=== PATIENT | male | born 1945 | race Caucasian/White ===

== ENCOUNTER 2018-08-16 18:48 | Inpatient (IN) | payer OTHER ==
--- OUTSIDE RECORDS SUMMARY | 2018-08-16 18:53 | XMS REPORT ---
:1945 [facility] Address [address] [place] [address] Dr. Forrester [address] [place] [id number] Care Team Providers Name Role Phone Unavailable Unavailable Unavailable Problems This patient has no known problems. Allergies, Adverse Reactions, Alerts This patient has no known allergies or adverse reactions. Medications This patient has no known medications.
--- NOTE | 2018-08-16 20:17 | RAD REPORT ---
EXAM DESCRIPTION: RAD - Chest Single View - 08/16/2018 8:09 pm CLINICAL HISTORY: RUQ pain, chills Chest pain. COMPARISON: No comparisons FINDINGS: Portable technique limits examination quality. Mild emphysematous changes are present throughout the lungs. The heart is mildly prominent size with multilead pacer/defibrillator device present. No displaced fractures.Sternotomy wires present. IMPRESSION: Mild COPD.
--- NOTE | 2018-08-16 21:00 | RAD REPORT ---
EXAM DESCRIPTION: US - Abdomen Exam Limited - 08/16/2018 8:53 pm CLINICAL HISTORY: ABD PAIN COMPARISON: No comparisons FINDINGS: The gallbladder demonstrates several shadowing gallstones. Gallbladder wall is thickened a nd edematous measuring up to 9 mm. The common bile duct is mildly prominent measuring 7 mm. The liver demonstrates no findings of intrahepatic biliary dilatation. IMPRESSION: Cholelithiasis with sonographic findings of early acute cholecystitis seen.
[2018-08-16] MEDS ORDERED: ONDANSETRON 4 MG/2 ML VIAL ONE (21:13)
[2018-08-16 21:14] LABS: Absolute Lymphocytes (CBC) 1.3 K/uL (0.7-4.9); Absolute Monocytes 0.6 K/uL (0.1-1.3); Absolute Neutrophil 8.6 K/uL (1.8-8.0); Basophils % 0.4 % (0-1.3); Eosinophils % 0.3 % (0-4.4); Hematocrit 39.4 % (39.6-49.0); Lymphocytes % 12.6 % (15.3-44.8); MPV 8.9 fL (7.6-11.3); Monocytes % 5.9 % (3.3-12.3); RBC Red Blood Cell Count 4.36 M/uL (4.33-5.43)
[2018-08-16 21:33] LABS: Albumin 2.8 g/dL (3.4-5.0); Bilirubin Direct 1.3 mg/dL (0-0.2); Bilirubin Total 1.8 mg/dL (0.2-1.0); Potassium 4.3 mmol/L (3.5-5.1); Protein, Total 8.2 g/dL (6.4-8.2)
--- NOTE | 2018-08-16 21:55 | RAD REPORT ---
EXAM DESCRIPTION: CTAbdomen Pelvis W Contrast - 08/16/2018 9:45 pm CLINICAL HISTORY: Abdominal pain. ABD PAIN COMPARISON: Abdomen Exam Limited dated 08/16/2018; Chest Single View dated 08/16/2018 TECHNIQUE: Biphasic CT imaging of the abdomen and pelvis was performed with 100 ml non-ionic IV cont rast. All CT scans are performed using dose optimization technique as appropriate and may include automated exposure control or mA/KV adjustment according to patient size. FINDINGS: The lung bases are clear. The liver, spleen, pancreas, adrenal glands and kidneys are within normal limits. Small cysts are pre sent in both kidneys, benign. Mildly complex lesion is seen projecting off the inferolateral pole the right kidney measuring 22 x 18 mm. The gallbladder wall is thickened and mild inflammatory changes are seen in the right upper quadrant. No bowel obstruction, free air, free fluid or abscess. The appendix is normal. No evidence of signi ficant lymphadenopathy. The bones are demineralized. An mild degenerative changes of the lumbar spine. IMPRESSION: Acute cholecystitis is suspected. Mildly complex lesion is seen projecting from the inferior pole of the right kidney (22 x 18 mm). Fol lowup nonemergent MR imaging of the kidneys with contrast would be recommended.
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
[2018-08-17] MEDS ORDERED: CEFTRIAXONE/SWI 1gm 1 GM/10 ML SYR ONE (00:12)
[2018-08-17] MEDS ORDERED: METRONIDAZOLE 500mg IVPB 500 MG/100 ML BAG IV ONE (00:12)
[2018-08-17] MEDS ORDERED: ACETAMINOPHEN 500 MG TAB PO PRN (02:17)
[2018-08-17] MEDS ORDERED: ALBUTEROL 2.5 MG/3 ML NEB SOL NEB PRN (02:17)
[2018-08-17] MEDS ORDERED: IPRATROPIUM BROM 0.5MG/2.5ML NEB PRN (02:17)
[2018-08-17] MEDS ORDERED: ONDANSETRON 4 MG/2 ML VIAL IV PRN (02:17)
[2018-08-17] MEDS: NA CHLORIDE 0.9% 1,000 ML IV SCH ×4 (03:43→22:17)
[2018-08-17] MEDS: CIPROFLOXACIN 400mg IV 400 MG/200 ML BAG IV SCH ×2 (04:00→16:33)
[2018-08-17] MEDS ORDERED: NA CHLORIDE 0.9% 1,000 ML IV ONE (04:14)
[2018-08-17 04:50] LABS: Urine Appearance CLEAR; Urine Bilirubin NEGATIVE (NEG); Urine Blood NEGATIVE (NEG); Urine Color YELLOW; Urine Glucose NEGATIVE (NEG); Urine Protein NEGATIVE (NEG); Urine Specific Gravity >=1.030 (1.005-1.030)
[2018-08-17 05:15] LABS: Urine Microscopic Reflex ORDER UMIC
[2018-08-17 05:26] LABS: Urine Bacteria 20-50 /HPF (NONE SEEN); Urine Culture Reflex Order REFLEXED; Urine RBC NONE SEEN /HPF (NONE SEEN)
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
[2018-08-17] MEDS: METRONIDAZOLE 500mg IVPB 500 MG/100 ML BAG IV SCH ×3 (08:20→23:12)
[2018-08-17] MEDS: KETOROLAC 30 MG/ML INJ IV PRN (10:38)
--- NOTE | 2018-08-17 15:06 | EKG ---
Test Date: 2018-08-17 Test Time: 12:49:10 Velocity Shooter: RUDY MEASUREMENT RESULTS: Intervals: Rate: 60 OR: 256 QRSD: 170 QT: 462 QTc: 462 Vincent: P: OR: 256 QRS: -60 T: 80 INTERPRETIVE STATEMENTS: Electronic atrial pacemaker Left axis deviation Right bundle branch block Abnormal ECG No previous ECG available for comparison Electronically Signed On 08-17-18 15:05:59 RN REHAB by Juventino Headley
--- NOTE | 2018-08-17 15:28 | ECHO ---
HEIGHT: 6 ft 1 in WEIGHT: 206 lb 0 oz DATE OF STUDY: 08/17/[address]: Juventino Headley MD 2-DIMENSIONAL: YES M.MODE: YES DOPPLER: YES COLOR FLOW: YES TDS: NO PORTABLE: NO DEFINITY: NO BUBBLE STUDY: NO DIAGNOSIS: CORONARY ARTERY DISEASE CARDIAC HISTORY: CATHERIZATION: YES SURGERY: YES PROSTHETIC VALVE: NO PACEMAKER: YES MEASUREMENTS (cm) DIASTOLIC (NORMALS) SYSTOLIC (NORMALS) IVSd 1.3 (0.6-1.2) LA Diam 4.7 (1.9-4.0) LVEF 55-59% LVIDd 5.8 (3.5-5.7) LVIDs 4.3 (2.0-3.5) %FS 27% LVPWd 1.3 (0.6-1.2) Ao Diam 3.2 (2.0-3.7) 2 DIMENSIONAL ASSESSMENT: RIGHT ATRIUM: DILATED LEFT ATRIUM: DILATED RIGHT VENTRICLE: PACEMAKER CATHETER LEFT VENTRICLE: LEFT VENTRICULAR HYPERTROPHY TRICUSPID VALVE: NORMAL MITRAL VALVE: NORMAL PULMONIC VALVE: NORMAL AORTIC VALVE: NORMAL PERICARDIAL EFFUSION: NONE AORTIC ROOT: NORMAL LEFT VENTRICULAR WALL MOTION: NORMAL. DOPPLER/COLOR FLOW: MILD MITRAL AND TRICUSPID REGURGITATION. COMMENTS: NORMAL LEFT VENTRICULAR EJECTION FRACTION. LEFT VENTRICULAR HYPERTROPHY. DILATED LEFT ATRIUM. MILD MITRAL AND TRICUSPID REGURGITATION. ESTIMATED RIGHT VENTRICULAR SYSTOLIC PRESSURE 40mmHg (MILD PULMONARY HYPERTENSION). PACEMAKER IN RIGHT VENTRICLE. TECHNOLOGIST: GUNNAR WARREN
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
[2018-08-17] MEDS: HYDRALAZINE HCL 25 MG TABLET PO SCH (20:52)
[2018-08-17] MEDS: TERAZOSIN HCL 5 MG CAP PO SCH (20:52)
[2018-08-17] MEDS: CARVEDILOL 25 MG TAB PO SCH (20:52)
[2018-08-17] MEDS: BUSPIRONE HCL 15 MG TABLET PO SCH (20:52)
[2018-08-18] MEDS: KETOROLAC 30 MG/ML INJ IV PRN ×2 (01:20→09:14)
[2018-08-18] MEDS: CIPROFLOXACIN 400mg IV 400 MG/200 ML BAG IV SCH ×2 (04:03→15:00)
[2018-08-18] MEDS: NA CHLORIDE 0.9% 1,000 ML IV SCH ×4 (04:03→23:27)
[2018-08-18 06:11] LABS: Absolute Lymphocytes (CBC) 1.6 K/uL (0.7-4.9); Absolute Monocytes 0.6 K/uL (0.1-1.3); Absolute Neutrophil 4.1 K/uL (1.8-8.0); Basophils % 0.5 % (0-1.3); Eosinophils % 0.6 % (0-4.4); Hematocrit 32.8 % (39.6-49.0); MPV 9.5 fL (7.6-11.3); Monocytes % 9.8 % (3.3-12.3); RBC Red Blood Cell Count 3.57 M/uL (4.33-5.43)
[2018-08-18 06:17] LABS: BUN Blood Urea Nitrogen 8 mg/dL (7-18); Bicarbonate 25 mmol/L (21-32); Glucose Level 146 mg/dL (74-106); Magnesium 2.2 mg/dL (1.8-2.4); Potassium 4.2 mmol/L (3.5-5.1); Sodium Level 140 mmol/L (136-145)
[2018-08-18 06:55] LABS: Protime INR 1.18
[2018-08-18] MEDS: ATORVASTATIN 10 MG TAB PO SCH (09:00)
[2018-08-18] MEDS: VITAMIN D 400 UNIT TAB PO SCH (09:00)
[2018-08-18] MEDS: BUSPIRONE HCL 15 MG TABLET PO SCH ×2 (09:00→21:01)
[2018-08-18] MEDS: HYDRALAZINE HCL 25 MG TABLET PO SCH ×2 (09:00→21:02)
[2018-08-18] MEDS: CARVEDILOL 25 MG TAB PO SCH ×2 (09:00→21:02)
[2018-08-18] MEDS ORDERED: DIGOXIN 0.125 MG TABLET PO SCH (09:00)
[2018-08-18] MEDS: DIGOXIN 0.25 MG/ML AMP IV SCH (09:04)
[2018-08-18] MEDS: METRONIDAZOLE 500mg IVPB 500 MG/100 ML BAG IV SCH ×3 (09:04→23:26)
[2018-08-18 10:54] LABS: Albumin 2.1 g/dL (3.4-5.0); Bilirubin Direct 0.3 mg/dL (0-0.2); Bilirubin Total 0.6 mg/dL (0.2-1.0); Protein, Total 6.2 g/dL (6.4-8.2)
--- NOTE | 2018-08-18 11:04 | P.PN ---
Subjective Date of Service: 08/18/18 Chief Complaint: acute cholecystitis Pt seen and examined at bedside. Chart Reviewed. Case DW with GI and surgery. This AM pt doing well. No c.o. Denied N/V and abd pain. Planned for ERCP today Review of Systems 10-point ROS is otherwise unremarkable Physical Examination - Vital Signs Temperature: 97.7 F Blood Pressure: 101/58 Pulse: 60 Respirations: 18 Pulse Ox (%): 94 - Physical Exam General: Alert, In no apparent distress HEENT: Atraumatic, PERRLA, EOMI Neck: Supple, JVD not distended Respiratory: Clear to auscultation bilaterally, Normal air movement Cardiovascular: Regular rate/rhythm, Normal S1 S2 Gastrointestinal: Normal bowel sounds, No tenderness Musculoskeletal: No tenderness Integumentary: No rashes Neurological: Normal speech, Normal tone, Normal affect Lymphatics: No axilla or inguinal lymphadenopathy - Studies Medications List Reviewed: Yes Assessment And Plan - Current Problems (Diagnosis) (1) Cholecystitis Onset Date: 08/18/18 Current Visit: Yes Status: Acute Plan: Acute Cholecystitis with Elevated LFT's -Possible Cholidocholicysitis. Unable to Do MRCP due to Pacemaker -GI consulted. Appreciated reccs -Planned for ERCP today -Continue with NPO, IV fluids and IV abx - Cipro and flagyl -Will f.u post ERCP -Cleared for surgery -ASA and plavix on hold. (2) CAD (coronary artery disease) Onset Date: 08/18/18 Current Visit: Yes Status: Chronic Qualifiers: Coronary Disease-Associated Artery/Lesion type: bypass graft, other Associated angina: without angina Qualified Code(s): I25.810 - Atherosclerosis of coronary artery bypass graft(s) without angina pectoris (3) HTN (hypertension) Onset Date: 08/18/18 Current Visit: Yes Status: Chronic Qualifiers: Hypertension type: essential hypertension Qualified Code(s): I10 - Essential (primary) hypertension Discharge Plan: Home Plan to discharge in: 48 Hours - Code Status/Comfort Care Code Status Assessed: Yes Critical Care: No
[2018-08-18] MEDS ORDERED: SIMETHICONE 40 MG/ 0.6 ML ONE (12:00)
[2018-08-18] MEDS ORDERED: LIDOCAINE 1% MPF 5 ML VIAL ONE (12:22)
[2018-08-18] MEDS ORDERED: PROPOFOL 200 MG/20 ML VIAL IV ONE (12:22)
[2018-08-18] MEDS ORDERED: FENTANYL CITR 100 MCG/2 ML ONE (12:22)
[2018-08-18] MEDS ORDERED: MIDAZOLAM HCL 2 MG/2 ML INJ ONE (12:22)
--- NOTE | 2018-08-18 13:14 | RAD REPORT ---
EXAM DESCRIPTION: RAD - Fluoroscopy ERCP - 08/18/2018 1:05 pm CLINICAL HISTORY: Abdominal pain FINDINGS: 4 fluoroscopic images obtained. Fluoroscopy time 4.1 minute Pancreatic and common bile duct cannulated and contrast administered. Pancreatic duct is normal caliber. Biliary tree is normal caliber. No gross filling defect is seen although there is faint opacification Exam was performed by Dr. Henderson
--- NOTE | 2018-08-18 13:29 | PN ---
Date of Progress Note: 08/18/[address] Randle on 08/17/2018. This is a progress note for 08/18/2018. The patient had an ech ocardiogram showing ejection fraction of 59% with left ventricular hypertrophy, mild pulmonary hypert ension, presence of AICD. The patient has a history of CABG and PCI in the past. Had a recent negat cinthya Lexiscan by Dr. Cameron in [place]. We consider him to be cleared for gallbladder surgery after the echo results. CARLIN/TAMMIE Voice ID: [id number] Report ID: [id number]
--- NOTE | 2018-08-18 14:07 | ENDO RPT ---
[address], [address] ERCP PROCEDURE REPORT EXAM DATE: 08/18/2018 PATIENT NAME: Jose Mckeon MR #: [id number] BIRTHDATE: 1945 ATTENDING: Grover Henderson Dr STATUS: inpatient - [facility] FORMER: Daria Colon RN, Nicolasa Alvarado RN, and Mckayla Lopez INDICATIONS: The patient is a 73 yr old Male here for an ERCP due to abdominal pain, abnormal imaging, abnormal Liver Function Tests, and jaundice PROCEDURE PERFORMED: ERCP with sphincterotomy and ERCP with stent placement MEDICATIONS: Per Anesthesia. CONSENT: The patient understands the risks and benefits of the procedure and understands that these risks include, but are not limited to: sedation, allergic reaction, infection, perforation and/or bleeding. Alternative means of evaluation and treatment include, among others: physical exam, x-rays, and/or surgical intervention. The patient elects to proceed with this endoscopic procedure. DESCRIPTION OF PROCEDURE: During intra-op preparation period all mechanical medical equipment was checked for proper function. Hand hygiene and appropriate measures for infection prevention was taken. Procedure, possible complications, and alternatives including but not limited to the possibility of bleeding, perforation, tear, infection, sepsis, need for surgery, need for blood transfusion, and anesthesia related complications were explained to the patient. In addition, 5-30% incidence of acute pancreatitis as a result of ERCP were explained. After the risks, benefits and alternatives of the procedure were thoroughly explained, Informed was verified, confirmed and timeout was successfully executed by the treatment team. With the patient in left semi-prone position, medications were administered intravenously.The [id number] ([id number]) was passed from the mouth into the esophagus and further advanced from the esophagus into the stomach. From stomach scope was directed to the second portion of the duodenum. Major papilla was aligned with the duodenoscope. The scope position was confirmed fluoroscopically. Rest of the findings/therapeutics are given below. The scope was then completely withdrawn from the patient and the procedure completed. The pulse, BP, and O2 saturation were monitored and documented by the physician and the nursing staff throughout the entire procedure. The patient was cared for as planned according to standard protocol. The patient was then discharged to recovery in stable condition and with appropriate post procedure care. Filling defect was noted in the common bile duct. Sphincterotomy was performed with a regular 20 mm papillotome. A straight stent was placed. The pancreatic duct was filled to the tail and appeared to be normal. Care was taken not to overfill the ductal system. ADVERSE EVENT: None IMPRESSIONS: 1. Small 2 mm filling defect in the distal common bile duct, extensive cholangiogram - indicative of cholecystitis) 2. The pancreatic duct was filled to the tail and appeared to be normal. Care was taken not to overfill the ductal system. RECOMMENDATIONS: 1. antibiotics 2. cholecystectomy as per surgery REPEAT EXAM: Grover Henderson Dr eSigned: Grover Henderson Dr 08/18/2018 1:04 PM cc: Jose Chung CPT CODES: ICD9 CODES: PATIENT NAME: Jose Mckeon MR#: [id number]
[2018-08-18] MEDS: TERAZOSIN HCL 5 MG CAP PO SCH (21:02)
[2018-08-19] MEDS: KETOROLAC 30 MG/ML INJ IV PRN ×2 (00:31→10:16)
[2018-08-19] MEDS: CIPROFLOXACIN 400mg IV 400 MG/200 ML BAG IV SCH ×2 (02:24→15:00)
[2018-08-19 04:54] LABS: Absolute Lymphocytes (CBC) 1.9 K/uL (0.7-4.9); Absolute Monocytes 0.7 K/uL (0.1-1.3); Absolute Neutrophil 3.6 K/uL (1.8-8.0); Basophils % 0.6 % (0-1.3); Eosinophils % 4.2 % (0-4.4); Hematocrit 31.3 % (39.6-49.0); Monocytes % 10.3 % (3.3-12.3); RBC Red Blood Cell Count 3.44 M/uL (4.33-5.43)
[2018-08-19 05:08] LABS: Protime INR 1.27
[2018-08-19 05:19] LABS: ALT/SGPT 76 U/L (12-78); AST/SGOT 25 U/L (15-37); Albumin 2.1 g/dL (3.4-5.0); Alkaline Phosphatase 181 U/L (45-117); BUN Blood Urea Nitrogen 8 mg/dL (7-18); Bicarbonate 29 mmol/L (21-32); Bilirubin Total 0.4 mg/dL (0.2-1.0); Glucose Level 117 mg/dL (74-106); Potassium 4.2 mmol/L (3.5-5.1); Protein, Total 5.9 g/dL (6.4-8.2); Sodium Level 139 mmol/L (136-145)
--- NOTE | 2018-08-19 07:00 | P.PN ---
Subjective Date of Service: 08/19/18 Chief Complaint: acute cholecystitis, RUQ/VIRGILIO pain Subjective: Improving (Much less abdominal pain today, feels better. s/p ERCP yesterday.) Review of Systems 10-point ROS is otherwise unremarkable Gastrointestinal: Abdominal Pain (Improved. ) Physical Examination - Vital Signs Temperature: 97.7 F Blood Pressure: 132/62 Pulse: 60 Respirations: 18 Pulse Ox (%): 96 - Physical Exam General: Alert, In no apparent distress, Oriented x3, Cooperative HEENT: Atraumatic, Normocephalic, PERRLA, EOMI, Sclerae nonicteric Neck: Supple Respiratory: Normal air movement Cardiovascular: Normal pulses Gastrointestinal: Soft and benign, No tenderness, No rebound, No guarding Neurological: Normal speech - Studies Medications List Reviewed: Yes Assessment And Plan - Current Problems (Diagnosis) (1) RUQ abdominal pain Current Visit: Yes Status: Acute Comment: Improved. (2) Epigastric abdominal pain Current Visit: Yes Status: Acute (3) Abnormal liver enzymes Current Visit: Yes Status: Acute Comment: Improved. (4) Abnormal CT of the abdomen Current Visit: Yes Status: Acute (5) Abnormal ultrasound Current Visit: Yes Status: Acute (6) Cholecystitis Onset Date: 08/18/18 Current Visit: Yes Status: Acute (7) Cholelithiasis Onset Date: 08/18/18 Current Visit: Yes Status: Acute Qualifiers: Cholelithiasis location: gallbladder Cholecystitis presence: with cholecystitis Cholecystitis acuity: acute Biliary obstruction: with biliary obstruction Qualified Code(s): K80.01 - Calculus of gallbladder with acute cholecystitis with obstruction - Plan REC: 1) continue IVFs and IV antibiotics 2) lap nan as per surgery 3) ERCP with stent removal in ~ 3 weeks
[2018-08-19] MEDS: BUSPIRONE HCL 15 MG TABLET PO SCH (09:05)
[2018-08-19] MEDS: VITAMIN D 400 UNIT TAB PO SCH (09:05)
[2018-08-19] MEDS: HYDRALAZINE HCL 25 MG TABLET PO SCH (09:06)
[2018-08-19] MEDS: ATORVASTATIN 10 MG TAB PO SCH (09:07)
[2018-08-19] MEDS: CARVEDILOL 25 MG TAB PO SCH (09:07)
[2018-08-19] MEDS: METRONIDAZOLE 500mg IVPB 500 MG/100 ML BAG IV SCH ×2 (09:09→16:00)
[2018-08-19] MEDS: DIGOXIN 0.25 MG/ML AMP IV SCH (09:13)
--- NOTE | 2018-08-19 11:22 | P.PN ---
Subjective Date of Service: 08/19/18 Chief Complaint: acute cholecystitis, RUQ/VIRGILIO pain Pt seen and examined at bedside. Chart Reviewed. Case DW with GI and surgery. This AM pt doing well. No c.o. Denied N/V and abd pain. Status post ERCP. Today scheduled for lap nan Review of Systems 10-point ROS is otherwise unremarkable Physical Examination - Vital Signs Temperature: 97.4 F Blood Pressure: 132/62 Pulse: 60 Respirations: 20 Pulse Ox (%): 94 - Physical Exam General: Alert, In no apparent distress, Oriented x3 HEENT: Atraumatic, PERRLA, EOMI Neck: Supple, JVD not distended Respiratory: Clear to auscultation bilaterally, Normal air movement Cardiovascular: Regular rate/rhythm, Normal S1 S2 Gastrointestinal: Normal bowel sounds, No tenderness Musculoskeletal: No tenderness Integumentary: No rashes Neurological: Normal speech, Normal tone, Normal affect Lymphatics: No axilla or inguinal lymphadenopathy - Studies Medications List Reviewed: Yes Assessment And Plan - Current Problems (Diagnosis) (1) Cholecystitis Onset Date: 08/18/18 Current Visit: Yes Status: Acute Plan: Acute Cholecystitis with Elevated LFT's -Possible Cholidocholicysitis. Unable to Do MRCP due to Pacemaker -GI consulted. Appreciated reccs -S/P ERCP with Stent Placement -Filling Defect noted. Stent Placement -Continue with NPO, IV fluids and IV abx - Cipro and flagyl -Scheduled for Surgery today -ASA and plavix on hold. (2) CAD (coronary artery disease) Onset Date: 08/18/18 Current Visit: Yes Status: Chronic Qualifiers: Coronary Disease-Associated Artery/Lesion type: bypass graft, other Associated angina: without angina Qualified Code(s): I25.810 - Atherosclerosis of coronary artery bypass graft(s) without angina pectoris (3) HTN (hypertension) Onset Date: 08/18/18 Current Visit: Yes Status: Chronic Qualifiers: Hypertension type: essential hypertension Qualified Code(s): I10 - Essential (primary) hypertension Discharge Plan: Home Plan to discharge in: 72 Hours - Code Status/Comfort Care Code Status Assessed: Yes Critical Care: No
--- NOTE | 2018-08-19 12:19 | P.PN ---
Subjective Date of Service: 08/18/18 Chief Complaint: acute cholecystitis, RUQ/VIRGILIO pain Subjective: New changes (Pt eating [employer] fatty meal brought from outside against medical advise.) Review of Systems Gastrointestinal: Abdominal Pain, As per HPI Physical Examination - Vital Signs Temperature: 97.4 F Blood Pressure: 132/62 Pulse: 60 Respirations: 20 Pulse Ox (%): 94 - Physical Exam General: Alert, Oriented x3 HEENT: PERRLA, EOMI, Sclerae nonicteric Neck: Supple Gastrointestinal: Tenderness Musculoskeletal: No erythema, No tenderness, No warmth Integumentary: No erythema, No warmth, No cyanosis Neurological: Normal speech - Studies Medications List Reviewed: Yes Assessment And Plan - Plan Pt explained non complaint behavior may be life threatening. Previously patient signed AMA from another institution even when he was being treated for same disease. He went home and got worst and came to us but once again its has been difficult to make him understand the importance of compliance. BAR of lap vs open cholecystectomy fully explained including but not limited to infection, bleeding, damage to adjacent structures, choledocholithiasis, damage to adjacent structures, OR even . Pt havinf ERCP due to choledocholithasis, pt advised to also f/u with gastroenterologyst as an outpt
[2018-08-19] MEDS ORDERED: Ringers Lactate 1,000 ML IV ONE (12:30)
[2018-08-19] MEDS ORDERED: BUPIVACAINE 0.5% PF 10 ML VIAL ONE (13:05)
[2018-08-19] MEDS ORDERED: MIDAZOLAM HCL 2 MG/2 ML INJ ONE (13:35)
[2018-08-19] MEDS ORDERED: PROPOFOL 200 MG/20 ML VIAL IV ONE (13:36)
[2018-08-19] MEDS ORDERED: FENTANYL CITR 100 MCG/2 ML ONE (13:37)
[2018-08-19] MEDS ORDERED: LIDOCAINE 2% MPF 5 ML VIAL ONE (13:37)
[2018-08-19] MEDS ORDERED: ONDANSETRON 4 MG/2 ML VIAL ONE (13:38)
[2018-08-19] MEDS ORDERED: ROCURONIUM 50 MG/5 ML VIAL IV ONE (13:38)
[2018-08-19] MEDS ORDERED: GLYCOPYRROLATE 0.2 MG/ML SYR ONE (14:29)
[2018-08-19] MEDS ORDERED: NEOSTIGMINE 1 MG/ML -5 ML SYRINGE ONE (14:31)
--- NOTE | 2018-08-19 14:41 | P.BOP ---
Preoperative diagnosis: acute cholecystitis, sympt cholelithiasis, s/p ERCP with stent Postoperative diagnosis: same , intrabdominal adhesions Primary procedure: Diagnostic laparoscopy Secondary procedure: Laparoscopic lysis of adhesions Estimated blood loss: <5cc Specimen: gb Findings: as above, unable to perform surgery safely at this time. I'll discuss opti Anesthesia: General Complications: None Transferred to: Recovery Room Condition: Good
[2018-08-19] MEDS ORDERED: HYDROCODONE/APAP 7.5/325 MG TAB PO PRN (14:50)
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
--- NOTE | 2018-08-24 21:32 | OP ---
Date of Procedure: 08/19/2018 Surgeon: Jose Chung MD Preoperative Diagnosis: Acute cholecystitis, symptomatic cholelithiasis, status post ERCP with stent . Postoperative Diagnosis: Acute cholecystitis, symptomatic cholelithiasis, status post ERCP with sten t and extensive intraabdominal adhesions. Procedure: Diagnostic laparoscopy and laparoscopic lysis of adhesions. Specimen: Gallbladder finding as above. Unable to remove the gallbladder at this time. We have a l ot of swelling over that area. Please see the bottom part of his dictation for an option. Anesthesia: General plus local. Indications: This is the case of a 73-year-old patient, who has been dealing with on and off abdomin al pain for the last several months but at the same time he is not cooperating and listening to us or to family members about diet control. He has been in and out of different ER, signing out AMA on di fferent occasions, being noncompliant with diet even here in our institution. We asked him not to ea t the night before procedure, he was eating food from outside from [employer] against medical advice . At this time, the patient got antibiotics. Went again through all the process that we have. We h ave to do an ERCP. Once again diet control has been an issue. The benefits and risks of laparoscopi c, possible open cholecystectomy were fully explained to the patient, which include but are not limit ed to infection, bleeding, damage to adjacent structures, anesthesia complication, choledocholithiasi s, bile leak, pancreatitis, GA, and even . He also understood, this may not relieve any symptom s. He might need more than one surgical intervention. We discussed with him the pros and cons of rees rgical intervention, options that we have. In the beginning he was reluctant to do so. This morning he signed a consent to have the surgery done. Description Of Procedure: The patient was brought to the operating room, placed in supine position. Anesthesia was done without complication. The abdominal area was prepped and draped in a sterile fa shion. A Marcaine 0.5% was injected for local anesthetic, followed by sharp incision of the skin in the infraumbilical region. Incision was carried down to fascia, which was opened under direct vision . Peritoneum was encountered, opened under direct vision. Vicryl #1 was placed inside of the fascia . Simran trocar was carefully introduced and no bleeding was obtained. At that moment, I proceeded to take a look at the right upper quadrant. The patient had multiple adhesions. The etiology of addie t is unknown since the patient has no surgeries in that region. So at that moment, I proceeded to pu t a 5-mm trocar in area we see that it is safe to put a trocar and using an Endo Leila we proceeded to take the adhesions down. At this moment we still cannot see the gallbladder. The area of the tra nsverse colon cannot be seen clearly needed to clear those adhesions, so we proceeded slowly to get t he adhesions down till we get access to the gallbladder. We noticed an inflamed gallbladder. We did not see any evidence of gangrene in the gallbladder. Just to proceed over top of the gallbladder wa s difficult enough, going down with adhesions became difficult and there was a lot of swelling presen t in that area and I believe that since we have not examined the colon in that area, I am not sure ex actly these adhesions were coming from there to the gallbladder. I believed it was unsafe to continu e with the gallbladder at this moment. After discussing that with the patient's family, aakash g the pros and cons of this then we proceeded to hold the cholecystectomy at this moment and we might even do a cholecystostomy to first let the gallbladder cool down and then proceed accordingly. At t hat moment, it will be ideal also to check his last colonoscopy to make sure there is no pathology in the colon causing this kind of reaction and scar tissue. The area of the lysis of adhesions that to ok a significant amount of time was examined once again, no bleeding. At that moment, I proceeded to remove the trocars under direct vision, displaying no bleeding. I closed the fascia with #1 Vicryl and irrigated subcu tissue and closed that with 3-0 chromic and the skin with ravi. Sponge count and instrument counts were correct. The patient tolerated the procedure well. The patient was sent to recovery in stable condition. After he woke up, we once again explained to him the importance of antibiotics, importance of diet control. I discussed the case with the primary doctor also and the p ossibility of transfer for a percutaneous cholecystostomy tube. The patient preferred to go home on p.o. antibiotics and cool it down sometimes that could be successful sometimes not. Due to the histo ry of his noncompliance it is hard for me to believe that may be a feasible option. He is going to t hink about it and he is going to talk to his and then let me know which way he wants to proceed. In the meantime, we going to continue with the antibiotics and diet control. BLAKE Voice ID: [id number] Report ID: [id number]
== END 2018-08-19 18:52 | disposition left against medical advice (07) | DRG 422 ==
LOC: ER 18:48 → ERHOLD 08-17 00:07 → 2ND 08-17 02:11
PROVIDERS: ADMIT Internal Medicine; ATTEND Family Medicine
PROC: 0F798DZ Dilation of Common Bile Duct with Intraluminal Device, Via Natural or Artificial Opening Endoscopic (ICD-10-PCS; 2018-08-18)
PROC: BF11YZZ Fluoroscopy of Biliary and Pancreatic Ducts using Other Contrast (ICD-10-PCS; 2018-08-18)
PROC: 0DNW4ZZ Release Peritoneum, Percutaneous Endoscopic Approach (ICD-10-PCS; 2018-08-19)
PROC: 0WJG4ZZ Inspection of Peritoneal Cavity, Percutaneous Endoscopic Approach (ICD-10-PCS; principal; 2018-08-19 13:45)
DX: K80.01 Calculus of gallbladder with acute cholecystitis with obstruction (principal); I10 Essential (primary) hypertension; I25.10 Atherosclerotic heart disease of native coronary artery without angina pectoris; Z95.1 Presence of aortocoronary bypass graft; Z91.11 Patient's noncompliance with dietary regimen; I25.2 Old myocardial infarction; Z99.3 Dependence on wheelchair; F17.210 Nicotine dependence, cigarettes, uncomplicated; R94.5 Abnormal results of liver function studies; Z95.810 Presence of automatic (implantable) cardiac defibrillator; I51.7 Cardiomegaly; I27.20 Pulmonary hypertension, unspecified; K66.0 Peritoneal adhesions (postprocedural) (postinfection)
CPT/HCPCS: 36415; 71045; 74177; 76705; 80048; 80053; 80076; 81003; 81015; 83690; 83735; 85025; 85610; 85730; 87086; 87088; 93005; 93306; 94760; 96365; 96375; 99285; C1769; C2625; J0696; J0744; J1160; J2250; J2405; J2704; J2710; J3010; J7030; Q9967

== ENCOUNTER 2018-09-15 09:45 | Day surgery (SDC) | payer OTHER ==
--- OUTSIDE RECORDS SUMMARY | 2018-09-15 09:58 | XMS REPORT ---
:1945 [facility] Address [address] [place] [address] Dr. Forrester [address] [place] [id number] Care Team Providers Name Role Phone Unavailable Unavailable Unavailable Problems This patient has no known problems. Allergies, Adverse Reactions, Alerts This patient has no known allergies or adverse reactions. Medications This patient has no known medications.
--- OUTSIDE RECORDS SUMMARY | 2018-09-15 09:58 | XMS REPORT | Continuity of Care Document ---
:1945 Author Organization Interface Problems Problem Status Onset Classification Date Comments Source Date Reported [place] Active 09/01/19 [facility] [facility] CCL/ICD GENERATOR Active 09/01/19 [facility] CHANGE/SJ/DX: [place] 14 Medical Kimberly ABDOMINAL AORTIC Active 02/18/20 [facility] CCL/ CHEST PAIN/ Active 01/22/20 [facility] POSS, ABD 12 [facility] AORTOGRAM Center Coronary artery Active Problem 02/26/2013 [facility] Muscle paralysis Active Problem 02/26/2013 [facility] Pain Active Problem 02/26/2013 [facility] Peripheral Active Problem 02/26/2013 [facility] CAD Resolved Problem 09/08/2013 [facility] COPD Resolved Problem 09/08/2013 [facility] Coronary artery Active Problem 09/08/2013 [facility] HTN Resolved Problem 09/08/2013 [facility] Hyperlipidemia Resolved Problem 09/08/2013 [facility] Hypothyroidism Resolved Problem 09/08/2013 [facility] Muscle paralysis Active Problem 09/08/2013 [facility] Pain Active Problem 09/08/2013 [facility] Peripheral Active Problem 09/08/2013 [facility] ABDOM AORTIC Active [facility] Medications Medication Details Route Status Patient Ordering Order Source Instructions Provider Date Saline Flush 5 ml, Inactive Javier [facility] 0.9% Route: 014 Medical IVP, Drug Center Form: INJ, Dosing Weight 86.364, kg, Q12H, Start date: 09/06/13 21:00:00, Duration: 30 day, Stop date: 10/06/13 9:00:00([facility] as: BD Posiflush) ceFAZolin 2 gm, 50 Inactive Javier [facility] mL, Route: 014 Medical IVPB, Drug Center form: INJ, Q6H, Dosing Weight 86.364, kg, Start date: 09/06/13 14:00:00, Duration: 1 doses or times, Stop date: 09/06/13 14:00:00 Keflex 500 mg 500 mg=1 Active [facility] oral capsule cap, PO, 014 Medical QID, # 8 Center cap, 0 Refill(s) acetaminophen-c 2 tab, Inactive [facility] odeine #3 Route: PO, 014 Medical Drug Form: Center TAB, Dosing Weight 86.364, kg, Q4H, PRN Pain Score 7-10, Start date: 09/06/13 9:47:00, Duration: 30 day, Stop date: 10/06/13 9:46:00Do not exceed 4gm/day of acetaminop hen. (Same as: Tylenol with Codeine # 3) promethazine 12.5 mg, Inactive [facility] 0.5 mL, 014 Medical Route: IM, Center Drug form: INJ, Q4H, Dosing Weight 86.364, kg, PRN Nausea, Start date: 09/06/13 9:47:00, Duration: 30 day, Stop date: 10/06/13 9:46:00Do not give IV push. (Same as: Phenergan) ondansetron 4 mg, 2 Inactive [facility] [place] mL, Route: 014 Medical IVP, Drug Center form: INJ, Q8H, Dosing Weight 86.364, kg, PRN Nausea & Vomiting, Start date: 09/06/13 9:47:00, Duration: 30 day, Stop date: 10/06/13 9:46:00(Sa me as: Zofran) Saline Flush 5 ml, Inactive [facility] 0.9% Route: 014 Medical IVP, Drug Center Form: INJ, Dosing Weight 86.364, kg, PRN, PRN Line Flush, Start date: 09/06/13 9:47:00, Duration: 30 day, Stop date: 10/06/13 9:46:00(Sa me as: BD Posiflush) morphine 2 mg, 1 Inactive [facility] Sulfate mL, Route: 014 Medical IVP, Drug Center form: INJ, Q2H, Dosing Weight 86.364, kg, PRN Pain, Start date: 09/06/13 9:46:00, Duration: 30 day, Stop date: 10/06/13 9:45:00(Sa me as:MORPhin e Sulfate) Valium 5 mg, 1 Inactive [facility] tab, 014 Medical Route: PO, Center Drug form: TAB, ONCALL, Dosing Weight 84.091, kg, Start date: 09/06/13 8:00:00, Duration: 1 doses or times, Stop date: 09/06/13 17:00:00(S bethany as: Valium) Allergies, Adverse Reactions, Alerts Substance Category Reaction Severity Reaction Status Date Comments Source type Reported predniSONE drug dysrythmias Allergy [facility] triamterene drug Allergy [facility] Immunizations Immunization Date Given Site Status Last Updated Comments Source Results Order Results Value Reference Date Interpretation Comments Source Name Range BLOOD ABO/Rh A POS 09/06 [facility] Medical RESULTS Kimberly BLOOD Antibody Negative 09/06 Normal [facility] Scrn Medical RESULTS (09/06/2013 07:30:00) Kimberly Aorta US Aorta US EXAM: US ABDOMEN LIMITED 02/24 - [facility] - Medical Aorta US This report was dictated by a Grooving Machine Operator/Fellow. I have personally reviewed the images as Center well as the Resident's interpretation and agree with the findings. Read by: Nino Jimenez Resident: Nino Jimenez Dictated Date/time: 02/24/13 14:31 DATE: Feb 24, 2013 01:42:00 PM Electronically Signed by: Ran St MD 02/24/13 16:22 FINAL REPORT INDICATION: Abdominal aortic aneurysm ADDITIONAL INFORMATION: None. COMPARISON: None. TECHNIQUE: Multiplanar grayscale and color Doppler ultrasound images of the abdomen were obtained. FINDINGS: The aorta is not well visualized due to overlying bowel gas and body habitus. Only the most superior segment the upper abdomen is seen which is normal in caliber measuring 2.5 x 2.1 cm. IMPRESSION: 1. Limited evaluation for abdominal aortic aneurysm as a majority of the aorta is not seen. Consider CT for further evaluation. Vital Signs Vital Sign Value Date Comments Source Systolic (mm Hg) 124 09/06/2013 [facility] Diastolic (mm Hg) 59 09/06/2013 [facility] Systolic (mm Hg) 125 09/06/2013 [facility] Diastolic (mm Hg) 59 09/06/2013 [facility] Systolic (mm Hg) 125 09/06/2013 [facility] Diastolic (mm Hg) 59 09/06/2013 [facility] Respitory Rate 16 09/06/2013 [facility] Weight 86.364 09/06/2013 [facility] Height 185.42 cm 09/06/2013 [facility] Respitory Rate 16 09/06/2013 [facility] Encounters Location Location Encounter Encounter Reason Attending ADM DC Status Source Details Type Number For Visit Provider Date Date [facility] FANNIE [id number] CCL/ MAZEN 01/23 Active [facility] CHEST [facility] /2011 [facility] PAIN/ [facility] POSS, ABD AORTOGRAM [facility] Outpatient [id number] ABDOMINAL MAZEN 02/24 Active [facility] AORTIC [facility] /2012 [facility] ANURYSM Center [facility] FNANIE [id number] PING [place]YLE 09/06 09/06 Active [facility] /2013 Medical [facility] Center [facility] FANNIE [id number] MAZEN Active [facility] Center Procedures Procedure Code Date Perfomer Comments Source CABG - Coronary [id number] [facility] artery bypass graft [facility] ICD - Internal [id number] [facility] cardiac [facility] defibrillator Kimberly procedure
--- OUTSIDE RECORDS SUMMARY | 2018-09-15 09:58 | XMS REPORT | CCD ---
:1945 Author Organization [facility] Care Team Providers Name Role Phone Martínez Taveras Primary Care Provider Aubrey Mcmillan Referring Provider Allergies, Adverse Reactions, Alerts Substance Reaction Status predniSONE dysrythmias Active triamterene Active Problem List Condition Effective Dates Status Coronary artery disease Active Muscle paralysis Active Pain Active Peripheral vascular disease Active
--- OUTSIDE RECORDS SUMMARY | 2018-09-15 09:58 | XMS REPORT | CCD ---
:1945 Author Organization [facility] Care Team Providers Name Role Phone Martínez Taveras Primary Care Provider Diana Herrera Referring Provider Allergies, Adverse Reactions, Alerts Substance Reaction Status predniSONE dysrythmias Active triamterene Active Problem List Condition Effective Dates Status CAD (coronary artery disease) Resolved COPD Resolved Coronary artery disease Active HTN (hypertension) Resolved Hyperlipidemia Resolved Hypothyroidism Resolved Muscle paralysis Active Pain Active Peripheral vascular disease Active Medications Medication Instructions Start Date End Date Status Keflex 500 mg oral 500 mg=1 cap, PO, QID, # 09/06/2013 Ordered capsule 8 cap, 0 Refill(s) Valium 5 mg, 1 tab, Route: PO, 09/06/2013 09/06/2013 Completed Drug form: TAB, ONCALL, Dosing Weight 84.091, kg, Start date: 09/06/13 8:00:00, Duration: 1 doses or times, Stop date: 09/06/13 17:00:00(Same as: Valium) morphine Sulfate 2 mg, 1 mL, Route: IVP, 09/06/2013 09/06/2013 Discontinued Drug form: INJ, Q2H, Dosing Weight 86.364, kg, PRN Pain, Start date: 09/06/13 9:46:00, Duration: 30 day, Stop date: 10/06/13 9:45:00(Same as:MORPhine Sulfate) ceFAZolin 2 gm, 50 mL, Route: IVPB, 09/06/2013 09/06/2013 Completed Drug form: INJ, Q6H, Dosing Weight 86.364, kg, Start date: 09/06/13 14:00:00, Duration: 1 doses or times, Stop date: 09/06/13 14:00:00 acetaminophen-codeine #3 2 tab, Route: PO, Drug 09/06/2013 09/06/2013 Discontinued Form: TAB, Dosing Weight 86.364, kg, Q4H, PRN Pain Score 7-10, Start date: 09/06/13 9:47:00, Duration: 30 day, Stop date: 10/06/13 9:46:00Do not exceed 4gm/day of acetaminophen. (Same as: Tylenol with Codeine # 3) promethazine 12.5 mg, 0.5 mL, Route: 09/06/2013 09/06/2013 Discontinued IM, Drug form: INJ, Q4H, Dosing Weight 86.364, kg, PRN Nausea, Start date: 09/06/13 9:47:00, Duration: 30 day, Stop date: 10/06/13 9:46:00Do not give IV push. (Same as: Phenergan) ondansetron 4 mg, 2 mL, Route: IVP, 09/06/2013 09/06/2013 Discontinued Drug form: INJ, Q8H, Dosing Weight 86.364, kg, PRN Nausea & Vomiting, Start date: 09/06/13 9:47:00, Duration: 30 day, Stop date: 10/06/13 9:46:00(Same as: Zofran) Saline Flush 0.9% 5 ml, Route: IVP, Drug 09/06/2013 09/06/2013 Discontinued Form: INJ, Dosing Weight 86.364, kg, PRN, PRN Line Flush, Start date: 09/06/13 9:47:00, Duration: 30 day, Stop date: 10/06/13 9:46:00(Same as: BD Posiflush) Saline Flush 0.9% 5 ml, Route: IVP, Drug 09/06/2013 09/06/2013 Canceled Form: INJ, Dosing Weight 86.364, kg, Q12H, Start date: 09/06/13 21:00:00, Duration: 30 day, Stop date: 10/06/13 9:00:00(Same as: BD Posiflush) Vital Signs Most recent to oldest 1 2 3 [Reference Range]: Height 185.42 cm (09/06/2013 07:48:00) Systolic Blood Pressure 124 mmHg 125 mmHg 125 mmHg [90-140 mmHg] (09/06/2013 13:00:00) (09/06/2013 12:45:00) (09/06/2013 12:30: 00) Diastolic Blood Pressure 59 mmHg 59 mmHg 59 mmHg [60-90 mmHg] *LOW* *LOW* *LOW* (09/06/2013 13:00:00) (09/06/2013 12:45:00) (09/06/2013 12:30:00) Respiratory Rate [14-20 16 BRMIN 16 BRMIN BRMIN] (09/06/2013 09:30:00) (09/06/2013 07:30:00) Weight 86.364 kg (09/06/2013 07:48:00) Results BLOOD BANK RESULTS Most recent to oldest [Reference Range]: 1 ABO/Rh A POS *Unknown* (09/06/2013 07:30:00) Antibody Scrn Negative (09/06/2013 07:30:00) Procedures Procedures Date Related Diagnosis CABG - Coronary artery bypass graft ICD - Internal cardiac defibrillator procedure
[2018-09-15] MEDS ORDERED: Ringers Lactate 1,000 ML IV ONE (10:29)
[2018-09-15] MEDS ORDERED: GENTAMICIN SULF 80 MG/2ML INJ ONE (12:04)
[2018-09-15] MEDS ORDERED: LIDOCAINE 1% MPF 5 ML VIAL ONE (12:14)
[2018-09-15] MEDS ORDERED: PROPOFOL 200 MG/20 ML VIAL IV ONE ×2 (12:14→12:15)
--- NOTE | 2018-09-15 12:54 | RAD REPORT ---
EXAM DESCRIPTION: Fluoroscopy for ERCP CLINICAL HISTORY: STENT REMOVAL Abdominal pain FINDINGS: Fluoroscopic images submitted from ERCP procedure. Details and diagnostic findings of the procedure are not available. Total fluoroscopy time: 163 seconds
--- NOTE | 2018-09-15 14:03 | ENDO RPT ---
[address], [address] ERCP PROCEDURE REPORT EXAM DATE: 09/15/2018 PATIENT NAME: Jose Mckeon MR #: [id number] BIRTHDATE: 1945 ATTENDING: [address] STATUS: outpatient APPLICATION SERVICES MANAGER: Nighat Francis RN and Keyanna Ahumada RN INDICATIONS: The patient is a 73 yr old Male here for an ERCP due to stent removal, abdominal pain, abnormal imaging, abnormal Liver Function Tests, and jaundice PROCEDURE PERFORMED: ERCP and ERCP with balloon passage MEDICATIONS: Per Anesthesia. CONSENT: The patient understands the risks and benefits of the procedure and understands that these risks include, but are not limited to: sedation, allergic reaction, infection, perforation and/or bleeding. Alternative means of evaluation and treatment include, among others: physical exam, x-rays, and/or surgical intervention. The patient elects to proceed with this endoscopic procedure. DESCRIPTION OF PROCEDURE: During intra-op preparation period all mechanical medical equipment was checked for proper function. Hand hygiene and appropriate measures for infection prevention was taken. Procedure, possible complications, and alternatives including but not limited to the possibility of bleeding, perforation, tear, infection, sepsis, need for surgery, need for blood transfusion, and anesthesia related complications were explained to the patient. In addition, 5-30% incidence of acute pancreatitis as a result of ERCP were explained. After the risks, benefits and alternatives of the procedure were thoroughly explained, Informed was verified, confirmed and timeout was successfully executed by the treatment team. With the patient in left semi-prone position, medications were administered intravenously.The ED-[id number] ([id number]) and ED-[id number] ([id number]) was passed from the mouth into the esophagus and further advanced from the esophagus into the stomach. From stomach scope was directed to the second portion of the duodenum. Major papilla was aligned with the duodenoscope. The scope position was confirmed fluoroscopically. Rest of the findings/therapeutics are given below. The scope was then completely withdrawn from the patient and the procedure completed. The pulse, BP, and O2 saturation were monitored and documented by the physician and the nursing staff throughout the entire procedure. The patient was cared for as planned according to standard protocol. The patient was then discharged to recovery in stable condition and with appropriate post procedure care. A previous sphincterotomy was noted major papilla. Cannulation of the common bile duct was accomplished. The common bile duct and intrahepatics were normal without filling defects, strictures, or stones. ADVERSE EVENT: None IMPRESSIONS: 1. Previous sphincterotomy at major papilla 2. Cannulation of the common bile duct was accomplished. The common bile duct and intrahepatics were normal without filling defects, strictures, or stones. 9 mm balloon catheter sweep of bile duct performed. No stent identified RECOMMENDATIONS: follow-up: GI clinic 2 week(s) check KUB now REPEAT EXAM: [address] Dr eSigned: [address] Dr 09/15/2018 12:38 PM cc: Reza Fam CPT CODES: ICD9 CODES: PATIENT NAME: Jose Mckeon MR#: [id number]
== END 2018-09-15 12:45 | disposition home or self-care (01) ==
LOC: OR 09:45
PROVIDERS: ATTEND Internal Medicine Gastroenterology
PROC: 0F798ZZ Dilation of Common Bile Duct, Via Natural or Artificial Opening Endoscopic (ICD-10-PCS; principal; 2018-09-15 12:00)
DX: R94.5 Abnormal results of liver function studies (principal); R17 Unspecified jaundice; I10 Essential (primary) hypertension; I25.2 Old myocardial infarction; M19.90 Unspecified osteoarthritis, unspecified site; F17.210 Nicotine dependence, cigarettes, uncomplicated; Z79.82 Long term (current) use of aspirin; Z79.899 Other long term (current) drug therapy
CPT/HCPCS: 43277; J1580; J2704

== ENCOUNTER 2021-12-18 15:29 | Inpatient (IN) | payer OTHER ==
--- OUTSIDE RECORDS SUMMARY | 2021-12-18 15:37 | XMS REPORT | Continuity of Care Document ---
:1945 Author Organization [facility] t Address [address] [place] [address] Care Team Providers Name Role Phone WOODY SIDDIQUI Primary Care Physician Unavailable PAMELA Attending Clinician Unavailable Alvin ALEMAN Attending Clinician Carolann ALEMAN Attending Clinician Pamela ALEMAN Attending Clinician Pillo ALEMAN Attending Clinician Carolina Attending Clinician Unavailable Ash KELLEY Attending Clinician Singer CAMPOS Attending Clinician Faby Santiago MD Attending Clinician Attending Clinician Unavailable Joel CAMPOS Attending Clinician Adrian Edwards MD Attending Clinician Michael ALEMAN Attending Clinician Adrian EDWARDS Attending Clinician Unavailable PAMELA Admitting Clinician Unavailable Pamela ALEMAN Admitting Clinician Carolina Admitting Clinician Unavailable Faby Santiago MD Admitting Clinician Michael ALEMAN Admitting Clinician Payers Payer Name Policy Type Policy Number Effective Date Expiration Date Isabel LAU [id number] 2017 2021 00:00:00 00:00:00 MEDICARE PART A [id number] 1979 \\T\\ [id number] 00:00:00 LISS MATTHEWS [id number] 2021 00:00:00 Problems Condition Condition Condition Status Onset Resolution Last Treating Co mments Source Name Details Category Date Date Treatment Clinician Date AMS AMS Disease Active Univers (altered (altered 4-09 ity of mental mental 00:00: [place] status) status) 00 Medical Branch SOB SOB Disease Active 2019-08 [facility] (shortness (shortness 0-13 it y of of breath[place] breath) [place] 00 [place] Pleural Pleural Disease Active 2019-08 [facility] effusion effusion 0-09 ity of on left on left 00:00: [place] [facility] Pain of Pain of Disease Active 2019-08 Univers upper upper 0-09 ity of abdomen abdomen 00:00: [place] [facility] PAD PAD Disease Active 2019-08 Univers (periphera (periphera 0-09 it y of l artery l artery 00:00: [place] disease) disease) 00 Medica l Branch Coronary Coronary Disease Active 2017-08 Unive rs artery artery 2-29 ity of disease disease 00:00: [place] involving involving 00 Medi sofie [place] Branch coronary coronary artery of artery of [place] heart heart without without angina angina pectoris pectoris S/P S/P Disease Active 2017-08 Univers implantati implantati 2-29 it y of on of on of 00:00: [place] automatic automatic 00 Medi sofie cardiovert cardiovert Br anch er/defibri er/defibri llator llator (AICD) (AICD) Bronchitis Bronchitis Disease Active 2017-08 U nivers 2-29 ity of 00:00: [place] 00 Medical Branch Essential Essential Disease Active 2017-08 Uni vers hypertensi hypertensi 2-29 it y of on on 00:00: [place] [facility] Tobacco Tobacco Disease Active 2017-08 Univers abuse abuse 2-29 ity of 00:00: [place] 00 Medical Branch Dyslipidem Dyslipidem Disease Active 2017-08 U oksana ia ia 2- ity of 00:00: [place] 00 Medical Branch Encounter Encounter Disease Active 2017-08 Uni vers for for 2-29 ity of pre-operat pre-operat 00:00: [place] cinthya cinthya 00 Medical cardiovasc cardiovasc Br cassandra gottlieb clearance clearance Acute Acute Disease Active 2017-08 Univers cholecysti cholecysti 2-28 it y of tis tis 00:00: [place] 00 Medical Branch Atypical Atypical Disease Active 2017-08 Unive rs chest pain chest pain 0-10 it y of 00:00: [place] 00 Medical Branch Allergies, Adverse Reactions, Alerts Allergy Allergy Status Severity Reaction(s) Onset Inactive Treating Comm ents Source Name Type Date Date Clinician Levoflox Drug Active Itching 2019-08 Univers acin Allergy 0-09 ity of 00:00: [place] 00 Medical Branch LEVOFLOX DRUG Active Med ITCHING 2019-08 Univers ACIN INGREDI 0-09 ity of 00:00: [place] [facility] PREDNISO DRUG Active Other-Cmnt Univ ers NE INGREDI 03-21 ity of 00:00: [place] 00 Medical Branch Predniso Propensi Active Other - See Defibril l Univers ne ty to comments 03-21 ator went ity o f adverse 00:00: off [place] reaction 00 shortly Medical s after he Branch took the initial dose. Social History Social Habit Start Date Stop Date Quantity Comments Source Exposure to Not sure [place] of SARS-CoV-2 [facility] (event) Branch Alcohol intake 2021-11-11 2021-11-11 0 /d University of 00:00:00 00:00:00 [facility] Branch Tobacco Comment 2020-05-16 2020-05-16 quit a week ago Univ ersity of 00:00:00 00:00:00 [facility] Tobacco use and 2020-05-16 2020-05-16 Never used Universit y of exposure 00:00:00 00:00:00 [facility] Branch Education 2020-05-12 2020-05-12 20 University of 00:00:00 00:00:00 [facility] Branch History SDOH 2020-05-12 2020-05-12 5 University o f Financial 00:00:00 00:00:00 [facility] Branch History SDSD Food 2020-05-12 2020-05-12 1 Univers ity of Worry 00:00:00 00:00:00 [facility] Branch History SDOH Food 2020-05-12 2020-05-12 1 Univers ity of Scarcity 00:00:00 00:00:00 [facility] Branch History SDSD 2020-05-12 2020-05-12 2 University o f Transport Med 00:00:00 00:00:00 [place] [facility] al Branch History SDSD 2020-05-12 2020-05-12 2 [place] o f Transport Non-Med 00:00:00 00:00:00 [facility] Sex [birth year] At [birth year] Universit y of 00:00:00 00:00:00 [facility] Smoking Status Start Date Stop Date Source Current every day smoker 2020-05-16 00:00:00 Uni versity of [facility] Medications Ordered Filled Start Stop Current Ordering Indication Dosage Frequency Signature Comments Components Source Medication Medication Date Date Medication? Clinician (SIG) Name Name cefTRIAXone Yes 1000mg 1,000 mg, Univers (ROCEPHIN) 4-11 IV ity of 1,000 mg in 03:15: Piggyback, [place] NaCl 0.9% 00 Q24H ABX, Medic al (NS) 50 mL First dose Bra nch MINI-BAG on [place] 11/11/21 at 2215, Until Discontinu ed, Administer over 30 Minutes, 50 mL
Reas on for Anti-Infec tive: Documented Infection< br>Documen traci Infection Site: Urine
D uration of Therapy: 7 days atorvastati Yes 10mg 10 mg, Univ ers n (LIPITOR) 4-11 Oral, QHS, it y of tablet 10 02:00: First dose [place] mg 00 on [facility] 11/11/21 at Branch 2100, Until Discontinu ed, Routine gabapentin Yes 100mg 100 mg, Uni vers (NEURONTIN) 4-10 Oral, TID, it y of capsule 100 19:00: First dose [place] mg 00 on [facility] 11/11/21 at Branch 1400, Until Discontinu ed, Routine iron 2021- Yes 300mg 300 mg, IV Unive rs sucrose 4-10 04-14 Infusion, ity of (VENOFER) 18:30: 13:59 DAILY, [place] 300 mg in 00 :00 Administer Medi sofie NaCl 0.9% over 2.5 Branch (NS) 250 mL Hours, infusion First dose on [place] 11/11/21 at 1330, For 4 doses amiodarone 2022-0 Yes 200mg 200 mg, Uni vers (PACERONE) 4-10 Oral, ity of tablet 200 14:30: DAILY, [place] mg 00 First dose Medical on [facility] 11/11/21 at 0930, Until Discontinu ed, Routine glipiZIDE Yes 10mg 10 mg, Univer s (GLUCOTROL) 4-10 Oral, ity of tablet 10 14:00: DAILY, [place] mg 00 First dose Medical on [facility] 11/11/21 at 0900, Until Discontinu ed, Routine clopidogreL 0 Yes 75mg 75 mg, Univ ers (PLAVIX) 75 4-10 Oral, ity of mg tablet 14:00: DAILY, [place] 75 mg 00 First dose Medical on [facility] 11/11/21 at 0900, Until Discontinu ed, Routine enoxaparin Yes 40mg 40 mg, Unive rs (LOVENOX) 4-10 Subcutaneo ity of injection 14:00: us, DAILY, [place] 40 mg 00 First dose Medical on [facility] 11/11/21 at 0900, Until Discontinu ed, Routine atorvastati Yes 10mg Take 10 mg Univers n 10 mg 4-10 by mouth ity of tablet 13:49: at bedtime. Medical Branch Cholecalcif Yes Take by Un adair georgette, 4-10 mouth. ity of Vitamin D3, 13:49: [place] 50 mcg 02 Medical (2,000 Branch unit) capsule gabapentin Yes 100mg Take 100 Un adair 100 mg 4-10 mg by ity of capsule 13:49: mouth 3 02 (three) Medical times Branch daily. venlafaxine Yes 150mg Take 150 U nivers XR 150 mg 4-10 mg by ity of 24 hr 13:49: mouth [place] capsule 02 daily with Medica l breakfast. Branch glipiZIDE 0 Yes 10mg Take 10 mg Un adair 10 mg 4-10 by mouth ity of tablet 13:49: daily. [place] [address] Medical Branch digoxin 125 0 Yes 125ug Take 125 U nivers mcg (0.125 4-10 mcg by ity of mg) tablet 13:49: mouth [place] 02 daily. Medical Branch metFORMIN 0 Yes 500mg Take 500 Uni vers 500 mg 24 4-10 mg by ity of hr tablet 13:49: mouth [place] 02 daily with Medical breakfast. Branch diazePAM 5 Yes 5mg Take 5 mg Un adair mg tablet 4-10 by mouth 3 ity of 13:49: (three) [place] 02 times Medical daily. Branch terazosin 5 Yes 5mg Take 5 mg U nivers mg capsule 4-10 by mouth ity o f 13:49: at [place] 02 bedtime. Medical Branch busPIRone Yes 15mg Take 15 mg Un adair 15 mg 4-10 by mouth 3 ity of tablet 13:49: (three) [place] 02 times Medical daily. Branch sildenafiL Yes Take by Uni vers 100 mg 4-10 mouth. ity of tablet 13:49: Medical Branch clopidogreL Yes 75mg Take 75 mg Univers 75 mg 4-10 by mouth ity of tablet 13:49: daily. [place] Medical Branch HYDROcodone Yes 1{tbl} Take 1 Un adair -acetaminop 4-10 tablet by ity of hen 10-325 13:49: mouth [place] mg tablet 02 every 6 Medical (six) Branch hours as needed. amiodarone Yes 200mg Take 200 Un adair 200 mg 4-10 mg by ity of tablet 13:49: mouth daily. Medical Branch venlafaxine Yes 150mg 150 mg, Un adair XR (EFFEXOR 4-10 Oral, QAM ity of XR) 24 hr 13:45: WITH [place] capsule 150 00 BREAKFAST, Me dical mg First dose Branch on [place] 11/11/21 at 0845, Until Discontinu ed, Routine diazePAM Yes 5mg 5 mg, Univers (VALIUM) 4-10 Oral, TID, ity o f tablet 5 mg 13:45: First dose [place] 00 on [facility] 11/11/21 at Branch 0845, Until Discontinu ed, Routine HYDROcodone 0 Yes 1{tbl} 1 tablet, Univers -acetaminop 4-10 Oral, ity of hen (NORCO) 13:44: Q6HPRN, Dar as 10-325 mg 20 Starting Medica l tablet 1 on [place] Branch tablet 11/11/21 at 0844, Until Discontinu ed, Routine, Pain (scale 7-10) furosemide 0 Yes 20mg 20 mg, Unive rs (LASIX) 4-10 Slow IV ity of injection 13:00: Push, [place] 20 mg 00 Q12H, Medical First dose Branch on 11/11/21 at 0800, Until Discontinu ed, Routine ondansetron 2021-0 Yes 4mg 4 mg, Slow Univers (ZOFRAN 4-10 IV Push, ity of (PF)) 03:43: Q6HPRN, [place] injection 4 03 Starting Medi sofie mg on Sat Branch 11/10/21 at 2243, Until Discontinu ed, Routine, Nausea and Vomiting (N/V) acetaminoph 2021-0 Yes 650mg 650 mg, Un adair en 4-10 Oral, ity of (TYLENOL) 03:42: Q6HPRN, [place] tablet 650 50 Starting Medic al mg on [facility] Branch 11/10/21 at 2242, Until Discontinu ed, Routine, Pain (scale 1-3), Temp > 38.5 C cefTRIAXone 2021-0 2022- No 1000mg 1,000 mg, Univers (ROCEPHIN) 4-10 04-10 IV ity of 1,000 mg in 03:30: 03:48 Piggyback, [place] NaCl 0.9% 00 :00 ONCE, 1 Medical (NS) 50 mL dose, On Branc h MINI-BAG [facility] 11/10/21 at 2230, Administer over 30 Minutes, 50 mL
R jalen for Anti-Infec tive: Documented Infection< br>Documen traci Infection Site: Urine<br&g t;Duration of Therapy: Other (see Comments) ondansetron 2021-0 2022- No 4mg 4 mg, Slow Univers (ZOFRAN 4-10 04-10 IV Push, ity of (PF)) 02:15: 01:41 ONCE, 1 [place] injection 4 00 :00 dose, On Medi sofie mg [facility] 11/10/21 Branch at 2115, [place] naloxone 2021-0 2021- No .4mg 0.4 mg, Unive rs (NARCAN) 4-10 04-10 Intravenou ity of injection 02:15: 02:15 s, ONCE, 1 [place] 0.4 mg 00 :00 dose, On Medical 11/10/21 Branch at 2115, [place] amoxicillin 2022-0 2021- Yes [id number] 1{tbl} Take 1 Univers -clavulanat 4-10 04-18 tablet by it y of e 00:00: 04:59 mouth 2 [place] (AUGMENTIN) 00 :00 (two) Medical 875-125 mg times Branch per tablet daily for 7 days. atorvastati 2019-08 Yes 10mg Take 10 mg Univers n 10 mg 0-20 by mouth ity of tablet 23:57: at [place] [address] bedtime. Medical Branch Cholecalcif 2019-08 Yes Take by Un adair georgette, 0-20 mouth. ity of Vitamin D3, 23:57: [place] 50 mcg 42 Medical (2,000 Branch unit) capsule gabapentin 2019-08 Yes 100mg Take 100 Un adair 100 mg 0-20 mg by ity of capsule 23:57: mouth 3 [place] [address] (three) Medical times Branch daily. venlafaxine 2019-08 Yes 150mg Take 150 U nivers XR 150 mg 0-20 mg by ity of 24 hr 23:57: mouth [place] capsule 42 daily with Medica l breakfast. Branch glipiZIDE 2019-08 Yes 10mg Take 10 mg Un adair 10 mg 0-20 by mouth ity of tablet 23:57: daily. [place] [address] Medical Branch digoxin 125 2019-08 Yes 125ug Take 125 U nivers mcg (0.125 0-20 mcg by ity of mg) tablet 23:57: mouth [place] [address] daily. Medical Branch metFORMIN 2019-08 Yes 500mg Take 500 Uni vers 500 mg 24 0-20 mg by ity of hr tablet 23:57: mouth [place] [address] daily with Medical breakfast. Branch diazePAM 5 2019-08 Yes 5mg Take 5 mg Un adair mg tablet 0-20 by mouth 3 ity of 23:57: (three) [place] [address] times Medical daily. Branch terazosin 5 2019-08 Yes 5mg Take 5 mg U nivers mg capsule 0-20 by mouth ity o f 23:57: at [place] [address] bedtime. Medical Branch busPIRone 2019-08 Yes 15mg Take 15 mg Un adair 15 mg 0-20 by mouth 3 ity of tablet 23:57: (three) [place] [address] times Medical daily. Branch sildenafiL 2019-08 Yes Take by Uni vers 100 mg 0-20 mouth. ity of tablet 23:57: [place] [address] Medical Branch clopidogreL 2019-08 Yes 75mg Take 75 mg Univers 75 mg 0-20 by mouth ity of tablet 23:57: daily. [place] [address] Medical Branch HYDROcodone 2019-08 Yes 1{tbl} Take 1 Un adair -acetaminop 0-20 tablet by ity of hen 10-325 23:57: mouth [place] mg tablet 42 every 6 Medical (six) Branch hours as needed. atorvastati 2019-08 Yes 10mg Take 10 mg Univers n 10 mg 0-20 by mouth ity of tablet 23:57: at [place] [address] bedtime. Medical Branch Cholecalcif 2019-08 Yes Take by Un adair georgette, 0-20 mouth. ity of Vitamin D3, 23:57: [place] 50 mcg 42 Medical (2,000 Branch unit) capsule gabapentin 2019-08 Yes 100mg Take 100 Un adair 100 mg 0-20 mg by ity of capsule 23:57: mouth 3 [place] [address] (three) Medical times Branch daily. venlafaxine 2019-08 Yes 150mg Take 150 U nivers XR 150 mg 0-20 mg by ity of 24 hr 23:57: mouth [place] capsule 42 daily with Medica l breakfast. Branch glipiZIDE 2019-08 Yes 10mg Take 10 mg Un adair 10 mg 0-20 by mouth ity of tablet 23:57: daily. [place] [address] Medical Branch digoxin 125 2019-08 Yes 125ug Take 125 U nivers mcg (0.125 0-20 mcg by ity of mg) tablet 23:57: mouth [place] [address] daily. Medical Branch metFORMIN 2019-08 Yes 500mg Take 500 Uni vers 500 mg 24 0-20 mg by ity of hr tablet 23:57: mouth [place] 42 daily with Medical breakfast. Branch diazePAM 5 2019-08 Yes 5mg Take 5 mg Un adair mg tablet 0-20 by mouth 3 ity of 23:57: (three) [place] [address] times Medical daily. Branch terazosin 5 2019-08 Yes 5mg Take 5 mg U nivers mg capsule 0-20 by mouth ity o f 23:57: at [place] [address] bedtime. Medical Branch busPIRone 2019-08 Yes 15mg Take 15 mg Un adair 15 mg 0-20 by mouth 3 ity of tablet 23:57: (three) [place] [address] times Medical daily. Branch sildenafiL 2019-08 Yes Take by Uni vers 100 mg 0-20 mouth. ity of tablet 23:57: [place] [address] Medical Branch clopidogreL 2019-08 Yes 75mg Take 75 mg Univers 75 mg 0-20 by mouth ity of tablet 23:57: daily. [place] [address] Medical Branch HYDROcodone 2019-08 Yes 1{tbl} Take 1 Un adair -acetaminop 0-20 tablet by ity of hen 10-325 23:57: mouth [place] mg tablet 42 every 6 Medical (six) Branch hours as needed. atorvastati 2019-08 Yes 10mg Take 10 mg Univers n 10 mg 0-20 by mouth ity of tablet 23:57: at [place] [address] bedtime. Medical Branch Cholecalcif 2019-08 Yes Take by Un adair georgette, 0-20 mouth. ity of Vitamin D3, 23:57: [place] 50 mcg 42 Medical (2,000 Branch unit) capsule gabapentin 2019-08 Yes 100mg Take 100 Un adair 100 mg 0-20 mg by ity of capsule 23:57: mouth 3 [place] [address] (three) Medical times Branch daily. venlafaxine 2019-08 Yes 150mg Take 150 U nivers XR 150 mg 0-20 mg by ity of 24 hr 23:57: mouth [place] capsule 42 daily with Medica l breakfast. Branch glipiZIDE 2019-08 Yes 10mg Take 10 mg Un adair 10 mg 0-20 by mouth ity of tablet 23:57: daily. [place] [address] Medical Branch digoxin 125 2019-08 Yes 125ug Take 125 U nivers mcg (0.125 0-20 mcg by ity of mg) tablet 23:57: mouth [place] [address] daily. Medical Branch metFORMIN 2019-08 Yes 500mg Take 500 Uni vers 500 mg 24 0-20 mg by ity of hr tablet 23:57: mouth [place] [address] daily with Medical breakfast. Branch diazePAM 5 2019-08 Yes 5mg Take 5 mg Un adair mg tablet 0-20 by mouth 3 ity of 23:57: (three) [place] [address] times Medical daily. Branch terazosin 5 2019-08 Yes 5mg Take 5 mg U nivers mg capsule 0-20 by mouth ity o f 23:57: at [place] [address] bedtime. Medical Branch busPIRone 2019-08 Yes 15mg Take 15 mg Un adair 15 mg 0-20 by mouth 3 ity of tablet 23:57: (three) [place] [address] times Medical daily. Branch sildenafiL 2019-08 Yes Take by Uni vers 100 mg 0-20 mouth. ity of tablet 23:57: [place] [address] Medical Branch clopidogreL 2019- Yes 75mg Take 75 mg Univers 75 mg 0-20 by mouth ity of tablet 23:57: daily. [place] [address] Medical Branch HYDROcodone 2019-08 Yes 1{tbl} Take 1 Un adair -acetaminop 0-20 tablet by ity of hen 10-325 23:57: mouth [place] mg tablet 42 every 6 Medical (six) Branch hours as needed. flu vaccine 2019- 2020- No .7mL 0.7 mL, Un adair 67 yrs and 0-20 10-20 Intramuscu it y of up(PF) 22:45: 23:24 [place], ONCE, [place] (FLUZONE 00 :00 1 dose, Medical HIGHDOSE Tue Branch QUAD 20-21 10/20/20 PF) syringe at 1745, 0.7 mL Routine atorvastati 2019-08 Yes 10mg Take 10 mg Univers n 10 mg 0-20 by mouth ity of tablet 18:57: at [place] [address] bedtime. Medical Branch Cholecalcif 2019-08 Yes Take by Un adair georgette, 0-20 mouth. ity of Vitamin D3, 18:57: [place] 50 [facility] Medical (2,000 Branch unit) capsule gabapentin 2019-08 Yes 100mg Take 100 Un adair 100 mg 0-20 mg by ity of capsule 18:57: mouth 3 [place] [address] (three) Medical times Branch daily. venlafaxine 2019-08 Yes 150mg Take 150 U nivers XR 150 mg 0-20 mg by ity of 24 hr 18:57: mouth [place] capsule 42 daily with Medica l breakfast. Branch glipiZIDE 2019-08 Yes 10mg Take 10 mg Un adair 10 mg 0-20 by mouth ity of tablet 18:57: daily. [place] [address] Medical Branch digoxin 125 2019- Yes 125ug Take 125 U nivers mcg (0.125 0-20 mcg by ity of mg) tablet 18:57: mouth [place] 42 daily. Medical Branch metFORMIN 2019-08 Yes 500mg Take 500 Uni vers 500 mg 24 0-20 mg by ity of hr tablet 18:57: mouth [place] [address] daily with Medical breakfast. Branch diazePAM 5 2019-08 Yes 5mg Take 5 mg Un adair mg tablet 0-20 by mouth 3 ity of 18:57: (three) [place] [address] times Medical daily. Branch terazosin 5 2019-08 Yes 5mg Take 5 mg U nivers mg capsule 0-20 by mouth ity o f 18:57: at [place] [address] bedtime. Medical Branch busPIRone 2019-08 Yes 15mg Take 15 mg Un adair 15 mg 0-20 by mouth 3 ity of tablet 18:57: (three) [place] [address] times Medical daily. Branch sildenafiL 2019-08 Yes Take by Uni vers 100 mg 0-20 mouth. ity of tablet 18:57: [place] [address] Medical Branch clopidogreL 2019-08 Yes 75mg Take 75 mg Univers 75 mg 0-20 by mouth ity of tablet 18:57: daily. [place] [address] Medical Branch HYDROcodone 2019-08 Yes 1{tbl} Take 1 Un adair -acetaminop 0-20 tablet by ity of hen 10-325 18:57: mouth [place] mg tablet 42 every 6 Medical (six) Branch hours as needed. hydrALAZINE 2019-08 2020- No 25mg Take 25 mg Univers 25 mg 0-19 10-19 by mouth ity of tablet 21:19: 00:00 every 6 [place] 31 :00 (six) Medical hours. Branch carvediloL 2019-08 2020- No 25mg Take 25 mg Univers 25 mg 0-19 10-19 by mouth 2 ity of tablet 21:19: 00:00 (two) [place] 31 :00 times Medical daily with Branch meals. TURMERIC 2019-08 2020- No Take by Univ ers ORAL 0-19 10-19 mouth. ity of 21:19: 00:00 [place] 31 :00 Medical Branch ZINC 2019-08 2020- No Take by Univers ACETATE 0-19 10-19 mouth. ity of ORAL 21:19: 00:00 [place] 31 :00 Medical Branch carvediloL 2019-08 Yes [id number] 12.5mg Take 1 Univers 12.5 mg 0-19 tablet by ity of tablet 00:00: mouth 2 [place] [address] (two) Medical times Branch daily with meals. carvediloL 2019-08 Yes [id number] 12.5mg Take 1 Univers 12.5 mg 0-19 tablet by ity of tablet 00:00: mouth 2 [place] [address] (two) Medical times Branch daily with meals. carvediloL 2019-08 Yes [id number] 12.5mg Take 1 Univers 12.5 mg 0-19 tablet by ity of tablet 00:00: mouth 2 [place] (two) Medical times Branch daily with meals. carvediloL 2019-08 Yes [id number] 12.5mg Take 1 Univers 12.5 mg 0-19 tablet by ity of tablet 00:00: mouth 2 [place] 00 (two) Medical times Branch daily with meals. carvediloL 2019-08 Yes [id number] 12.5mg Take 1 Univers 12.5 mg 0-19 tablet by ity of tablet 00:00: mouth 2 [place] (two) Medical times Branch daily with meals. ertapenem 2019-08- No 1000mg 1,000 mg, Univers (INVANZ) 05-21 IV ity of 1,000 mg in 18:00: 18:02 Piggyback, [place] NaCl 0.9% 00 :00 Q24H ABX, Medic al (NS) 50 mL 2 doses, Branc h MINI-BAG First dose (after last modificati on) on 05/20/20 at 1300, Last dose on 05/21/20 at 1300, 50 mL
Reas on for Anti-Infec tive: Documented Infection< br>Documen traci Infection Site: Other
O ther site: lung and UTI
Dur ation of Therapy: 7 days
Re stricted use approved by: Documented ESBL infection or colonizati on furosemide 2019-08- No 20mg 20 mg, Univ ers (LASIX) 005-21 Slow IV ity of injection 15:45: 00:55 Push, [place] 20 mg 00 :00 Q12H, 2 Medical doses, Branch First dose on 05/20/20 at 1045, Last dose on 05/20/20 at 2000, Routine azithromyci 2019-08- No 500mg 500 mg, U nivers n 0-05-20 Oral, Q24H ity of (ZITHROMAX) 23:00: 22:10 ABX, 2 [place] tablet 500 00 :00 doses, Medical mg First dose Branch on Fri05/19/20 at 1800, Last dose on 05/20/20 at 1800, [place]
Re ason for Anti-Infec tive: Documented Infection< br>Documen traci Infection Site: Respirator y
Durat ion of Therapy: Other (see Comments) atorvastati 2019-08 Yes 10mg 10 mg, Univ ers n (LIPITOR) 0-15 Oral, QHS, it y of tablet 10 02:00: First dose [place] mg 00 on Fri Medical 05/17/20 Branch at 2100, Until Discontinu ed, Routine terazosin 2019-08 Yes 5mg 5 mg, Univers (HYTRIN) 0-15 Oral, QHS, ity o f capsule 5 02:00: First dose [place] mg 00 on Fri Medical 05/17/20 Branch at 2100, Until Discontinu ed, Routine sodium 2019-08 Yes 4mL 4 mL, Univers chloride 7% 0-15 Inhalation it y of (HYPER-TAD) 01:00: , BID, [place] nebulizer 00 First dose Medi sofie solution 4 on Fri Branch mL 05/17/20 at 2000, Until Discontinu ed, Routine carvediloL 2019-08 Yes 12.5mg 12.5 mg, U nivers (COREG) 0-14 Oral, BID ity of tablet 12.5 22:00: MEALS, [place] mg 00 First dose Medical (after Branch last modificati on) on Fri05/17/20 at 1700, Until Discontinu ed, Routine nicotine 2019-08 Yes 1{patch 1 Patch, Un adair (NICODERM) 0-14 } Topical, ity o f 14 mg/24 hr 20:30: Administer [place] patch 1 00 over 24 Medical Patch Hours, Branch Q24H, First dose on Fri05/17/20 at 1530, Until Discontinu ed, Routine ipratropium 2019-08 Yes 3mL 3 mL, Unive rs -albuteroL 0-14 Inhalation ity of (DUONEB) 19:00: , TID, [place] 0.5 mg-3 00 First dose Medic al mg(2.5 mg on Fri Branch base)/3 mL 05/17/20 nebulizer at 1400, solution 3 Until mL Discontinu ed, Routine ertapenem 2019-08 2020- No 1000mg 1,000 mg, Univers (INVANZ) 0-14 10-17 IV ity of 1,000 mg in 18:00: 00:16 Piggyback, [place] NaCl 0.9% 00 :24 Q24H ABX, Medic al (NS) 50 mL First dose Bra nch MINI-BAG on Fri05/17/20 at 1300, Until Discontinu ed, 50 mL
Reas on for Anti-Infec tive: Documented Infection< br>Documen traci Infection Site: Other<br&g t;Other site: lung and UTI
Dur ation of Therapy: 7 days
Re stricted use approved by: Documented ESBL infection or colonizati on furosemide 2019-08 2020- No 20mg 20 mg, Univ ers (LASIX) 0-14 10-16 Slow IV ity of injection 17:30: 01:31 Push, [place] 20 mg 00 :00 Q12H, 4 Medical doses, Branch First dose (after last modificati on) on Fri05/17/20 at 1230, Last dose on Fri05/18/20 at 2000, Routine NaCl 0.9% 2019-08 Yes 10mL 10 mL, Univer s (NS) 0-14 Slow IV ity of injection 17:02: Push, PRN [place] 10 mL 16 - SEE Medical INSTRUCTIO Branch NS, Starting Fri05/17/20 at 1202, Until Discontinu ed, Routine heparin 2019-08 Yes 3mL 300 Units Unive rs lock flush 0-14 (3 mL), IV ity of (HEP-LOCK) 17:02: Push, PRN [place] 100 unit/mL 16 - SEE Medical injection INSTRUCTIO [facility] ch 300 Units , Starting Fri05/17/20 at 1202, Until Discontinu ed, Routine clopidogreL 2019-08 Yes 75mg 75 mg, Univ ers (PLAVIX) 0-14 Oral, ity of tablet 75 14:00: DAILY, [place] mg 00 First dose Medical on Fri Branch 05/17/20 at 0900, Until Discontinu ed, Routine digoxin 2019-08 Yes 125ug 125 mcg, Unive rs (LANOXIN) 0-14 Oral, ity of tablet 125 14:00: DAILY, [place] mcg 00 First dose Medical on Fri Branch 05/17/20 at 0900, Until Discontinu ed, Routine heparin 2019-08 Yes 5000U 5,000 Univers (porcine) 0-14 Units, ity of injection 13:00: Subcutaneo [place] 5,000 Units 00 us, Q12H, Med ical First dose Branch on Fri05/17/20 at 0800, Until Discontinu ed, Routine venlafaxine 2019-08 Yes 150mg 150 mg, Un adair XR (EFFEXOR 0-14 Oral, QAM ity of XR) 24 hr 13:00: WITH [place] capsule 150 00 BREAKFAST, Me dical mg First dose Branch on Fri05/17/20 at 0800, Until Discontinu ed, Routine gabapentin 2019-08 Yes 100mg 100 mg, Uni vers (NEURONTIN) 0-14 Oral, TID, it y of capsule 100 13:00: First dose [place] mg 00 on Fri Medical 05/17/20 Branch at 0800, Until Discontinu ed, Routine carvediloL 2019-08 2020- No 25mg 25 mg, Univ ers (COREG) 0-14 10-14 Oral, BID ity of tablet 25 13:00: 17:23 MEALS, [place] mg 00 :23 First dose Medical on Fri Branch 05/17/20 at 0800, Until Discontinu ed, Routine Sliding 2019-08 Yes Subcutaneo Univ ers Scale 0-14 us, AC+HS, ity of Insulin-Reg 12:30: First dose [place] ular + Fsbg 00 on Fri Medica l Testing 05/17/20 Branch at 0730, Until Discontinu ed, Routine acetaminoph 2019-08 Yes 650mg 650 mg, Un adair en 0-14 Oral, ity of (TYLENOL) 06:30: Q6HPRN, [place] tablet 650 22 Starting Medic al mg Wed Branch 05/17/20 at 0130, Until Discontinu ed, Routine, Pain (scale 1-3) glucagon 2019-08 Yes 1mg 1 mg, Univers (GLUCAGEN 0-14 Intramuscu ity of DIAGNOSTIC 06:18: lar, PRN, [place] KIT) 17 Starting Medical injection 1 Wed Branch mg 05/17/20 at 0118, Until Discontinu ed, GORD[place], Blood Glucose < or = 70 mg/dL and patient is unable to swallow or has mental changes. dextrose 50 2019-08 Yes 25mL 25 mL, Univ ers % in water 0-14 Slow IV ity of (D50W) 06:18: Push, PRN, [place] injection 17 Starting Medica l 25 mL [facility] Branch 05/17/20 at 0118, Until Discontinu ed, [place], Blood Glucose < or = 70 mg/dL and patient is unable to swallow or has mental status changes. HYDROcodone 2019-08 Yes 1{tbl} 1 tablet, Univers -acetaminop 0-14 Oral, ity of hen (NORCO) 06:17: Q6HPRN, [place] 10-325 mg 16 Starting Medica l tablet 1 Fri Branch tablet 05/17/20 at 0117, Until Discontinu ed, Routine, Pain (scale 7-10) diazePAM 2019-08 Yes 5mg 5 mg, Univers (VALIUM) 0-14 Oral, ity of tablet 5 mg 06:17: BIDPRN, [place] 15 Starting Medical [facility] Branch 05/17/20 at 0117, Until Discontinu ed, Routine, Agitation, Anxiety morpHINE 2019-08- No 4mg 4 mg, Slow Un adair injection 4 0-14 10-13 IV Push, ity of mg 00:15: 23:12 ONCE, 1 [place] 00 :00 dose, [facility] Medical 05/16/20 Branch at 1915, STAT azithromyci 2019-08- No 500mg 500 mg, IV Univers n 0-13 10-14 Piggyback, ity of (ZITHROMAX) 23:45: 00:12 ONCE, 1 [place] 500 mg in 00 :00 dose, [facility] al NaCl 0.9% 05/16/20 Branch (NS) 250 mL at 1845, VIAL-MATE 250 IV mL
Reas piggyback on for Anti-Infec tive: Empiric Therapy for Suspected Infection< br>Empiric Therapy Site: Respirator y
Durat ion of therapy: 72 hours cefTRIAXone 2019-08 2020- No 1000mg 1,000 mg, Univers (ROCEPHIN) 0-13 10-13 IV ity of 1,000 mg in 23:45: 23:13 Piggyback, [place] NaCl 0.9% 00 :00 ONCE, 1 Medical (NS) 50 mL dose, [facility] ch MINI-BAG 05/16/20 at 1845, 50 mL
Reas on for Anti-Infec tive: Empiric Therapy for Suspected Infection< br>Empiric Therapy Site: Respirator y
Durat ion of therapy: 72 hours Waka-3-DHA 2019-08 2020- No 1500mg Take 1,500 Univers -EPA-Fish 0-11 10-11 mg by ity of Oil 18:56: 00:00 mouth [place] 500-1,000 30 :00 daily. Medical mg Cap Branch carvediloL 2019-08- No 25mg Take 25 mg Univers (COREG) 25 0-11 10-11 by mouth 2 it y of mg tablet 18:56: 00:00 (two) [place] 30 :00 times Medical daily with Branch meals. HYDROcodone 2019-08- No 1{tbl} Take 1 U nivers -acetaminop 0-11 10-11 tablet by it y of hen (NORCO) 18:56: 00:00 mouth [place] 10-325 mg 30 :00 every 4 Medical tablet (four) Branch hours as needed for Pain (scale 4-6) or Pain (scale 7-10). clopidogreL 2019-08- No 75mg Take 75 mg Univers (PLAVIX) 75 0-11 10-11 by mouth ity of mg tablet 18:56: 00:00 daily. [place] 30 :00 Medical Branch hydrALAZINE 2019-08 2020- No 7.5mg Take 7.5 Univers 10 mg 0-11 10-11 mg by ity of tablet 18:56: 00:00 mouth 2 [place] 30 :00 (two) Medical times Branch daily. atorvastati 2019-08- No 10mg Take 10 mg Univers n (LIPITOR) 0-11 10-11 by mouth ity of 10 mg 18:56: 00:00 at [place] tablet 30 :00 bedtime. Medical Branch digoxin 125 2019- 2020- No 125ug Take 125 Univers mcg (0.125 0-11 10-11 mcg by ity of mg) tablet 18:56: 00:00 mouth [place] 30 :00 daily. Medical Branch aspirin 81 2019- 2020- No 81mg Take 81 mg Univers mg chewable 0-11 10-11 by mouth ity of tablet 18:56: 00:00 daily. [place] 30 :00 Medical Branch diazePAM 10 2019- 2020- No 10mg Take 10 mg Univers mg tablet 0-11 10-11 by mouth 3 ity of 18:56: 00:00 (three) [place] 30 :00 times Medical daily. Branch terazosin 5 2019-08 2020- No 5mg Take 5 mg Univers mg capsule 0-11 10-11 by mouth ity of 18:56: 00:00 at [place] 30 :00 bedtime. Medical Branch HYDROcodone 2019-08 Yes 1{tbl} 1 tablet, Univers -acetaminop 0-11 Oral, ity of hen (NORCO) 12:15: Q4HPRN, [place] 10-325 mg 00 Starting Medica l tablet 1 [facility] tablet 05/14/20 at 0715, Until Discontinu ed, Routine, Pain (scale 4-6) terazosin 2019-08 Yes 1mg 1 mg, Univers (HYTRIN) 0-10 Oral, QHS, ity o f capsule 1 02:00: First dose [place] mg 00 on Fri Medical 05/12/20 at [place] 2100, Until Discontinu ed, Routine atorvastati 2019-08 Yes 20mg 20 mg, Univ ers n (LIPITOR) 0-10 Oral, QHS, it y of tablet 20 02:00: First dose [place] mg 00 on Fri [facility] 05/12/20 at [place] 2100, Until Discontinu ed, Routine enoxaparin 2019-08 Yes 40mg 40 mg, Unive rs (LOVENOX) 0-09 Subcutaneo ity of injection 22:00: us, DAILY, [place] 40 mg 00 First dose Medical on Fri [place] 05/12/20 at 1700, Until Discontinu ed, Routine glipiZIDE 2019-08 Yes 5mg 5 mg, Univers (GLUCOTROL) 0-09 Oral, ity of tablet 5 mg 21:30: BIDAC, [place] 00 First dose Medical on Fri [place] 05/12/20 at 1630, Until Discontinu ed, Routine NaCl 0.9% 2019-08 2020- No IV Univers (NS) IV 005-13 Infusion, ity of infusion 18:00: 15:02 at 75 [place] 00 :44 mL/hr, Medical CONTINUOUS [place] , Starting Fri05/12/20 at 1300, Until 05/13/20 at 1002, Routine sulfur 2019-08 2020- No 5mL 5 mL, Univers hexafluorid 009 Intravenou i ty of e microsphr 17:00: 16:50 s, ONCE, 1 [place] (LUMASON) 00 :00 dose, Fri Medic al injection 5 05/12/20 at Br anch mL 1200, Routine
team member approving Restricted medication : EVA BENAVIDES iohexol 2019-08 2020- No 150mL 150 mL, Unive rs (OMNIPAQUE 0-09 10-09 Intravenou it y of 350 14:30: 14:30 s, ONCE, 1 [place] BULK-150 00 :00 dose, Fri Medica l mL) 05/12/20 at Branch injection 0930, 150 mL Routine NaCl 0.45% 2019-08 2020- No 1000mL at 50 Uni vers (1/2NS) IV 0- 10-09 mL/hr, ity of infusion 14:15: 16:58 1,000 mL, [place] 1,000 mL 00 :46 IV Medical Infusion, Branch CONTINUOUS , Starting Fri05/12/20 at 0915, Until Fri05/12/20 at 1158, Routine clopidogreL 2019-08 Yes 75mg 75 mg, Univ ers (PLAVIX) 0-09 Oral, ity of tablet 75 14:00: DAILY, [place] mg 00 First dose Medical on Fri [place] 05/12/20 at 0900, Until Discontinu ed, Routine digoxin 2019-08 Yes 125ug 0.125 mg Unive rs (LANOXIN) 0-09 (125 mcg), ity of tablet 14:00: Oral, [place] 0.125 mg 00 DAILY, Medical First dose Branch on Fri05/12/20 at 0900, Until Discontinu ed, Routine gabapentin 2019-08 Yes 100mg 100 mg, Uni vers (NEURONTIN) 0-09 Oral, TID, it y of capsule 100 13:15: First dose [place] mg 00 on Fri [facility] 05/12/20 at Branch 0815, Until Discontinu ed, Routine diazePAM 2019-08 Yes 10mg 10 mg, Univers (VALIUM) 0-09 Oral, TID, ity o f tablet 10 13:15: First dose [place] mg 00 on Fri Medical 05/12/20 at Branch 0815, Until Discontinu ed, Routine venlafaxine 2019-08 Yes 75mg 75 mg, Univ ers XR (EFFEXOR 0-09 Oral, BID, it y of XR) 24 hr 13:15: First dose [place] capsule 75 00 on Fri Medical mg 05/12/20 at Branch 0815, Until Discontinu ed, Routine aspirin 2019-1 Yes 81mg 81 mg, Univers chewable 0-09 Oral, QAM ity of tablet 81 13:15: WITH [place] mg 00 BREAKFAST, Medical First dose Branch on Fri05/12/20 at 0815, Until Discontinu ed, Routine nicotine 2019-08 Yes 1{patch 1 Patch, Un adair (NICODERM) 0-09 } Topical, ity o f 21 mg/24 hr 13:15: Administer [place] patch 1 00 over 24 Medical Patch Hours, Branch Q24H, First dose on Fri05/12/20 at 0815, Until Discontinu ed, Routine docusate 2019-08 Yes 100mg 100 mg, Unive rs (COLACE) 0-09 Oral, BID, ity o f capsule 100 13:00: First dose [place] mg 00 on Fri Medical 05/12/20 at Branch 0800, Until Discontinu ed, Routine Sliding 2019-08 Yes Subcutaneo Univ ers Scale 0-09 us, AC, ity of Insulin - 12:30: First dose [place] Aspart 00 on Fri Medical (NOVOLOG) + 05/12/20 at [facility] Fsbg 0730, Testing Until Discontinu ed, Routine HYDROcodone 2019-08 2020- No 1{tbl} 1 tablet, Univers -acetaminop 0-09 10-11 Oral, ity of hen (NORCO) 11:59: 12:13 Q6HPRN, [place] 10-325 mg 40 :14 Starting Medica l tablet 1 Fri Branch tablet 05/12/20 at 0659, Until 05/14/20 at 0713, Routine, Pain (scale 4-6) morpHINE 2019-08 Yes 2mg 2 mg, Slow Uni vers injection 2 0-09 IV Push, ity of mg 11:59: Q4HPRN, [place] 32 Starting Medical Fri Branch 05/12/20 at 0659, Until Discontinu ed, Routine, Pain (scale 7-10) lidocaine 2019-08 Yes 1{patch 1 Patch, U nivers (LIDODERM) 0-09 } Topical, ity o f 5 % (700 11:00: Administer [place] mg/patch) 00 over 12 Medical patch 1 Hours, Branch Patch DAILY, First dose on Fri05/12/20 at 0600, Until Discontinu ed, Routine ondansetron 2019-08 Yes 4mg 4 mg, Slow Univers (ZOFRAN 0-09 IV Push, ity of (PF)) 10:45: Q6HPRN, [place] injection 4 21 Starting Medi sofie mg Fri Branch 05/12/20 at 0545, Until Discontinu ed, Routine, Nausea and Vomiting (N/V) FENTanyl PF 2019-08- No 25ug 25 mcg, Un adair (SUBLIMAZE 0- Slow IV ity o f (PF)) 09:15: 08:20 Push, [place] injection 00 :00 ONCE, 1 Medical 25 mcg dose, Fri Branch 05/12/20 at 0415, STAT cefTRIAXone 2019-08- No 1000mg 1,000 mg, Univers (ROCEPHIN) 005-12 IV ity of 1,000 mg in 06:55: 07:31 [place], [place] NaCl 0.9% 00 :00 ONCE, 1 Medical (NS) 50 mL dose, Fri [facility] ch MINI-BAG 05/12/20 at 0200, 50 mL
Reas on for Anti-Infec tive: Documented Infection< br>Documen traci Infection Site: Respirator y
Durat ion of Therapy: Other (see Comments) levoFLOXaci 2019-08- No 500mg 500 mg, IV Univers n in D5W 005-12 Piggyback, ity of (LEVAQUIN) 06:45: 07:25 ONCE, 1 [place] 500 mg/100 00 :00 dose, Fri Medi sofie mL 05/12/20 at Branch Pig[place] 0145, 100 500 mg mL
Reas on for Anti-Infec tive: Empiric Therapy for Suspected Infection< br>Empiric Therapy Site: Respirator y
Durat ion of therapy: 7 days HYDROcodone 2019-08 2020- No 1{tbl} 1 tablet, Univers -acetaminop 0-09 Oral, ity of hen (NORCO 06:45: 05:48 ONCE, 1 [place] 5) 5-325 mg 00 :00 dose, Fri Med ical tablet 1 05/12/20 at [facility] h tablet 0145, [place] NaCl 0.9% 2019-08 2020- No 1000mL at 999 Uni vers (NS) bolus 0- 10-09 mL/hr, ity of infusion 05:45: 08:30 1,000 mL, [place] 1,000 mL 00 :00 IV Medical Infusion, Branch ONCE, 1 dose, 05/12/20 at 0045, [place] iohexol 2020- 2020- No 120mL 120 mL, Unive rs (OMNIPAQUE 0-09 10-09 Intravenou it y of 350 05:00: 04:48 s, ONCE, 1 [place] BULK-150 00 :00 dose, Fri Medica l mL) 05/12/20 at Branch injection 0000, 120 mL Routine No known No Univers medications ity of [facility] Immunizations Ordered Filled Immunization Date Status Comments [facility] e Immunization Name Name Influenza High Dose 2020-05-23 Completed Unive rsity of [place] 00:00:00 [facility] Influenza High Dose 2020-05-23 Completed Unive rsity of [place] 00:00:00 [facility] Influenza High Dose 2020-05-23 Completed Unive rsity of [place] 00:00:00 [facility] Influenza High Dose 2020-05-23 Completed Unive rsity of [place] 00:00:00 [facility] Influenza High Dose 2020-05-23 Completed Unive rsity of [place] 00:00:00 [facility] Pneumococcal 13 2019-09-27 Completed Universit y of Conjugate, PCV13 00:00:00 [facility] dical (Prevnar 13) Branch Pneumococcal 13 2019-09-27 Completed Universit y of Conjugate, PCV13 00:00:00 [facility] dical (Prevnar 13) Branch Pneumococcal 13 2019-09-27 Completed Universit y of Conjugate, PCV13 00:00:00 [facility] dical (Prevnar 13) Branch Pneumococcal 13 2019-09-27 Completed Universit y of Conjugate, PCV13 00:00:00 [place] Me dical (Prevnar 13) Branch Pneumococcal 13 2019-09-27 Completed Universit y of Conjugate, PCV13 00:00:00 [facility] dical (Prevnar 13) Branch Influenza High Dose 2017-05-26 Completed Unive rsity of 00:00:00 [facility] Pneumococcal 13 2017-05-26 Completed Universit y of Conjugate, PCV13 00:00:00 [facility] dical (Prevnar 13) Branch TDAP 2017-05-26 Completed University of 00:00:00 [facility] Influenza High Dose 2017-05-26 Completed Unive rsity of 00:00:00 [facility] Pneumococcal 13 2017-05-26 Completed Universit y of Conjugate, PCV13 00:00:00 [facility] dical (Prevnar 13) Branch AP 2017-05-26 Completed University of 00:00:00 [facility] Influenza High Dose 2017-05-26 Completed Unive rsity of 00:00:00 [facility] Pneumococcal 13 2017-05-26 Completed Universit y of Conjugate, PCV13 00:00:00 [facility] dical (Prevnar 13) Branch [facility] 2017-05-26 Completed University of 00:00:00 [facility] Influenza High Dose 2017-05-26 Completed Unive rsity of 00:00:00 [facility] Pneumococcal 13 2017-05-26 Completed Universit y of Conjugate, PCV13 00:00:00 [facility] dical (Prevnar 13) Branch [facility] 2017-05-26 Completed University of 00:00:00 [facility] Influenza High Dose 2017-05-26 Completed Unive rsity of 00:00:00 [facility] Pneumococcal 13 2017-05-26 Completed Universit y of Conjugate, PCV13 00:00:00 [facility] dical (Prevnar 13) Branch [facility] 2017-05-26 Completed University of 00:00:00 [facility] Influenza High Dose 2017-05-26 Completed Unive rsity of 00:00:00 [facility] Pneumococcal 13 2017-05-26 Completed Universit y of Conjugate, PCV13 00:00:00 [facility] dical (Prevnar 13) Branch [facility] 2017-05-26 Completed University of 00:00:00 [facility] Influenza High Dose 2017-05-26 Completed Unive rsity of 00:00:00 [facility] Pneumococcal 13 2017-05-26 Completed Universit y of Conjugate, PCV13 00:00:00 [facility] dical (Prevnar 13) Branch [facility] 2017-05-26 Completed University of 00:00:00 [facility] Zoster(Zostavax)( 2012-10-26 Completed Unive rsity of ingles) 00:00:00 [facility] Zoster(Zostavax)( 2012-10-26 Completed Unive rsity of ingles) 00:00:00 [facility] Zoster(Zostavax)( 2012-10-26 Completed Unive rsity of ingles) 00:00:00 [facility] Zoster(Zostavax)( 2012-10-26 Completed Unive rsity of ingles) 00:00:00 [facility] Zoster(Zostavax)( 2012-10-26 Completed Unive rsity of ingles) 00:00:00 [facility] Zoster(Zostavax)( 2012-10-26 Completed Unive rsity of ingles) 00:00:00 [facility] Zoster(Zostavax)( 2012-10-26 Completed Unive rsity of ingles) 00:00:00 [facility] Influenza Virus 2012-07-14 Completed Universit y of Vaccine 00:00:00 [facility] Influenza Virus 2012-07-14 Completed Universit y of Vaccine 00:00:00 [facility] Influenza Virus 2012-07-14 Completed Universit y of Vaccine 00:00:00 [facility] Influenza Virus 2012-07-14 Completed Universit y of Vaccine 00:00:00 [facility] Influenza Virus 2012-07-14 Completed Universit y of Vaccine 00:00:00 [facility] Influenza Virus 2012-07-14 Completed Universit y of Vaccine 00:00:00 [facility] Influenza Virus 2012-07-14 Completed Universit y of Vaccine 00:00:00 [facility] Vital Signs Vital Name Observation Time Observation Value Comments Source Systolic blood 2021-11-11 16:15:00 121 mm[Hg] Univer sity of pressure [facility] Diastolic blood 2021-11-11 16:15:00 49 mm[Hg] Unive rsity of pressure [facility] Heart rate 2021-11-11 16:15:00 65 /min [facility] Body temperature 2021-11-11 16:15:00 36.33 [place] [facility] Res[facility] rate 2021-11-11 16:15:00 18 /min [facility] Oxygen saturation in 2021-11-11 16:15:00 91 /min [facility] Arterial blood by [facility] Pulse oximetry Branch Body weight 2021-11-11 08:38:00 89.994 kg [facility] BMI 2021-11-11 08:38:00 26.18 kg/m2 [facility] Systolic blood 2020-05-23 21:13:00 105 mm[Hg] Univer sity of pressure [place] [facility] Diastolic blood 2020-05-23 21:13:00 51 mm[Hg] Unive rsity of pressure [facility] Branch Heart rate 2020-05-23 21:13:00 60 /min Universi ty of [facility] Body temperature 2020-05-23 21:13:00 36.83 [place] Univ ersity of [facility] Branch Respiratory rate 2020-05-23 21:13:00 18 /min Univ ersity of [facility] Oxygen saturation in 2020-05-23 21:13:00 95 /min University of Arterial blood by [facility] Pulse oximetry Branch Body weight 2020-05-23 10:49:00 90.493 kg Universi ty of [place] [facility] [place] BMI 2020-05-23 10:49:00 26.32 kg/m2 Universi ty of [facility] Body height 2020-05-17 01:56:00 185.4 cm Universi ty of [facility] Oxygen saturation in 2020-05-14 16:53:00 89 /min University of Arterial blood by [facility] Pulse oximetry Branch Systolic blood 2020-05-14 16:00:00 107 mm[Hg] Univer sity of pressure [place] [facility] [place] Diastolic blood 2020-05-14 16:00:00 61 mm[Hg] Unive rsity of pressure [facility] Heart rate 2020-05-14 16:00:00 79 /min Universi ty of [place] [facility] [place] Body temperature 2020-05-14 16:00:00 36.44 [place] Univ ersity of [place] [facility] Respiratory rate 2020-05-14 16:00:00 18 /min Univ ersity of [facility] Body weight 2020-05-14 09:15:00 87.998 kg Universi ty of [place] [facility] [place] BMI 2020-05-14 09:15:00 25.60 kg/m2 Universi ty of [facility] Body height 2020-05-12 03:15:00 185.4 cm Universi ty of [place] [facility] Procedures Procedure Date / Time Performing Clinician Source Performed FERRITIN SERUM 2021-11-11 13:36:00 Morris Vuong [facility] IRON 2021-11-11 13:36:00 Carolann Morris [facility] TOTAL IRON BINDING 2021-11-11 13:36[facility] 2021-11-11 12:44:00 Morris Vuong [facility] BASIC METABOLIC PANEL 2021-11-11 10:05:00 Carolann [facility] (NA, K, CL, CO2, GLUCOSE, Medica l Branch BUN, CREATININE, CA) CBC WITH DIFF 2021-11-11 10:05:[address] [facility] N-TERMINAL PRO-BNP 2021-11-11 10:05:00 Carolann [facility] BLOOD CULTURE SCREEN 2021-11-11 03:10:00 Albert Esquivel [facility] XR CHEST 1 VW 2021-11-11 02:10:38 Albert Esquivel [facility] CT HEAD WO CONTRAST 2021-11-11 02:07:00 Albert Esquivel [facility] URINALYSIS 2021-11-11 01:29:00 Albert Esquivel [facility] URINE DRUG (IMMUNOASSAY) 2021-11-11 01:29:00 Albert Esquivel [facility] SCREEN W/O REFLEX AC PANEL 21 + LACTIC ACID 2021-11-11 01:28:00 Albert Esquivel [facility] TROPONIN I 2021-11-11 01:22:00 Albert Esquivel [facility] COMP. METABOLIC PANEL 2021-11-11 01:22:00 Albert Esquivel [facility] ([id number]) Medical Branch ETHANOL 2021-11-11 01:22:00 Albert Esquivel [facility] CBC WITH DIFF 2021-11-11 01:22:00 Albert Esquivel [facility] PROTHROMBIN TIME / INR 2021-11-11 01:22:00 Albert Esquivel [facility] ACTIVATED PARTIAL 2021-11-11 01:22:00 Albert Esquivel [facility] N-TERMINAL PRO-BNP 2021-11-11 01:22:00 Albert Esquivel [facility] POCT GLUCOSE (AUTOMATED) 2020-05-23 21:12:00 [facility] ([facility]OMATED) 2020-05-23 16:50:00 Jack [facility] POCT GLUCOSE (AUTOMATED) 2020-05-23 13:53:00 Jack [facility] MAGNESIUM 2020-05-23 10:48:00 Red, [facility] BASIC METABOLIC PANEL 2020-05-23 10:48:00 [place], [facility] (NA, K, CL, CO2, GLUCOSE, Medica l Branch BUN, CREATININE, CA) CBC WITH DIFF 2020-05-23 10:48:00 Red, [facility] POCT GLUCOSE (AUTOMATED) 2020-05-23 01:32:00 Jack [facility] POCT GLUCOSE (AUTOMATED) 2020-05-22 16:54:00 Jack [facility] POCT GLUCOSE (AUTOMATED) 2020-05-22 14:21:00 Jack [facility] MAGNESIUM 2020-05-22 09:58:00 Red, [facility] BASIC METABOLIC PANEL 2020-05-22 09:58:00 Red, [facility] (NA, K, CL, CO2, GLUCOSE, Medica l Branch BUN, CREATININE, CA) CBC WITH DIFF 2020-05-22 09:58:00 Red [facility] POCT GLUCOSE (AUTOMATED) 2020-05-22 02:18:00 Jack [facility] POCT GLUCOSE (AUTOMATED) 2020-05-21 22:51:00 Jack [facility] POCT GLUCOSE (AUTOMATED) 2020-05-21 17:21:00 Jack [facility] POCT GLUCOSE (AUTOMATED) 2020-05-21 13:20:00 Jack [facility] MAGNESIUM 2020-05-21 08:50:00 Red, [facility] BASIC METABOLIC PANEL 2020-05-21 08:50:00 [place], [facility] (NA, K, CL, CO2, GLUCOSE, Medica l Branch BUN, CREATININE, CA) CBC WITH DIFF 2020-05-21 08:50:00 Red [facility] POCT GLUCOSE (AUTOMATED) 2020-05-21 02:40:00 Jack [facility] BLOOD CULTURE SCREEN 2020-05-20 23:01:00 Boogie [facility] POCT GLUCOSE (AUTOMATED) 2020-05-20 21:47:00 [facility] ([facility]OMATED) 2020-05-20 12:59:00 Jack [facility] MAGNESIUM 2020-05-20 08:25:00 [place], [facility] BASIC METABOLIC PANEL 2020-05-20 08:25:00 [place], [facility] (NA, K, CL, CO2, GLUCOSE, Medica l Branch BUN, CREATININE, CA) CBC WITH DIFF 2020-05-20 08:25:00 [place] [facility] POCT GLUCOSE (AUTOMATED) 2020-05-20 01:08:00 Jack [facility] POCT GLUCOSE (AUTOMATED) 2020-05-19 21:38:00 Jack [facility] POCT GLUCOSE (AUTOMATED) 2020-05-19 17:35:00 Jack [facility] POCT GLUCOSE (AUTOMATED) 2020-05-19 13:45:00 Jack [facility] MAGNESIUM 2020-05-19 10:19:00 [place], [facility] BASIC METABOLIC PANEL 2020-05-19 10:19:00 [place], [facility] (NA, K, CL, CO2, GLUCOSE, Medica l Branch BUN, CREATININE, CA) CBC WITH DIFF 2020-05-19 10:19:00 [place] [facility] POCT GLUCOSE (AUTOMATED) 2020-05-19 02:10:00 Jack [facility] POCT GLUCOSE (AUTOMATED) 2020-05-18 22:23:00 Jack [facility] POCT GLUCOSE (AUTOMATED) 2020-05-18 20:53:00 [facility] 2020-05-18 17:03:00 [facility] 2020-05-18 17:01:00 Kaylen Santiago [facility] POCT GLUCOSE (AUTOMATED) 2020-05-18 13:24:00 Kaylen Santiago [facility] MAGNESIUM 2020-05-18 10:12:00 Red, [facility] BASIC METABOLIC PANEL 2020-05-18 10:12:00 [place], [facility] (NA, K, CL, CO2, GLUCOSE, Medica l Branch BUN, CREATININE, CA) LIPID PANEL ([id number])(TOTAL 2020-05-18 10:12:00 [place], [facility] CHOLESTEROL, [facility] TRIGLYCERIDES, HDL) CBC WITH DIFF 2020-05-18 10:12:00 [place], [facility] POCT GLUCOSE (AUTOMATED) 2020-05-18 02:39:00 Kaylen Santiago [facility] HEPATIC FUNCTION PANEL 2020-05-17 21:12:00 [place], [facility] ([id number]) (ALB,T.PRO,BILI [facility] T,BU/BC,ALT,AST,ALK PHOS) PROCALCITONIN 2020-05-17 21:12:00 [place], [facility] ACTIVATED PARTIAL 2020-05-17 21:09:00 [place] [facility] THRMPLAS ALMAZ [facility] EXTRA TUBE LAV 2020-05-17 21:09:00 [facility] 2020-05-17 20:57:00 [facility] TROPONIN I 2020-05-17 20:52:00 [facility] PROTHROMBIN TIME / INR 2020-05-17 20:52:00 [place] [facility] TROPONIN I 2020-05-17 20:51:00 [facility] URINALYSIS 2020-05-17 20:50:00 [facility] URINE CULTURE 2020-05-17 20:50:00 [facility] 2020-05-17 05:31:24 Kaylen Santiago [facility] BLOOD CULTURE SCREEN 2020-05-16 22:27:00 David Bush [facility] BLOOD CULTURE WORKUP 2020-05-16 22:27:00 David Bush [facility] GRAM POSITIVE BLOOD 2020-05-16 22:27:00 David Bush [facility] PATHOGENS DNA Medical Branch PROBE-AEROBIC LACTIC ACID WHOLE BLOOD 2020-05-16 22:24:00 David Bush [facility] XR CHEST 1 VW 2020-05-16 22:14:14 Singer [facility] COVID-19 (ID NOW RAPID 2020-05-16 22:14:00 [facility] Medical Branch LAB ONLY COVID 2020-05-16 22:14:00 Singer [facility] EKG-12 LEAD 2020-05-16 21:51:03 Singer [facility] MAGNESIUM 2020-05-16 21:46:00 Singer [facility] TROPONIN I 2020-05-16 21:46:00 Singer [facility] COMP. METABOLIC PANEL 2020-05-16 21:46:00 David Bush [facility] ([id number]) [facility] CBC WITH DIFF 2020-05-16 21:46:00 Singer [facility] PROTHROMBIN TIME / INR 2020-05-16 21:46:00 David Bush [facility] N-TERMINAL PRO-BNP 2020-05-16 21:46:00 David Bush [facility] EKG-12 LEAD 2020-05-16 21:38:50 Singer [facility] EMERGENCY DEPARTMENT 2020-05-16 05:01:00 Doctor Unassigned, [facility] DOCUMENTS [facility] POCT GLUCOSE (AUTOMATED) 2020-05-14 16:53:00 Brandy Rodriguez [facility] COMP. METABOLIC PANEL 2020-05-14 13:23:00 Michael roberth [facility] ([id number]) [facility] POCT GLUCOSE (AUTOMATED) 2020-05-14 12:41:00 Brandy Rodriguez [facility] CORTISOL AM 2020-05-14 09:48:00 Michael roberth [facility] CBC WITH DIFF 2020-05-14 09:48:00 Michael [facility] N-TERMINAL PRO-BNP 2020-05-14 09:48:00 Michael roberth [facility] POCT GLUCOSE (AUTOMATED) 2020-05-14 00:59:00 Brandy Rodriguez [facility] POCT GLUCOSE (AUTOMATED) 2020-05-13 21:35:00 Brandy Rodriguez [facility] POCT GLUCOSE (AUTOMATED) 2020-05-13 16:43:00 Brandy Rodriguez [facility] POCT GLUCOSE (AUTOMATED) 2020-05-13 13:06:00 Brandy Rodriguez [facility] CORTISOL AM 2020-05-13 11:49:00 Michael [facility] TROPONIN I 2020-05-13 11:49:00 Michael roberth [facility] COMP. METABOLIC PANEL 2020-05-13 11:49:00 Michael roberth [facility] ([id number]) [facility] CBC WITH DIFF 2020-05-13 11:49:00 Michael roberth [facility] N-TERMINAL PRO-BNP 2020-05-13 11:49:00 Michael roberth [facility] TROPONIN I 2020-05-13 04:51:00 Michael [facility] BASIC METABOLIC PANEL 2020-05-13 02:30:00 Michael [facility] (NA, K, CL, CO2, GLUCOSE, Medica l Branch BUN, CREATININE, CA) OSMOLALITY SERUM 2020-05-12 21:53:00 [facility] TROPONIN I 2020-05-12 21:53:00 Michael roberth [facility] ECHO ROUTINE W/DOPPLER 2020-05-12 19:59:31 Brandy Rodriguez [facility] POCT GLUCOSE (AUTOMATED) 2020-05-12 16:52:00 Brandy Rodriguez [facility] CT ANGIOGRAM 2020-05-12 14:26:39 Brandy Rodriguez [facility] ABDOMEN/PELVIS [facility] URINE CULTURE 2020-05-12 12:59:00 [facility] 2020-05-12 12:58:00 Michael [facility] URINALYSIS 2020-05-12 12:57:00 [facility] 2020-05-12 12:56:00 Michael roberth [facility] OSMOLALITY URINE 2020-05-12 12:55:00 [facility] UREA NITROGEN, URINE 2020-05-12 12:55:00 Brandy Rodriguez [facility] SODIUM, URINE RANDOM 2020-05-12 12:55:00 Michael [facility] PROTEIN CREAT RATIO URINE 2020-05-12 12:55:00 [facility]NEUM[facility]TIGEN 2020-05-12 12:53:00 Brandy Rodriguez [facility] CBC WITH DIFF 2020-05-12 12:51:00 Brandy Rodriguez [facility] PROCALCITONIN 2020-05-12 12:51:00 Michael roberth [facility] POCT GLUCOSE (AUTOMATED) 2020-05-12 12:32:00 Brandy Rodriguez [facility] LACTIC ACID WHOLE BLOOD 2020-05-12 11:20:00 Brandy Rodriguez [facility] LACTATE DEHYDROGENASE 2020-05-12 11:14:00 Brandy Rodriguez [facility] TROPONIN I 2020-05-12 11:14:00 Michael [facility] COMP. METABOLIC PANEL 2020-05-12 11:14:00 Brandy Rodriguez [facility] ([id number]) Medical Branch DIGOXIN 2020-05-12 11:14:00 Michael [facility] PROTHROMBIN TIME / INR 2020-05-12 11:14:00 Michael roberth [facility] N-TERMINAL PRO-BNP 2020-05-12 11:14:00 Michael roberth [facility] BLOOD CULTURE SCREEN 2020-05-12 06:09:00 Rene Edwards [facility] BLOOD CULTURE SCREEN 2020-05-12 06:08:00 Rene Edwards [facility] CT CHEST PULMONARY 2020-05-12 04:54:17 Rene Edwards [facility] ANGIOGRAM [facility] COVID-19 (ID NOW RAPID 2020-05-12 04:18:00 Rene Edwards [facility] TESTING) [facility] XR CHEST 1 VW 2020-05-12 03:33:42 Rene Edwards [facility] PHOSPHORUS 2020-05-12 03:25:00 Michael [facility] CREATINE KINASE 2020-05-12 03:25:00 Michael [facility] URIC ACID 2020-05-12 03:25:00 Michael [facility] LIPASE 2020-05-12 03:25:00 Michael [facility] MAGNESIUM 2020-05-12 03:25:00 Michael [facility] TROPONIN I 2020-05-12 03:25:00 Rene Edwards [facility] THYROID STIMULATING 2020-05-12 03:25:00 Brandy Rodriguez [facility] HORMONE [facility] HEPATIC FUNCTION PANEL 2020-05-12 03:25:00 Brandy Rodriguez [facility] ([id number]) (ALB,T.PRO,BILI Medical Branch T,BU/BC,ALT,AST,ALK PHOS) BASIC METABOLIC PANEL 2020-05-12 03:25:00 Rene Edwards [facility] (NA, K, CL, CO2, GLUCOSE, Medica l Branch BUN, CREATININE, CA) LIPID PANEL ([id number])(TOTAL 2020-05-12 03:25:00 Brandy Rodriguez [facility] CHOLESTEROL, [facility] TRIGLYCERIDES, HDL) CBC WITH DIFF 2020-05-12 03:25:00 Rene Edwards [facility] GLYCOSYLATED HEMOGLOBIN 2020-05-12 03:25:00 Brandy Rodriguez [facility] (A1C) [facility] D-DIMER 2020-05-12 03:25:00 Rene Edwards [facility] N-TERMINAL PRO-BNP 2020-05-12 03:25:00 Rene Edwards [facility] EKG-12 LEAD 2020-05-12 03:07:04 Rene Edwards [facility] Encounters Start End Encounter Admission Attending Care Care Encounter Source Date/Time Date/Time Type Type Clinicians Facility Department ID 2021-12-17 Outpatient [facility] [id number] [place] 08:19:52 [id number] [facility] 2021-12-07 Outpatient [facility] [id number] [place] 12:36:59 [id number] [facility] 2021-11-10 2021-11-11 Inpatient X PAMELA AZMEE VIRGILIO [id number] [facility] 20:09[facility]00 [facility]:26[facility] 2021-[facility]-11 Hospital Albert Esquivel [facility] [id number] Univers 20:09:00 13:26:00 Encounter [id number] [facility] Sargent 4.2.7.2.686 [facility] [id number] [facility] 081 Branch 2021-06-08 2021-06-08 Greg Ferro [facility] [id number] Univers 00:00:00 00:00:00 Karissa PRIMARY [id number] it of [facility] [place] [id number] Mi dical 388 Branch 2020-10-11 2020-10-11 Outpatient [facility] [id number] [place] 02:19:00 02:19:00 0310 [facility] 2020-05-25 2020-05-25 Transition Fozia Aleman [id number] Univers 00:00:00 00:00:00 of Care Radha Patel [id number] it [place] [id number] [facility] 403 Branch 2020-05-24 2020-05-24 Transition Fozia Aleman [id number] Univers 00:00:00 00:00:00 of Care Radha Patel [id number] [place] [id number] [facility] [address] [place] 2020-05-16 2020-05-23 [facility] David Bush 1.2.840.1 [id number] Univers 16:24:00 18:57:00 Encounter Kaylen Santiago 350.1.13. 10 ity of [facility] 4.2.7.2.686 Dar as [id number] [facility] 100 Branch 2020-05-16 2020-05-16 Emergency X SINGER [facility] ERT [id number] Univers 16:24:00 16:24:00 DAVID sparks [facility] 2020-05-16 2020-05-16 Telephone Joel [facility] [id number] Univers 00:00:00 00:00:00 Michael Blanco [id number] i [place] [id number] Mi dical nal 085 Branch [facility] 2020-05-11 2020-05-14 [facility] Rene Edwards [facility] [id number] Univers 22:10:00 13:32:00 Encounter Brandy Rodriguez [id number] [place] 4.2.7.2.686 [facility] [id number] [facility] 081 Branch 2020-05-11 2020-05-11 Emergency X KENN [facility] ERT [id number] Univers 22:10:00 22:10:00 RENE boomjocelyne [facility] Results Test Description Test Time Test Comments Results Result Comments Source TOTAL IRON BINDING CAPACITY 2021-11-11 15:25:26 Test Item Value Reference Range Interpretation Comme nts TIBC (test code = 1791113935) 352 ug/dL 250-410 % FE SAT (test code = 2707838483) 5 % 20-50 L Lab Interpretation (test code = 83265-6) Abnormal [facility] [id number] 15:06:10 Test Item Value Reference Range Interpretation Comments FERRITIN (test code = 8.6 ng/mL 18.0-464.0 L 9989324084) MANDO (test code = MANDO) Biotin has been reported to cause a negative bias, interpret results relative to patient's use of biotin. Lab Interpretation (test Abnormal code = 68230-0) [facility]2022-[facility]-10 14:30:28 Test Item Value Reference Range Interpretation Comments IRON (test code = 0732500416) 17 ug/dL 50-160 L Lab Interpretation (test code = Abnormal 27788-5) [facility] Arterial Blood Gas.2021-11-11 12:48:17 Test Item Value Reference Range Interpretation Comments PH (test code = 2) 7.35-7.45 PCO2 (test code = See_Comment H [Automat ed message] 8274565544) The system [employer] generated this result transmitted ref erence range: 35 - 45 mmHg. The reference r giselle was not used to interpret this result as normal/abnor mal. PO2 (test code = See_Comment L [Automated message] 2479267722) The system [employer] generated this result transmitted ref erence range: 80 - 100 mmHg. The reference r giselle was not used to interpret this result as normal/abnor mal. HCO3 (test code = See_Comment H [Automate d message] 5266919652) The system [facility] generated this result transmitted ref erence range: 22 - 26 mEq/L. The reference r giselle was not used to interpret this result as normal/abnor mal. BE (test code = See_Comment H [Automated message] 5728556410) The system [employer] generated this result transmitted ref erence range: -3.0 - 3 .0 mEq/L. The refe rence range was not u sed to interpret this result as normal/abnor mal. Lab Interpretation (test Abnormal code = 06278-0) [facility]MINAL [id number] 11:05:55 Test Item Value Reference Range Interpretation Comments NT-proBNP (test code 5850 pg/mL See_Comment H [Autom ated = 4008401862) message] The system which generated this result transmitted reference range : <=125. The reference range was not used to interpret this result as normal/abnormal . MANDO (test code = MANDO) Biotin has been reported to cause a negative bias, interpret results relative to patient's use of biotin. Lab Interpretation Abnormal (test code = 60568-9) [facility] (NA, K, CL, CO2, GLUCOSE, BUN, CREATININE, CA)2021-11-11 10:59:12 Test Item Value Reference Range Interpretation Comments NA (test code = 138 mmol/L 135-145 2375625657) K (test code = 4.6 mmol/L 3.5-5.0 5822550900) CL (test code = 100 mmol/L 98-108 3305165575) CO2 TOTAL (test code = 33 mmol/L 23-31 H 1978859082) AGAP (test code = 2-16 5085142034) BUN (test code = 21 mg/dL 7-23 7039743854) GLUCOSE (test code = 94 mg/dL 70-110 4848610587) CREATININE (test code = 1.02 mg/dL 0.60-1.25 9077326424) CALCIUM (test code = 8.8 mg/dL 8.6-10.6 6377821799) eGFR (test code = mL/min/1.73m2 5557378710) MANDO (test code = MANDO) Association of Glomerular Filtration Rate (GFR) and Staging of Kidney Disease* + --+ --+ ------+| GFR (mL/min/1.73 m2) ?| With Kidney Damage ?| ?Without Kidney Damage+ --------+ --------+ +| ?>90 ?| ?Stage one ?| ? Normal ?+ ---+ ---+ -------+| ?60-89 ?| ?Stage two ?| ? Decreased GFR ? + --+ --+ ------+| ?30-59 ?| ?Stage three ?| ? Stage three ? + --+ --+ ------+| ?15-29 ?| ?Stage four ? | ? Stage four ?+ ---+ ---+ -------+| ?<15 (or dialysis) ? ?| ?Stage five ? | ? Stage five ?+ ---+ ---+ -------+ *Each stage assumes the associated GFR level has been in effect for at least three months. ?Stages 1 to 5, with or without kidney disease, indicate chronic kidney disease. Notes: Determination of stages one and two (with eGFR >59mL/min/1.73 m2) requires estimation of kidney damage for at least three months as defined by structural or functional abnormalities of the kidney, manifested by either:Pathological abnormalities or Markers of kidney damage (including abnormalities in the composition of the blood or urine or abnormalities in imaging tests). Lab Interpretation Abnormal (test code = 59965-8) [facility] with [id number] 10:38:28 Test Item Value Reference Range Interpretation Comments WBC (test code = See_Comment [Automated 6590-2) message] The sy stem which generated this result transmitted reference range : 4.20 - 10.70 10*3/?L. The reference range was not used to interpret this result as normal/abnormal . RBC (test code = See_Comment L [Automated 372-8) message] The sy stem which generated this result transmitted reference range : 4.26 - 5.52 10*6/?L. The reference range was not used to interpret this result as normal/abnormal . HGB (test code = 7.9 g/dL 12.2-16.4 L 718-7) HCT (test code = 27.5 % 38.4-49.3 L 4544-3) MCV (test code = 100.0 fL 81.7-95.6 H 787-2) MCH (test code = 28.7 pg 26.1-32.7 785-6) MCHC (test code = 28.7 g/dL 31.2-35.0 L 786-4) RDW-SD (test code = 49.3 fL 38.5-51.6 63717-3) RDW-CV (test code = 13.3 % 12.1-15.4 788-0) PLT (test code = See_Comment H [Automated 777-3) message] The sy stem which generated this result transmitted reference range : 150 - 328 10*3/ ?L. The reference r giselle was not used to interpret this result as normal/abnormal . MPV (test code = 10.8 fL 9.8-13.0 73316-9) NRBC/100 WBC (test See_Comment [Automat ed code = 6547598038) message] The system which generated this result transmitted reference range : 0.0 - 10.0 /100 WBCs. The refer ence range was not u sed to interpret th is result as normal/abnormal . NRBC x10^3 (test code <0.01 See_Comment [Auto mated = 3601650752) message] The s ystem which generated this result transmitted reference range : 10*3/?L. The reference range was not used to interpret this result as normal/abnormal . GRAN MAT (NEUT) % 66.6 % (test code = 770-8) IMM GRAN % (test code 0.30 % = 4914071734) LYMPH % (test code = 25.4 % 736-9) MONO % (test code = 7.4 % 5905-5) EOS % (test code = 0.0 % 713-8) BASO % (test code = 0.3 % 706-2) GRAN MAT x10^3(ANC) 5.83 10*3/uL 1.99-6.95 (test code = 4040636527) IMM GRAN x10^3 (test 0.03 10*3/uL 0.00-0.06 code = 8773438005) LYMPH x10^3 (test code 2.23 10*3/uL 1.09-3.23 = 731-0) MONO x10^3 (test code 0.65 10*3/uL 0.36-1.02 = 742-7) EOS x10^3 (test code = <0.03 0.06-0.53 L 711-2) BASO x10^3 (test code 0.03 10*3/uL 0.01-0.09 = 704-7) Lab Interpretation Abnormal (test code = 01642-2) [facility] Lake[facility] [id number] 01:59:41 Test Item Value Reference Interpretation Comments Range TROPONIN I (test 0.023 ng/mL See_Comment [Automated code = 3207443964) message] The system which generated this result transmitted reference range : <=0.034. The reference range was not used to interpret this result as normal/abnormal . MANDO (test code = Reference (Normal) MANDO) Range (defined by the 99th percentile reference limit): <= 0.034 ng/mL Note: Cardiac troponin begins to rise 3-4 hours after the onset of ischemia. Repeat in 4-6 hours if the sample was drawn within 3-4 hours of the onset of the symptom and found normal. Diagnosis of myocardial injury is made with acute changes in cTn concentrations with at least one serial sample above the 99th percentile upper reference limit (URL), taken together with the patient's clinical presentation. Biotin has been reported to cause a negative bias, interpret results relative to patient's use of biotin. Lab Interpretation Normal (test code = 28650-0) [facility] Lake[facility]-TERMINAL [id number] 01:56:41 Test Item Value Reference Range Interpretation Comments NT-proBNP (test code 5760 pg/mL See_Comment H [Autom ated = 5059767474) message] The system which generated this result transmitted reference range : <=125. The reference range was not used to interpret this result as normal/abnormal . MANDO (test code = MANDO) Biotin has been reported to cause a negative bias, interpret results relative to patient's use of biotin. Lab Interpretation Abnormal (test code = 54824-3) [facility] Lake[facility]IV[facility] PARTIAL THRMPLAS [id number] 01:51:39 Test Item Value Reference Range Interpretation Comments APTT Patient (test See_Comment [Automat ed code = 3173-2) message] The system which generated this result transmitted reference range : 23 - 38 Seconds . The reference range was not used to interpr et this result as normal/abnormal . MANDO (test code = MANDO) The [facility] patient population mean normal value for aPTT is 30 seconds. Lab Interpretation Normal (test code = 04131-7) [facility] LakePROTHROMBIN TIME / [id number] 01:49:44 Test Item Value Reference Range Interpretation Comments PROTIME PATIENT (test See_Comment H [Auto mated message] code = 5964-2) The system [employer] generated this result transmitted ref erence range: 12.0 - 1 4.7 Seconds. The reference range was not used to int erpret this result as normal/abnormal . INR (test code = 6301-6) Nor mal INR <1.1; Warfarin Therap eutic range 2.0 to 3. 0 or 2.5 to 3.5, dep ending upon the indica tions. Lab Interpretation (test Abnormal code = 54986-2) [facility] Lake[facility]ANOL2022-04-10 01:49:44 Test Item Value Reference Range Interpretation Comments ALCOHOL (test code = <10 mg/dL 9266409581) MANDO (test code = MANDO) <10 Wwvafnmt94-645 Toxic>100 Depression of BOROUGH COORDINATOR>400 Fatalities Reported [facility] Lake[facility]. METABOLIC PANEL (30543)2021-11-11 01:47:38 Test Item Value Reference Range Interpretation Comments NA (test code = 137 mmol/L 135-145 9865553213) K (test code = 5.8 mmol/L 3.5-5.0 H 0244959149) CL (test code = 98 mmol/L 98-108 3338139228) CO2 TOTAL (test code = 31 mmol/L 23-31 7614134757) AGAP (test code = 2-16 1208295341) BUN (test code = 21 mg/dL 7-23 5454198498) GLUCOSE (test code = 112 mg/dL 70-110 H 9234059957) CREATININE (test code = 1.13 mg/dL 0.60-1.25 4885873572) TOTAL BILI (test code = 0.4 mg/dL 0.1-1.3 1815130161) CALCIUM (test code = 8.9 mg/dL 8.6-10.6 9591520199) T PROTEIN (test code = 7.4 g/dL 6.3-8.2 5317181074) ALBUMIN (test code = 3.9 g/dL 3.5-5.0 7715265262) ALK PHOS (test code = 61 U/L 34-122 4444192232) ALTv (test code = 9 U/L 5-50 1742-6) AST(SGOT) (test code = 14 U/L 13-40 7225303207) eGFR (test code = mL/min/1.73m2 7955243453) MANDO (test code = MANDO) Association of Glomerular Filtration Rate (GFR) and Staging of Kidney Disease* + --+ --+ ------+| GFR (mL/min/1.73 m2) ?| With Kidney Damage ?| ?Without Kidney Damage+ --------+ --------+ +| ?>90 ?| ?Stage one ?| ? Normal ?+ ---+ ---+ -------+| ?60-89 ?| ?Stage two ?| ? Decreased GFR ? + --+ --+ ------+| ?30-59 ?| ?Stage three ?| ? Stage three ? + --+ --+ ------+| ?15-29 ?| ?Stage four ? | ? Stage four ?+ ---+ ---+ -------+| ?<15 (or dialysis) ? ?| ?Stage five ? | ? Stage five ?+ ---+ ---+ -------+ *Each stage assumes the associated GFR level has been in effect for at least three months. ?Stages 1 to 5, with or without kidney disease, indicate chronic kidney disease. Notes: Determination of stages one and two (with eGFR >59mL/min/1.73 m2) requires estimation of kidney damage for at least three months as defined by structural or functional abnormalities of the kidney, manifested by either:Pathological abnormalities or Markers of kidney damage (including abnormalities in the composition of the blood or urine or abnormalities in imaging tests). Lab Interpretation Abnormal (test code = 89577-5) [facility] WITH [id number] 01:45:03 Test Item Value Reference Range Interpretation Comments WBC (test code = See_Comment [Automated 6690-2) message] The sy stem which generated this result transmitted reference range : 4.20 - 10.70 10*3/?L. The reference range was not used to interpret this result as normal/abnormal . RBC (test code = See_Comment L [Automated 789-8) message] The sy stem which generated this result transmitted reference range : 4.26 - 5.52 10*6/?L. The reference range was not used to interpret this result as normal/abnormal . HGB (test code = 8.2 g/dL 12.2-16.4 L 718-7) HCT (test code = 28.6 % 38.4-49.3 L 4544-3) MCV (test code = 100.0 fL 81.7-95.6 H 787-2) MCH (test code = 28.7 pg 26.1-32.7 785-6) MCHC (test code = 28.7 g/dL 31.2-35.0 L 786-4) RDW-SD (test code = 48.4 fL 38.5-51.6 21617-0) RDW-CV (test code = 13.2 % 12.1-15.4 788-0) PLT (test code = See_Comment H [Automated 777-3) message] The sy stem which generated this result transmitted reference range : 150 - 328 10*3/ ?L. The reference r giselle was not used to interpret this result as normal/abnormal . MPV (test code = 10.8 fL 9.8-13.0 93770-3) NRBC/100 WBC (test See_Comment [Automat ed code = 4392324221) message] The system which generated this result transmitted reference range : 0.0 - 10.0 /100 WBCs. The refer ence range was not u sed to interpret th is result as normal/abnormal . NRBC x10^3 (test code <0.01 See_Comment [Auto mated = 0298289348) message] The s ystem which generated this result transmitted reference range : 10*3/?L. The reference range was not used to interpret this result as normal/abnormal . GRAN MAT (NEUT) % 74.2 % (test code = 770-8) IMM GRAN % (test code 0.40 % = 2632293948) LYMPH % (test code = 19.6 % 736-9) MONO % (test code = 5.5 % 5905-5) EOS % (test code = 0.0 % 713-8) BASO % (test code = 0.3 % 706-2) GRAN MAT x10^3(ANC) 6.75 10*3/uL 1.99-6.95 (test code = 6127201791) IMM GRAN x10^3 (test 0.04 10*3/uL 0.00-0.06 code = 5737417350) LYMPH x10^3 (test code 1.79 10*3/uL 1.09-3.23 = 731-0) MONO x10^3 (test code 0.50 10*3/uL 0.36-1.02 = 742-7) EOS x10^3 (test code = <0.03 0.06-0.53 L 711-2) BASO x10^3 (test code 0.03 10*3/uL 0.01-0.09 = 704-7) Lab Interpretation Abnormal (test code = 62928-9) [facility] GLUCOSE (AUTOMATED)2020-05-23 21:14:00 Test Item Value Reference Range Interpretation Comments POCT GLU (test code = 6561075596) 203 mg/dL 70-110 H Lab Interpretation (test code = Abnormal 04070-2) [facility] GLUCOSE (AUTOMATED)2020-05-23 16:52:00 Test Item Value Reference Range Interpretation Comments POCT GLU (test code = 0538699337) 320 mg/dL 70-110 H Lab Interpretation (test code = Abnormal 23145-3) [facility] GLUCOSE (AUTOMATED)2020-05-23 13:55:00 Test Item Value Reference Range Interpretation Comments POCT GLU (test code = 7094114281) 146 mg/dL 70-110 H Lab Interpretation (test code = Abnormal 74701-3) [facility] (NA, K, CL, CO2, GLUCOSE, BUN, CREATININE, CA)2020-05-23 11:19:00 Test Item Value Reference Range Interpretation Comments NA (test code = 136 mmol/L 135-145 0230260962) K (test code = 4.4 mmol/L 3.5-5 3802404790) CL (test code = 96 mmol/L 98-108 L 7912526342) CO2 TOTAL (test code = 36 mmol/L 23-31 H 8591054646) AGAP (test code = 2-16 2320249775) BUN (test code = 8 mg/dL 7-23 6790863718) GLUCOSE (test code = 119 mg/dL 70-110 H 8901098491) CREATININE (test code = 0.69 mg/dL 0.6-1.25 7088004866) CALCIUM (test code = 9.2 mg/dL 8.6-10.6 6658291309) eGFR Calculation mL/min/1.73m2 (Non-) (test code = 3949178523) eGFR Calculation mL/min/1.73m2 () (test code = 7858610129) MANDO (test code = MANDO) Association of Glomerular Filtration Rate (GFR) and Staging of Kidney Disease* + --+ --+ ------+| GFR (mL/min/1.73 m2) ?| With Kidney Damage ?| ?Without Kidney Damage+ --------+ --------+ +| ?>90 ?| ?Stage one ?| ? Normal ?+ ---+ ---+ -------+| ?60-89 ?| ?Stage two ?| ? Decreased GFR ? + --+ --+ ------+| ?30-59 ?| ?Stage three ?| ? Stage three ? + --+ --+ ------+| ?15-29 ?| ?Stage four ? | ? Stage four ?+ ---+ ---+ -------+| ?<15 (or dialysis) ? ?| ?Stage five ? | ? Stage five ?+ ---+ ---+ -------+ *Each stage assumes the associated GFR level has been in effect for at least three months. ?Stages 1 to 5, with or without kidney disease, indicate chronic kidney disease. Notes: Determination of stages one and two (with eGFR >59mL/min/1.73 m2) requires estimation of kidney damage for at least three months as defined by structural or functional abnormalities of the kidney, manifested by either:Pathological abnormalities or Markers of kidney damage (including abnormalities in the composition of the blood or urine or abnormalities in imaging tests). Lab Interpretation Abnormal (test code = 43106-9) [facility] Oncce1284-80-90 11:19:00 Test Item Value Reference Range Interpretation Comments MAGNESIUM (test code = 9269481163) 2.1 mg/dL 1.7-2.4 Lab Interpretation (test code = Normal 03679-0) [facility] with Kfqtildlynal4638-93-80 11:11:00 Test Item Value Reference Range Interpretation Comments WBC (test code = See_Comment H [Automated 6690-2) message] The sy stem which generated this result transmitted reference range : 4.20 - 10.70 10*3/?L. The reference range was not used to interpret this result as normal/abnormal . RBC (test code = See_Comment L [Automated 789-8) message] The sy stem which generated this result transmitted reference range : 4.26 - 5.52 10*6/?L. The reference range was not used to interpret this result as normal/abnormal . HGB (test code = 10.8 g/dL 12.2-16.4 L 718-7) HCT (test code = 36.0 % 38.4-49.3 L 4544-3) MCV (test code = 91.4 fL 81.7-95.6 787-2) MCH (test code = 27.4 pg 26.1-32.7 785-6) MCHC (test code = 30.0 g/dL 31.2-35 L 786-4) RDW-SD (test code = 48.2 fL 38.5-51.6 01089-0) RDW-CV (test code = 14.4 % 12.1-15.4 788-0) PLT (test code = See_Comment H [Automated 777-3) message] The sy stem which generated this result transmitted reference range : 150 - 328 10*3/ ?L. The reference r giselle was not used to interpret this result as normal/abnormal . MPV (test code = 9.5 fL 9.8-13 L 58636-9) NRBC/100 WBC (test See_Comment [Automat ed code = 4000906178) message] The system which generated this result transmitted reference range : 0.0 - 10.0 /100 WBCs. The refer ence range was not u sed to interpret th is result as normal/abnormal . NRBC x10^3 (test code <0.01 See_Comment [Auto mated = 4254152835) message] The s ystem which generated this result transmitted reference range : 10*3/?L. The reference range was not used to interpret this result as normal/abnormal . GRAN MAT (NEUT) % 64.0 % (test code = 770-8) IMM GRAN % (test code 1.40 % = 0249164437) LYMPH % (test code = 24.5 % 736-9) MONO % (test code = 6.5 % 5905-5) EOS % (test code = 3.1 % 713-8) BASO % (test code = 0.5 % 706-2) GRAN MAT x10^3(ANC) 7.11 10*3/uL 1.99-6.95 H (test code = 9284265986) IMM GRAN x10^3 (test 0.15 10*3/uL 0-0.06 H code = 1936691382) LYMPH x10^3 (test code 2.72 10*3/uL 1.09-3.23 = 731-0) MONO x10^3 (test code 0.72 10*3/uL 0.36-1.02 = 742-7) EOS x10^3 (test code = 0.34 10*3/uL 0.06-0.53 711-2) BASO x10^3 (test code 0.06 10*3/uL 0.01-0.09 = 704-7) Lab Interpretation Abnormal (test code = 85260-3) [facility] 01:34:00 Test Item Value Reference Range Interpretation Comments POCT GLU (test code = 2751641661) 186 mg/dL 70-110 H Lab Interpretation (test code = Abnormal 65739-5) [facility] [id number] 23:01:00 Test Item Value Reference Range Interpretation Comments Blood Culture-Aerobic No organisms No growth Previo us (test code = 16970-1) isolated prelim inary verified result was Culture In Progress on 05/17/2020 at 2101 CDTPreviou s preliminary verified result was No growth a t 24 hours on 05/18/2020 at 1801 CDTPreviou s preliminary verified result was No growth a t 48 hours on 05/19/2020 at 1801 CDTPreviou s preliminary verified result was No growth a t 72 hours on 05/20/2020 at 1801 CDT Blood No organisms No growth Previous Culture-Anaerobic isolated preliminar y (test code = 94380-8) verifi ed result was Culture In Progress on 05/17/2020 at 2101 CDTPreviou s preliminary verified result was No growth a t 24 hours on 05/18/2020 at 1801 CDTPreviou s preliminary verified result was No growth a t 48 hours on 05/19/2020 at 1801 CDTPreviou s preliminary verified result was No growth a t 72 hours on 05/20/2020 at 1801 CDT Lab Interpretation Normal (test code = 81346-1) [facility] GLUCOSE (AUTOMATED)2020-05-22 16:59:00 Test Item Value Reference Range Interpretation Comments POCT GLU (test code = 0868860443) 218 mg/dL 70-110 H Lab Interpretation (test code = Abnormal 92046-6) [facility] GLUCOSE (AUTOMATED)2020-05-22 14:29:00 Test Item Value Reference Range Interpretation Comments POCT GLU (test code = 8027015849) 156 mg/dL 70-110 H Lab Interpretation (test code = Abnormal 80242-5) [facility] Met[facility] (NA, K, CL, CO2, GLUCOSE, BUN, CREATININE, CA)2020-05-22 10:25:00 Test Item Value Reference Range Interpretation Comments NA (test code = 136 mmol/L 135-145 7355666469) K (test code = 4.1 mmol/L 3.5-5 3481277183) CL (test code = 97 mmol/L 98-108 L 3964171938) CO2 TOTAL (test code = 36 mmol/L 23-31 H 9340004422) AGAP (test code = 2-16 4248102669) BUN (test code = 9 mg/dL 7-23 5858717069) GLUCOSE (test code = 132 mg/dL 70-110 H 2292353021) CREATININE (test code = 0.71 mg/dL 0.6-1.25 6787916804) CALCIUM (test code = 9.0 mg/dL 8.6-10.6 9620263037) eGFR Calculation mL/min/1.73m2 (Non-) (test code = 6076063568) eGFR Calculation mL/min/1.73m2 () (test code = 1697753642) MANDO (test code = MANDO) Association of Glomerular Filtration Rate (GFR) and Staging of Kidney Disease* + --+ --+ ------+| GFR (mL/min/1.73 m2) ?| With Kidney Damage ?| ?Without Kidney Damage+ --------+ --------+ +| ?>90 ?| ?Stage one ?| ? Normal ?+ ---+ ---+ -------+| ?60-89 ?| ?Stage two ?| ? Decreased GFR ? + --+ --+ ------+| ?30-59 ?| ?Stage three ?| ? Stage three ? + --+ --+ ------+| ?15-29 ?| ?Stage four ? | ? Stage four ?+ ---+ ---+ -------+| ?<15 (or dialysis) ? ?| ?Stage five ? | ? Stage five ?+ ---+ ---+ -------+ *Each stage assumes the associated GFR level has been in effect for at least three months. ?Stages 1 to 5, with or without kidney disease, indicate chronic kidney disease. Notes: Determination of stages one and two (with eGFR >59mL/min/1.73 m2) requires estimation of kidney damage for at least three months as defined by structural or functional abnormalities of the kidney, manifested by either:Pathological abnormalities or Markers of kidney damage (including abnormalities in the composition of the blood or urine or abnormalities in imaging tests). Lab Interpretation Abnormal (test code = 20741-5) [facility] Npkpi2419-15-79 10:25:00 Test Item Value Reference Range Interpretation Comments MAGNESIUM (test code = 2360110158) 2.1 mg/dL 1.7-2.4 Lab Interpretation (test code = Normal 68365-3) [facility] with Meopaeloaazf9419-15-30 10:12:00 Test Item Value Reference Range Interpretation Comments WBC (test code = See_Comment H [Automated 6690-2) message] The sy stem which generated this result transmitted reference range : 4.20 - 10.70 10*3/?L. The reference range was not used to interpret this result as normal/abnormal . RBC (test code = See_Comment L [Automated 789-8) message] The sy stem which generated this result transmitted reference range : 4.26 - 5.52 10*6/?L. The reference range was not used to interpret this result as normal/abnormal . HGB (test code = 10.5 g/dL 12.2-16.4 L 718-7) HCT (test code = 34.3 % 38.4-49.3 L 4544-3) MCV (test code = 88.4 fL 81.7-95.6 787-2) MCH (test code = 27.1 pg 26.1-32.7 785-6) MCHC (test code = 30.6 g/dL 31.2-35 L 786-4) RDW-SD (test code = 47.7 fL 38.5-51.6 38442-7) RDW-CV (test code = 14.6 % 12.1-15.4 788-0) PLT (test code = See_Comment H [Automated 777-3) message] The sy stem which generated this result transmitted reference range : 150 - 328 10*3/ ?L. The reference r giselle was not used to interpret this result as normal/abnormal . MPV (test code = 9.4 fL 9.8-13 L 11780-9) NRBC/100 WBC (test See_Comment [Automat ed code = 8640327953) message] The system which generated this result transmitted reference range : 0.0 - 10.0 /100 WBCs. The refer ence range was not u sed to interpret th is result as normal/abnormal . NRBC x10^3 (test code <0.01 See_Comment [Auto mated = 7397644379) message] The s ystem which generated this result transmitted reference range : 10*3/?L. The reference range was not used to interpret this result as normal/abnormal . GRAN MAT (NEUT) % 66.1 % (test code = 770-8) IMM GRAN % (test code 1.20 % = 0251080490) LYMPH % (test code = 22.9 % 736-9) MONO % (test code = 7.1 % 5905-5) EOS % (test code = 2.3 % 713-8) BASO % (test code = 0.4 % 706-2) GRAN MAT x10^3(ANC) 9.08 10*3/uL 1.99-6.95 H (test code = 9818840544) IMM GRAN x10^3 (test 0.17 10*3/uL 0-0.06 H code = 8050128514) LYMPH x10^3 (test code 3.15 10*3/uL 1.09-3.23 = 731-0) MONO x10^3 (test code 0.97 10*3/uL 0.36-1.02 = 742-7) EOS x10^3 (test code = 0.31 10*3/uL 0.06-0.53 711-2) BASO x10^3 (test code 0.06 10*3/uL 0.01-0.09 = 704-7) Lab Interpretation Abnormal (test code = 78150-8) [facility] GLUCOSE (AUTOMATED)2020-05-22 02:20:00 Test Item Value Reference Range Interpretation Comments POCT GLU (test code = 0478163439) 196 mg/dL 70-110 H Lab Interpretation (test code = Abnormal 29169-0) [facility] GLUCOSE (AUTOMATED)2020-05-21 22:52:00 Test Item Value Reference Range Interpretation Comments POCT GLU (test code = 1248619144) 195 mg/dL 70-110 H Lab Interpretation (test code = Abnormal 85575-2) [facility] GLUCOSE (AUTOMATED)2020-05-21 17:24:00 Test Item Value Reference Range Interpretation Comments POCT GLU (test code = 6622041487) 226 mg/dL 70-110 H Lab Interpretation (test code = Abnormal 90397-2) [facility] GLUCOSE (AUTOMATED)2020-05-21 13:22:00 Test Item Value Reference Range Interpretation Comments POCT GLU (test code = 4924227735) 169 mg/dL 70-110 H Lab Interpretation (test code = Abnormal 15187-5) [facility] Metabolic Panel (NA, K, CL, CO2, GLUCOSE, BUN, CREATININE, CA)2020-05-21 09:27:00 Test Item Value Reference Range Interpretation Comments NA (test code = 135 mmol/L 135-145 4788903515) K (test code = 3.7 mmol/L 3.5-5 7105782343) CL (test code = 95 mmol/L 98-108 L 9270674029) CO2 TOTAL (test code = 34 mmol/L 23-31 H 6268332430) AGAP (test code = 2-16 1927821940) BUN (test code = 12 mg/dL 7-23 8946022647) GLUCOSE (test code = 123 mg/dL 70-110 H 1692115244) CREATININE (test code = 0.81 mg/dL 0.6-1.25 2136561763) CALCIUM (test code = 8.8 mg/dL 8.6-10.6 3611417857) eGFR Calculation mL/min/1.73m2 (Non-) (test code = 6789296195) eGFR Calculation mL/min/1.73m2 () (test code = 2343074518) MANDO (test code = MANDO) Association of Glomerular Filtration Rate (GFR) and Staging of Kidney Disease* + --+ --+ ------+| GFR (mL/min/1.73 m2) ?| With Kidney Damage ?| ?Without Kidney Damage+ --------+ --------+ +| ?>90 ?| ?Stage one ?| ? Normal ?+ ---+ ---+ -------+| ?60-89 ?| ?Stage two ?| ? Decreased GFR ? + --+ --+ ------+| ?30-59 ?| ?Stage three ?| ? Stage three ? + --+ --+ ------+| ?15-29 ?| ?Stage four ? | ? Stage four ?+ ---+ ---+ -------+| ?<15 (or dialysis) ? ?| ?Stage five ? | ? Stage five ?+ ---+ ---+ -------+ *Each stage assumes the associated GFR level has been in effect for at least three months. ?Stages 1 to 5, with or without kidney disease, indicate chronic kidney disease. Notes: Determination of stages one and two (with eGFR >59mL/min/1.73 m2) requires estimation of kidney damage for at least three months as defined by structural or functional abnormalities of the kidney, manifested by either:Pathological abnormalities or Markers of kidney damage (including abnormalities in the composition of the blood or urine or abnormalities in imaging tests). Lab Interpretation Abnormal (test code = 36094-7) [facility] Jojfz8764-58-56 09:27:00 Test Item Value Reference Range Interpretation Comments MAGNESIUM (test code = 2546326671) 2.0 mg/dL 1.7-2.4 Lab Interpretation (test code = Normal 12708-2) [facility] Vnzhjvcievru8411-48-94 09:01:00 Test Item Value Reference Range Interpretation Comments WBC (test code = See_Comment H [Automated 6690-2) message] The sy stem which generated this result transmitted reference range : 4.20 - 10.70 10*3/?L. The reference range was not used to interpret this result as normal/abnormal . RBC (test code = See_Comment L [Automated 789-8) message] The sy stem which generated this result transmitted reference range : 4.26 - 5.52 10*6/?L. The reference range was not used to interpret this result as normal/abnormal . HGB (test code = 10.6 g/dL 12.2-16.4 L 718-7) HCT (test code = 33.7 % 38.4-49.3 L 4544-3) MCV (test code = 87.5 fL 81.7-95.6 787-2) MCH (test code = 27.5 pg 26.1-32.7 785-6) MCHC (test code = 31.5 g/dL 31.2-35 786-4) RDW-SD (test code = 47.5 fL 38.5-51.6 88987-8) RDW-CV (test code = 14.6 % 12.1-15.4 788-0) PLT (test code = See_Comment H [Automated 777-3) message] The sy stem which generated this result transmitted reference range : 150 - 328 10*3/ ?L. The reference r giselle was not used to interpret this result as normal/abnormal . MPV (test code = 9.4 fL 9.8-13 L 57833-2) NRBC/100 WBC (test See_Comment [Automat ed code = 7200927409) message] The system which generated this result transmitted reference range : 0.0 - 10.0 /100 WBCs. The refer ence range was not u sed to interpret th is result as normal/abnormal . NRBC x10^3 (test code <0.01 See_Comment [Auto mated = 7531259868) message] The s ystem which generated this result transmitted reference range : 10*3/?L. The reference range was not used to interpret this result as normal/abnormal . GRAN MAT (NEUT) % 69.5 % (test code = 770-8) IMM GRAN % (test code 1.20 % = 7586116856) LYMPH % (test code = 20.5 % 736-9) MONO % (test code = 6.7 % 5905-5) EOS % (test code = 1.5 % 713-8) BASO % (test code = 0.6 % 706-2) GRAN MAT x10^3(ANC) 9.60 10*3/uL 1.99-6.95 H (test code = 3722779736) IMM GRAN x10^3 (test 0.17 10*3/uL 0-0.06 H code = 9636946547) LYMPH x10^3 (test code 2.83 10*3/uL 1.09-3.23 = 731-0) MONO x10^3 (test code 0.93 10*3/uL 0.36-1.02 = 742-7) EOS x10^3 (test code = 0.21 10*3/uL 0.06-0.53 711-2) BASO x10^3 (test code 0.08 10*3/uL 0.01-0.09 = 704-7) Lab Interpretation Abnormal (test code = 00110-9) [facility] GLUCOSE (AUTOMATED)2020-05-21 02:42:00 Test Item Value Reference Range Interpretation Comments POCT GLU (test code = 9836743441) 149 mg/dL 70-110 H Lab Interpretation (test code = Abnormal 09542-2) [facility] GLUCOSE (AUTOMATED)2020-05-20 21:49:00 Test Item Value Reference Range Interpretation Comments POCT GLU (test code = 3440609776) 225 mg/dL 70-110 H Lab Interpretation (test code = Abnormal 80203-4) [facility] GLUCOSE (AUTOMATED)2020-05-20 13:02:00 Test Item Value Reference Range Interpretation Comments POCT GLU (test code = 7950642286) 131 mg/dL 70-110 H Lab Interpretation (test code = Abnormal 76714-6) [facility] Metabolic Panel (NA, K, CL, CO2, GLUCOSE, BUN, CREATININE, CA)2020-05-20 09:10:00 Test Item Value Reference Range Interpretation Comments NA (test code = 131 mmol/L 135-145 L 6132527174) K (test code = 4.1 mmol/L 3.5-5 Slight 4259399121) hemolysis CL (test code = 94 mmol/L 98-108 L 7715421167) CO2 TOTAL (test code 33 mmol/L 23-31 H = 6130964134) AGAP (test code = 2-16 6232947842) BUN (test code = 12 mg/dL 7-23 Slight 7293196599) hemolysis GLUCOSE (test code = 119 mg/dL 70-110 H 5849984568) CREATININE (test code 0.63 mg/dL 0.6-1.25 = 3939935331) CALCIUM (test code = 8.6 mg/dL 8.6-10.6 9280745977) eGFR Calculation mL/min/1.73m2 (Non-) (test code = 7137633385) eGFR Calculation mL/min/1.73m2 () (test code = 5522015974) MANDO (test code = MANDO) Association of Glomerular Filtration Rate (GFR) and Staging of Kidney Disease* + -----+ --------+ +| GFR (mL/min/1.73 m2) ?| With Kidney Damage ?| ?Without Kidney Damage+ +------- +---- --+| ?>90 ?| ?Stage one ?| ? Normal ?+ ------+ ---------+--------- +| ?60-89 ?| ?Stage two ?| ? Decreased GFR ? + -----+ --------+ +| ?30-59 ?| ?Stage three ?| ? Stage three ? + -----+ --------+ +| ?15-29 ?| ?Stage four ? | ? Stage four ?+ ------+ ---------+--------- +| ?<15 (or dialysis) ? ?| ?Stage five ? | ? Stage five ?+ ------+ ---------+--------- + *Each stage assumes the associated GFR level has been in effect for at least three months. ?Stages 1 to 5, with or without kidney disease, indicate chronic kidney disease. Notes: Determination of stages one and two (with eGFR >59mL/min/1.73 m2) requires estimation of kidney damage for at least three months as defined by structural or functional abnormalities of the kidney, manifested by either:Pathological abnormalities or Markers of kidney damage (including abnormalities in the composition of the blood or urine or abnormalities in imaging tests). Lab Interpretation Abnormal (test code = 66352-4) [facility] Nziai1286-36-75 09:10:00 Test Item Value Reference Range Interpretation Comments MAGNESIUM (test code = 9110000561) 1.9 mg/dL 1.7-2.4 Lab Interpretation (test code = Normal 96954-9) [facility] with Rsnollxennfh8036-33-27 08:39:00 Test Item Value Reference Range Interpretation Comments WBC (test code = See_Comment H [Automated 6690-2) message] The system which generated this result transmit traci reference range : 4.20 - 10.70 10*3/?L. The reference range was not used to interpret this result as normal/abnormal . RBC (test code = See_Comment L [Automated 459-8) message] The system which generated this result transmit traci reference range : 4.26 - 5.52 10*6/?L. The reference range was not used to interpret this result as normal/abnormal . HGB (test code = 10.3 g/dL 12.2-16.4 L 718-7) HCT (test code = 33.2 % 38.4-49.3 L 4544-3) MCV (test code = 88.1 fL 81.7-95.6 787-2) MCH (test code = 27.3 pg 26.1-32.7 785-6) MCHC (test code = 31.0 g/dL 31.2-35 L 786-4) RDW-SD (test code = 47.6 fL 38.5-51.6 38900-3) RDW-CV (test code = 14.7 % 12.1-15.4 788-0) PLT (test code = See_Comment H [Automated 777-3) message] The system which generated this result transmit traci reference range : 150 - 328 10*3/ ?L. The reference range was not u sed to interpret th is result as normal/abnormal . MPV (test code = 9.6 fL 9.8-13 L 34055-0) NRBC/100 WBC (test See_Comment [Automat ed code = 9592269860) message] The system which generated this result transmit traci reference range : 0.0 - 10.0 /100 WBCs. The reference range was not used to interpret this result as normal/abnormal . NRBC x10^3 (test code <0.01 See_Comment [Auto mated = 1536148475) message] The system which generated this result transmit traci reference range : 10*3/?L. The reference range was not used to interpret this result as normal/abnormal . GRAN MAT (NEUT) % 70.1 % (test code = 770-8) IMM GRAN % (test code 1.20 % = 0660763389) LYMPH % (test code = 20.1 % 736-9) MONO % (test code = 7.2 % 5905-5) EOS % (test code = 0.9 % 713-8) BASO % (test code = 0.5 % 706-2) GRAN MAT x10^3(ANC) 10.73 10*3/uL 1.99-6.95 H (test code = 5950968348) IMM GRAN x10^3 (test 0.19 10*3/uL 0-0.06 H code = 3899866796) LYMPH x10^3 (test code 3.07 10*3/uL 1.09-3.23 = 731-0) MONO x10^3 (test code 1.10 10*3/uL 0.36-1.02 H = 742-7) EOS x10^3 (test code = 0.13 10*3/uL 0.06-0.53 711-2) BASO x10^3 (test code 0.07 10*3/uL 0.01-0.09 = 704-7) Lab Interpretation Abnormal (test code = 96530-9) [facility] DRCSREEKWWDBZN5811-61-87 02:03:00COVID DMT InterpretationInterpretation/Recommendations\\nTests (PCR) for Active Infection by COVID-19Virus: This patient has tested negative for the COVID-19 virus on two occasions. ?For approximatelytwo-thirds of patients with a negative test result who were tested only once, the patient is truly negative and has not been infected with the COVID-19 virus. However, for those tested using a nasopharyngeal sample, each time the PCR test is performed there is approximately a gej-ml-lwhgh chance the patient had been infected and the result of the test is a false negative. This occurs because the virus is predominantly in the lung and out of reach of the nasopharyngeal swab. Importantly, this patient has tested negative twice. Especially if there were minimal or no symptoms of the infection, this makes a false negative result less likely for this patient, and much more likely that the patient has not been infected with the COVID-19 virus. Tests for IgM and/or IgG Antibodies to COVID- 19 Virus: A. ?A test for IgM antibody to the COVID-19 virus would be highly informative at this time. IgM antibodies to the COVID-19 virus identified in a high performing test, usually an EZEKIEL or chemiluminescence based assay, should appear in most patients who are truly infected within approximately one week from the onset of symptoms, and in nearly all patients by 2 to 3 weeks after symptoms begin. If the IgM test is positive, even if the PCR tests for active infection were negative, it is highly probable that the patient has been infected with the virus at some point. B. ?A test for IgG antibodies to the COVID-19 virus was not performed and ?would also be informative if the IgM antibody test is positive, when performed. The sample for the IgG antibody test should be collected 2 or more weeks post onset of symptoms. The test for IgM and IgG antibodies can be performed using a single blood sample. ?It is the IgG antibodies that can confer long-term immunity to infectious agents. However, at this time, it is not known if the production of IgG antibodies indicates whether the patient is immune to future infections with the COVID-19 virus. It is also not known how long IgG antibodies to the COVID-19 virus persist, and therefore the length of immunity to future COVID-19 infections. C. ?Although it is uncommon, some patients cannot ever mount an antibody response to infectious agents, such as COVID-19. If there are persistently negative results for IgM and IgG antibodies, this may be the explanation.[facility]AT[facility] SERVICESCOVID WwaniruNMMN-McA-4 PCR (no units) ? ? ?Date ? Value ?05/15/2020 ? Not Detected ?11/24/2019 ? Not Detected ? [facility] SERVICESUnSt[facility] (AUTOMATED)2020-05-20 01:09:00 Test Item Value Reference Range Interpretation Comments POCT GLU (test code = 9979050002) 128 mg/dL 70-110 H Lab Interpretation (test code = Abnormal 47789-1) [facility] GLUCOSE (AUTOMATED)2020-05-19 21:39:00 Test Item Value Reference Range Interpretation Comments POCT GLU (test code = 2126685630) 124 mg/dL 70-110 H Lab Interpretation (test code = Abnormal 16690-3) [facility] GLUCOSE (AUTOMATED)2020-05-19 17:36:00 Test Item Value Reference Range Interpretation Comments POCT GLU (test code = 4703010225) 134 mg/dL 70-110 H Lab Interpretation (test code = Abnormal 57815-1) [facility] GLUCOSE (AUTOMATED)2020-05-19 13:47:00 Test Item Value Reference Range Interpretation Comments POCT GLU (test code = 8750420046) 210 mg/dL 70-110 H Lab Interpretation (test code = Abnormal 66387-0) [facility] Lake[facility] C[facility] [id number] 13:22:00 Test Item Value Reference Range Interpretation Comments Blood Culture-Aerobic Culture positive. No growth AA P revious (test code = 95437-5) See Blood prelim inary Culture Workup verified resu lt for additional was Culture I n information. Progress on 05/16/2020 at 2101 CDT Lab Interpretation Abnormal (test code = 91612-0) [facility] Lake[facility] C[facility]URE [id number] 13:22:00 Test Item Value Reference Range Interpretation Comments Blood Culture Coagulase negative Organism identified Workup (test Staphylococcus by DNA code = 600-7) probeAdditiona l work-up perform ed only per reques t. Culture plate(s ) will be saved until this date: - 020 Gram stain Isolated from (test code = aerobic bottle Gram 664-3) positive cocci [facility] Metabolic Panel (NA, K, CL, CO2, GLUCOSE, BUN, CREATININE, CA)2020-05-19 11:07:00 Test Item Value Reference Range Interpretation Comments NA (test code = 133 mmol/L 135-145 L 7448682214) K (test code = 3.5 mmol/L 3.5-5 2642269286) CL (test code = 95 mmol/L 98-108 L 4205341548) CO2 TOTAL (test code = 32 mmol/L 23-31 H 3621950458) AGAP (test code = 2-16 5428337291) BUN (test code = 12 mg/dL 7-23 7209605419) GLUCOSE (test code = 151 mg/dL 70-110 H 5908741010) CREATININE (test code = 0.75 mg/dL 0.6-1.25 4289069554) CALCIUM (test code = 8.8 mg/dL 8.6-10.6 1609987612) eGFR Calculation mL/min/1.73m2 (Non-) (test code = 8080307582) eGFR Calculation mL/min/1.73m2 () (test code = 6227866360) MANDO (test code = MANDO) Association of Glomerular Filtration Rate (GFR) and Staging of Kidney Disease* + --+ --+ ------+| GFR (mL/min/1.73 m2) ?| With Kidney Damage ?| ?Without Kidney Damage+ --------+ --------+ +| ?>90 ?| ?Stage one ?| ? Normal ?+ ---+ ---+ -------+| ?60-89 ?| ?Stage two ?| ? Decreased GFR ? + --+ --+ ------+| ?30-59 ?| ?Stage three ?| ? Stage three ? + --+ --+ ------+| ?15-29 ?| ?Stage four ? | ? Stage four ?+ ---+ ---+ -------+| ?<15 (or dialysis) ? ?| ?Stage five ? | ? Stage five ?+ ---+ ---+ -------+ *Each stage assumes the associated GFR level has been in effect for at least three months. ?Stages 1 to 5, with or without kidney disease, indicate chronic kidney disease. Notes: Determination of stages one and two (with eGFR >59mL/min/1.73 m2) requires estimation of kidney damage for at least three months as defined by structural or functional abnormalities of the kidney, manifested by either:Pathological abnormalities or Markers of kidney damage (including abnormalities in the composition of the blood or urine or abnormalities in imaging tests). Lab Interpretation Abnormal (test code = 13141-0) [facility] LakeMagnesium [id number] 11:07:00 Test Item Value Reference Range Interpretation Comments MAGNESIUM (test code = 5594808218) 1.8 mg/dL 1.7-2.4 Lab Interpretation (test code = Normal 59189-7) [facility] LakeCB with [id number] 10:26:00 Test Item Value Reference Range Interpretation Comments WBC (test code = See_Comment H [Automated 6690-2) message] The system which generated this result transmit traci reference range : 4.20 - 10.70 10*3/?L. The reference range was not used to interpret this result as normal/abnormal . RBC (test code = See_Comment L [Automated 789-8) message] The system which generated this result transmit traci reference range : 4.26 - 5.52 10*6/?L. The reference range was not used to interpret this result as normal/abnormal . HGB (test code = 11.1 g/dL 12.2-16.4 L 718-7) HCT (test code = 35.0 % 38.4-49.3 L 4544-3) MCV (test code = 87.1 fL 81.7-95.6 787-2) MCH (test code = 27.6 pg 26.1-32.7 785-6) MCHC (test code = 31.7 g/dL 31.2-35 786-4) RDW-SD (test code = 47.8 fL 38.5-51.6 00603-2) RDW-CV (test code = 14.9 % 12.1-15.4 788-0) PLT (test code = See_Comment H [Automated 777-3) message] The system which generated this result transmit traci reference range : 150 - 328 10*3/ ?L. The reference range was not u sed to interpret th is result as normal/abnormal . MPV (test code = 9.5 fL 9.8-13 L 40651-5) NRBC/100 WBC (test See_Comment [Automat ed code = 1372718493) message] The system which generated this result transmit traci reference range : 0.0 - 10.0 /100 WBCs. The reference range was not used to interpret this result as normal/abnormal . NRBC x10^3 (test code <0.01 See_Comment [Auto mated = 6883501346) message] The system which generated this result transmit traci reference range : 10*3/?L. The reference range was not used to interpret this result as normal/abnormal . GRAN MAT (NEUT) % 72.2 % (test code = 770-8) IMM GRAN % (test code 1.50 % = 4732242587) LYMPH % (test code = 17.6 % 736-9) MONO % (test code = 7.2 % 5905-5) EOS % (test code = 0.9 % 713-8) BASO % (test code = 0.6 % 706-2) GRAN MAT x10^3(ANC) 11.69 10*3/uL 1.99-6.95 H (test code = 5209868332) IMM GRAN x10^3 (test 0.24 10*3/uL 0-0.06 H code = 8375437481) LYMPH x10^3 (test code 2.84 10*3/uL 1.09-3.23 = 731-0) MONO x10^3 (test code 1.16 10*3/uL 0.36-1.02 H = 742-7) EOS x10^3 (test code = 0.15 10*3/uL 0.06-0.53 711-2) BASO x10^3 (test code 0.09 10*3/uL 0.01-0.09 = 704-7) Lab Interpretation Abnormal (test code = 85728-4) [facility] GLUCOSE (AUTOMATED)2020-05-19 02:13:00 Test Item Value Reference Range Interpretation Comments POCT GLU (test code = 3131708995) 210 mg/dL 70-110 H Lab Interpretation (test code = Abnormal 29354-9) [facility] GLUCOSE (AUTOMATED)2020-05-18 22:24:00 Test Item Value Reference Range Interpretation Comments POCT GLU (test code = 5863221779) 124 mg/dL 70-110 H Lab Interpretation (test code = Abnormal 59964-6) [facility] LakeURINE [id number] 21:45:00 Test Item Value Reference Range Interpretation Comments URINE CULTURE (test <10,000 CFU/mL code = 630-4) Gram-Negative Bacilli [facility] GLUCOSE (AUTOMATED)2020-05-18 20:54:00 Test Item Value Reference Range Interpretation Comments POCT GLU (test code = 4475747222) 141 mg/dL 70-110 H Lab Interpretation (test code = Abnormal 70552-3) [facility] GLUCOSE (AUTOMATED)2020-05-18 17:09:00 Test Item Value Reference Range Interpretation Comments POCT GLU (test code = 6487278679) 398 mg/dL 70-110 H Lab Interpretation (test code = Abnormal 88765-5) [facility] GLUCOSE (AUTOMATED)2020-05-18 17:01:00 Test Item Value Reference Range Interpretation Comments POCT GLU (test code = 7631784370) 356 mg/dL 70-110 H Lab Interpretation (test code = Abnormal 88220-2) [facility] GLUCOSE (AUTOMATED)2020-05-18 13:28:00 Test Item Value Reference Range Interpretation Comments POCT GLU (test code = 2260408849) 166 mg/dL 70-110 H Lab Interpretation (test code = Abnormal 88416-7) [facility] Lake[facility]id Panel (Total Cholesterol, Triglycerides, HDL) - [id number] 11:12:00 Test Item Value Reference Range Interpretation Comments CHOL (test code = 109 mg/dL 120-200 L 5128466855) HDL (test code = 10 mg/dL >40 L 1466238960) HDLC RATIO (test code = See_Comment H [Au tomated message] 4583653607) The system [employer] generated this result transmit traci reference range : <=5.0. The refe rence range was not u sed to interpret th is result as normal/abnormal . TRIG (test code = 165 mg/dL 30-170 1546631631) LDL CHOL (test code = 66 mg/dL See_Comment [Auto mated message] 38806-5) The system [employer] generated this result transmit traci reference range : <=160. The refe rence range was not u sed to interpret th is result as normal/abnormal . VLDL (test code = 33 mg/dL 5-60 9548566690) Lab Interpretation (test Abnormal code = 94253-9) [facility] Metabolic Panel (NA, K, CL, CO2, GLUCOSE, BUN, CREATININE, CA)2020-05-18 11:12:00 Test Item Value Reference Range Interpretation Comments NA (test code = 135 mmol/L 135-145 7181215998) K (test code = 3.6 mmol/L 3.5-5 6584350378) CL (test code = 96 mmol/L 98-108 L 8268368684) CO2 TOTAL (test code = 32 mmol/L 23-31 H 1873738172) AGAP (test code = 2-16 9829073506) BUN (test code = 12 mg/dL 7-23 9701149826) GLUCOSE (test code = 129 mg/dL 70-110 H 8425734767) CREATININE (test code = 0.68 mg/dL 0.6-1.25 0971319340) CALCIUM (test code = 9.0 mg/dL 8.6-10.6 4005271406) eGFR Calculation mL/min/1.73m2 (Non-) (test code = 0197337155) eGFR Calculation mL/min/1.73m2 () (test code = 2500480185) MANDO (test code = MANDO) Association of Glomerular Filtration Rate (GFR) and Staging of Kidney Disease* + --+ --+ ------+| GFR (mL/min/1.73 m2) ?| With Kidney Damage ?| ?Without Kidney Damage+ --------+ --------+ +| ?>90 ?| ?Stage one ?| ? Normal ?+ ---+ ---+ -------+| ?60-89 ?| ?Stage two ?| ? Decreased GFR ? + --+ --+ ------+| ?30-59 ?| ?Stage three ?| ? Stage three ? + --+ --+ ------+| ?15-29 ?| ?Stage four ? | ? Stage four ?+ ---+ ---+ -------+| ?<15 (or dialysis) ? ?| ?Stage five ? | ? Stage five ?+ ---+ ---+ -------+ *Each stage assumes the associated GFR level has been in effect for at least three months. ?Stages 1 to 5, with or without kidney disease, indicate chronic kidney disease. Notes: Determination of stages one and two (with eGFR >59mL/min/1.73 m2) requires estimation of kidney damage for at least three months as defined by structural or functional abnormalities of the kidney, manifested by either:Pathological abnormalities or Markers of kidney damage (including abnormalities in the composition of the blood or urine or abnormalities in imaging tests). Lab Interpretation Abnormal (test code = 43504-3) [facility] LakeMagnesium [id number] 11:12:00 Test Item Value Reference Range Interpretation Comments MAGNESIUM (test code = 8384022958) 1.9 mg/dL 1.7-2.4 Lab Interpretation (test code = Normal 84984-7) [facility] with [id number] 10:26:00 Test Item Value Reference Range Interpretation Comments WBC (test code = See_Comment H [Automated 9090-2) message] The sy stem which generated this result transmitted reference range : 4.20 - 10.70 10*3/?L. The reference range was not used to interpret this result as normal/abnormal . RBC (test code = See_Comment L [Automated 988-8) message] The sy stem which generated this result transmitted reference range : 4.26 - 5.52 10*6/?L. The reference range was not used to interpret this result as normal/abnormal . HGB (test code = 10.5 g/dL 12.2-16.4 L 718-7) HCT (test code = 33.2 % 38.4-49.3 L 4544-3) MCV (test code = 86.7 fL 81.7-95.6 787-2) MCH (test code = 27.4 pg 26.1-32.7 785-6) MCHC (test code = 31.6 g/dL 31.2-35 786-4) RDW-SD (test code = 47.3 fL 38.5-51.6 69064-2) RDW-CV (test code = 14.9 % 12.1-15.4 788-0) PLT (test code = See_Comment H [Automated 777-3) message] The sy stem which generated this result transmitted reference range : 150 - 328 10*3/ ?L. The reference r giselle was not used to interpret this result as normal/abnormal . MPV (test code = 9.7 fL 9.8-13 L 45497-1) NRBC/100 WBC (test See_Comment [Automat ed code = 4303911454) message] The system which generated this result transmitted reference range : 0.0 - 10.0 /100 WBCs. The refer ence range was not u sed to interpret th is result as normal/abnormal . NRBC x10^3 (test code <0.01 See_Comment [Auto mated = 0107462909) message] The s ystem which generated this result transmitted reference range : 10*3/?L. The reference range was not used to interpret this result as normal/abnormal . GRAN MAT (NEUT) % 69.5 % (test code = 770-8) IMM GRAN % (test code 1.10 % = 7033519717) LYMPH % (test code = 18.4 % 736-9) MONO % (test code = 9.0 % 5905-5) EOS % (test code = 1.5 % 713-8) BASO % (test code = 0.5 % 706-2) GRAN MAT x10^3(ANC) 9.97 10*3/uL 1.99-6.95 H (test code = 7023929299) IMM GRAN x10^3 (test 0.16 10*3/uL 0-0.06 H code = 7199470307) LYMPH x10^3 (test code 2.65 10*3/uL 1.09-3.23 = 731-0) MONO x10^3 (test code 1.30 10*3/uL 0.36-1.02 H = 742-7) EOS x10^3 (test code = 0.22 10*3/uL 0.06-0.53 711-2) BASO x10^3 (test code 0.07 10*3/uL 0.01-0.09 = 704-7) Lab Interpretation Abnormal (test code = 16260-1) [facility] LakeGRAM POSITIVE BLOOD PATHOGENS DNA [id number] 04:03:00 Test Item Value Reference Range Interpretation Comments Coagulase Negative Positive Negative, See A Staphylococcus (test Comment/Narrative code = 43760-0) MANDO (test code = MANDO) Coagulase negative Staphylococcus (CoNS) detected by DNA probe. ?CoNS often contaminate blood cultures from skin colonization during phlebotomy. ?Preferred management is to repeat blood cultures, and monitor off antibiotics. ?Contamination is suggested by culture growth after 48 hours, or growth in single culture (i.e., one of two sets). ?True bacteremia is suggested by the fever, hypotension, and leukocytosis that are not explained by an alternative infection, or indwelling foreign devices that appear infected (catheters, lines, or prostheses). Consider Infectious Diseases consultation if differentiation of CoNS bacteremia from contamination is uncertain. If clinical context suggests true bacteremia, preferred therapy is vancomycin. Please contact the Antimicrobial Stewardship Program with questions.Pager: ?[phone] Testing included eleven identification and three resistance marker targets. Lab Interpretation Abnormal (test code = 69004-0) [facility] ([facility]2020-05-18 02:40:00 Test Item Value Reference Range Interpretation Comments POCT GLU (test code = 5112469654) 170 mg/dL 70-110 H Lab Interpretation (test code = Abnormal 63398-0) [facility] LakeURINALYSIS2020-10-14 23:40:00 Test Item Value Reference Range Interpretation Comments APPEARANCE (test code = Clear Clear 9999656413) COLOR (test code = Straw Yellow A 1331405799) PH (test code = 4.8-8.0 1093314857) SP GRAVITY (test code = 1.003-1.030 5116094819) GLU U QUAL (test code = Normal Normal 0969990667) BLOOD (test code = Negative Negative 2928753684) KETONES (test code = Negative Negative 3159452548) PROTEIN (test code = Negative Negative 2887-8) UROBILIN (test code = Normal Normal 9306316032) BILIRUBIN (test code = Negative Negative 4077835858) NITRITE (test code = Negative Negative 8809819583) LEUK MAYA (test code = 500/uL Negative A 5444360412) RBC/HPF (test code = See_Comment [Autom ated message] 6356330873) The system [employer] generated this result transmitted ref erence range: 0 - 3 HP F. The reference range was not used to int erpret this result as normal/abnormal . WBC/HPF (test code = See_Comment H [Autom ated message] 5930718036) The system [employer] generated this result transmitted ref erence range: 0 - 5 HP F. The reference range was not used to int erpret this result as normal/abnormal . BACTERIA (test code = Negative Negative 1968630899) SQ EPITH (test code = <1 See_Comment [Auto mated message] 5187514422) The system [employer] generated this result transmitted ref erence range: <=2 HPF. The reference range was not used to int erpret this result as normal/abnormal . Lab Interpretation (test Abnormal code = 91069-1) [facility] LakeProcalcitonin2020-10-14 23:15:00 Test Item Value Reference Range Interpretation Comments Procalcitonin (test 0.10 ng/mL <0.07 H code = 1696902862) MANDO (test code = MANDO) INTERPRETATION OF PROCALCITONIN RESULTS IN ADULTS >= 18 YEARS OF AGE Initiation and discontinuation of antibiotics on patients with suspected or confirmed Lower Respiratory Tract Infection in Adults >= 18 years of age. + +-------- --------+ + -----+|Procalcitonin |Interpretation ?|Antibiotic ? ? |Considerations ? |ng/mL ? | ?|recommendation | ? + +-------- --------+ + -----+| <0.1 ? | Bacterial ? ? ?| Strongly ? ? ?| ? | ?| infection very | discouraged ? | Overruling: ? | ?| unlikely ? ? ? | ? | ? Clinically unstable ? ? ? + +-------- --------+ + ? High risk for adverse ? ? | <0.25 ?| Bacterial ? ? ?| Discouraged ? | ? outcome ? | ?| infection ? ? ?| ? | ? SEE IMPORTANT NOTE ?| ?| unlikely ? ? ? | ? | ? + +-------- --------+ + -----+| >=0.25 ? ? ? | Bacterial ? ? ?| Encouraged ? ?| ? | ?| infection ? ? ?| ? | ? | ?| likely ? | ? | Consider treatment failure ?+ +------- ---------+ -+ if levels does not decrease | >0.5 ? | Bacterial ? ? ?| Strongly ? ? ?| appropriately ? | ?| infection very | encouraged ? ?| ? | ?| likely ? | ? | ? + +-------- --------+ + -----+ Discontinuation of antibiotics in high-acuity patients with suspected or confirmed sepsis in Adults >= 18 years of age. + +-------- --------+ + -----+|Procalcitonin |Interpretation ?|Antibiotic ? ? |Considerations ? |ng/mL ? | ?|recommendation | ? + +-------- --------+ + -----+| <0.25 ?| Bacterial ? ? ?| Strongly ? ? ?| ? | ?| infection very | discouraged ? | Overruling: ? | ?| unlikely ? ? ? | ? | ? Clinically unstable ? ? ? + +-------- --------+ + ? High risk for adverse ? ? | <0.5 or drop | Bacterial ? ? ?| Discouraged ? | ? outcome ? | >80% from ? ?| infection ? ? ?| ? | ? SEE IMPORTANT NOTE ?| highest PCT ?| unlikely ? ? ? | ? | ? | level ?| ?| ? | ? + +-------- --------+ + -----+| >=0.5 ?| Bacterial ? ? ?| Encouraged ? ?| ? | ?| infection ? ? ?| ? | ? | ?| likely ? | ? | Consider treatment failure ?+ +------- ---------+ -+ if levels does not decrease | >1.0 ? | Bacterial ? ? ?| Strongly ? ? ?| appropriately ? | ?| infection very | encouraged ? ?| ? | ?| likely ? | ? | ? + +-------- --------+ + -----+ Percentage of drop of Procalcitonin calculation for Discontinuation of antibiotics in high-acuity patients with suspected or confirmed sepsis in Adults >= 18 years of age. ? Procalcitonin highest{}-Procalcitonin current{}Delta Procalcitonin = x100% ? Procalcitonin current {} IMPORTANT NOTE: Procalcitonin may be elevated without bacterial infection by physiologic stress related to trauma, vick, chronic dialysis, metastatic cancer, surgery in the past seven days, malaria, some fungal infections, and some forms of vasculitis. The interpretation algorithm may not apply to patients with immunosuppression (equivalent of >10 mg of prednisone daily), HIV with CD4 cell count < 350 cells/mm3, active malignancy on systemic chemotherapy, solid organ transplant or hematopoietic stem cell transplantation, or hospital acquired pneumonia. Additionally, some clinical trials of procalcitonin have excluded patients with shock requiring vasopressor use, acute respiratory failure requiring mechanical ventilation, or those with known lung abscess/empyema. For further information please refer to:[email or web address] Lab Interpretation Abnormal (test code = 96040-6) [id number]:11[facility]00 Test Item Value Reference Range Interpretation Comments TROPONIN I (test 0.039 ng/mL See_Comment H [Automated code = 4174978060) message] The system which generated this result transmitted reference range : <=0.034. The reference range was not used to interpret this result as normal/abnormal . MANDO (test code = Equal or Less than MANDO) 0.034 ng/ml---Normal ?Note: Cardiac troponin begins to rise 3-4 hours after the onset of ischemia. Repeat in 4-6 hours if the sample was drawn within 3-4 hours of the onset of the symptom and found normal. Between 0.035 and 0.120 ng/mL--- Borderline. Questionable myocardial injury or necrosis ? ?Note: Serial measurement may be necessary to confirm or exclude the diagnosis of myocardial injury or necrosis; Clinical correlation (symptoms, EKGs, imaging studies, and others) required; Repeat in 4-6 hours if clinically indicated. ? Equal or Higher than 0.121 ng/mL---Abnormal. Myocardial Injury or Necrosis Likely ? Biotin has been reported to cause a negative bias, interpret results relative to patient's use of biotin. ? Lab Interpretation Abnormal (test code = 62862-0) [facility] Lake[facility] Function Panel (ALB, T.PRO, BILI T, BU/BC, ALT, AST, ALK PHOS)2020-05-17 22:04:00 Test Item Value Reference Range Interpretation Comments TOTAL BILI (test code = 7128263835) 0.7 mg/dL 0.1-1.1 BILI UNCON (test code = 1257739187) 0.4 mg/dL 0.1-1.1 BILI CONJ (test code = 8679055312) 0.0 mg/dL 0-0.3 T PROTEIN (test code = 5848490407) 6.6 g/dL 6.3-8.2 ALBUMIN (test code = 5641978902) 3.1 g/dL 3.5-5 L ALK PHOS (test code = 5059731417) 161 U/L 34-122 H ALTv (test code = 1742-6) 84 U/L 5-50 H AST(SGOT) (test code = 6930438636) 86 U/L 13-40 H Lab Interpretation (test code = Abnormal 64121-6) [facility] LakeTROPONIN [id number] 21:56:00 Test Item Value Reference Range Interpretation Comments TROPONIN I (test 0.034 ng/mL See_Comment [Automated code = 8181647258) message] The system which generated this result transmitted reference range : <=0.034. The reference range was not used to interpret this result as normal/abnormal . MANDO (test code = Equal or Less than MANDO) 0.034 ng/ml---Normal ?Note: Cardiac troponin begins to rise 3-4 hours after the onset of ischemia. Repeat in 4-6 hours if the sample was drawn within 3-4 hours of the onset of the symptom and found normal. Between 0.035 and 0.120 ng/mL--- Borderline. Questionable myocardial injury or necrosis ? ?Note: Serial measurement may be necessary to confirm or exclude the diagnosis of myocardial injury or necrosis; Clinical correlation (symptoms, EKGs, imaging studies, and others) required; Repeat in 4-6 hours if clinically indicated. ? Equal or Higher than 0.121 ng/mL---Abnormal. Myocardial Injury or Necrosis Likely ? Biotin has been reported to cause a negative bias, interpret results relative to patient's use of biotin. ? Lab Interpretation Normal (test code = 14407-6) [facility] [facility] 21:32[facility]00 Test Item Value Reference Range Interpretation Comments APTT Patient (test code = See_Comment [ Automated message] 3173-2) The system [employer] generated this result transmitted ref erence range: 26 - 36 Seconds. The re ference range was not u sed to interpret this result as normal/abnor mal. Lab Interpretation (test Normal code = 16659-7) [facility] LakeProthrombin Time / [id number] 21:19:00 Test Item Value Reference Range Interpretation Comments PROTIME PATIENT (test See_Comment H [Auto mated message] code = 5964-2) The system [employer] generated this result transmitted ref erence range: 10.1 - 1 2.6 Seconds. The reference range was not used to int erpret this result as normal/abnormal . INR (test code = 6301-6) Nor mal INR <1.1; Warfarin Therap eutic range 2.0 to 3. 0 or 2.5 to 3.5, dep ending upon the indica tions. Lab Interpretation (test Abnormal code = 22808-4) [facility]OVID[facility] (ID NOW RAPID TESTING)2020-05-16 23:15:00 Test Item Value Reference Range Interpretation Comments SARS-CoV-2 Rapid ID NOW Not Detected Not Detected (test code = 33328-4) MANDO (test code = MANDO) ID NOW COVID-19 Assay is an isothermal nucleic acid amplification test intended for the qualitative detection of nucleic acid from SARS-CoV-2 viral RNA in nasopharyngeal ([employer]EDULE [employer]ANNING MANAGER) specimens. It is used under Emergency Use Authorization (EUA) by FDA. The limit of detection (LOD) of the assay is 125 Genome Equivalents/mL. A positive result is indicative of the presence of SARS-CoV-2 RNA. ?Clinical correlation with patient history and other diagnostic information is necessary to determine patient infection status. A negative (Not Detected) result does not preclude SARS-CoV-2 infection. In patients with clinical symptoms and other tests that are consistent with SARS-CoV-2 infection, negative results should be treated as presumptive negative and a new specimen should be tested with alternative PCR molecular test. Invalid: Please collect a new specimen for repeat patient testing if clinically indicated. Lab Interpretation Normal (test code = 54782-2) [facility] LakeXR CHEST 1 [id number] 23:01:30 1. ?Worsening aeration with increasing left pleural effusion.2. Cephalization of the pulmonary vascularity is present consistent withpulmonary vascular congestion without interstitial edema. RL: 1105 HISTORY: ?Chest pain COMPARISON: ?May 11, 2020 FINDINGS: AP chest. Heart is enlarged. There is pulmonary vascular congestion. Thereis wor sening aeration with increasing left pleural effusion. A retrocardiacopacity is present consistent with atelectasis or infiltrate. A cardiacpacing device is present with leads overlying the right atrium and rightventricle. There has been a median sternotomy. [facility], Radiant Results Inft User - 05/16/2020 6:02 PM CDTHISTORY: Chest pain COMPARISON: May 11, 2020FINDINGS:AP chest. Heart is enlarged. There is pulmonary vascular congestion. Thereis worsening aeration with increasing left pleural effusion. A retrocardiacopacity is present consistent with atelectasis or infiltrate. A cardiacpacing device is present with leads overlying the right atrium and rightventricle. There has been a median sternotomy.IMPRESSION1. Worsening aeration with increasing left pleural effusion.2. Cephalization of the pulmonary vascularity is present consistent withpulmonary vascular congestion without interstitial edema.RL: 1105 [facility] CenterLactic Acid Whole [id number] 22:29:00 Test Item Value Reference Range Interpretation Comments LACTIC ACID (test code = 1.27 mmol/L 9130700944) [facility] LakeTROPONIN [id number] 22:26:00 Test Item Value Reference Range Interpretation Comments TROPONIN I (test 0.051 ng/mL See_Comment H [Automated code = 8962774377) message] The system which generated this result transmitted reference range : <=0.034. The reference range was not used to interpret this result as normal/abnormal . MANDO (test code = Equal or Less than MANDO) 0.034 ng/ml---Normal ?Note: Cardiac troponin begins to rise 3-4 hours after the onset of ischemia. Repeat in 4-6 hours if the sample was drawn within 3-4 hours of the onset of the symptom and found normal. Between 0.035 and 0.120 ng/mL--- Borderline. Questionable myocardial injury or necrosis ? ?Note: Serial measurement may be necessary to confirm or exclude the diagnosis of myocardial injury or necrosis; Clinical correlation (symptoms, EKGs, imaging studies, and others) required; Repeat in 4-6 hours if clinically indicated. ? Equal or Higher than 0.121 ng/mL---Abnormal. Myocardial Injury or Necrosis Likely ? Biotin has been reported to cause a negative bias, interpret results relative to patient's use of biotin. ? Lab Interpretation Abnormal (test code = 70365-2) [facility] LakeN-TERMINAL [id number] 22:23:00 Test Item Value Reference Range Interpretation Comments NT-proBNP (test code 7290 pg/mL See_Comment H [Autom ated = 2853580731) message] The system which generated this result transmitted reference range : <=125. The reference range was not used to interpret this result as normal/abnormal . MANDO (test code = MANDO) Biotin has been reported to cause a negative bias, interpret results relative to patient's use of biotin. Lab Interpretation Abnormal (test code = 81767-2) [facility] LakeCB WITH [id number] 22:15:00 Test Item Value Reference Range Interpretation Comments WBC (test code = See_Comment H [Automated 6690-2) message] The system which generated this result transmit traci reference range : 4.20 - 10.70 10*3/?L. The reference range was not used to interpret this result as normal/abnormal . RBC (test code = See_Comment L [Automated 789-8) message] The system which generated this result transmit traci reference range : 4.26 - 5.52 10*6/?L. The reference range was not used to interpret this result as normal/abnormal . HGB (test code = 10.9 g/dL 12.2-16.4 L 718-7) HCT (test code = 34.6 % 38.4-49.3 L 4544-3) MCV (test code = 86.5 fL 81.7-95.6 787-2) MCH (test code = 27.3 pg 26.1-32.7 785-6) MCHC (test code = 31.5 g/dL 31.2-35 786-4) RDW-SD (test code = 47.6 fL 38.5-51.6 83883-3) RDW-CV (test code = 14.8 % 12.1-15.4 788-0) PLT (test code = See_Comment H [Automated 777-3) message] The system which generated this result transmit traci reference range : 150 - 328 10*3/ ?L. The reference range was not u sed to interpret th is result as normal/abnormal . MPV (test code = 10.2 fL 9.8-13 09181-7) NRBC/100 WBC (test See_Comment [Automat ed code = 8369046103) message] The system which generated this result transmit traci reference range : 0.0 - 10.0 /100 WBCs. The reference range was not used to interpret this result as normal/abnormal . NRBC x10^3 (test code <0.01 See_Comment [Auto mated = 1745405835) message] The system which generated this result transmit traci reference range : 10*3/?L. The reference range was not used to interpret this result as normal/abnormal . GRAN MAT (NEUT) % 79.7 % (test code = 770-8) IMM GRAN % (test code 0.80 % = 0128063475) LYMPH % (test code = 11.2 % 736-9) MONO % (test code = 7.6 % 5905-5) EOS % (test code = 0.4 % 713-8) BASO % (test code = 0.3 % 706-2) GRAN MAT x10^3(ANC) 12.40 10*3/uL 1.99-6.95 H (test code = 6216500819) IMM GRAN x10^3 (test 0.13 10*3/uL 0-0.06 H code = 1860044900) LYMPH x10^3 (test code 1.74 10*3/uL 1.09-3.23 = 731-0) MONO x10^3 (test code 1.18 10*3/uL 0.36-1.02 H = 742-7) EOS x10^3 (test code = 0.07 10*3/uL 0.06-0.53 711-2) BASO x10^3 (test code 0.04 10*3/uL 0.01-0.09 = 704-7) Lab Interpretation Abnormal (test code = 98942-0) [facility] LakeCOMP. METABOLIC PANEL ([id number])2020-05-16 22:14:00 Test Item Value Reference Range Interpretation Comments NA (test code = 134 mmol/L 135-145 L 1787764874) K (test code = 4.2 mmol/L 3.5-5 4715991806) CL (test code = 97 mmol/L 98-108 L 2542954808) CO2 TOTAL (test code = 27 mmol/L 23-31 4554281550) AGAP (test code = 2-16 7461617317) BUN (test code = 12 mg/dL 7-23 0602908531) GLUCOSE (test code = 138 mg/dL 70-110 H 1970487625) CREATININE (test code = 0.74 mg/dL 0.6-1.25 7706437000) TOTAL BILI (test code = 0.7 mg/dL 0.1-1.6 5086842134) CALCIUM (test code = 9.6 mg/dL 8.6-10.6 6685519841) T PROTEIN (test code = 7.3 g/dL 6.3-8.2 2050361168) ALBUMIN (test code = 3.2 g/dL 3.5-5 L 2095528717) ALK PHOS (test code = 150 U/L 34-122 H 4499013946) ALTv (test code = 74 U/L 5-50 H 1742-6) AST(SGOT) (test code = 72 U/L 13-40 H 4979205676) eGFR Calculation mL/min/1.73m2 (Non-) (test code = 7717514948) eGFR Calculation mL/min/1.73m2 () (test code = 3840683942) MANDO (test code = MANDO) Association of Glomerular Filtration Rate (GFR) and Staging of Kidney Disease* + --+ --+ ------+| GFR (mL/min/1.73 m2) ?| With Kidney Damage ?| ?Without Kidney Damage+ --------+ --------+ +| ?>90 ?| ?Stage one ?| ? Normal ?+ ---+ ---+ -------+| ?60-89 ?| ?Stage two ?| ? Decreased GFR ? + --+ --+ ------+| ?30-59 ?| ?Stage three ?| ? Stage three ? + --+ --+ ------+| ?15-29 ?| ?Stage four ? | ? Stage four ?+ ---+ ---+ -------+| ?<15 (or dialysis) ? ?| ?Stage five ? | ? Stage five ?+ ---+ ---+ -------+ *Each stage assumes the associated GFR level has been in effect for at least three months. ?Stages 1 to 5, with or without kidney disease, indicate chronic kidney disease. Notes: Determination of stages one and two (with eGFR >59mL/min/1.73 m2) requires estimation of kidney damage for at least three months as defined by structural or functional abnormalities of the kidney, manifested by either:Pathological abnormalities or Markers of kidney damage (including abnormalities in the composition of the blood or urine or abnormalities in imaging tests). Lab Interpretation Abnormal (test code = 58950-7) [facility] LakeMAGNESIUM2020-10-13 22:14:00 Test Item Value Reference Range Interpretation Comments MAGNESIUM (test code = 7141444804) 2.0 mg/dL 1.7-2.4 Lab Interpretation (test code = Normal 73891-4) [facility] LakePROTHROMBIN TIME / [id number] 22:14:00 Test Item Value Reference Range Interpretation Comments PROTIME PATIENT (test See_Comment H [Auto mated message] code = 5964-2) The system [employer] generated this result transmitted ref erence range: 12.0 - 1 4.7 Seconds. The reference range was not used to int erpret this result as normal/abnormal . INR (test code = 6301-6) Nor mal INR <1.1; Warfarin Therap eutic range 2.0 to 3. 0 or 2.5 to 3.5, dep ending upon the indica tions. Lab Interpretation (test Abnormal code = 12559-6) [facility] LakeCORTISOL [id number] 17:32:00 Test Item Value Reference Range Interpretation Comments JUAN AM (test code = 27.1 ug/dL 4.5-23 H 3083581049) MANDO (test code = MANDO) Biotin has been reported to cause a positive bias, interpret results relative to patient's use of biotin. Lab Interpretation (test Abnormal code = 73045-9) [facility] LakePOCT GLUCOSE (AUTOMATED)2020-05-14 17:09:00 Test Item Value Reference Range Interpretation Comments POCT GLU (test code = 6270947923) 181 mg/dL 70-110 H Lab Interpretation (test code = Abnormal 10220-6) [facility] METABOLIC PANEL (10758)2020-05-14 15:54:00 Test Item Value Reference Range Interpretation Comments NA (test code = 133 mmol/L 135-145 L 0511365097) K (test code = 4.4 mmol/L 3.5-5 3578803851) CL (test code = 99 mmol/L 98-108 2680937495) CO2 TOTAL (test code = 25 mmol/L 23-31 0356237911) AGAP (test code = 2-16 3006867155) BUN (test code = 10 mg/dL 7-23 8658149301) GLUCOSE (test code = 156 mg/dL 70-110 H 6325833112) CREATININE (test code = 0.89 mg/dL 0.6-1.25 9151449800) TOTAL BILI (test code = 0.5 mg/dL 0.1-1.0 3582379236) CALCIUM (test code = 9.7 mg/dL 8.6-10.6 3690503922) T PROTEIN (test code = 5.8 g/dL 6.3-8.2 L 4826045763) ALBUMIN (test code = 2.7 g/dL 3.5-5 L 7572573155) ALK PHOS (test code = 86 U/L 34-122 1532353217) ALTv (test code = 24 U/L 5-50 1742-6) AST(SGOT) (test code = 32 U/L 13-40 6713981092) eGFR Calculation mL/min/1.73m2 (Non-) (test code = 5749130637) eGFR Calculation mL/min/1.73m2 () (test code = 6384168355) MANDO (test code = MANDO) Association of Glomerular Filtration Rate (GFR) and Staging of Kidney Disease* + --+ --+ ------+| GFR (mL/min/1.73 m2) ?| With Kidney Damage ?| ?Without Kidney Damage+ --------+ --------+ +| ?>90 ?| ?Stage one ?| ? Normal ?+ ---+ ---+ -------+| ?60-89 ?| ?Stage two ?| ? Decreased GFR ? + --+ --+ ------+| ?30-59 ?| ?Stage three ?| ? Stage three ? + --+ --+ ------+| ?15-29 ?| ?Stage four ? | ? Stage four ?+ ---+ ---+ -------+| ?<15 (or dialysis) ? ?| ?Stage five ? | ? Stage five ?+ ---+ ---+ -------+ *Each stage assumes the associated GFR level has been in effect for at least three months. ?Stages 1 to 5, with or without kidney disease, indicate chronic kidney disease. Notes: Determination of stages one and two (with eGFR >59mL/min/1.73 m2) requires estimation of kidney damage for at least three months as defined by structural or functional abnormalities of the kidney, manifested by either:Pathological abnormalities or Markers of kidney damage (including abnormalities in the composition of the blood or urine or abnormalities in imaging tests). Lab Interpretation Abnormal (test code = 63160-5) [facility] Lake[facility] ([facility])2020-05-14 13:30:00 Test Item Value Reference Range Interpretation Comments POCT GLU (test code = 1179261793) 165 mg/dL 70-110 H Lab Interpretation (test code = Abnormal 89172-1) [facility] LakeURINE [id number] 12:28:00 Test Item Value Reference Range Interpretation Comments URINE CULTURE >100,000 CFU/mL For suscept ibility (test code = Klebsiella results, refer to 630-4) pneumoniae culture # - [id number] [facility] LakeN-TERMINAL [id number] 12:21:00 Test Item Value Reference Range Interpretation Comments NT-proBNP (test code 4780 pg/mL See_Comment H [Autom ated = 5086787636) message] The system which generated this result transmitted reference range : <=125. The reference range was not used to interpret this result as normal/abnormal . MANDO (test code = MANDO) Biotin has been reported to cause a negative bias, interpret results relative to patient's use of biotin. Lab Interpretation Abnormal (test code = 75900-1) [facility] WITH [id number] 11:07:00 Test Item Value Reference Range Interpretation Comments WBC (test code = See_Comment H [Automated 6690-2) message] The system which generated this result transmit traci reference range : 4.20 - 10.70 10*3/?L. The reference range was not used to interpret this result as normal/abnormal . RBC (test code = See_Comment L [Automated 789-8) message] The system which generated this result transmit traci reference range : 4.26 - 5.52 10*6/?L. The reference range was not used to interpret this result as normal/abnormal . HGB (test code = 10.7 g/dL 12.2-16.4 L 718-7) HCT (test code = 35.0 % 38.4-49.3 L 4544-3) MCV (test code = 89.1 fL 81.7-95.6 787-2) MCH (test code = 27.2 pg 26.1-32.7 785-6) MCHC (test code = 30.6 g/dL 31.2-35 L 786-4) RDW-SD (test code = 47.9 fL 38.5-51.6 20775-4) RDW-CV (test code = 14.6 % 12.1-15.4 788-0) PLT (test code = See_Comment [Automated 777-3) message] The system which generated this result transmit traci reference range : 150 - 328 10*3/ ?L. The reference range was not u sed to interpret th is result as normal/abnormal . MPV (test code = 11.8 fL 9.8-13 75143-1) NRBC/100 WBC (test See_Comment [Automat ed code = 0609849735) message] The system which generated this result transmit traci reference range : 0.0 - 10.0 /100 WBCs. The reference range was not used to interpret this result as normal/abnormal . NRBC x10^3 (test code <0.01 See_Comment [Auto mated = 1809030531) message] The system which generated this result transmit traci reference range : 10*3/?L. The reference range was not used to interpret this result as normal/abnormal . GRAN MAT (NEUT) % 82.6 % (test code = 770-8) IMM GRAN % (test code 0.80 % = 6191729213) LYMPH % (test code = 8.0 % 736-9) MONO % (test code = 8.2 % 5905-5) EOS % (test code = 0.2 % 713-8) BASO % (test code = 0.2 % 706-2) GRAN MAT x10^3(ANC) 14.89 10*3/uL 1.99-6.95 H (test code = 8046356511) IMM GRAN x10^3 (test 0.14 10*3/uL 0-0.06 H code = 7929305973) LYMPH x10^3 (test code 1.44 10*3/uL 1.09-3.23 = 731-0) MONO x10^3 (test code 1.47 10*3/uL 0.36-1.02 H = 742-7) EOS x10^3 (test code = 0.03 10*3/uL 0.06-0.53 L 711-2) BASO x10^3 (test code 0.03 10*3/uL 0.01-0.09 = 704-7) Lab Interpretation Abnormal (test code = 01673-8) [facility] GLUCOSE (AUTOMATED)2020-05-14 01:18:00 Test Item Value Reference Range Interpretation Comments POCT GLU (test code = 9951792264) 134 mg/dL 70-110 H Lab Interpretation (test code = Abnormal 23651-3) [facility] GLUCOSE (AUTOMATED)2020-05-13 21:54:00 Test Item Value Reference Range Interpretation Comments POCT GLU (test code = 9492171224) 123 mg/dL 70-110 H Lab Interpretation (test code = Abnormal 34742-8) [facility] GLUCOSE (AUTOMATED)2020-05-13 17:12:00 Test Item Value Reference Range Interpretation Comments POCT GLU (test code = 5931280156) 188 mg/dL 70-110 H Lab Interpretation (test code = Abnormal 76917-3) [facility] LakeCORTISOL [id number] 16:57:00 Test Item Value Reference Range Interpretation Comments JUAN AM (test code = 18.5 ug/dL 4.5-23 1808850819) MANDO (test code = MANDO) Biotin has been reported to cause a positive bias, interpret results relative to patient's use of biotin. Lab Interpretation (test Normal code = 96625-6) [facility]2020-05-13 14:01:00 Test Item Value Reference Range Interpretation Comments POCT GLU (test code = 3219893495) 149 mg/dL 70-110 H Lab Interpretation (test code = Abnormal 20925-9) [facility] WITH [id number] 13:01:00 Test Item Value Reference Range Interpretation Comments WBC (test code = See_Comment H [Automated 8590-2) message] The system which generated this result transmit traci reference range : 4.20 - 10.70 10*3/?L. The reference range was not used to interpret this result as normal/abnormal . RBC (test code = See_Comment L [Automated 789-8) message] The system which generated this result transmit traci reference range : 4.26 - 5.52 10*6/?L. The reference range was not used to interpret this result as normal/abnormal . HGB (test code = 11.0 g/dL 12.2-16.4 L 718-7) HCT (test code = 35.6 % 38.4-49.3 L 4544-3) MCV (test code = 89.9 fL 81.7-95.6 787-2) MCH (test code = 27.8 pg 26.1-32.7 785-6) MCHC (test code = 30.9 g/dL 31.2-35 L 786-4) RDW-SD (test code = 49.1 fL 38.5-51.6 76955-7) RDW-CV (test code = 14.7 % 12.1-15.4 788-0) PLT (test code = See_Comment [Automated 777-3) message] The system which generated this result transmit traci reference range : 150 - 328 10*3/ ?L. The reference range was not u sed to interpret th is result as normal/abnormal . MPV (test code = 11.0 fL 9.8-13 17077-2) NRBC/100 WBC (test See_Comment [Automat ed code = 6290935978) message] The system which generated this result transmit traci reference range : 0.0 - 10.0 /100 WBCs. The reference range was not used to interpret this result as normal/abnormal . NRBC x10^3 (test code <0.01 See_Comment [Auto mated = 4351299770) message] The system which generated this result transmit traci reference range : 10*3/?L. The reference range was not used to interpret this result as normal/abnormal . GRAN MAT (NEUT) % 81.2 % (test code = 770-8) IMM GRAN % (test code 0.80 % = 9992984417) LYMPH % (test code = 9.1 % 736-9) MONO % (test code = 8.5 % 5905-5) EOS % (test code = 0.1 % 713-8) BASO % (test code = 0.3 % 706-2) GRAN MAT x10^3(ANC) 15.41 10*3/uL 1.99-6.95 H (test code = 9904456134) IMM GRAN x10^3 (test 0.16 10*3/uL 0-0.06 H code = 3730398115) LYMPH x10^3 (test code 1.72 10*3/uL 1.09-3.23 = 731-0) MONO x10^3 (test code 1.62 10*3/uL 0.36-1.02 H = 742-7) EOS x10^3 (test code = <0.03 0.06-0.53 L 711-2) BASO x10^3 (test code 0.05 10*3/uL 0.01-0.09 = 704-7) Lab Interpretation Abnormal (test code = 82594-5) [facility] [id number] 12:50:00 Test Item Value Reference Range Interpretation Comments TROPONIN I (test 0.019 ng/mL See_Comment [Automated code = 7210413956) message] The system which generated this result transmitted reference range : <=0.034. The reference range was not used to interpret this result as normal/abnormal . MANDO (test code = Equal or Less than MANDO) 0.034 ng/ml---Normal ?Note: Cardiac troponin begins to rise 3-4 hours after the onset of ischemia. Repeat in 4-6 hours if the sample was drawn within 3-4 hours of the onset of the symptom and found normal. Between 0.035 and 0.120 ng/mL--- Borderline. Questionable myocardial injury or necrosis ? ?Note: Serial measurement may be necessary to confirm or exclude the diagnosis of myocardial injury or necrosis; Clinical correlation (symptoms, EKGs, imaging studies, and others) required; Repeat in 4-6 hours if clinically indicated. ? Equal or Higher than 0.121 ng/mL---Abnormal. Myocardial Injury or Necrosis Likely ? Biotin has been reported to cause a negative bias, interpret results relative to patient's use of biotin. ? Lab Interpretation Normal (test code = 83781-3) [facility] Lake[facility]-TERMINAL [id number] 12:47:00 Test Item Value Reference Range Interpretation Comments NT-proBNP (test code 4740 pg/mL See_Comment H [Autom ated = 5975813487) message] The system which generated this result transmitted reference range : <=125. The reference range was not used to interpret this result as normal/abnormal . MANDO (test code = MANDO) Biotin has been reported to cause a negative bias, interpret results relative to patient's use of biotin. Lab Interpretation Abnormal (test code = 30439-1) [facility] LakeCOMP. METABOLIC PANEL ([id number])2020-05-13 12:39:00 Test Item Value Reference Range Interpretation Comments NA (test code = 133 mmol/L 135-145 L 8357710158) K (test code = 4.6 mmol/L 3.5-5 2900658127) CL (test code = 98 mmol/L 98-108 1162352244) CO2 TOTAL (test code = 25 mmol/L 23-31 6662371816) AGAP (test code = 2-16 0078485100) BUN (test code = 14 mg/dL 7-23 0274068716) GLUCOSE (test code = 143 mg/dL 70-110 H 4036307513) CREATININE (test code = 0.92 mg/dL 0.6-1.25 9166867906) TOTAL BILI (test code = 0.7 mg/dL 0.1-1.9 1741208971) CALCIUM (test code = 9.8 mg/dL 8.6-10.6 7158613198) T PROTEIN (test code = 6.9 g/dL 6.3-8.2 3840378215) ALBUMIN (test code = 3.2 g/dL 3.5-5 L 5441087411) ALK PHOS (test code = 78 U/L 34-122 1120154214) ALTv (test code = 11 U/L 5-50 1742-6) AST(SGOT) (test code = 19 U/L 13-40 7081495900) eGFR Calculation mL/min/1.73m2 (Non-) (test code = 0618337592) eGFR Calculation mL/min/1.73m2 () (test code = 2395017761) MANDO (test code = MANDO) Association of Glomerular Filtration Rate (GFR) and Staging of Kidney Disease* + --+ --+ ------+| GFR (mL/min/1.73 m2) ?| With Kidney Damage ?| ?Without Kidney Damage+ --------+ --------+ +| ?>90 ?| ?Stage one ?| ? Normal ?+ ---+ ---+ -------+| ?60-89 ?| ?Stage two ?| ? Decreased GFR ? + --+ --+ ------+| ?30-59 ?| ?Stage three ?| ? Stage three ? + --+ --+ ------+| ?15-29 ?| ?Stage four ? | ? Stage four ?+ ---+ ---+ -------+| ?<15 (or dialysis) ? ?| ?Stage five ? | ? Stage five ?+ ---+ ---+ -------+ *Each stage assumes the associated GFR level has been in effect for at least three months. ?Stages 1 to 5, with or without kidney disease, indicate chronic kidney disease. Notes: Determination of stages one and two (with eGFR >59mL/min/1.73 m2) requires estimation of kidney damage for at least three months as defined by structural or functional abnormalities of the kidney, manifested by either:Pathological abnormalities or Markers of kidney damage (including abnormalities in the composition of the blood or urine or abnormalities in imaging tests). Lab Interpretation Abnormal (test code = 50272-1) [facility] Lake[facility]OP[facility]IN [id number] 05:27:00 Test Item Value Reference Range Interpretation Comments TROPONIN I (test 0.017 ng/mL See_Comment [Automated code = [id number]) message] The system which generated this result transmitted reference range : <=0.034. The reference range was not used to interpret this result as normal/abnormal . MANDO (test code = Equal or Less than MANDO) 0.034 ng/ml---Normal ?Note: Cardiac troponin begins to rise 3-4 hours after the onset of ischemia. Repeat in 4-6 hours if the sample was drawn within 3-4 hours of the onset of the symptom and found normal. Between 0.035 and 0.120 ng/mL--- Borderline. Questionable myocardial injury or necrosis ? ?Note: Serial measurement may be necessary to confirm or exclude the diagnosis of myocardial injury or necrosis; Clinical correlation (symptoms, EKGs, imaging studies, and others) required; Repeat in 4-6 hours if clinically indicated. ? Equal or Higher than 0.121 ng/mL---Abnormal. Myocardial Injury or Necrosis Likely ? Biotin has been reported to cause a negative bias, interpret results relative to patient's use of biotin. ? Lab Interpretation Normal (test code = 46578-2) [facility]OL[facility] [id number] 04:33:00 Test Item Value Reference Range Interpretation Comments OSMOLALITY (test code = See_Comment [Au tomated message] [id number]) The system [employer] generated this result transmitted ref erence range: 278 - 30 5 mOsm/kg. The re ference range was not u sed to interpret this result as normal/abnor mal. Lab Interpretation (test Normal code = 41253-0) [facility] Lake[facility] MET[facility]OLIC PANEL (NA, K, CL, CO2, GLUCOSE, BUN, CREATININE, CA)2020-05-13 02:51:00 Test Item Value Reference Range Interpretation Comments NA (test code = 133 mmol/L 135-145 L 3882689172) K (test code = 4.9 mmol/L 3.5-5 8891710937) CL (test code = 101 mmol/L 98-108 4627421626) CO2 TOTAL (test code = 25 mmol/L 23-31 7203284925) AGAP (test code = 2-16 5988774817) BUN (test code = 15 mg/dL 7-23 0241906132) GLUCOSE (test code = 143 mg/dL 70-110 H 4536793095) CREATININE (test code = 0.99 mg/dL 0.6-1.25 5529003643) CALCIUM (test code = 9.1 mg/dL 8.6-10.6 1861680711) eGFR Calculation mL/min/1.73m2 (Non-) (test code = 4848663729) eGFR Calculation mL/min/1.73m2 () (test code = 7931475557) MANDO (test code = MANDO) Association of Glomerular Filtration Rate (GFR) and Staging of Kidney Disease* + --+ --+ ------+| GFR (mL/min/1.73 m2) ?| With Kidney Damage ?| ?Without Kidney Damage+ --------+ --------+ +| ?>90 ?| ?Stage one ?| ? Normal ?+ ---+ ---+ -------+| ?60-89 ?| ?Stage two ?| ? Decreased GFR ? + --+ --+ ------+| ?30-59 ?| ?Stage three ?| ? Stage three ? + --+ --+ ------+| ?15-29 ?| ?Stage four ? | ? Stage four ?+ ---+ ---+ -------+| ?<15 (or dialysis) ? ?| ?Stage five ? | ? Stage five ?+ ---+ ---+ -------+ *Each stage assumes the associated GFR level has been in effect for at least three months. ?Stages 1 to 5, with or without kidney disease, indicate chronic kidney disease. Notes: Determination of stages one and two (with eGFR >59mL/min/1.73 m2) requires estimation of kidney damage for at least three months as defined by structural or functional abnormalities of the kidney, manifested by either:Pathological abnormalities or Markers of kidney damage (including abnormalities in the composition of the blood or urine or abnormalities in imaging tests). Lab Interpretation Abnormal (test code = 52691-6) [facility] LakeTROPONIN [id number] 22:31:00 Test Item Value Reference Range Interpretation Comments TROPONIN I (test 0.014 ng/mL See_Comment [Automated code = 8938830774) message] The system which generated this result transmitted reference range : <=0.034. The reference range was not used to interpret this result as normal/abnormal . MANDO (test code = Equal or Less than MANDO) 0.034 ng/ml---Normal ?Note: Cardiac troponin begins to rise 3-4 hours after the onset of ischemia. Repeat in 4-6 hours if the sample was drawn within 3-4 hours of the onset of the symptom and found normal. Between 0.035 and 0.120 ng/mL--- Borderline. Questionable myocardial injury or necrosis ? ?Note: Serial measurement may be necessary to confirm or exclude the diagnosis of myocardial injury or necrosis; Clinical correlation (symptoms, EKGs, imaging studies, and others) required; Repeat in 4-6 hours if clinically indicated. ? Equal or Higher than 0.121 ng/mL---Abnormal. Myocardial Injury or Necrosis Likely ? Biotin has been reported to cause a negative bias, interpret results relative to patient's use of biotin. ? Lab Interpretation Normal (test code = 18821-7) [facility] LakeLEGIONELLA URINARY ANTIGEN [id number] 21:35:00 Test Item Value Reference Range Interpretation Comments Legionella Urinary Negative Negative Antigen (test code = 6586477601) MANDO (test code = MANDO) Negative for L. pneumophilia serogroup I antigen in urine suggesting no recent or current infection. Infection due to Legionella cannot be ruled out since other serogroups and species may cause disease. Furthermore, antigens may not be present in urine during early stage of infection, or the level of antigen present in urine may be below the detection limit of the test. Lab Interpretation (test Normal code = 25561-7) [facility] LakePNEUMOCOCCAL [id number] 21:35:00 Test Item Value Reference Range Interpretation Comments S. pneumoniae antigen (test code = Negative Negative 1333427259) Lab Interpretation (test code = Normal 01702-4) [facility] LakeOSMOLALITY [id number] 21:21:00 Test Item Value Reference Range Interpretation Comments OSMO U (test code = See_Comment [Automa traci message] 5307901564) The system [employer] generated this result transmitted ref erence range: 50-1,100 mOsm/kg. The re ference range was not u sed to interpret this result as normal/abnor mal. Lab Interpretation (test Normal code = 06530-3) [facility] LakePROCALCITONIN2020-10-09 20:42:00 Test Item Value Reference Range Interpretation Comments Procalcitonin (test 0.19 ng/mL <0.07 H code = 0033419866) MANDO (test code = MANDO) INTERPRETATION OF PROCALCITONIN RESULTS IN ADULTS >= 18 YEARS OF AGE Initiation and discontinuation of antibiotics on patients with suspected or confirmed Lower Respiratory Tract Infection in Adults >= 18 years of age. + +-------- --------+ + -----+|Procalcitonin |Interpretation ?|Antibiotic ? ? |Considerations ? |ng/mL ? | ?|recommendation | ? + +-------- --------+ + -----+| <0.1 ? | Bacterial ? ? ?| Strongly ? ? ?| ? | ?| infection very | discouraged ? | Overruling: ? | ?| unlikely ? ? ? | ? | ? Clinically unstable ? ? ? + +-------- --------+ + ? High risk for adverse ? ? | <0.25 ?| Bacterial ? ? ?| Discouraged ? | ? outcome ? | ?| infection ? ? ?| ? | ? SEE IMPORTANT NOTE ?| ?| unlikely ? ? ? | ? | ? + +-------- --------+ + -----+| >=0.25 ? ? ? | Bacterial ? ? ?| Encouraged ? ?| ? | ?| infection ? ? ?| ? | ? | ?| likely ? | ? | Consider treatment failure ?+ +------- ---------+ -+ if levels does not decrease | >0.5 ? | Bacterial ? ? ?| Strongly ? ? ?| appropriately ? | ?| infection very | encouraged ? ?| ? | ?| likely ? | ? | ? + +-------- --------+ + -----+ Discontinuation of antibiotics in high-acuity patients with suspected or confirmed sepsis in Adults >= 18 years of age. + +-------- --------+ + -----+|Procalcitonin |Interpretation ?|Antibiotic ? ? |Considerations ? |ng/mL ? | ?|recommendation | ? + +-------- --------+ + -----+| <0.25 ?| Bacterial ? ? ?| Strongly ? ? ?| ? | ?| infection very | discouraged ? | Overruling: ? | ?| unlikely ? ? ? | ? | ? Clinically unstable ? ? ? + +-------- --------+ + ? High risk for adverse ? ? | <0.5 or drop | Bacterial ? ? ?| Discouraged ? | ? outcome ? | >80% from ? ?| infection ? ? ?| ? | ? SEE IMPORTANT NOTE ?| highest PCT ?| unlikely ? ? ? | ? | ? | level ?| ?| ? | ? + +-------- --------+ + -----+| >=0.5 ?| Bacterial ? ? ?| Encouraged ? ?| ? | ?| infection ? ? ?| ? | ? | ?| likely ? | ? | Consider treatment failure ?+ +------- ---------+ -+ if levels does not decrease | >1.0 ? | Bacterial ? ? ?| Strongly ? ? ?| appropriately ? | ?| infection very | encouraged ? ?| ? | ?| likely ? | ? | ? + +-------- --------+ + -----+ Percentage of drop of Procalcitonin calculation for Discontinuation of antibiotics in high-acuity patients with suspected or confirmed sepsis in Adults >= 18 years of age. ? Procalcitonin highest{}-Procalcitonin current{}Delta Procalcitonin = x100% ? Procalcitonin current {} IMPORTANT NOTE: Procalcitonin may be elevated without bacterial infection by physiologic stress related to trauma, vick, chronic dialysis, metastatic cancer, surgery in the past seven days, malaria, some fungal infections, and some forms of vasculitis. The interpretation algorithm may not apply to patients with immunosuppression (equivalent of >10 mg of prednisone daily), HIV with CD4 cell count < 350 cells/mm3, active malignancy on systemic chemotherapy, solid organ transplant or hematopoietic stem cell transplantation, or hospital acquired pneumonia. Additionally, some clinical trials of procalcitonin have excluded patients with shock requiring vasopressor use, acute respiratory failure requiring mechanical ventilation, or those with known lung abscess/empyema. For further information please refer to:[email or web address] Lab Interpretation Abnormal (test code = 66899-3) [facility] LakeUREA NITROGEN, URINE [id number] 20:40:00 Test Item Value Reference Range Interpretation Comments UREA N UR (test code = 3800999081) 298 mg/dL [facility] LakePOCT GLUCOSE (AUTOMATED)2020-05-12 16:54:00 Test Item Value Reference Range Interpretation Comments POCT GLU (test code = 6565695874) 163 mg/dL 70-110 H Lab Interpretation (test code = Abnormal 25183-3) [facility] LakeCT ANGIOGRAM ABDOMEN/[id number] 15:19:48 1. ?No aortic dissection, penetrating ulcer, or rupture.2. 3 cm fusiform infrarenal abdominal aortic aneurysm.3. Cholelithiasis without CT evidence of acute cholecystitis. There is nobiliary dilatation or inflammation around the pancreas. The gallbladderappears much smaller than July 31, 2018. Perhaps the patient has had asubtotal cholecystectomy. RL: 1105 HISTORY: ?Abd distension history of AAA. abd pain unclear etiology. CTangiogram abdomen pelvis to evaluate aortic aneurysm and also to evalauteany other causes of unexplained abdominal pain, flank pain and hypotension COMPARISON:July 31, 2018 TECHNIQUE:CT angiogram of the abdomen and pelvis performed. Contiguous axial CTimages were obtained before and after administration ofintravenouscontrast. ?CT scan done according to ALARA. 3D MIP RECONSTRUCTIONS WEREPERFORMED AND SAVED TO THE PACS. FINDINGS: Small left pleural effusion is present. Left greater than right lung basecons olidation is demonstrated. Lung bases not significantly changed from CTangiogram May 11, 2020. Cholelithiasis is seen. The gallbladder is much smaller than previouslydemonstrated on July 31, 2018. Has the patient had a subtotalcholecystectomy? There is no CT evidence of acute cholecystitis. There isno biliary dilatation or inflammatory change seen around the pancreas. Thespleen is normal in size. Kidneys demonstrate symmetric nephrograms. There is no hydronephrosis.There are bilateral renal cysts some of which show evidence of priorhemorrhage. There is a fusiform infrarenal abdominal aortic aneurysm measuring 3 cm.There is no aortic dissection, rupture, or penetrating ulcer. There is severevascular calcification of the abdominal aorta and branchvessels. The superior mesenteric artery and inferior mesenteric artery arewidely patent. Single renal arteries are patent bilaterally. There is no retroperitoneal or mesenteric adenopathy. There is no bowel obstruction or acute inflammatory process. Diverticulosisis seen without diverticulitis. Urinary bladder is decompressed. There is a small, subcentimeterdiverticulum anterior and to the left. No destructive bony process is demonstrated. [facility], Radiant Results Inft User - 05/12/2020 10:20 AM CDTHISTORY: Abd distension history of AAA. abd pain unclear etiology. CTangiogram abdomen pelvis to evaluate aortic aneurysm and also to evalauteanyother causes of unexplained abdominal pain, flank pain and hypotensionCOMPARISON:July 31, 2018TECHNIQUE:CT angiogram of the abdomen and pelvis performed. Contiguous axial CTimages were obtained before and after administration of intravenouscontrast. CT scan done according to ALARA. 3D MIP RECONSTRUCTIONS WEREPERFORMED AND SAVED TO THE PACS.FINDINGS:Small left pleural effusion is present. Left greater than right lung baseconsolidation is demonstrated. Lung bases not significantly changed from CTangiogram May 11, 2020.Cholelithiasis is seen. The gallbladder is much smaller than previouslydemonstrated on July 31, 2018. Has the patient had a subtotalcholecystectomy? There is no CT evidenceof acute cholecystitis. There isno biliary dilatation or inflammatory change seen around the pancreas. Thespleen is normal in size.Kidneys demonstrate symmetric nephrograms. There is no hydronephrosis.There are bilateral renal cysts some of which show evidence of priorhemorrhage.There is a fusiform infrarenal abdominal aortic aneurysm measuring 3 cm.There is no aortic dissection, rupture, or penetrating ulcer.There is severe vascular calcification of the abdominal aorta and branchvessels. The superior mesenteric artery and inferior mesenteric artery arewidely patent. Single renal arteries are patent bilaterally.There is no retroperitoneal or mesenteric adenopathy.There is no bowel obstruction or acute inflammatory process. Diverticulosisis seen without diverticulitis.Urinary bladder is decompressed. There is a small, subcentimeterdiverticulum anterior and to the left.No destructive bony process is demonstrated.IMPRESSION1. No aortic dissection, penetrating ulcer, or rupture.2. 3 cm fusiform infrarenal abdominal aortic aneurysm.3. Cholelithiasis without CT evidence of acute cholecystitis. There is nobiliary dilatation or inflammation around the pancreas. The gallbladderappears much smaller than July 31, 2018. Perhaps the patient has had asubtotal cholecystectomy.RL: 1105 [facility]PR[facility] CREAT RATIO URINE [id number] 15:05:00 Test Item Value Reference Range Interpretation Comments T. PROT U (test code 10 mg/dL = 2888-6) CREAT U (test code = 94.2 mg/dL 1349779295) Protein/Creatinine 0.0-2.0 Ratio Urine (test code = 4041156799) MANDO (test code = MANDO) Random Urine Total Protein Reference Ranges Random Specimen: ? Less than 10 mg/dLFirst Morning Specimen: ? ?Less than 20 mg/dL ? [facility] LakeSODIUM, URINE [id number] 15:01:00 Test Item Value Reference Range Interpretation Comments NA URINE (test code = 8579965610) 5 mmol/L [facility] WITH [id number] 14:17:00 Test Item Value Reference Range Interpretation Comments WBC (test code = See_Comment H [Automated 6690-2) message] The system which generated this result transmit traci reference range : 4.20 - 10.70 10*3/?L. The reference range was not used to interpret this result as normal/abnormal . RBC (test code = See_Comment L [Automated 789-8) message] The system which generated this result transmit traci reference range : 4.26 - 5.52 10*6/?L. The reference range was not used to interpret this result as normal/abnormal . HGB (test code = 11.9 g/dL 12.2-16.4 L 718-7) HCT (test code = 37.3 % 38.4-49.3 L 4544-3) MCV (test code = 88.0 fL 81.7-95.6 787-2) MCH (test code = 28.1 pg 26.1-32.7 785-6) MCHC (test code = 31.9 g/dL 31.2-35 786-4) RDW-SD (test code = 48.0 fL 38.5-51.6 83754-3) RDW-CV (test code = 14.9 % 12.1-15.4 788-0) PLT (test code = See_Comment [Automated 777-3) message] The system which generated this result transmit traci reference range : 150 - 328 10*3/ ?L. The reference range was not u sed to interpret th is result as normal/abnormal . MPV (test code = 11.5 fL 9.8-13 43332-5) NRBC/100 WBC (test See_Comment [Automat ed code = 0071749778) message] The system which generated this result transmit traci reference range : 0.0 - 10.0 /100 WBCs. The reference range was not used to interpret this result as normal/abnormal . NRBC x10^3 (test code <0.01 See_Comment [Auto mated = 5910132039) message] The system which generated this result transmit traci reference range : 10*3/?L. The reference range was not used to interpret this result as normal/abnormal . GRAN MAT (NEUT) % 81.8 % (test code = 770-8) IMM GRAN % (test code 0.40 % = 2264137915) LYMPH % (test code = 8.8 % 736-9) MONO % (test code = 8.8 % 5905-5) EOS % (test code = 0.0 % 713-8) BASO % (test code = 0.2 % 706-2) GRAN MAT x10^3(ANC) 15.78 10*3/uL 1.99-6.95 H (test code = 7539582103) IMM GRAN x10^3 (test 0.08 10*3/uL 0-0.06 H code = 8960299902) LYMPH x10^3 (test code 1.70 10*3/uL 1.09-3.23 = 731-0) MONO x10^3 (test code 1.69 10*3/uL 0.36-1.02 H = 742-7) EOS x10^3 (test code = <0.03 0.06-0.53 L 711-2) BASO x10^3 (test code 0.03 10*3/uL 0.01-0.09 = 704-7) Lab Interpretation Abnormal (test code = 63514-0) [facility] [id number] 14:02:00 Test Item Value Reference Range Interpretation Comments TROPONIN I (test 0.014 ng/mL See_Comment [Automated code = 7567441054) message] The system which generated this result transmitted reference range : <=0.034. The reference range was not used to interpret this result as normal/abnormal . MANDO (test code = Equal or Less than MANDO) 0.034 ng/ml---Normal ?Note: Cardiac troponin begins to rise 3-4 hours after the onset of ischemia. Repeat in 4-6 hours if the sample was drawn within 3-4 hours of the onset of the symptom and found normal. Between 0.035 and 0.120 ng/mL--- Borderline. Questionable myocardial injury or necrosis ? ?Note: Serial measurement may be necessary to confirm or exclude the diagnosis of myocardial injury or necrosis; Clinical correlation (symptoms, EKGs, imaging studies, and others) required; Repeat in 4-6 hours if clinically indicated. ? Equal or Higher than 0.121 ng/mL---Abnormal. Myocardial Injury or Necrosis Likely ? Biotin has been reported to cause a negative bias, interpret results relative to patient's use of biotin. ? Lab Interpretation Normal (test code = 17800-4) [facility] LakeURINALYSIS2020-10-09 14:02:00 Test Item Value Reference Range Interpretation Comments APPEARANCE (test code = Clear Clear 0087508473) COLOR (test code = Yellow Yellow 3493587902) PH (test code = 4.8-8.0 3472311357) SP GRAVITY (test code = <=1.005 1.003-1.030 7366726568) GLU U QUAL (test code = Negative Negative 0265637917) BLOOD (test code = Negative Negative 9478924210) KETONES (test code = Negative Negative 6500487870) PROTEIN (test code = Negative Negative 2887-8) UROBILIN (test code = 0.2 mg/dL See_Comment [Auto mated message] 1788191886) The system [employer] generated this result transmit traci reference range : 0-1.0 mg/dL. Th e reference range was not used to interpret this result as normal/abnormal . BILIRUBIN (test code = Negative Negative 8999610006) NITRITE (test code = Positive Negative A 9672250887) LEUK MAYA (test code = Negative Negative 2639802132) RBC/HPF (test code = See_Comment H [Autom ated message] 9048580673) The system [employer] generated this result transmit traci reference range : 0 - 3 HPF. The refe rence range was not u sed to interpret th is result as normal/abnormal . WBC/HPF (test code = See_Comment H [Autom ated message] 1997184976) The system [employer] generated this result transmit traci reference range : 0 - 5 HPF. The refe rence range was not u sed to interpret th is result as normal/abnormal . BACTERIA (test code = Moderate Negative A 9074732451) MUCOUS (test code = Slight Negative LPF A 4276394938) SQ EPITH (test code = HPF 6536435058) Lab Interpretation (test Abnormal code = 75339-1) [facility] LakeN-TERMINAL [id number] 13:58:00 Test Item Value Reference Range Interpretation Comments NT-proBNP (test code 2430 pg/mL See_Comment H [Autom ated = 3370882342) message] The system which generated this result transmitted reference range : <=125. The reference range was not used to interpret this result as normal/abnormal . MANDO (test code = MANDO) Biotin has been reported to cause a negative bias, interpret results relative to patient's use of biotin. Lab Interpretation Abnormal (test code = 85178-4) [facility] LakeDIGOXIN2020-10-09 13:52:00 Test Item Value Reference Range Interpretation Comments DIGOXIN (test code = 0.5 ng/mL 0.8-1.6 L 3293392795) MANDO (test code = MANDO) Arrythmias: ?1.5 - 2.0 ng/mLToxic Range: ? Greater than or equal to 2.4 ng/mL Lab Interpretation (test Abnormal code = 52095-0) [facility] LakeCOM. METABOLIC PANEL (21884)2020-05-12 13:50:00 Test Item Value Reference Range Interpretation Comments NA (test code = 132 mmol/L 135-145 L 9951498426) K (test code = 5.8 mmol/L 3.5-5 H 8693058987) CL (test code = 98 mmol/L 98-108 8603528197) CO2 TOTAL (test code = 22 mmol/L 23-31 L 3122112512) AGAP (test code = 2-16 7854161584) BUN (test code = 14 mg/dL 7-23 2230864165) GLUCOSE (test code = 189 mg/dL 70-110 H 5652372728) CREATININE (test code = 0.86 mg/dL 0.6-1.25 1948673310) TOTAL BILI (test code = 0.8 mg/dL 0.1-1.1 2742060235) CALCIUM (test code = 9.5 mg/dL 8.6-10.6 4831562898) T PROTEIN (test code = 7.4 g/dL 6.3-8.2 9726870884) ALBUMIN (test code = 3.5 g/dL 3.5-5 4712415196) ALK PHOS (test code = 68 U/L 34-122 3558822003) ALTv (test code = 11 U/L 5-50 1742-6) AST(SGOT) (test code = 28 U/L 13-40 4838803345) eGFR Calculation mL/min/1.73m2 (Non-) (test code = 0968306875) eGFR Calculation mL/min/1.73m2 () (test code = 7802284683) MANDO (test code = MANDO) Association of Glomerular Filtration Rate (GFR) and Staging of Kidney Disease* + --+ --+ ------+| GFR (mL/min/1.73 m2) ?| With Kidney Damage ?| ?Without Kidney Damage+ --------+ --------+ +| ?>90 ?| ?Stage one ?| ? Normal ?+ ---+ ---+ -------+| ?60-89 ?| ?Stage two ?| ? Decreased GFR ? + --+ --+ ------+| ?30-59 ?| ?Stage three ?| ? Stage three ? + --+ --+ ------+| ?15-29 ?| ?Stage four ? | ? Stage four ?+ ---+ ---+ -------+| ?<15 (or dialysis) ? ?| ?Stage five ? | ? Stage five ?+ ---+ ---+ -------+ *Each stage assumes the associated GFR level has been in effect for at least three months. ?Stages 1 to 5, with or without kidney disease, indicate chronic kidney disease. Notes: Determination of stages one and two (with eGFR >59mL/min/1.73 m2) requires estimation of kidney damage for at least three months as defined by structural or functional abnormalities of the kidney, manifested by either:Pathological abnormalities or Markers of kidney damage (including abnormalities in the composition of the blood or urine or abnormalities in imaging tests). Lab Interpretation Abnormal (test code = 28190-9) [facility] Lake[facility] CHEST PULMONARY [id number] 12:59:25 1. ?No evidence of pulmonary embolism. 2. ?A 2.2 cm right upper lobe pleural-based spiculated nodule. Furtherevaluation with PET/CT or biopsy is recommended. 3. ?Mild pulmonary edema. Bilateral lower lobe atelectasis. Loculated leftpleural effusion. Mildly enlarged mediastinal mediastinal lymph nodes. Preliminary Report Dictated by Resident: Cristiane Grossman ?MD. Annette, have reviewed this study and agree with theabove report.PROCEDURE: CT ANGIO CHEST WITH CONTRAST - PE PROTOCOL CLINICAL INDICATION: PE suspected, intermediate prob, positive D-dimer ? COMPARISON: ?None. TECHNIQUE: ?Helical CT was performed and reconstructed at 1.25 mm slicethickness from lung bases to apices using 70 mL Omnipaque 350 intravenouscontrast, without complication. ? 3D axial MIPS and coronal MPRS weregenerated under radiologist supervision, and reviewed to further defineanatomy and possible pathology. ? (DFOV = 37 cm) FINDINGS: PULMONARY ARTERIES: Enhancement is appropriate and there is no acute or chronic pulmonaryembolism. CHEST:Lower neck/thyroid: Unremarkable. Lungs: A 2 x 2.2 cm right upper lobe pleural-based spiculated nodule is seen(5:77). Bilateral lower lobes atelectasis seen.. Central airway: Unremarkable. Pleura: Small loculated left pleural effusion is noted. No thickening orpneumothorax. Thoracic aorta and great vessels: ?Normal in diameter. Heart and pericardium: Multivessel mild coronary arterial calcification.Mild cardiomegaly. Lymph nodes: A 1.7 cm subcarinal lymph node is seen, previously measured 1.4 cm.A 1.1 cm AP window lymph node is seen, previously measured 0.6 cm.A 1.3 cm precarinal lymph node is seen, previously measured 0.8 cm. Mediastinum: Unremarkable. Thoracic spine and chest wall: Unremarkable, with normal thoracic vertebralbody heights. Other Lines/Tubes/Devices/Hardware: Left chest wall cardiac AICD. Visualized upper abdomen: Hyperdense contents are seen in the stomach. [facility], Radiant Results Inft User - 05/12/2020 8:00 AM CDTPROCEDURE: CT ANGIO CHEST WITH CONTRAST - PE PROTOCOLCLINICAL INDICATION: PE suspected, intermediate prob, positive D-dimer COMPARISON: None.TECHNIQUE: Helical CT was performed and reconstructed at 1.25 mm slicethickness from lung bases to apices using 70 mL Omnipaque 350 intravenouscontrast, without complication. 3D axial MIPS and coronal MPRS weregenerated under radiologist supervision, and reviewed to further defineanatomy and possible pathology. (DFOV = 37 cm)FINDINGS:PULMONARY ARTERIES: Enhancement is appropriate and there is no acute or chronic pulmonaryembolism.CHEST:Lower neck/thyroid: Unremarkable.Lungs: A 2 x 2.2 cm right upperlobe pleural-based spiculated nodule is seen(5:77).Bilateral lower lobes atelectasis seen..Central airway: Unremarkable.Pleura: Small loculated left pleural effusion is noted. No thickening orpneumothorax.Thoracic aorta and great vessels: Normal in diameter.Heart and pericardium: Multivessel mild jasvir nary arterial calcification.Mild cardiomegaly.Lymph nodes: A 1.7 cm subcarinal lymph node is seen, previously measured 1.4 cm.A 1.1 cm AP window lymph node is seen, previously measured 0.6 cm.A 1.3 cm precarinal lymph node is seen, previously measured 0.8 cm.Mediastinum: Unremarkable.Thoracic spine and chest wall: Unremarkable, with normal thoracic vertebralbody heights.Other Lines/Tubes/Devices/Hardware: Left chest wall cardiac AICD.Visualized upper abdomen: Hyperdense contents are seen in the stoma ch. IMPRESSION1. No evidence of pulmonary embolism.2. A 2.2 cm rightupper lobe pleural-based spiculated nodule. Furtherevaluation with PET/CT or biopsy is recommended.3. Mild pulmonary edema. Bilateral lower lobe atelectasis. Loculated leftpleural effusion. Mildly enla rged mediastinal mediastinal lymph nodes. Preliminary Report Dictatedby Resident: Donya Salcedo, Cristiane Bryant MD., have reviewed this studyand agree with theabove report. [facility]2020-05-12 12:55:00 Test Item Value Reference Range Interpretation Comments POCT GLU (test code = 1661586141) 216 mg/dL 70-110 H Lab Interpretation (test code = Abnormal 23210-7) [facility] LakeLAIDATE [id number] 12:04:00 Test Item Value Reference Range Interpretation Comments LDH (test code = 7821983429) 317 U/L 300-600 Lab Interpretation (test code = Normal 13519-3) [facility] LakePROTHROMBIN TIME / [id number] 11:45:00 Test Item Value Reference Range Interpretation Comments PROTIME PATIENT (test See_Comment H [Auto mated message] code = 5964-2) The system [employer] generated this result transmitted ref erence range: 12.0 - 1 4.7 Seconds. The reference range was not used to int erpret this result as normal/abnormal . INR (test code = 6301-6) Nor mal INR <1.1; Warfarin Therap eutic range 2.0 to 3. 0 or 2.5 to 3.5, dep ending upon the indica tions. Lab Interpretation (test Abnormal code = 25257-6) [facility] LakeTHYROID STIMULATING [id number] 11:32:00 Test Item Value Reference Range Interpretation Comments TSH (test code = See_Comment [Automated message] 2713932232) The system [employer] generated this result transmitted ref erence range: 0.45 - 4 .70 mIU/L. The refe rence range was not u sed to interpret this result as normal/abnor mal. Lab Interpretation (test Normal code = 08463-2) [facility] LakeGLYCOSYLATED HEMOGLOBIN (A1C)2020-05-12 11:30:00 Test Item Value Reference Range Interpretation Comments HGB A1C (test code = 9.3 % 4-6 H 4548-4) MANDO (test code = MANDO) %A1C (NGSP) Interpretation (ADA)4.8-5.6 ? ? Normal or (Non-Diabetic Range)5.7-6.4 ? ? Increased Risk (Pre-Diabetic)>6.5 ?Diabetes Indicated Lab Interpretation Abnormal (test code = 37140-4) [facility] LakeLactic Acid Whole [id number] 11:22:00 Test Item Value Reference Range Interpretation Comments LACTIC ACID (test code = 2.07 mmol/L 6704972201) [facility] LakeCREATINE [id number] 11:18:00 Test Item Value Reference Range Interpretation Comments CK (test code = 4098426596) <20 33-194 L Lab Interpretation (test code = Abnormal 12457-9) [facility] LakeLIPID PANEL (52919)(TOTAL CHOLESTEROL, TRIGLYCERIDES, HDL)2020-05-12 11:02:00 Test Item Value Reference Range Interpretation Comments CHOL (test code = 120 mg/dL 120-200 2483561807) HDL (test code = 22 mg/dL >40 L 4848352864) HDLC RATIO (test code = See_Comment H [Au tomated message] 6818819967) The system [employer] generated this result transmit traci reference range : <=5.0. The refe rence range was not u sed to interpret th is result as normal/abnormal . TRIG (test code = 172 mg/dL 30-170 H 9674390730) LDL CHOL (test code = 64 mg/dL See_Comment [Auto mated message] 83438-2) The system [employer] generated this result transmit traci reference range : <=160. The refe rence range was not u sed to interpret th is result as normal/abnormal . VLDL (test code = 34 mg/dL 5-60 2842392561) Lab Interpretation (test Abnormal code = 44445-5) [facility] LakeLIPASE2020-10-09 11:01:00 Test Item Value Reference Range Interpretation Comments LIPASE (test code = 2729942988) 35 U/L 0-220 Lab Interpretation (test code = Normal 09805-7) [facility] LakeMAGNESIUM2020-10-09 11:01:00 Test Item Value Reference Range Interpretation Comments MAGNESIUM (test code = 2928542269) 1.8 mg/dL 1.7-2.4 Lab Interpretation (test code = Normal 42772-6) [facility] LakePHOSPHORUS2020-10-09 11:01:00 Test Item Value Reference Range Interpretation Comments PHOSPHORUS (test code = 7722306561) 2.6 mg/dL 2.5-5 Lab Interpretation (test code = Normal 43188-5) [facility] LakeURIC [id number] 11:01:00 Test Item Value Reference Range Interpretation Comments URIC ACID (test code = 2228253202) 5.9 mg/dL 3.6-8 Lab Interpretation (test code = Normal 67047-0) [facility] LakeHEPATIC FUNCTION PANEL (93307) (ALB,T.PRO,BILI T,BU/BC,ALT,AST,ALK PHOS)2020-05-12 11:01:00 Test Item Value Reference Range Interpretation Comments TOTAL BILI (test code = 1233684693) 0.7 mg/dL 0.1-1.1 BILI UNCON (test code = 1560637761) 0.6 mg/dL 0.1-1.1 BILI CONJ (test code = 3336587213) 0.0 mg/dL 0-0.3 T PROTEIN (test code = 6085839923) 8.1 g/dL 6.3-8.2 ALBUMIN (test code = 7608808112) 3.7 g/dL 3.5-5 ALK PHOS (test code = 6736175598) 71 U/L 34-122 ALTv (test code = 1742-6) 12 U/L 5-50 AST(SGOT) (test code = 8019182905) 26 U/L 13-40 Lab Interpretation (test code = Normal 72138-3) [facility] LakeXR CHEST 1 [id number] 07:15:48 Cardiomegaly with suspected mild pulmonary edema. Preliminary Report Dictated by Resident: Jn Grossman MD., have reviewed this study and agree with theabove report.PROCEDURE: XR CHEST 1 VW CLINICAL INDICATION: chest pain COMPARISON: Chest x-ray dated 07/31/2018. TECHNIQUE: A single AP view of the chest was obtained. FINDINGS: Bilateral interstitial ab normality likely reflect degree of interstitialedema with appearance exacerbated by suboptimal inspiratory volumes andbronchovascular crowding. No pleural effusion or pneumothorax is seen. The heart isenlarged. Left chest wall dual- chamber cardiac AICD is seen.Changes of CABG. Radiopaque cylindrical density project over the neck base,partially visualized. No acute bony abnormality. Moderately advanced degenerative changes of theleft acromioclavicular joint. Narrowing of the acromioclavicular intervalmay be positional or represent rotator cuff insufficiency. Punctatecalcific density projecting overthe stomach bubble is nonspecific. [facility], Radiant Results Inft User - 05/12/2020 2:16 AM CDTPROCEDURE: XR CHEST 1 VWCLINICAL INDICATION: chest pain COMPARISON: Chest x- ray dated 07/31/2018.TECHNIQUE: Asingle AP view of the chest was obtained. FINDINGS:Bilateral interstitial abnormality likely reflectdegree of interstitialedema with appearance exacerbated by suboptimal inspiratory volumes andbronchovascular crowding. No pleural effusion or pneumothorax is seen.The heart is enlarged. Left chest walldual-chamber cardiac AICD is seen.Changes of CABG. Radiopaque cylindrical density project over the neck base,partially visualized.No acute bony abnormality. Moderately advanced degenerative changes of theleft acromioclavicular joint. Narrowing of the acromioclavicular intervalmay be positional or represent rotator cuff insufficiency. Punctatecalcific density projecting over the stomach bubble is nonsp ecific.IMPRESSIONCardiomegaly with suspected mild pulmonary edema.Preliminary Report Dictated by Resident: Donya Salcedo, Jn Munoz MD., have reviewed this study and agree with theabove report. [facility] LakeCOVID-19 (ID NOW RAPID TESTING)2020-05-12 04:46:00 Test Item Value Reference Range Interpretation Comments SARS-CoV-2 Rapid ID NOW Not Detected Not Detected (test code = 44554-2) MANDO (test code = MANDO) ID NOW COVID-19 Assay is an isothermal nucleic acid amplification test intended for the qualitative detection of nucleic acid from SARS-CoV-2 viral RNA in nasopharyngeal ([employer]ING [employer]GER) specimens. It is used under Emergency Use Authorization (EUA) by FDA. The limit of detection (LOD) of the assay is 125 Genome Equivalents/mL. A positive result is indicative of the presence of SARS-CoV-2 RNA. ?Clinical correlation with patient history and other diagnostic information is necessary to determine patient infection status. A negative (Not Detected) result does not preclude SARS-CoV-2 infection. In patients with clinical symptoms and other tests that are consistent with SARS-CoV-2 infection, negative results should be treated as presumptive negative and a new specimen should be tested with alternative PCR molecular test. Invalid: Please collect a new specimen for repeat patient testing if clinically indicated. Lab Interpretation Normal (test code = 39256-6) [facility] LakeN-TERMINAL [id number] 04:41:00 Test Item Value Reference Range Interpretation Comments NT-proBNP (test code 1650 pg/mL See_Comment H [Autom ated = 0812351442) message] The system which generated this result transmitted reference range : <=125. The reference range was not used to interpret this result as normal/abnormal . MANDO (test code = MANDO) Biotin has been reported to cause a negative bias, interpret results relative to patient's use of biotin. Lab Interpretation Abnormal (test code = 25586-6) [facility] LakeTROPONIN [id number] 04:10:00 Test Item Value Reference Range Interpretation Comments TROPONIN I (test 0.015 ng/mL See_Comment [Automated code = 3536218972) message] The system which generated this result transmitted reference range : <=0.034. The reference range was not used to interpret this result as normal/abnormal . MANDO (test code = Equal or Less than MANDO) 0.034 ng/ml---Normal ?Note: Cardiac troponin begins to rise 3-4 hours after the onset of ischemia. Repeat in 4-6 hours if the sample was drawn within 3-4 hours of the onset of the symptom and found normal. Between 0.035 and 0.120 ng/mL--- Borderline. Questionable myocardial injury or necrosis ? ?Note: Serial measurement may be necessary to confirm or exclude the diagnosis of myocardial injury or necrosis; Clinical correlation (symptoms, EKGs, imaging studies, and others) required; Repeat in 4-6 hours if clinically indicated. ? Equal or Higher than 0.121 ng/mL---Abnormal. Myocardial Injury or Necrosis Likely ? Biotin has been reported to cause a negative bias, interpret results relative to patient's use of biotin. ? Lab Interpretation Normal (test code = 12035-3) [facility] LakeD-[id number] 04:08:00 Test Item Value Reference Interpretation Comments Range D-DIMER (test code = See_Comment H [Autom ated 5715325554) message] The system which generated this result transmitted reference range : <0.41 ?g/mL (FEU). The reference range was not used to interpret this result as normal/abnormal . MANDO (test code = This test may be MANDO) used in conjunction with a clinical pretest probability (PTP) assessment model to exclude venous thromboembolism (VTE) in patients suspected of deep venous thrombosis (DVT) and pulmonary embolism (PE) A D-Dimer value less than 0.50 ?g/ml (FEU) has a negative predicative value of 96 to 100% (95% CI)and 97 to 100% (95% CI) as an aid in the diagnosis of deep vein thrombosis (DVT) and pulmonary embolism when there is low or moderate pretest probability of PE or DVT. D-Dimer values are expressed in initial fibrinogen equivalent units (FEU)" The assay results should be used with other information, including the clinical context, in forming a diagnosis. Lab Interpretation Abnormal (test code = 27273-6) [facility] LakeBASI METABOLIC PANEL (NA, K, CL, CO2, GLUCOSE, BUN, CREATININE, CA)2020-05-12 03:58:00 Test Item Value Reference Range Interpretation Comments NA (test code = 131 mmol/L 135-145 L 2333914047) K (test code = 5.4 mmol/L 3.5-5 H 3988466343) CL (test code = 95 mmol/L 98-108 L 0363510032) CO2 TOTAL (test code = 28 mmol/L 23-31 9640007893) AGAP (test code = 2-16 2622581744) BUN (test code = 14 mg/dL 7-23 0886635425) GLUCOSE (test code = 200 mg/dL 70-110 H 5292404303) CREATININE (test code = 0.77 mg/dL 0.6-1.25 4681981043) CALCIUM (test code = 9.9 mg/dL 8.6-10.6 5763076769) eGFR Calculation mL/min/1.73m2 (Non-) (test code = 0100006642) eGFR Calculation mL/min/1.73m2 () (test code = 4596812324) MANDO (test code = MANDO) Association of Glomerular Filtration Rate (GFR) and Staging of Kidney Disease* + --+ --+ ------+| GFR (mL/min/1.73 m2) ?| With Kidney Damage ?| ?Without Kidney Damage+ --------+ --------+ +| ?>90 ?| ?Stage one ?| ? Normal ?+ ---+ ---+ -------+| ?60-89 ?| ?Stage two ?| ? Decreased GFR ? + --+ --+ ------+| ?30-59 ?| ?Stage three ?| ? Stage three ? + --+ --+ ------+| ?15-29 ?| ?Stage four ? | ? Stage four ?+ ---+ ---+ -------+| ?<15 (or dialysis) ? ?| ?Stage five ? | ? Stage five ?+ ---+ ---+ -------+ *Each stage assumes the associated GFR level has been in effect for at least three months. ?Stages 1 to 5, with or without kidney disease, indicate chronic kidney disease. Notes: Determination of stages one and two (with eGFR >59mL/min/1.73 m2) requires estimation of kidney damage for at least three months as defined by structural or functional abnormalities of the kidney, manifested by either:Pathological abnormalities or Markers of kidney damage (including abnormalities in the composition of the blood or urine or abnormalities in imaging tests). Lab Interpretation Abnormal (test code = 13534-9) [facility] WITH [id number] 03:45:00 Test Item Value Reference Range Interpretation Comments WBC (test code = See_Comment H [Automated 6690-2) message] The system which generated this result transmit traci reference range : 4.20 - 10.70 10*3/?L. The reference range was not used to interpret this result as normal/abnormal . RBC (test code = See_Comment [Automated 789-8) message] The system which generated this result transmit traci reference range : 4.26 - 5.52 10*6/?L. The reference range was not used to interpret this result as normal/abnormal . HGB (test code = 12.2 g/dL 12.2-16.4 718-7) HCT (test code = 38.8 % 38.4-49.3 4544-3) MCV (test code = 87.8 fL 81.7-95.6 787-2) MCH (test code = 27.6 pg 26.1-32.7 785-6) MCHC (test code = 31.4 g/dL 31.2-35 786-4) RDW-SD (test code = 46.8 fL 38.5-51.6 43408-2) RDW-CV (test code = 14.6 % 12.1-15.4 788-0) PLT (test code = See_Comment [Automated 777-3) message] The system which generated this result transmit traci reference range : 150 - 328 10*3/ ?L. The reference range was not u sed to interpret th is result as normal/abnormal . MPV (test code = 11.4 fL 9.8-13 74460-7) NRBC/100 WBC (test See_Comment [Automat ed code = 7758039624) message] The system which generated this result transmit traci reference range : 0.0 - 10.0 /100 WBCs. The reference range was not used to interpret this result as normal/abnormal . NRBC x10^3 (test code <0.01 See_Comment [Auto mated = 4438260060) message] The system which generated this result transmit traci reference range : 10*3/?L. The reference range was not used to interpret this result as normal/abnormal . GRAN MAT (NEUT) % 78.4 % (test code = 770-8) IMM GRAN % (test code 0.70 % = 2580098511) LYMPH % (test code = 12.6 % 736-9) MONO % (test code = 7.9 % 5905-5) EOS % (test code = 0.1 % 713-8) BASO % (test code = 0.3 % 706-2) GRAN MAT x10^3(ANC) 12.93 10*3/uL 1.99-6.95 H (test code = 0762456571) IMM GRAN x10^3 (test 0.12 10*3/uL 0-0.06 H code = 6486284337) LYMPH x10^3 (test code 2.08 10*3/uL 1.09-3.23 = 731-0) MONO x10^3 (test code 1.31 10*3/uL 0.36-1.02 H = 742-7) EOS x10^3 (test code = <0.03 0.06-0.53 L 711-2) BASO x10^3 (test code 0.05 10*3/uL 0.01-0.09 = 704-7) Lab Interpretation Abnormal (test code = 68899-9) [facility]
[2021-12-18 17:40] LABS: Absolute Lymphocytes (CBC) 1.6 K/uL (0.7-4.9); MPV 8.6 fL (7.6-11.3); RBC Red Blood Cell Count 2.49 M/uL (4.33-5.43)
[2021-12-18 17:46] LABS: Protime INR 2.31
[2021-12-18 17:50] LABS: Hematocrit 20.5 % (39.6-49.0)
[2021-12-18 17:57] LABS: Albumin 3.1 g/dL (3.4-5.0); Bilirubin Total 0.3 mg/dL (0.2-1.0); Potassium 4.5 mmol/L (3.5-5.1); Protein, Total 7.6 g/dL (6.4-8.2)
[2021-12-18] MEDS ORDERED: PANTOPRAZOLE 40 MG INJ ONE (18:13)
[2021-12-18] MEDS ORDERED: NA CHLORIDE 0.9% 250 ML ONE (18:13)
[2021-12-18] MEDS ORDERED: NA CHLORIDE 0.9% 1,000 ML ONE (18:13)
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
--- NOTE | 2021-12-18 19:21 | RAD REPORT ---
EXAM DESCRIPTION: CTAbdomen Pelvis W Contrast - 12/18/2021 6:57 pm CLINICAL HISTORY: Abdominal pain. Melena COMPARISON: Abdomen Pelvis W Contrast dated 08/16/2018 TECHNIQUE: Biphasic CT imaging of the abdomen and pelvis was performed with 100 ml non-ionic IV cont rast. All CT scans are performed using dose optimization technique as appropriate and may include automated exposure control or mA/KV adjustment according to patient size. FINDINGS: Trace left and small right pleural effusion is present with atelectasis in both posterior lung bases. The liver demonstrates no focal mass or biliary dilatation. Mild free fluid is seen along right aspec t of the liver parenchyma. The spleen, adrenal glands within normal limits. Benign right renal cyst i s present. Normal left kidney. Multiple prominent lymph nodes present in the region of the duodenal C-loop with mild inflammation of the duodenal C-loop noted. Pancreatic parenchyma shows no evidence pancreatic ductal dilatation or m ass. Mild free fluid is seen in the pericolic gutters and layering in the pelvis. Scattered colonic diverticulosis is present without diverticulitis. No suspicious bony findings. IMPRESSION: Inflammation is present in the region of the duodenal C-loop with numerous enlarged phyllis cent lymph nodes present. This may be related to ulcer disease or mass. Upper endoscopy would be mickey mmended for further evaluation. Mild free fluid in the abdomen and pelvis.
[2021-12-18] MEDS ORDERED: NA CHLORIDE 0.9% 500 ML ONE (19:28)
[2021-12-18 20:55] LABS: Blood Morphology Comment NOT SEEN (NOT SEEN); Platelet Estimate ADEQ; White Blood Cell Scan OK (OK)
--- NOTE | 2021-12-18 21:45 | P.HP ---
Certification for Inpatient Patient admitted to: Inpatient With expected LOS: <2 Midnights Patient will require the following post-hospital care: None Practitioner: I am a practitioner with admitting privileges, knowledge of patient current condition, hospital course, and medical plan of care. Services: Services provided to patient in accordance with Admission requirements found in Title 42 Section 412.3 of the Code of Federal Regulations Patient History Date of Service: 12/18/21 Primary Care Provider: Ángel Reason for admission: LGIB History of Present Illness: Patient is a 76-year-old male with past medical history of IA, HTN, and paraplegia who presented to the ED after being sent from his PCP for evaluation of hypotension and anemia. Patient was evaluated at [facility] 12 days ago and received 1 unit PRBC for anemia and discharged without GI work- up. He states that he has had dark stools for the past several months. In the ED today, blood pressure was 90/50, hemoglobin 5.9, hematocrit 20.5. Hemocult positive. He was given 1 L normal saline, 2 units PRBC, started on a Protonix drip. CT showed inflammation in the duodenal C-loop with numerous enlarged adjacent lymph nodes present that may be related to ulcer disease or mass. Patient sees Dr. Hamilton but was unavailable so Dr. Stock agreed to consult. Will admit patient for further evaluation and treatment. Allergies prednisone Allergy (Verified 08/17/18 02:13) "It makes my defibullator go off." Home medications list reviewed: Yes Home Medications: Aspirin Chewable [Aspirin Chewable*] 81 mg PO DAILY 08/17/18 Atorvastatin Calcium [Lipitor] 10 mg PO DAILY 08/17/18 Buspirone HCl [Buspar] 15 mg PO BID 08/17/18 Cholecalciferol (Vitamin D3) [Vitamin D 400 IU TAB*] 2 tab PO DAILY 08/17/18 Clopidogrel Bisulfate [Plavix] 75 mg PO DAILY 08/17/18 Digoxin [Lanoxin] 0.125 mg PO DAILY 08/17/18 Hydralazine [Apresoline] 12.5 mg PO BID 08/17/18 Hydrocodone 10/APAP 325 [Exira 10/325] 1 tab PO SEECOM PRN 08/17/18 Lyle-3/Dha/Epa/Fish Oil [Lyle 3 500 Softgel] 1,500 mg PO TID 08/17/18 Terazosin HCl [Hytrin] 5 mg PO BEDTIME 08/17/18 Venlafaxine HCl [Effexor] 75 mg PO DAILY 08/17/18 carvediloL [Coreg] 25 mg PO BID 08/17/18 diazePAM [Valium] 5 mg PO TID 08/17/18 - Past Medical/Surgical History Diabetic: No -: HTN -: Pacemaker/Defibrilator -: CABG -: Demar cataract sx Psychosocial/ Personal History: Patient lives at home with his . - Family History Family History: Reviewed- Non-Contributory - Social History Smoking Status: Current every day smoker Alcohol use: No CD- Drugs: No Caffeine use: Yes Place of Residence: Home Review of Systems General: Weakness Physical Examination - Physical Exam General: Alert, In no apparent distress, Oriented x3 HEENT: Atraumatic, PERRLA, EOMI, Sclerae nonicteric Neck: Supple, 2+ carotid pulse no bruit, No LAD, Without JVD or thyroid abnormality Respiratory: Clear to auscultation bilaterally, Normal air movement Cardiovascular: Regular rate/rhythm, Normal S1 S2 Gastrointestinal: Normal bowel sounds, No tenderness Musculoskeletal: No tenderness Integumentary: No rashes Neurological: Normal speech, Normal strength at 5/5 x4 extr, Normal tone, Normal affect - Studies Laboratory Data (last 24 hrs) 12/18/21 17:15: PT 25.9 H, INR 2.31, APTT 37.5 H 12/18/21 17:15: Sodium 132 L, Potassium 4.5, BUN 24 H, Creatinine 1.06, Glucose 159 H, Total Bilirubin 0.3, AST 6 L, ALT 11 L, Alkaline Phosphatase 56, Lipase 66 L 12/18/21 17:15: WBC 8.3, Hgb 5.9 L*, Hct 20.5 L*, Plt Count 396 Microbiology Data (last 24 hrs): 12/18/21 18:44 Stool Occult Blood - Final Assessment and Plan - Problems (Diagnosis) (1) Acute blood loss anemia Current Visit: Yes Status: Acute (2) Lower GI bleed Current Visit: Yes Status: Acute (3) Paraplegia, unspecified Current Visit: Yes Status: Chronic (4) CAD (coronary artery disease) Onset Date: 08/18/18 Current Visit: Yes Status: Chronic Qualifiers: Coronary Disease-Associated Artery/Lesion type: unspecified vessel or lesion type [place] vs. transplanted heart: alutiiq heart Associated angina: without angina Qualified Code(s): I25.10 - Atherosclerotic heart disease of [place]q coronary artery without angina pectoris (5) HTN (hypertension) Onset Date: 08/18/18 Current Visit: No Status: Chronic Qualifiers: Hypertension type: primary hypertension Qualified Code(s): I10 - Essential (primary) hypertension - Plan -Dr. Stock consulting. N.p.o. at midnight. -2 units PRBC currently transfusing. Will check H&H posttransfusion and monitor closely -Continue Protonix drip -Monitor on telemetry, cont IVF, and hold antihypertensives as patient has been hypotensive -Reconcile and continue home medication as appropriate -Patient does take Eliquis and Plavix. He last took them this morning. HOLD -SCDs for DVT ppx Discharge Plan: Home Plan to discharge in: 48 Hours - Advance Directives Does patient have a Living Will: No Does patient have a Durable POA for Healthcare: Yes - Code Status/Comfort Care Code Status Assessed: Yes (Full) Critical Care: No Time Spent Managing Pts Care (In Minutes): 70
[2021-12-18] MEDS ORDERED: ACETAMINOPHEN 500 MG TAB PO PRN (23:16)
[2021-12-18] MEDS ORDERED: ONDANSETRON 4 MG/2 ML VIAL IV PRN (23:16)
[2021-12-18] MEDS: NA CHLORIDE 0.9% 1,000 ML IV SCH (23:16)
[2021-12-18] MEDS: PANTOPRAZOLE INJ 80 MG in NA CHLORIDE 0.9% 250 ML IV SCH (23:16)
[2021-12-18] MEDS ORDERED: MORPHINE 2 MG/ML SYR IV PRN (23:32)
[2021-12-19] MEDS ORDERED: NA CHLORIDE 0.9% 250 ML ONE (00:32)
[2021-12-19 02:07] VITALS: BMI 28.8
[2021-12-19 04:03] LABS: Urine Appearance Clear (Clear); Urine Bilirubin Negative (Negative); Urine Blood 1+ (Negative); Urine Color Yellow (Yellow); Urine Glucose Negative (Negative); Urine Protein Negative (Negative); Urine Specific Gravity <=1.005 (1.005-1.030); Urine Urobilinogen 0.2 mg/dL (0.2-1.0); Urine pH 5.5 (5.0-7.0)
[2021-12-19 04:10] LABS: Urine Microscopic Reflex ORDER UMIC
[2021-12-19 04:37] LABS: Urine Bacteria <20 /HPF (NONE SEEN)
[2021-12-19] MEDS: PANTOPRAZOLE INJ 80 MG in NA CHLORIDE 0.9% 250 ML IV SCH ×2 (05:19→18:06)
[2021-12-19] MEDS: NA CHLORIDE 0.9% 1,000 ML IV SCH ×2 (05:20→16:42)
[2021-12-19 05:46] LABS: Absolute Lymphocytes (CBC) 1.7 K/uL (0.7-4.9); Hematocrit 22.7 % (39.6-49.0); Lymphocytes % 21.2 % (15.3-44.8); MPV 8.2 fL (7.6-11.3); RBC Red Blood Cell Count 2.74 M/uL (4.33-5.43)
[2021-12-19 06:04] LABS: AST/SGOT 5 U/L (15-37); Albumin 2.6 g/dL (3.4-5.0); Alkaline Phosphatase 44 U/L (45-117); BUN Blood Urea Nitrogen 22 mg/dL (7-18); Bicarbonate 34 mmol/L (21-32); Bilirubin Total 1.2 mg/dL (0.2-1.0); Glomerular Filtration Rate 91 ml/min (=/>90); Glucose Level 138 mg/dL (74-106); HDL Cholesterol 19 mg/dL (40-60); LDL Cholesterol, Calculated 85 mg/dL (<130); Magnesium 2.2 mg/dL (1.8-2.4); Phosphorus 2.4 mg/dL (2.5-4.9); Potassium 4.9 mmol/L (3.5-5.1); Protein, Total 6.3 g/dL (6.4-8.2); Sodium Level 134 mmol/L (136-145)
[2021-12-19 06:10] LABS: ALT/SGPT < 10 U/L (12-78)
[2021-12-19] MEDS ORDERED: propofoL 200 MG/20 ML VIAL IV ONE (14:01)
[2021-12-19] MEDS ORDERED: LIDOCAINE 1% MPF 5 ML VIAL ONE (14:01)
[2021-12-19] MEDS ORDERED: Ringers Lactate 1,000 ML IV ONE (14:14)
[2021-12-19] MEDS ORDERED: EPINEPHRINE/PF 1 MG/ML AMP ONE (14:56)
[2021-12-19] MEDS ORDERED: NS 0.9% VIAL 0 ML ONE (14:57)
[2021-12-19] MEDS: SUCRALFATE 1GM/10ML UCUP PO SCH ×2 (17:52→21:20)
--- NOTE | 2021-12-19 17:57 | P.PN ---
Subjective Date of Service: 12/19/21 Primary Care Provider: Ángel Chief Complaint: LGIB Patient was complaining of abdominal pain this morning No nausea or vomiting. EGD performed today and patient found to have esophageal ulcers. Physical Examination - Vital Signs Temperature: 97.0 F Blood Pressure: 135/65 Pulse: 55 Respirations: 14 Pulse Ox (%): 99 - Physical Exam General: Alert, In no apparent distress, Oriented x3 HEENT: Mucous membr. moist/pink Neck: Supple, JVD not distended Respiratory: Clear to auscultation bilaterally, Normal air movement Cardiovascular: Regular rate/rhythm, Normal S1 S2 Gastrointestinal: Normal bowel sounds, Soft and benign, Non-distended, No tenderness Musculoskeletal: No swelling Integumentary: No rashes, No cyanosis Neurological: Other (Right-sided weakness, paraplegia) - Studies Laboratory Data (last 24 hrs) 12/18/21 17:15: Sodium 132 L, Potassium 4.5, BUN 24 H, Creatinine 1.06, Glucose 159 H, Total Bilirubin 0.3, AST 6 L, ALT 11 L, Alkaline Phosphatase 56, Lipase 66 L 12/18/21 17:15: WBC 8.3, Hgb 5.9 L*, Hct 20.5 L*, Plt Count 396 Microbiology Data (last 24 hrs): 12/18/21 18:44 Stool Occult Blood - Final Assessment And Plan - Current Problems (Diagnosis) (1) GI bleeding Current Visit: Yes Status: Acute (2) Esophageal ulcer Current Visit: Yes Status: Acute (3) Acute blood loss anemia Current Visit: Yes Status: Acute (4) UTI (urinary tract infection) Current Visit: Yes Status: Acute - Plan Case discussed with Dr. Crowell. Patient suspected to have pill esophagitis with ulcers. Continue Protonix. Start clear liquid diet per Dr. Crowell. Monitor for active bleeding. Monitor H&H and transfuse as needed UA suggesting UTI. Urine culture is pending. Start IV Rocephin and follow urine culture.
[2021-12-19 19:02] LABS: Hematocrit 26.6 % (39.6-49.0)
[2021-12-20] MEDS: PANTOPRAZOLE INJ 80 MG in NA CHLORIDE 0.9% 250 ML IV SCH ×3 (01:00→11:00)
[2021-12-20] MEDS: NA CHLORIDE 0.9% 1,000 ML IV SCH ×2 (01:43→05:16)
[2021-12-20 04:30] LABS: Absolute Lymphocytes (CBC) 1.8 K/uL (0.7-4.9); Hematocrit 21.1 % (39.6-49.0); Lymphocytes % 23.1 % (15.3-44.8); RBC Red Blood Cell Count 2.57 M/uL (4.33-5.43)
[2021-12-20 04:50] LABS: AST/SGOT 6 U/L (15-37); Albumin 2.4 g/dL (3.4-5.0); Alkaline Phosphatase 41 U/L (45-117); BUN Blood Urea Nitrogen 18 mg/dL (7-18); Bicarbonate 30 mmol/L (21-32); Bilirubin Total 0.5 mg/dL (0.2-1.0); Glomerular Filtration Rate 97 ml/min (=/>90); Glucose Level 107 mg/dL (74-106); Potassium 4.5 mmol/L (3.5-5.1); Protein, Total 5.9 g/dL (6.4-8.2); Sodium Level 137 mmol/L (136-145)
[2021-12-20 04:56] LABS: ALT/SGPT < 10 U/L (12-78)
--- NOTE | 2021-12-20 07:43 | EKG ---
Test Date: 2021-12-18 Test Time: 18:33:56 Energy And Sustainability Manager: ALEJANDRO MEASUREMENT RESULTS: Intervals: Rate: 111 IL: 248 QRSD: 166 QT: 162 QTc: 220 [place]: P: IL: 248 QRS: 110 T: 0 INTERPRETIVE STATEMENTS: Undetermined rhythm Nonspecific intraventricular block Possible Right ventricular hypertrophy Cannot rule out Septal infarct, age undetermined Lateral infarct, age undetermined Abnormal ECG Compared to ECG 08/17/2018 12:49:10 Myocardial infarct finding now present Atrial-paced complex(es) or rhythm no longer present Left-axis deviation no longer present Right bundle-branch block no longer present Electronically Signed On 12-20-21 07:37:42 CDT by Pablo Mann
[2021-12-20] MEDS ORDERED: HYDROCODONE/APAP 10/325 TAB PO PRN (08:10)
[2021-12-20] MEDS: SUCRALFATE 1GM/10ML UCUP PO SCH ×2 (09:16→11:49)
[2021-12-20] MEDS ORDERED: NA CHLORIDE 0.9% 250 ML ONE (09:33)
[2021-12-20 12:39] VITALS: O2SAT 97
--- NOTE | 2021-12-20 13:10 | P.DS ---
Admission Date: 12/18/21 Discharge Date: 12/20/21 Primary Care Provider: Ángel Disposition: DC HOME/HOME HEALTH CARE Discharge Condition: FAIR Reason for Admission: LGIB - Problems (1) GI bleeding Current Visit: Yes Status: Acute (2) Esophageal ulcer Current Visit: Yes Status: Acute (3) Acute blood loss anemia Current Visit: Yes Status: Acute (4) UTI (urinary tract infection) Current Visit: Yes Status: Acute Brief History of Present Illness: Patient is a 76-year-old male with past medical history of ND, HTN, and paraplegia who presented to the ED after being sent from his PCP for evaluation of hypotension and anemia. Patient was evaluated at [facility] 12 days ago and received 1 unit PRBC for anemia and discharged without GI work- up. He states that he has had dark stools for the past several months. In the ED today, blood pressure was 90/50, hemoglobin 5.9, hematocrit 20.5. Hemocult positive. He was given 1 L normal saline, 2 units PRBC, started on a Protonix drip. CT showed inflammation in the duodenal C-loop with numerous enlarged adjacent lymph nodes present that may be related to ulcer disease or mass. Patient sees Dr. Hamilton but was unavailable so Dr. Stock agreed to consult. Patient admitted for further management. Hospital Course: Patient admitted to the medical floor and started on Protonix drip. He was transfused a total of 4 unit PRBC. Patient seen in consultation by GI-Dr. Crowell who performed EGD. Patient noted to have multiple esophageal ulcers. Pill esophagitis suspected with the culprit likely iron tablets. Iron tablets discontinued. Aspirin held. Patient advised to take his pills with at least 8 ounces of water. He plans to crush some pills which can be crushed before taking them. Patient also prescribed sucralfate and Protonix twice daily. He is informed to follow-up with Dr. Henderson within a week regarding biopsy results and repeat blood counts. Vital Signs/Physical Exam: Temp Pulse Resp BP Pulse Ox 97.3 F 54 16 110/42 L 96 12/20/21 12:00 12/20/21 12:00 12/20/21 12:00 12/20/21 12:00 12/20/21 12:00 General: Alert, In no apparent distress, Oriented x3 HEENT: Mucous membr. moist/pink Neck: JVD not distended Respiratory: Clear to auscultation bilaterally, Normal air movement Cardiovascular: Regular rate/rhythm, Normal S1 S2 Gastrointestinal: Soft and benign, Non-distended, No tenderness Musculoskeletal: No tenderness Neurological: Other (Paraplegia) Laboratory Data at Discharge: WBC 7.8 K/uL (4.3-10.9) 12/20/21 04:14 Hgb Cancelled 12/20/21 05:59 Hct Cancelled 12/20/21 05:59 Plt Count 311 K/uL (152-406) 12/20/21 04:14 PT 25.9 SECONDS (9.5-12.5) H 12/18/21 17:15 INR 2.31 12/18/21 17:15 APTT 37.5 SECONDS (24.3-36.9) H 12/18/21 17:15 Sodium 137 mmol/L (136-145) 12/20/21 04:14 Potassium 4.5 mmol/L (3.5-5.1) 12/20/21 04:14 BUN 18 mg/dL (7-18) 12/20/21 04:14 Creatinine 0.69 mg/dL (0.55-1.3) 12/20/21 04:14 Glucose 107 mg/dL (74-106) H 12/20/21 04:14 Phosphorus 2.4 mg/dL (2.5-4.9) L 12/19/21 05:24 Magnesium 2.2 mg/dL (1.8-2.4) 12/19/21 05:24 Total Bilirubin 0.5 mg/dL (0.2-1.0) 12/20/21 04:14 AST 6 U/L (15-37) L 12/20/21 04:14 ALT < 10 U/L (12-78) L 12/20/21 04:14 Alkaline Phosphatase 41 U/L (45-117) L 12/20/21 04:14 Triglycerides 106 mg/dL (<150) 12/19/21 05:24 Cholesterol 125 mg/dL (<200) 12/19/21 05:24 HDL Cholesterol 19 mg/dL (40-60) L 12/19/21 05:24 Cholesterol/HDL Ratio 6.58 12/19/21 05:24 Lipase 66 U/L (73-393) L 12/18/21 17:15 Home Medications: Atorvastatin Calcium [Lipitor*] 10 mg PO DAILY 08/17/18 Cholecalciferol (Vitamin D3) [Vitamin D 400 IU TAB*] 2 tab PO DAILY 08/17/18 Hydrocodone 10/APAP 325 [Nichols 10325*] 1 tab PO Q4HP PRN 08/17/18 Venlafaxine HCl [Effexor*] 75 mg PO DAILY 08/17/18 diazePAM [Valium*] 10 mg PO TIDP PRN 08/17/18 Amiodarone HCl [Cordarone*] 200 mg PO DAILY 12/19/21 Gabapentin 300 mg PO TID 12/19/21 Pantoprazole [Protonix Tab*] 40 mg PO BID #60 tab 12/20/21 Sucralfate [Carafate*] 10 ml PO ACHS #414 ml 12/20/21 New Medications: Sucralfate [Carafate*] 10 ml PO ACHS #414 ml Pantoprazole [Protonix Tab*] 40 mg PO BID #60 tab Diet: AHA Activity: Ad agus Followup: Khadar Neal MD [Primary Care Provider] - Time spent managing pt's care (in minutes): 35
[2021-12-20 15:51] VITALS: BP 123/68; TEMP 97.5
[2021-12-20 15:52] LABS: Hematocrit 30.1 % (39.6-49.0)
--- NOTE | 2021-12-24 21:55 | OP ---
Surgeon: Slaav Crowell MD Procedure Performed: Esophagogastroduodenoscopy. Indication For Procedure: Upper GI bleed. Anesthesia: Monitored anesthesia care. Complexity: Average. Technique: After obtaining informed consent from the patient and explaining risks and complications, which include, but are not limited to bleeding, infection, perforation, and anesthesia complication, the patient was placed in left lateral position and sedation was given. From there on, the scope wa s advanced into the mouth and carefully guided up to the second portion of the duodenum. After compl etion of examination, scope and equipment were withdrawn and procedure terminated in a safe manner. Findings: Esophagus: No significant abnormality found in the proximal esophagus. In the distal eso phagus, there was evidence of LA grade B esophagitis. However, it is in the middle esophagus that th ere were multiple deep ulcerations with necrotic sloughing of tissue that was seen. Typically we see that in patients with pill-induced esophagitis. This may have been the source of the bleed. Multip le biopsies were taken from the distal and mid esophagus. Stomach: [id number] patchy erythema seen in the body and antrum. Biopsies taken. Duodenum: Revealed mild duodenitis. Second and third portion of the duodenum were normal. Complications: None. Tolerance To Anesthesia: Excellent. Postoperative Diagnoses: Esophagitis, severe multiple deep ulcers with sloughing of the mucosa in th e mid esophagus, probable source of bleeding. Gastritis. Plan: 1.Await pathology results. 2.Follow up in the GI clinic in 2 weeks. 3.Can switch from IV to p.o. PPI and start clear liquid diet, advance as tolerated. He will need fo llowup endoscopy, may be as outpatient and also colonoscopy. US/MODL Voice ID: [id number] Report ID: [id number]
== END 2021-12-20 18:44 | disposition home health service (06) | DRG 381 ==
LOC: ER 15:29 → ERHOLD 20:41 → 2ND 22:39
PROVIDERS: ADMIT Internal Medicine; ATTEND Internal Medicine
PROC: 30233N1 Transfusion of Nonautologous Red Blood Cells into Peripheral Vein, Percutaneous Approach (ICD-10-PCS; 2021-12-18)
PROC: 0DB68ZX Excision of Stomach, Via Natural or Artificial Opening Endoscopic, Diagnostic (ICD-10-PCS; 2021-12-19)
PROC: 0DB58ZX Excision of Esophagus, Via Natural or Artificial Opening Endoscopic, Diagnostic (ICD-10-PCS; principal; 2021-12-19 13:30)
DX: K22.11 Ulcer of esophagus with bleeding (principal); D62 Acute posthemorrhagic anemia; G82.20 Paraplegia, unspecified; N39.0 Urinary tract infection, site not specified; K29.80 Duodenitis without bleeding; K29.70 Gastritis, unspecified, without bleeding; I10 Essential (primary) hypertension; I25.10 Atherosclerotic heart disease of native coronary artery without angina pectoris; I25.2 Old myocardial infarction; F17.210 Nicotine dependence, cigarettes, uncomplicated; Z95.810 Presence of automatic (implantable) cardiac defibrillator; Z95.1 Presence of aortocoronary bypass graft; Z20.822 Contact with and (suspected) exposure to COVID-19
CPT/HCPCS: 36415; 36430; 74177; 80053; 80061; 81003; 81015; 82272; 83690; 83735; 84100; 84443; 85014; 85018; 85025; 85610; 85730; 86850; 86900; 86901; 87086; 87088; 88305; 88312; 93005; 96365; 96366; 99285; C9113; J0171; J2270; J2704; J7030; J7040; J7050; J7120; P9016; Q9967; U0003

== ENCOUNTER 2022-01-05 13:27 | Emergency (ER) | payer OTHER ==
--- OUTSIDE RECORDS SUMMARY | 2022-01-05 13:35 | XMS REPORT | Continuity of Care Document ---
:1945 Author Organization Formerly [facility] t Address [address] [place] [address] [address]. [address] [place] [address] Care Team Providers Name Role Phone WOODY [...] Type Policy Number Effective Date Expiration Date S ource [place] [id number] 2017 2021 00:00:00 00:00:00 MEDICARE PART A [id number] 1979 \\T\\ B 00:00:00 [place] MATTHEWS [id number] 2021 00:00:00 Problems Condition Condition Condition Status [...] upper 0-09 ity of abdomen abdomen 00:00: [place] [facility] PAD PAD Disease Active 2019-08 Univers (periphera (periphera 0-09 it y of l artery l artery 00:00: [place] disease) disease) 00 Medica l Branch Coronary Coronary Disease Active 2017-08 Unive rs artery artery 2-29 ity of disease disease 00:00: [place] involving involving 00 Medi sofie cheesh-na cheesh-na Branch coronary coronary artery of artery of cheesh-na cheesh-na heart heart without without angina angina pectoris [...] it y of on on 00:00: [place] 00 Medical Branch Tobacco Tobacco Disease Active 2017-08 Univers abuse abuse 2-29 ity of 00:00: [place] 00 Medical Branch Dyslipidem Dyslipidem Disease Active 2017-08 U oksana ia ia 2- ity of 00:00: [place] 00 Medical Branch Encounter Encounter Disease Active 2017-08 Uni vers for for 2-29 ity of pre-operat pre-operat 00:00[place] cinthya cinthya 00 Medical cardiovasc cardiovasc Br anch bull gottlieb clearance clearance Acute Acute Disease Active 2017-08 Univers cholecysti cholecysti 2-28 it y of tis tis 00:00: [place] 00 Medical Branch Atypical Atypical Disease Active 2017-08 Unive rs chest pain chest pain 0-10 it y of 00:00: Medical Branch Allergies, Adverse Reactions, Alerts Allergy Allergy Status Severity Reaction(s) Onset Inactive Treating Comm ents Source Name Type Date Date Clinician Levoflox Drug Active Itching 2019-08 Univers acin Allergy 0-09 ity of 00:00: [place] [facility] LEVOFLOX DRUG Active Med ITCHING [...] Quantity Comments Source Exposure to Not sure [place] of SARS-CoV-2 [facility] (event) [place] Alcohol intake 2021-11-11 2021-11-11 0 /d University of 00:00:00 00:00:00 [facility] Tobacco Comment 2020-05-16 2020-05-16 quit a week ago Univ ersity of 00:00:00 00:00:00 [facility] Tobacco use and 2020-05-16 2020-05-16 Never used Universit y of exposure 00:00:00 00:00:00 [facility] Education 2020-05-12 2020-05-12 20 University of 00:00:00 00:00:00 [facility] History SDOH 2020-05-12 2020-05-12 5 University o f Financial 00:00:00 00:00:00 [facility] History [facility] Food 2020-05-12 2020-05-12 1 Univers ity of Worry 00:00:00 00:00:00 [facility] History [facility] Food 2020-05-12 2020-05-12 1 Univers ity of Scarcity 00:00:00 00:00:00 [facility] History SDOH 2020-05-12 2020-05-12 2 University o f Transport Med 00:00:00 00:00:00 [place] [facility] History SDOH 2020-05-12 2020-05-12 2 [place] o f Transport Non-Med 00:00:00 00:00:00 [facility] Sex [birth year] At [birth year] Universit y of 00:00:00 00:00:00 [facility] Smoking Status Start Date Stop Date Source Current every day smoker 2020-05-16 00:00:00 Uni versity of [facility] Medications Ordered Filled Start Stop Current Ordering Indication Dosage Frequency Signature Comments Components Source Medication Medication Date Date Medication? Clinician (SIG) Name Name cefTRIAXone Yes 1000mg 1,000 mg, Univers (ROCEPHIN) 4-11 IV ity of 1,000 mg in 03:15: Piggyback, [place] NaCl 0.9% 00 Q24H ABX, Medic al (NS) 50 mL First dose Bra nch MINI-BAG on [place] 11/11/21 at 2215, Until Discontinu ed, Administer over 30 Minutes, 50 mL
Reas on for Anti-Infec tive: Documented Infection< br>Documen traci Infection Site: Urine
D uration of Therapy: 7 days atorvastati Yes 10mg 10 mg, Univ ers n (LIPITOR) 4-11 Oral, QHS, it y of tablet 10 02:00: First dose [place] mg 00 on [facility] 11/11/21 at Branch 2100, Until Discontinu ed, Routine gabapentin Yes 100mg 100 mg, Uni vers (NEURONTIN) 4-10 Oral, TID, it y of capsule 100 19:00: First dose [place] mg 00 on [facility] 11/11/21 at Branch 1400, Until Discontinu ed, Routine iron 2021- Yes 300mg 300 mg, IV Unive rs sucrose 4-10 04-14 Infusion, ity of (VENOFER) 18:30: 13:59 DAILY, [place] 300 mg in 00 :00 Administer Medi sofie NaCl 0.9% over 2.5 Branch (NS) 250 mL Hours, infusion First dose on [place] 11/11/21 at 1330, For 4 doses amiodarone Yes 200mg 200 mg, Uni vers (PACERONE) 4-10 Oral, ity of tablet 200 14:30: DAILY, [place] mg 00 First dose Medical on [facility] 11/11/21 at 0930, Until Discontinu ed, Routine glipiZIDE Yes 10mg 10 mg, Univer s (GLUCOTROL) 4-10 Oral, ity of tablet 10 14:00: DAILY, [place] mg 00 First dose Medical on [facility] 11/11/21 at 0900, Until Discontinu ed, Routine clopidogreL Yes 75mg 75 mg, Univ ers (PLAVIX) 75 4-10 Oral, ity of mg tablet 14:00: DAILY, [place] 75 mg 00 First dose Medical on [facility] 11/11/21 at 0900, Until Discontinu ed, Routine enoxaparin Yes 40mg 40 mg, Unive rs (LOVENOX) 4-10 Subcutaneo ity of injection 14:00: us, DAILY, [place] 40 mg 00 First dose Medical on [facility] 11/11/21 at 0900, Until Discontinu ed, Routine atorvastati Yes 10mg Take 10 mg Univers n 10 mg 4-10 by mouth ity of tablet 13:49: at [place] bedtime. Medical Branch Cholecalcif Yes Take by [...] daily with Medica l breakfast. Branch glipiZIDE Yes 10mg Take 10 mg Un adair 10 mg 4-10 by mouth ity of tablet 13:49: daily. [place] [id number] Medical Branch digoxin 125 0 Yes 125ug Take 125 U nivers mcg (0.125 4-10 mcg by ity of mg) tablet 13:49: mouth [place] 02 daily. Medical Branch metFORMIN 2022-0 Yes 500mg Take 500 Uni vers 500 mg 24 4-10 mg by ity of hr tablet 13:49: mouth [place] 02 daily with Medical breakfast. Branch diazePAM 5 Yes 5mg Take 5 mg Un adair mg tablet 4-10 by mouth 3 ity of 13:49: (three) times Medical daily. Branch terazosin 5 Yes 5mg Take 5 mg U nivers mg capsule 4-10 by mouth ity o f 13:49: at [place] 02 bedtime. Medical Branch busPIRone Yes 15mg Take 15 mg Un adair 15 mg 4-10 by mouth 3 ity of tablet 13:49: (three) times Medical daily. Branch sildenafiL Yes Take by Uni vers 100 mg 4-10 mouth. ity of tablet 13:49: Medical Branch clopidogreL Yes 75mg Take 75 mg Univers 75 mg 4-10 by mouth ity of tablet 13:49: daily. Medical Branch HYDROcodone Yes 1{tbl} Take 1 Un adair -acetaminop 4-10 tablet by ity of hen 10-325 13:49: mouth [place] mg tablet 02 every 6 Medical (six) Branch hours as needed. amiodarone Yes 200mg Take 200 Un adair 200 mg 4-10 mg by ity of tablet 13:49: mouth 02 daily. Medical Branch venlafaxine Yes 150mg 150 mg, Un adair XR (EFFEXOR 4-10 Oral, QAM ity of XR) 24 hr 13:45: WITH [place] capsule 150 00 BREAKFAST, Me dical mg First dose Branch on [place] 11/11/21 at 0845, Until Discontinu ed, Routine diazePAM Yes 5mg 5 mg, Univers (VALIUM) 4-10 Oral, TID, ity o f tablet 5 mg 13:45: First dose [place] 00 on [facility] 11/11/21 at Branch 0845, Until Discontinu ed, Routine HYDROcodone 2021-0 Yes 1{tbl} 1 tablet, Univers -acetaminop 4-10 Oral, ity of hen (NORCO) 13:44: Q6HPRN, [place] 10-325 mg 20 Starting Medica l tablet 1 on [place] Branch tablet 11/11/21 at 0844, Until Discontinu ed, Routine, Pain (scale 7-10) furosemide 0 Yes 20mg 20 mg, Unive rs (LASIX) 4-10 Slow IV ity of injection 13:00: Push, [place] 20 mg 00 Q12H, Medical First dose Branch on 11/11/21 at 0800, Until Discontinu ed, Routine ondansetron 2021-0 Yes 4mg 4 mg, Slow Univers (ZOFRAN 4-10 IV Push, ity of (PF)) 03:43: Q6HPRN, [place] injection 4 03 Starting Medi sofie mg on Sat Branch 11/10/21 at 2243, Until Discontinu ed, Routine, Nausea and Vomiting (N/V) acetaminoph 2021-0 Yes 650mg 650 mg, Un adair en 4-10 Oral, ity of (TYLENOL) 03:42: Q6HPRN, [place] tablet 650 50 Starting Medic al mg on [facility] Branch 11/10/21 at 2242, Until Discontinu ed, Routine, Pain (scale 1-3), Temp > 38.5 C cefTRIAXone 2021-0 2022- No 1000mg 1,000 mg, Univers (ROCEPHIN) 11-11 04-10 IV ity of 1,000 mg in 03:30: 03:48 Piggyback, [place] NaCl 0.9% 00 :00 ONCE, 1 Medical (NS) 50 mL dose, On Branc h MINI-BAG [facility] 11/10/21 at 2230, Administer over 30 Minutes, 50 mL
R jalen for Anti-Infec tive: Documented Infection< br>Documen traci Infection Site: Urine<br&g t;Duration of Therapy: Other (see Comments) ondansetron 2021-0 2022- No 4mg 4 mg, Slow Univers (ZOFRAN 4-10 04-10 IV Push, ity of (PF)) 02:15: 01:41 ONCE, 1 [place] injection 4 00 :00 dose, On Medi sofie mg [facility] 11/10/21 Branch at 2115, [place] naloxone 2021-0 2022- No .4mg 0.4 mg, Unive rs (NARCAN) 11-11 04-10 Intravenou ity of injection 02:15: 02:15 s, ONCE, 1 [place] 0.4 mg 00 :00 dose, On Medical 11/10/21 Branch at 2115, [place] amoxicillin 202-0 2021- Yes [id number] 1{tbl} Take 1 Univers -clavulanat 4-10 04-18 tablet by it y of e 00:00: 04:59 mouth 2 [place] (AUGMENTIN) 00 :00 (two) Medical 875-125 mg times Branch per tablet daily for 7 days. atorvastati 2019-08 Yes 10mg Take 10 mg Univers n 10 mg 0-20 by mouth ity of tablet 23:57: at [place] [address] bedtime. Medical Branch Cholecalcif 2019-08 Yes Take by Un adair georgette, 0-20 mouth. ity of Vitamin D3, 23:57: [place] 50 mcg 42 Medical (2,000 Branch unit) capsule gabapentin 2019-08 Yes 100mg Take 100 Un adair 100 mg 0-20 mg by ity of capsule 23:57: mouth 3 [place] [address] (three) Medical times Branch daily. venlafaxine 2019-08 Yes 150mg Take 150 U nivers XR 150 mg 0-20 mg by ity of 24 hr 23:57: mouth [place] capsule 42 daily with Medica l breakfast. Branch glipiZIDE 2019-08 Yes 10mg Take 10 mg Un adair 10 mg 0-20 by mouth ity of tablet 23:57: daily. [place] [address] Medical Branch digoxin 125 2019-08 Yes 125ug Take 125 U nivers mcg (0.125 0-20 mcg by ity of mg) tablet 23:57: mouth [place] [address] daily. Medical Branch metFORMIN 2019-08 Yes 500mg Take 500 Uni vers 500 mg 24 0-20 mg by ity of hr tablet 23:57: mouth [place] [address] daily with Medical breakfast. Branch diazePAM 5 2019-08 Yes 5mg Take 5 mg Un adair mg tablet 0-20 by mouth 3 ity of 23:57: (three) [place] [address] times Medical daily. Branch terazosin 5 2019-08 Yes 5mg Take 5 mg U nivers mg capsule 0-20 by mouth ity o f 23:57: at [place] [address] bedtime. Medical Branch busPIRone 2019-08 Yes 15mg Take 15 mg Un adair 15 mg 0-20 by mouth 3 ity of tablet 23:57: (three) [place] [address] times Medical daily. Branch sildenafiL 2019-08 Yes Take by Uni vers 100 mg 0-20 mouth. ity of tablet 23:57: [place] [address] Medical Branch clopidogreL 2019-08 Yes 75mg Take 75 mg Univers 75 mg 0-20 by mouth ity of tablet 23:57: daily. [place] [address] Medical Branch HYDROcodone 2019-08 Yes 1{tbl} Take 1 Un adair -acetaminop 0-20 tablet by ity of hen 10-325 23:57: mouth [place] mg tablet 42 every 6 Medical (six) Branch hours as needed. atorvastati 2019-08 Yes 10mg Take 10 mg Univers n 10 mg 0-20 by mouth ity of tablet 23:57: at [place] [address] bedtime. Medical Branch Cholecalcif 2019-08 Yes Take by Un adair georgette, 0-20 mouth. ity of Vitamin D3, 23:57: [place] 50 mcg 42 Medical (2,000 Branch unit) capsule gabapentin 2019-08 Yes 100mg Take 100 Un adair 100 mg 0-20 mg by ity of capsule 23:57: mouth 3 [place] [address] (three) Medical times Branch daily. venlafaxine 2019-08 Yes 150mg Take 150 U nivers XR 150 mg 0-20 mg by ity of 24 hr 23:57: mouth [place] capsule 42 daily with Medica l breakfast. Branch glipiZIDE 2019-08 Yes 10mg Take 10 mg Un adair 10 mg 0-20 by mouth ity of tablet 23:57: daily. [place] [address] Medical Branch digoxin 125 2019-08 Yes 125ug Take 125 U nivers mcg (0.125 0-20 mcg by ity of mg) tablet 23:57: mouth [place] [address] daily. Medical Branch metFORMIN 2019-08 Yes 500mg Take 500 Uni vers 500 mg 24 0-20 mg by ity of hr tablet 23:57: mouth [place] [address] daily with Medical breakfast. Branch diazePAM 5 2019-08 Yes 5mg Take 5 mg Un adair mg tablet 0-20 by mouth 3 ity of 23:57: (three) [place] [address] times Medical daily. Branch terazosin 5 2019-08 Yes 5mg Take 5 mg U nivers mg capsule 0-20 by mouth ity o f 23:57: at [place] [address] bedtime. Medical Branch busPIRone 2019-08 Yes 15mg Take 15 mg Un adair 15 mg 0-20 by mouth 3 ity of tablet 23:57: (three) [place] [address] times Medical daily. Branch sildenafiL 2019-08 Yes Take by Uni vers 100 mg 0-20 mouth. ity of tablet 23:57: [place] [address] Medical Branch clopidogreL 2019-08 Yes 75mg Take 75 mg Univers 75 mg 0-20 by mouth ity of tablet 23:57: daily. [place] [address] Medical Branch HYDROcodone 2019-08 Yes 1{tbl} Take 1 Un adair -acetaminop 0-20 tablet by ity of hen 10-325 23:57: mouth [place] mg tablet 42 every 6 Medical (six) Branch hours as needed. atorvastati 2019-08 Yes 10mg Take 10 mg Univers n 10 mg 0-20 by mouth ity of tablet 23:57: at [place] [address] bedtime. Medical Branch Cholecalcif 2019-08 Yes Take by Un adair georgette, 0-20 mouth. ity of Vitamin D3, 23:57: [place] 50 mcg 42 Medical (2,000 Branch unit) capsule gabapentin 2019-08 Yes 100mg Take 100 Un adair 100 mg 0-20 mg by ity of capsule 23:57: mouth 3 [place] [address] (three) Medical times Branch daily. venlafaxine 2019-08 Yes 150mg Take 150 U nivers XR 150 mg 0-20 mg by ity of 24 hr 23:57: mouth [place] capsule 42 daily with Medica l breakfast. Branch glipiZIDE 2019-08 Yes 10mg Take 10 mg Un adair 10 mg 0-20 by mouth ity of tablet 23:57: daily. [place] [address] Medical Branch digoxin 125 2019-08 Yes 125ug Take 125 U nivers mcg (0.125 0-20 mcg by ity of mg) tablet 23:57: mouth [place] [address] daily. Medical Branch metFORMIN 2019-08 Yes 500mg Take 500 Uni vers 500 mg 24 0-20 mg by ity of hr tablet 23:57: mouth [place] 42 daily with Medical breakfast. Branch diazePAM 5 2019-08 Yes 5mg Take 5 mg Un adair mg tablet 0-20 by mouth 3 ity of 23:57: (three) [place] 42 times Medical daily. Branch terazosin 5 2019-08 Yes 5mg Take 5 mg U nivers mg capsule 0-20 by mouth ity o f 23:57: at [place] [address] bedtime. Medical Branch busPIRone 2019-08 Yes 15mg Take 15 mg Un adair 15 mg 0-20 by mouth 3 ity of tablet 23:57: (three) [place] [address] times Medical daily. Branch sildenafiL 2019-08 Yes Take by Uni vers 100 mg 0-20 mouth. ity of tablet 23:57: [place] [address] Medical Branch clopidogreL 2019- Yes 75mg Take 75 mg Univers 75 mg 0-20 by mouth ity of tablet 23:57: daily. [place] [address] Medical Branch HYDROcodone 2019- Yes 1{tbl} Take 1 Un adair -acetaminop [...] by mouth ity of tablet 18:57: at [place] [address] bedtime. Medical Branch Cholecalcif 2019-08 Yes Take by Un adair georgette, 0-20 mouth. ity of Vitamin D3, 18:57: [place] 50 mcg 42 Medical (2,000 Branch unit) capsule gabapentin 2019-08 Yes 100mg Take 100 Un adair 100 mg 0-20 mg by ity of capsule 18:57: mouth 3 [place] [address] (three) Medical times Branch daily. venlafaxine 2019-08 Yes 150mg Take 150 U nivers XR 150 mg 0-20 mg by ity of 24 hr 18:57: mouth [place] capsule 42 daily with Medica l breakfast. Branch glipiZIDE 2019-08 Yes 10mg Take 10 mg Un adair 10 mg 0-20 by mouth ity of tablet 18:57: daily. [place] [address] Medical Branch digoxin 125 2019- Yes 125ug Take 125 U nivers mcg (0.125 0-20 mcg by ity of mg) tablet 18:57: mouth [place] 42 daily. Medical Branch metFORMIN 2019-08 Yes 500mg Take 500 Uni vers 500 mg 24 0-20 mg by ity of hr tablet 18:57: mouth [place] 42 daily with Medical breakfast. Branch diazePAM 5 2019-08 Yes 5mg Take 5 mg Un adair mg tablet 0-20 by mouth 3 ity of 18:57: (three) [place] [address] times Medical daily. Branch terazosin 5 2019-08 Yes 5mg Take 5 mg U nivers mg capsule 0-20 by mouth ity o f 18:57: at [place] [address] bedtime. Medical Branch busPIRone 2019-08 Yes 15mg Take 15 mg Un adair 15 mg 0-20 by mouth 3 ity of tablet 18:57: (three) [place] [address] times Medical daily. Branch sildenafiL 2019-08 Yes Take by Uni vers 100 mg 0-20 mouth. ity of tablet 18:57: [place] [address] Medical Branch clopidogreL 2019-08 Yes 75mg Take 75 mg Univers 75 mg 0-20 by mouth ity of tablet 18:57: daily. [place] [address] Medical Branch HYDROcodone 2019-08 Yes 1{tbl} Take 1 Un adair -acetaminop 0-20 tablet by ity of hen 10-325 18:57: mouth [place] mg tablet 42 every 6 Medical (six) Branch hours as needed. hydrALAZINE 2019-08 2020- No 25mg Take 25 mg Univers 25 mg 0-19 10-19 by mouth ity of tablet 21:19: 00:00 every 6 [place] 31 :00 (six) Medical hours. Branch carvediloL 2019-08 2020- No 25mg Take 25 mg Univers 25 mg 0-19 10-19 by mouth 2 ity of tablet 21:19: 00:00 (two) [place] 31 :00 times Medical daily with Branch meals. TURMERIC 2019-08 2020- No Take by Univ ers ORAL 0-19 10-19 mouth. ity of 21:19: 00:00 [place] 31 :00 Medical Branch ZINC 2019-08 2020- No Take by Univers ACETATE 0-19 10-19 mouth. ity of ORAL 21:19: 00:00 [place] 31 :00 Medical Branch carvediloL 2019-08 Yes [id number] 12.5mg Take 1 Univers 12.5 mg 0-19 tablet by ity of tablet 00:00: mouth 2 [place] [address] (two) Medical times Branch daily with meals. carvediloL 2019-08 Yes [id number] 12.5mg Take 1 Univers 12.5 mg 0-19 tablet by ity of tablet 00:00: mouth 2 [place] [address] (two) Medical times Branch daily with meals. carvediloL 2019-08 Yes [id number] 12.5mg Take 1 Univers 12.5 mg 0-19 tablet by ity of tablet 00:00: mouth 2 [place] (two) Medical times Branch daily with meals. carvediloL 2019-08 Yes [id number] 12.5mg Take 1 Univers 12.5 mg 0-19 tablet by ity of tablet 00:00: mouth 2 [place] (two) Medical times Branch daily with meals. carvediloL 2019-08 Yes [id number] 12.5mg Take 1 Univers 12.5 mg 0-19 tablet by ity of tablet 00:00: mouth 2 [place] (two) Medical times Branch daily with meals. ertapenem 2019-08- No 1000mg 1,000 mg, Univers (INVANZ) 05-21 IV ity of 1,000 mg in 18:00: 18:02 Piggyback, [place] NaCl 0.9% 00 :00 Q24H ABX, Medic [...] No 20mg 20 mg, Univ ers (LASIX) 05-21 Slow IV ity of injection 15:45: 00:55 Push, [place] 20 mg 00 :00 Q12H, 2 Medical doses, Branch First dose on 05/20/20 at 1045, Last dose on 05/20/20 at 2000, Routine azithromyci 2019-08- No 500mg 500 mg, U nivers n 005-20 Oral, Q24H ity of (ZITHROMAX) 23:00: 22:10 ABX, 2 [place] tablet 500 00 :00 doses, Medical mg First dose Branch on Fri05/19/20 at 1800, Last dose on 10/17/20 at 1800, [place]
Re ason for Anti-Infec tive: Documented Infection< br>Documen traci Infection Site: Respirator y
Durat ion of Therapy: Other (see Comments) atorvastati 2019-08 Yes 10mg 10 mg, Univ ers n (LIPITOR) 0-15 Oral, QHS, it y of tablet 10 02:00: First dose [place] mg 00 on Fri05/17/20 Branch at 2100, Until Discontinu ed, Routine [...] dose Medi sofie solution 4 on Fri mL 05/17/20 at 2000, Until Discontinu ed, [...] Inhalation ity of (DUONEB) 19:00: , TID, [place] 0.5 mg-3 00 First dose Medic al [...] IV ity of injection 17:02: Push, PRN [place] 10 mL 16 - SEE Medical INSTRUCTIO Branch NS, Starting Fri05/17/20 at 1202, Until Discontinu ed, Routine heparin 2019-08 Yes 3mL 300 Units Unive rs lock flush 0-14 (3 mL), IV ity of (HEP-LOCK) 17:02: Push, PRN [place] 100 unit/mL 16 - SEE Medical injection INSTRUCTIO Bran ch 300 Units , Starting Fri05/17/20 at 1202, Until Discontinu ed, Routine clopidogreL 2019-08 Yes 75mg 75 mg, Univ ers (PLAVIX) 0-14 Oral, ity of tablet 75 14:00: DAILY, [place] mg 00 First dose Medical on Fri05/17/20 at 0900, Until Discontinu ed, Routine digoxin 2019-08 Yes 125ug 125 mcg, Unive rs (LANOXIN) 0-14 Oral, ity of tablet 125 14:00: DAILY, [place] mcg 00 First dose Medical on Fri05/17/20 at 0900, Until Discontinu ed, Routine heparin [...] AC+HS, ity of Insulin-Reg 12:30: First dose [place] ular + Fsbg 00 on Fri Medica l Testing 05/17/20 Branch at 0730, Until Discontinu ed, Routine acetaminoph 2019-08 Yes 650mg 650 mg, Un adair en 0-14 Oral, ity of (TYLENOL) 06:30: Q6HPRN, [place] tablet 650 22 Starting Medic al mg Fri Branch 05/17/20 at 0130, Until Discontinu ed, Routine, Pain (scale 1-3) glucagon 2019-08 Yes 1mg 1 mg, Univers (GLUCAGEN 0-14 Intramuscu ity of DIAGNOSTIC 06:18: lar, PRN, [place] KIT) 17 Starting Medical injection 1 Fri Branch mg 05/17/20 at 0118, Until Discontinu ed, [place], Blood Glucose < or = 70 mg/dL and patient is unable to swallow or has mental changes. dextrose 50 2019-08 Yes 25mL 25 mL, Univ ers % in water 0-14 Slow IV ity of (D50W) 06:18: Push, PRN, [place] injection 17 Starting Medica l 25 mL [facility] Branch 05/17/20 at 0118, Until Discontinu ed, [place], Blood Glucose < or = 70 mg/dL and patient is unable to swallow or has mental status changes. HYDROcodone 2019-08 Yes 1{tbl} 1 tablet, Univers -acetaminop 0-14 Oral, ity of hen (NORCO) 06:17: Q6HPRN, [place] 10-325 mg 16 Starting Medica l tablet 1 [facility] Branch tablet 05/17/20 at 0117, Until Discontinu ed, Routine, Pain (scale 7-10) diazePAM 2019-08 Yes 5mg 5 mg, Univers (VALIUM) 0-14 Oral, ity of tablet 5 mg 06:17: BIDPRN, [place] as 15 Starting Medical [facility] Branch 05/17/20 at 0117, Until Discontinu ed, Routine, Agitation, Anxiety morpHINE 2019-08 No 4mg 4 mg, Slow Un adair injection 4 0-14 10-13 IV Push, ity of mg 00:15: 23:12 ONCE, 1 [place] 00 :00 dose, [facility] Medical 05/16/20 Branch at 1915, STAT azithromyci 2019-08- No 500mg 500 mg, IV Univers n 0-13 10-14 Piggyback, ity of (ZITHROMAX) 23:45: 00:12 ONCE, 1 [place] 500 mg in 00 :00 dose, [facility] al NaCl 0.9% 05/16/20 Branch (NS) 250 mL at 1845, VIAL-MATE 250 IV mL
Reas piggyback on for Anti-Infec tive: Empiric Therapy for Suspected Infection< br>Empiric Therapy Site: Respirator y
Durat ion of therapy: 72 hours cefTRIAXone 2019-08 2020- No 1000mg 1,000 mg, Univers (ROCEPHIN) 0-13 10-13 IV ity of 1,000 mg in 23:45: 23:13 Piggyback, [place] NaCl 0.9% 00 :00 ONCE, 1 Medical (NS) 50 mL dose, [facility] [place] ch MINI-BAG 05/16/20 at 1845, 50 mL
Reas on for Anti-Infec tive: Empiric Therapy for Suspected Infection< br>Empiric Therapy Site: Respirator y
Durat ion of therapy: 72 hours [place]-3-DHA 2019-08 2020- No 1500mg Take 1,500 Univers [...] :00 (two) Medical times Branch daily. atorvastati 2019-08 2020- No 10mg Take 10 mg Univers n (LIPITOR) 0-11 10-11 by mouth ity of 10 mg 18:56: 00:00 at [place] tablet 30 :00 bedtime. Medical Branch digoxin 125 2019-08 2020- No 125ug Take 125 Univers mcg (0.125 0-11 10-11 mcg by ity of mg) tablet 18:56: 00:00 mouth [place] 30 :00 daily. Medical Branch aspirin 81 2019-08 2020- No 81mg Take 81 mg Univers mg chewable 0-11 10-11 by mouth ity of tablet 18:56: 00:00 daily. [place] 30 :00 Medical Branch diazePAM 10 2019-08- No 10mg Take 10 mg Univers mg tablet 0-11 10-11 by mouth 3 ity of 18:56: 00:00 (three) [place] 30 :00 times Medical daily. Branch terazosin 5 2019-08 2020- No 5mg Take 5 mg Univers mg capsule 0-11 10-11 by mouth ity of 18:56: 00:00 at [place] 30 :00 bedtime. Medical Branch HYDROcodone 2019-08 Yes 1{tbl} 1 tablet, Univers -acetaminop 0-11 Oral, ity of hen (NORCO) 12:15: Q4HPRN, [place] 10-325 mg 00 Starting Medica l tablet 1 [facility] tablet 05/14/20 at 0715, Until Discontinu ed, Routine, Pain (scale 4-6) terazosin 2019-08 Yes 1mg 1 mg, Univers (HYTRIN) 0-10 Oral, QHS, ity o f capsule 1 02:00: First dose [place] mg 00 on Fri [facility] 05/12/20 at [place] 2100, Until Discontinu ed, Routine atorvastati 2019-08 Yes 20mg 20 mg, Univ ers n (LIPITOR) 0-10 Oral, QHS, it y of tablet 20 02:00: First dose [place] mg 00 on Fri [facility] 05/12/20 at [place] 2100, Until Discontinu ed, Routine enoxaparin 2019-08 Yes 40mg 40 mg, Unive rs (LOVENOX) 0-09 Subcutaneo ity of injection 22:00: us, DAILY, [place] 40 mg 00 First dose Medical on Fri [place] 05/12/20 at 1700, Until Discontinu ed, Routine glipiZIDE 2019-08 Yes 5mg 5 mg, Univers (GLUCOTROL) 0-09 Oral, ity of tablet 5 mg 21:30: [place] First dose Medical on Fri [place] 05/12/20 at 1630, Until Discontinu ed, Routine NaCl 0.9% 2019-08 2020- No IV Univers (NS) IV 0-10 Infusion, ity of infusion 18:00: 15:02 at 75 [place] 00 :44 mL/hr, Medical CONTINUOUS [place] , Starting Fri05/12/20 at 1300, Until 05/13/20 at 1002, Routine sulfur 2019-08 2020- No 5mL 5 mL, Univers hexafluorid 0- 10-09 Intravenou i ty of e microsphr 17:00: 16:50 s, ONCE, 1 [place] (LUMASON) 00 :00 dose, Fri Medic al injection 5 05/12/20 at Br anch mL 1200, Routine
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 approving Restricted medication : EVA BENAVIDES iohexol 2019-08 2020- No 150mL 150 mL, Unive rs (OMNIPAQUE 0-09 10-09 Intravenou it y of 350 14:30: 14:30 s, ONCE, 1 [place] BULK-150 00 :00 dose, Fri Medica l mL) 05/12/20 at Branch injection 0930, 150 mL Routine NaCl 0.45% 2019-08 2020- No 1000mL at 50 Uni vers (1/2NS) IV 0-09 10-09 mL/hr, ity of infusion 14:15: 16:58 1,000 mL, Dar as 1,000 mL 00 :46 IV Medical Infusion, Branch CONTINUOUS , Starting Fri05/12/20 at 0915, Until Fri05/12/20 at 1158, Routine clopidogreL 2019-08 Yes 75mg 75 mg, Univ ers (PLAVIX) 0-09 Oral, ity of tablet 75 14:00: DAILY, [place] mg 00 First dose Medical on Fri Branch 05/12/20 at 0900, Until Discontinu ed, Routine [...] Branch 0815, Until Discontinu ed, Routine aspirin 2020- Yes 81mg 81 mg, Univers chewable 0-09 [...] on Fri Medical (NOVOLOG) + 05/12/20 at [facility] 0730, Testing Until Discontinu ed, Routine [...] IV Push, ity of (PF)) 10:45: Q6HPRN, [place] injection 4 21 Starting Medi sofie mg Fri Branch 05/12/20 at 0545, Until Discontinu ed, Routine, Nausea and Vomiting (N/V) FENTanyl PF 2019-08- No 25ug 25 mcg, Un adair (SUBLIMAZE 0- Slow IV ity o f (PF)) 09:15: 08:20 Push, [place] injection 00 :00 ONCE, 1 Medical 25 mcg dose, Fri Branch 05/12/20 at 0415, STAT cefTRIAXone 2019-08- No 1000mg 1,000 mg, Univers (ROCEPHIN) 0- IV ity of 1,000 mg in 06:55: 07:31 Pig[place], [place] NaCl 0.9% 00 :00 ONCE, 1 Medical (NS) 50 mL dose, Fri [facility] ch MINI-BAG 05/12/20 at 0200, 50 mL
Reas on for Anti-Infec tive: Documented Infection< br>Documen traci Infection Site: Respirator y
Durat ion of Therapy: Other (see Comments) levoFLOXaci 2019-08- No 500mg 500 mg, IV Univers n in D5W 0-05-12 Piggyback, ity of (LEVAQUIN) 06:45: 07:25 ONCE, 1 [place] 500 mg/100 00 :00 dose, Fri Medi sofie mL 05/12/20 at Branch Piggyback 0145, 100 500 mg mL
Reas on for Anti-Infec tive: Empiric Therapy for Suspected Infection< br>Empiric Therapy Site: Respirator y
Durat ion of therapy: 7 days HYDROcodone 2019-08 2020- No 1{tbl} 1 tablet, Univers -acetaminop 0-04 13-09 Oral, ity of hen (NORCO 06:45: 05:48 ONCE, 1 [place] as 5) 5-325 mg 00 :00 dose, Fri Med ical tablet 1 05/12/20 at [facility] h tablet 0145, GORD[place] NaCl 0.9% 2019-08- No 1000mL at 999 Uni vers (NS) [...] known No Univers medications ity of [facility] Immunizations Ordered Filled Immunization Date Status Comments [facility] e Immunization Name Name Influenza High Dose 2020-05-23 Completed Unive rsity of [place] 00:00:00 [facility] Influenza High Dose 2020-05-23 Completed Unive rsity of [place] 00:00:00 [facility] Influenza High Dose 2020-05-23 Completed Unive rsity of [place] 00:00:00 [facility] Influenza High Dose 2020-05-23 Completed Unive rsity of [place] 00:00:00 [facility] Influenza High Dose 2020-05-23 Completed Unive rsity of [place] 00:00:00 [facility] Pneumococcal 13 2019-09-27 Completed Universit y of Conjugate, PCV13 00:00:00 [facility] dical (Prevnar 13) Branch Pneumococcal 13 2019-09-27 Completed Universit y of Conjugate, PCV13 00:00:00 [place] Me dical (Prevnar 13) Branch Pneumococcal 13 2019-09-27 Completed Universit y of Conjugate, PCV13 00:00:00 [place] Me dical (Prevnar 13) Branch Pneumococcal 13 2019-09-27 Completed Universit y of Conjugate, PCV13 00:00:00 [place] Me dical (Prevnar 13) Branch Pneumococcal 13 2019-09-27 Completed Universit y of Conjugate, PCV13 00:00:00 [place] Me dical (Prevnar 13) Branch Influenza High Dose 2017-05-26 Completed Unive rsity of 00:00:00 [facility] Pneumococcal 13 2017-05-26 Completed Universit y of Conjugate, PCV13 00:00:00 [facility] dical (Prevnar 13) Branch TDAP 2017-05-26 Completed University of 00:00:00 [facility] Influenza High Dose 2017-05-26 Completed Unive rsity of 00:00:00 [facility] Pneumococcal 13 2017-05-26 Completed Universit y of Conjugate, PCV13 00:00:00 [facility] dical (Prevnar 13) Branch TDAP 2017-05-26 Completed University of 00:00:00 [facility] Influenza High Dose 2017-05-26 Completed Unive rsity of 00:00:00 [facility] Pneumococcal 13 2017-05-26 Completed Universit y of Conjugate, PCV13 00:00:00 [facility] dical (Prevnar 13) Branch TDAP 2017-05-26 Completed University of 00:00:00 [facility] Influenza High Dose 2017-05-26 Completed Unive rsity of 00:00:00 [facility] Pneumococcal 13 2017-05-26 Completed Universit y of Conjugate, PCV13 00:00:00 [facility] dical (Prevnar 13) Branch AP 2017-05-26 Completed University of 00:00:00 [facility] Influenza High Dose 2017-05-26 Completed Unive rsity of 00:00:00 [facility] Pneumococcal 13 2017-05-26 Completed Universit y of Conjugate, PCV13 00:00:00 [facility] dical (Prevnar 13) Branch AP 2017-05-26 Completed University of 00:00:00 [facility] Influenza High Dose 2017-05-26 Completed Unive rsity of 00:00:00 [facility] Pneumococcal 13 2017-05-26 Completed Universit y of Conjugate, PCV13 00:00:00 [facility] dical (Prevnar 13) Branch [facility] 2017-05-26 Completed University of 00:00:00 [facility] Influenza High Dose 2017-05-26 Completed Unive rsity of 00:00:00 [facility] Pneumococcal 13 2017-05-26 Completed Universit y of Conjugate, PCV13 00:00:00 [facility] dical (Prevnar 13) Branch [facility] 2017-05-26 Completed University of 00:00:00 [facility] Zoster(Zostavax)( 2012-10-26 Completed Unive rsity of ingles) 00:00:00 [facility] Zoster(Zostavax)( 2012-10-26 Completed Unive rsity of ingles) 00:00:00 [facility] Zoster(Zostavax)( 2012-10-26 Completed Unive rsity of ingles) 00:00:00 [facility] Zoster(Zostavax)( 2012-10-26 Completed Unive rsity of ingles) 00:00:00 [facility] Zoster(Zostavax)( 2012-10-26 Completed Unive rsity of ingles) 00:00:00 [facility] Zoster(Zostavax)( 2012-10-26 Completed Unive rsity of ingles) 00:00:00 [facility] Zoster(Zostavax)( 2012-10-26 Completed Unive rsity of ingles) 00:00:00 [facility] Influenza Virus 2012-07-14 Completed Universit y of Vaccine 00:00:00 [facility] Influenza Virus 2012-07-14 Completed Universit y of Vaccine 00:00:00 [facility] Influenza Virus 2012-07-14 Completed Universit y of Vaccine 00:00:00 [facility] Influenza Virus 2012-07-14 Completed Universit y of Vaccine 00:00:00 [facility] Influenza Virus 2012-07-14 Completed Universit y of Vaccine 00:00:00 [facility] Influenza Virus 2012-07-14 Completed Universit y of Vaccine 00:00:00 [facility] Influenza Virus 2012-07-14 Completed Universit y of Vaccine 00:00:00 [facility] Vital Signs Vital Name Observation Time Observation Value Comments Source Systolic blood 2021-11-11 16:15:00 121 mm[Hg] Univer sity of pressure [facility] Diastolic blood 2021-11-11 16:15:00 49 mm[Hg] Unive rsity of pressure [facility] Heart rate 2021-11-11 16:15:00 65 /min [facility] Body temperature 2021-11-11 16:15:00 36.33 Tracy [facility] Res[facility] rate 2021-11-11 16:15:00 18 /min [facility] Oxygen saturation in 2021-11-11 16:15:00 91 /min [facility] Arterial blood by [facility] Pulse oximetry Branch Body weight 2021-11-11 08:38:00 89.994 kg [facility] BMI 2021-11-11 08:38:00 26.18 kg/m2 [facility] Systolic blood 2020-05-23 21:13:00 105 mm[Hg] Univer sity of pressure [facility] Diastolic blood 2020-05-23 21:13:00 51 mm[Hg] Unive rsity of pressure [facility] Heart rate 2020-05-23 21:13:00 60 /min Universi ty of [facility] Body temperature 2020-05-23 21:13:00 36.83 Tracy Univ ersity of [facility] Respiratory rate 2020-05-23 21:13:00 18 /min Univ ersity of [facility] Oxygen saturation in 2020-05-23 21:13:00 95 /min University of Arterial blood by [facility] Pulse oximetry Branch Body weight 2020-05-23 10:49:00 90.493 kg Universi ty of [facility] BMI 2020-05-23 10:49:00 26.32 kg/m2 Universi ty of [facility] Body height 2020-05-17 01:56:00 185.4 cm Universi ty of [facility] Oxygen saturation in 2020-05-14 16:53:00 89 /min University of Arterial blood by [facility] Pulse oximetry Branch Systolic blood 2020-05-14 16:00:00 107 mm[Hg] Univer sity of pressure [facility] Diastolic blood 2020-05-14 16:00:00 61 mm[Hg] Unive rsity of pressure [facility] Heart rate 2020-05-14 16:00:00 79 /min Universi ty of [facility] Body temperature 2020-05-14 16:00:00 36.44 Tracy Univ ersity of [facility] Respiratory rate 2020-05-14 16:00:00 18 /min [facility] Body weight 2020-05-14 09:15:00 87.998 kg Universi ty of [place] [facility] [place] BMI 2020-05-14 09:15:00 25.60 kg/m2 Universi ty of [facility] Body height 2020-05-12 03:15:00 185.4 cm Universi ty [facility] Procedures Procedure Date / Time Performing Clinician Source Performed FERRITIN SERUM 2021-11-11 13:36:00 Morris Vuong [facility] IRON 2021-11-11 13:36:00 Carolann Morris [facility] TOTAL IRON BINDING 2021-11-11 13:36:00 [facility] 2021-11-11 12:44:00 Morris Vuong [facility] GAS [facility] BASIC METABOLIC PANEL 2021-11-11 10:05:00 Carolann [facility] (NA, K, CL, CO2, GLUCOSE, Medica l Branch BUN, CREATININE, CA) CBC WITH DIFF 2021-11-11 10:05:00 Carolann [facility] N-TERMINAL PRO-BNP 2021-11-11 10:05:00 Carolann [facility] BLOOD CULTURE SCREEN 2021-11-11 03:10:00 Albert Esquivel [facility] XR CHEST 1 VW 2021-11-11 02:10:38 Albert Esquivel [facility] CT HEAD WO CONTRAST 2021-11-11 02:07:00 Albert Esquivel [facility] URINALYSIS 2021-11-11 01:29:00 Albert Esquivel [facility] URINE DRUG (IMMUNOASSAY) 2021-11-11 01:29:00 Albert Esquivel [facility] SCREEN W/O REFLEX AC PANEL 21 + LACTIC ACID 2021-11-11 01:28:00 Albert Esquivel [facility] TROPONIN I 2021-11-11 01:22:00 Albert Esquivel [facility] COMP. METABOLIC PANEL 2021-11-11 01:22:00 Albert Esquivel [facility] ([id number]) Medical Branch ETHANOL 2021-11-11 01:22:00 Albert Esquivel [facility] CBC WITH DIFF 2021-11-11 01:22:00 Albert Esquivel [facility] PROTHROMBIN TIME / INR 2021-11-11 01:22:00 Albert Esquivel [facility] ACTIVATED PARTIAL 2021-11-11 01:22:00 Albert Esquivel [facility] N-TERMINAL PRO-BNP 2021-11-11 01:22:00 Albert Esquivel [facility] POCT GLUCOSE (AUTOMATED) 2020-05-23 21:12:00 [place], [facility] POCT GLUCOSE (AUTOMATED) 2020-05-23 16:50:00 Jack [facility] POCT GLUCOSE (AUTOMATED) 2020-05-23 13:53:00 Jack [facility] MAGNESIUM 2020-05-23 10:48:00 Red, [facility] BASIC METABOLIC PANEL 2020-05-23 10:48:00 [place], [facility] (NA, K, CL, CO2, GLUCOSE, Medica l Branch BUN, CREATININE, CA) CBC WITH DIFF 2020-05-23 10:48:00 [place] [facility] POCT GLUCOSE (AUTOMATED) 2020-05-23 01:32:00 Jack [facility] POCT GLUCOSE (AUTOMATED) 2020-05-22 16:54:00 Jack [facility] POCT GLUCOSE (AUTOMATED) 2020-05-22 14:21:00 Jack [facility] MAGNESIUM 2020-05-22 09:58:00 [place], [facility] BASIC METABOLIC PANEL 2020-05-22 09:58:00 [place], [facility] (NA, K, CL, CO2, GLUCOSE, Medica l Branch BUN, CREATININE, CA) CBC WITH DIFF 2020-05-22 09:58:00 Red [facility] POCT GLUCOSE (AUTOMATED) 2020-05-22 02:18:00 Jack [facility] POCT GLUCOSE (AUTOMATED) 2020-05-21 22:51:00 Jack [facility] POCT GLUCOSE (AUTOMATED) 2020-05-21 17:21:00 Jack [facility] POCT GLUCOSE (AUTOMATED) 2020-05-21 13:20:00 Jack [facility] MAGNESIUM 2020-05-21 08:50:00 [place], [facility] BASIC METABOLIC PANEL 2020-05-21 08:50:00 [place], [facility] (NA, K, CL, CO2, GLUCOSE, Medica l Branch BUN, CREATININE, CA) CBC WITH DIFF 2020-05-21 08:50:00 Red [facility] POCT GLUCOSE (AUTOMATED) 2020-05-21 02:40:00 Jack [facility] BLOOD CULTURE SCREEN 2020-05-20 23:01:00 Bo[place]ie [facility] POCT GLUCOSE (AUTOMATED) 2020-05-20 21:47:00 [facility] ([facility]OMATED) 2020-05-20 12:59:00 Jack [facility] MAGNESIUM 2020-05-20 08:25:00 [place], [facility] BASIC METABOLIC PANEL 2020-05-20 08:25:00 [place], [facility] (NA, K, CL, CO2, GLUCOSE, Medica l Branch BUN, CREATININE, CA) CBC WITH DIFF 2020-05-20 08:25:00 [place], [facility] POCT GLUCOSE (AUTOMATED) 2020-05-20 01:08:00 Jack [facility] POCT GLUCOSE (AUTOMATED) 2020-05-19 21:38:00 Jack [facility] POCT GLUCOSE (AUTOMATED) 2020-05-19 17:35:00 Jack [facility] POCT GLUCOSE (AUTOMATED) 2020-05-19 13:45:00 Jack [facility] MAGNESIUM 2020-05-19 10:19:00 [place], [facility] BASIC METABOLIC PANEL 2020-05-19 10:19:00 [place], [facility] (NA, K, CL, CO2, GLUCOSE, Medica l Branch BUN, CREATININE, CA) CBC WITH DIFF 2020-05-19 10:19:00 Red [facility] POCT GLUCOSE (AUTOMATED) 2020-05-19 02:10:00 Jack [facility] POCT GLUCOSE (AUTOMATED) 2020-05-18 22:23:00 Jack [facility] POCT GLUCOSE (AUTOMATED) 2020-05-18 20:53:00 Kaylen Santiago [facility] POCT GLUCOSE (AUTOMATED) 2020-05-18 17:03:00 Kaylen Santiago [facility] POCT GLUCOSE (AUTOMATED) 2020-05-18 17:01:00 Kaylen Santiago [facility] POCT GLUCOSE (AUTOMATED) 2020-05-18 13:24:00 Kaylen Santiago [facility] MAGNESIUM 2020-05-18 10:12:00 [place], [facility] BASIC METABOLIC PANEL 2020-05-18 10:12:00 [place], [facility] (NA, K, CL, CO2, GLUCOSE, Medica l Branch BUN, CREATININE, CA) LIPID PANEL ([id number])(TOTAL 2020-05-18 10:12:00 [place], [facility] CHOLESTEROL, [facility] TRIGLYCERIDES, HDL) CBC WITH DIFF 2020-05-18 10:12:00 [place], [facility] POCT GLUCOSE (AUTOMATED) 2020-05-18 02:39:00 [facility] HEPATIC FUNCTION PANEL 2020-05-17 21:12:00 [place], [facility] ([id number]) (ALB,T.PRO,BILI Medical Branch T,BU/BC,ALT,AST,ALK PHOS) PROCALCITONIN 2020-05-17 21:12:00 [place], [facility] ACTIVATED PARTIAL 2020-05-17 21:09:00 [place], [facility] THRMPLAS ALMAZ [facility] EXTRA TUBE LAV 2020-05-17 21:09:[address] [facility] BLOOD CULTURE SCREEN 2020-05-17 20:57:[address] [facility] TROPONIN I 2020-05-17 20:52:00 [facility] PROTHROMBIN TIME / INR 2020-05-17 20:52:00 [facility] TROPONIN I 2020-05-17 20:51:00 [facility] 2020-05-17 20:50:00 [facility] URINE CULTURE 2020-05-17 20:50:00 [facility] EKG-12 LEAD 2020-05-17 05:31:24 Kaylen Santiago [facility] BLOOD CULTURE SCREEN 2020-05-16 22:27:00 David Bush [facility] BLOOD CULTURE WORKUP 2020-05-16 22:27:00 David Bush [facility] GRAM POSITIVE BLOOD 2020-05-16 22:27:00 David Bush [facility] PATHOGENS DNA [facility] Branch PROBE-AEROBIC LACTIC ACID WHOLE BLOOD 2020-05-16 22:24:00 David Bush [facility] XR CHEST 1 VW 2020-05-16 22:14:14 [facility] COVID-19 (ID NOW RAPID 2020-05-16 22:14:00 [facility] TESTING) Medical Branch LAB ONLY COVID 2020-05-16 22:14:[address] [facility] EKG-12 LEAD 2020-05-16 21:51:03 [facility] MAGNESIUM 2020-05-16 21:46:00 [facility] TROPONIN I 2020-05-16 21:46:00 [facility] COMP. METABOLIC PANEL 2020-05-16 21:46:00 David Bush [facility] ([id number]) [facility] CBC WITH DIFF 2020-05-16 21:46:00 [facility] PROTHROMBIN TIME / INR 2020-05-16 21:46:00 [facility] N-TERMINAL PRO-BNP 2020-05-16 21:46:00 David Bush [facility] EKG-12 LEAD 2020-05-16 21:38:50 [facility] EMERGENCY DEPARTMENT 2020-05-16 05:01:00 Doctor Unassigned, [facility] DOCUMENTS [place] [facility] Branch POCT GLUCOSE (AUTOMATED) 2020-05-14 16:53:00 Brandy Rodriguez [facility] COMP. METABOLIC PANEL 2020-05-14 13:23:00 Brandy Rodriguez [facility] ([id number]) [facility] POCT GLUCOSE (AUTOMATED) 2020-05-14 12:41:00 Brandy Rodriguez [facility] CORTISOL AM 2020-05-14 09:48:00 Michael roberth [facility] CBC WITH DIFF 2020-05-14 09:48:00 Michael [facility] N-TERMINAL PRO-BNP 2020-05-14 09:48:00 Michael roberth [facility] POCT GLUCOSE (AUTOMATED) 2020-05-14 00:59:00 Brandy Rodriguez [facility] POCT GLUCOSE (AUTOMATED) 2020-05-13 21:35:00 Brandy Rodriguez [facility] POCT GLUCOSE (AUTOMATED) 2020-05-13 16:43:00 Brandy Rodriguez [facility] POCT GLUCOSE (AUTOMATED) 2020-05-13 13:06:00 Brandy Rodriguez [facility] CORTISOL AM 2020-05-13 11:49:00 Michael roberth [facility] TROPONIN I 2020-05-13 11:49:00 Michael roberth [facility] COMP. METABOLIC PANEL 2020-05-13 11:49:00 Brandy Rodriguez [facility] ([id number]) [facility] CBC WITH DIFF 2020-05-13 11:49:00 Michael roberth [facility] N-TERMINAL PRO-BNP 2020-05-13 11:49:00 Michael roberth [facility] TROPONIN I 2020-05-13 04:51:00 Michael roberth [facility] BASIC METABOLIC PANEL 2020-05-13 02:30:00 Michael [facility] (NA, K, CL, CO2, GLUCOSE, Medica l Branch BUN, CREATININE, CA) OSMOLALITY SERUM 2020-05-12 21:53:[address] [facility] TROPONIN I 2020-05-12 21:53:00 Michael roberth [facility] ECHO ROUTINE W/DOPPLER 2020-05-12 19:59:31 Brandy Rodriguez [facility] POCT GLUCOSE (AUTOMATED) 2020-05-12 16:52:00 Brandy Rodriguez [facility] CT ANGIOGRAM 2020-05-12 14:26:39 Michael roberth [facility] ABDOMEN/PELVIS [facility] Branch URINE CULTURE 2020-05-12 12:59:00 [facility] 2020-05-12 12:58:00 Michael [facility] URINALYSIS 2020-05-12 12:57:00 [facility] 2020-05-12 12:56:00 Michael roberth [facility] OSMOLALITY URINE 2020-05-12 12:55:[address] [facility] UREA NITROGEN, URINE 2020-05-12 12:55:00 Brandy Rodriguez [facility] SODIUM, URINE RANDOM 2020-05-12 12:55:00 Michael [facility] PROTEIN CREAT RATIO URINE 2020-05-12 12:55:00 [facility] PNEUMOC[facility]TIGEN 2020-05-12 12:53:00 Brandy Rodriguez [facility] CBC WITH DIFF 2020-05-12 12:51:00 Michael roberth [facility] PROCALCITONIN 2020-05-12 12:51:00 Michael roberth [facility] POCT GLUCOSE (AUTOMATED) 2020-05-12 12:32:00 Brandy Rodriguez [facility] LACTIC ACID WHOLE BLOOD 2020-05-12 11:20:00 Brandy Rodriguez [facility] LACTATE DEHYDROGENASE 2020-05-12 11:14:00 Brandy Rodriguez [facility] TROPONIN I 2020-05-12 11:14:00 Michael [facility] COMP. METABOLIC PANEL 2020-05-12 11:14:00 Michael roberth [facility] ([id number]) Medical Branch DIGOXIN 2020-05-12 11:14:00 Michael [facility] PROTHROMBIN TIME / INR 2020-05-12 11:14:00 Michael roberth [facility] N-TERMINAL PRO-BNP 2020-05-12 11:14:00 Michael roberth [facility] BLOOD CULTURE SCREEN 2020-05-12 06:09:00 Rene Edwards [facility] BLOOD CULTURE SCREEN 2020-05-12 06:08:00 Rene Edwards [facility] CT CHEST PULMONARY 2020-05-12 04:54:17 Rene Edwards [facility] ANGIOGRAM [facility] COVID-19 (ID NOW RAPID 2020-05-12 04:18:00 Rene Edwards [facility] TESTING) Medical Branch XR CHEST 1 VW 2020-05-12 03:33:42 Rene Edwards [facility] PHOSPHORUS 2020-05-12 03:25:00 Michael [facility] CREATINE KINASE 2020-05-12 03:25:00 Michael [facility] URIC ACID 2020-05-12 03:25:00 Michael [facility] LIPASE 2020-05-12 03:25:00 Michael [facility] MAGNESIUM 2020-05-12 03:25:00 Michael [facility] TROPONIN I 2020-05-12 03:25:00 Rene Edwards [facility] THYROID STIMULATING 2020-05-12 03:25:00 Michael roberth [facility] HORMONE [facility] HEPATIC FUNCTION PANEL 2020-05-12 03:25:00 Brandy Rodriguez [facility] ([id number]) (ALB,T.PRO,BILI Medical Branch T,BU/BC,ALT,AST,ALK PHOS) BASIC METABOLIC PANEL 2020-05-12 03:25:00 Rene Edwarsd [facility] (NA, K, CL, CO2, GLUCOSE, Medica l Branch BUN, CREATININE, CA) LIPID PANEL ([id number])(TOTAL 2020-05-12 03:25:00 Brandy Rodriguez [facility] CHOLESTEROL, [facility] TRIGLYCERIDES, HDL) CBC WITH DIFF 2020-05-12 03:25:00 Rene Edwards [facility] GLYCOSYLATED HEMOGLOBIN 2020-05-12 03:25:00 Brandy Rodriguez [facility] (A1C) [facility] D-DIMER 2020-05-12 03:25:00 Rene Edwards [facility] N-TERMINAL PRO-BNP 2020-05-12 03:25:00 Rene Edwards [facility] EKG-12 LEAD 2020-05-12 03:07:04 Rene Edwards [facility] Encounters Start End Encounter Admission Attending Care Care Encounter Source Date/Time Date/Time Type Type Clinicians Facility Department ID 2021-12-17 Outpatient [facility] [id number] [place] 08:19:52 [id number] [facility] 2021-12-07 Outpatient [facility] [id number] [place] 12:36:59 [id number] [facility] 2021-11-10 2021-11-11 Inpatient X PAMELA BRONSON [facility] [id number] Univers 20:09:00 13:26:00 [facility] 2021-11-10 2021-11-11 Hospital Albert Esquivel [facility] 1.2.840.1 [id number] Univers 20:09:00 13:26:00 Encounter Morris [facility]1.13.10 [facility] Shawn Sargent 4.2.7.2.686 [facility] [phone] [facility] [address] 2021-06-08 2021-06-08 Greg Ferro [facility] 1.2.840.114 [id number] Univers 00:00:00 00:00:00 Karissa PRIMARY 350.1.13.10 it of [facility] [place] [phone] [place] [address] 2020-10-11 2020-10-11 Outpatient Young_J [facility] [id number] 021 [place] 02:19:00 02:19:00 0310 Medical Group 2020-05-25 2020-05-25 Transition Ash Elisabetcass 1.2.840.114 [id number] Univers 00:00:00 00:00:00 of Care Radha Patel 350.1.13.10 it [place] [phone] [facility] [address] 2020-05-24 2020-05-24 Transition Ash Elisabetcass 1.2.840.114 [id number] Univers 00:00:00 00:00:00 of Care Radha Patel 350.1.13.10 it [place] [phone] [facility] [address] [place] 2020-05-16 2020-05-23 [facility] David Bush 1.2.840.1 14 [id number] Univers 16:24:00 18:57:00 Encounter Kaylen Santiago 350.1.13. 10 ity of [facility] 4.2.7.2.686 Dar as [phone] [facility] 100 [address] 2020-05-16 2020-05-16 Emergency X SINGER [facility] ERT [id number] Univers 16:24:00 16:24:00 DAVID ity of [facility] 2020-05-16 2020-05-16 Telephone Joel [facility] 1.2.044.931 [id number] Univers 00:00:00 00:00:00 Michael Blanco 350.1.13.10 i ty of [place] [id number] Va dical nal [address] [facility] 2020-05-11 2020-05-14 [facility] Rene Edwards [facility] 1.2.840.11 4 [id number] Univers 22:10:00 13:32:00 Encounter Brandy Rodriguez 350.1.13.10 ity of [place] 4.2.7.2.686 [facility] [phone] [place] [id number] [place] 2020-05-11 2020-05-11 Emergency X KENN [facility] ERT [id number] Univers 22:10:00 22:10:00 RENE [facility] Results Test Description Test Time Test Comments Results Result Comments Source TOTAL IRON BINDING CAPACITY 2021-11-11 15:25:26 Test Item Value Reference Range Interpretation Comme nts TIBC (test code = 9020467213) 352 ug/dL 250-410 % FE SAT (test code = 9481160073) 5 % 20-50 L Lab Interpretation (test code = 17591-7) Abnormal [facility] [id number] 15:06:10 Test Item Value Reference Range Interpretation Comments FERRITIN (test code = 8.6 ng/mL 18.0-464.0 L 5653756919) MANDO (test code = MANDO) Biotin has been reported to cause a negative bias, interpret results relative to patient's use of biotin. Lab Interpretation (test Abnormal code = 74816-2) [facility] CenterIRON2022-04-10 14:30:28 Test Item Value Reference Range Interpretation Comments IRON (test code = 8118586109) 17 ug/dL 50-160 L Lab Interpretation (test code = Abnormal 75947-0) [facility] Arterial Blood Gas.2021-11-11 12:48:17 Test Item Value Reference Range Interpretation Comments PH (test code = 2) 7.35-7.45 PCO2 (test code = See_Comment H [Automat ed message] 5806354091) The system [employer] generated this result transmitted ref erence range: 35 - 45 mmHg. The reference r giselle was not used to interpret this result as normal/abnor mal. PO2 (test code = See_Comment L [Automated message] 0093148498) The system [employer] generated this result transmitted ref erence range: 80 - 100 mmHg. The reference r giselle was not used to interpret this result as normal/abnor mal. HCO3 (test code = See_Comment H [Automate d message] 2397408127) The system [facility] [employer] generated this result transmitted ref erence range: 22 - 26 mEq/L. The reference r gsielle was not used to interpret this result as normal/abnor mal. BE (test code = See_Comment H [Automated message] 3380640774) The system [employer] generated this result transmitted ref erence range: -3.0 - 3 .0 mEq/L. The refe rence range was not u sed to interpret this result as normal/abnor mal. Lab Interpretation (test Abnormal code = 80424-9) [facility] CenterN-TERMINAL [id number] 11:05:55 Test Item Value Reference Range Interpretation Comments NT-proBNP (test code 5850 pg/mL See_Comment H [Autom ated = 3845039323) message] The system which generated this result transmitted reference range : <=125. The reference range was not used to interpret this result as normal/abnormal . MANDO (test code = MANDO) Biotin has been reported to cause a negative bias, interpret results relative to patient's use of biotin. Lab Interpretation Abnormal (test code = 98001-1) [facility] (NA, K, CL, CO2, GLUCOSE, BUN, CREATININE, CA)2021-11-11 10:59:12 Test Item Value Reference Range Interpretation Comments NA (test code = 138 mmol/L 135-145 0383534866) K (test code = 4.6 mmol/L 3.5-5.0 7600626022) CL (test code = 100 mmol/L 98-108 1458695794) CO2 TOTAL (test code = 33 mmol/L 23-31 H 2920815561) AGAP (test code = 2-16 0990015210) BUN (test code = 21 mg/dL 7-23 9532728891) GLUCOSE (test code = 94 mg/dL 70-110 9692737440) CREATININE (test code = 1.02 mg/dL 0.60-1.25 9142260610) CALCIUM (test code = 8.8 mg/dL 8.6-10.6 3549923017) eGFR (test code = mL/min/1.73m2 4948918069) MANDO (test code = MANDO) Association of [...] tests). Lab Interpretation Abnormal (test code = 50958-3) [facility] with Ojagtnfjfnvt2021-10-86 10:38:28 Test Item Value Reference Range Interpretation Comments WBC (test code = See_Comment [Automated 9390-2) message] The sy stem which generated this result transmitted reference range : 4.20 - 10.70 10*3/?L. The reference range was not used to interpret this result as normal/abnormal . RBC (test code = See_Comment L [Automated 469-8) message] The sy stem which generated this [...] RDW-SD (test code = 49.3 fL 38.5-51.6 92570-0) RDW-CV (test code = 13.3 % 12.1-15.4 788-0) PLT (test code = See_Comment H [Automated 777-3) message] The sy stem which generated this result transmitted reference range : 150 - 328 10*3/ ?L. The reference r giselle was not used to interpret this result as normal/abnormal . MPV (test code = 10.8 fL 9.8-13.0 28021-9) NRBC/100 WBC (test See_Comment [Automat ed code = 5662894564) message] The system which generated this result transmitted reference range : 0.0 - 10.0 /100 WBCs. The refer ence range was not u sed to interpret th is result as normal/abnormal . NRBC x10^3 (test code <0.01 See_Comment [Auto mated = 2603149801) message] The s ystem which generated this result transmitted reference range : 10*3/?L. The reference range was not used to interpret this result as normal/abnormal . GRAN MAT (NEUT) % 66.6 % (test code = 770-8) IMM GRAN % (test code 0.30 % = 3910065594) LYMPH % (test code = 25.4 % 736-9) MONO % (test code = 7.4 % 5905-5) EOS % (test code = 0.0 % 713-8) BASO % (test code = 0.3 % 706-2) GRAN MAT x10^3(ANC) 5.83 10*3/uL 1.99-6.95 (test code = 2174325415) IMM GRAN x10^3 (test 0.03 10*3/uL 0.00-0.06 code = 2088087407) LYMPH x10^3 (test code 2.23 10*3/uL 1.09-3.23 = 731-0) MONO x10^3 (test code 0.65 10*3/uL 0.36-1.02 = 742-7) EOS x10^3 (test code = <0.03 0.06-0.53 L 711-2) BASO x10^3 (test code 0.03 10*3/uL 0.01-0.09 = 704-7) Lab Interpretation Abnormal (test code = 09710-4) [facility] CenterTROPONIN [id number] 01:59:41 Test Item Value Reference Interpretation Comments Range TROPONIN I (test 0.023 ng/mL See_Comment [Automated code = 2736342530) message] The system which generated this result [...] biotin. Lab Interpretation Normal (test code = 69997-3) [facility] CenterN-TERMINAL [id number] 01:56:41 Test Item Value Reference Range Interpretation Comments NT-proBNP (test code 5760 pg/mL See_Comment H [Autom ated = 5662775422) message] The system which generated this result transmitted reference range : <=125. The reference range was not used to interpret this result as normal/abnormal . MANDO (test code = MANDO) Biotin has been reported to cause a negative bias, interpret results relative to patient's use of biotin. Lab Interpretation Abnormal (test code = 43115-6) [facility] CenterACTIVATED PARTIAL THRMPLAS [id number] 01:51:39 Test Item Value Reference Range Interpretation Comments APTT Patient (test See_Comment [Automat ed code = 3173-2) message] The system which generated this result transmitted reference range : 23 - 38 Seconds . The reference range was not used to interpr et this result as normal/abnormal . MANDO (test code = MANDO) The [facility] patient population mean normal value for aPTT is 30 seconds. Lab Interpretation Normal (test code = 10651-4) [facility] CenterPROTHROMBIN TIME / [id number] 01:49:44 Test Item Value Reference Range Interpretation Comments PROTIME PATIENT (test See_Comment H [Auto mated message] code = 5964-2) The system ich generated this result transmitted ref erence range: 12.0 - 1 4.7 Seconds. The reference range was not used to int erpret this result as normal/abnormal . INR (test code = 6301-6) Nor mal INR <1.1; Warfarin Therap eutic range 2.0 to 3. 0 or 2.5 to 3.5, dep ending upon the indica tions. Lab Interpretation (test Abnormal code = 82183-6) 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 CenterCOMP. METABOLIC PANEL (64703)2021-11-11 01:47:38 Test Item Value Reference Range Interpretation Comments NA (test code = 137 mmol/L 135-145 8445797859) K (test code = 5.8 mmol/L 3.5-5.0 H 4119854894) CL (test code = 98 mmol/L 98-108 7468522002) CO2 TOTAL (test code = 31 mmol/L 23-31 2093001223) AGAP (test code = 2-16 9015182869) BUN (test code = 21 mg/dL 7-23 4229844909) GLUCOSE (test code = 112 mg/dL 70-110 H 2030958351) CREATININE (test code = 1.13 mg/dL 0.60-1.25 2102091104) TOTAL BILI (test code = 0.4 mg/dL 0.1-1.9 7537211362) CALCIUM (test code = 8.9 mg/dL 8.6-10.6 9875422981) T PROTEIN (test code = 7.4 g/dL 6.3-8.2 6826687135) ALBUMIN (test code = 3.9 g/dL 3.5-5.0 4343009544) ALK PHOS (test code = 61 U/L 34-122 4059259325) ALTv (test code = 9 U/L 5-50 1742-6) AST(SGOT) (test code = 14 U/L 13-40 4147057916) eGFR (test code = mL/min/1.73m2 2357352121) MANDO (test code = MANDO) Association of [...] tests). Lab Interpretation Abnormal (test code = 02306-6) [facility] WITH [id number] 01:45:03 Test Item Value Reference Range Interpretation [...] RDW-SD (test code = 48.4 fL 38.5-51.6 39032-8) RDW-CV (test code = 13.2 % 12.1-15.4 788-0) PLT (test code = See_Comment H [Automated 777-3) message] The sy stem which generated this result transmitted reference range : 150 - 328 10*3/ ?L. The reference r giselle was not used to interpret this result as normal/abnormal . MPV (test code = 10.8 fL 9.8-13.0 69246-8) NRBC/100 WBC (test See_Comment [Automat ed code = 6925555435) message] The system which generated this result transmitted reference range : 0.0 - 10.0 /100 WBCs. The refer ence range was not u sed to interpret th is result as normal/abnormal . NRBC x10^3 (test code <0.01 See_Comment [Auto mated = 7425268286) message] The s ystem which generated this result transmitted reference range : 10*3/?L. The reference range was not used to interpret this result as normal/abnormal . GRAN MAT (NEUT) % 74.2 % (test code = 770-8) IMM GRAN % (test code 0.40 % = 9036521145) LYMPH % (test code = 19.6 % 736-9) MONO % (test code = 5.5 % 5905-5) EOS % (test code = 0.0 % 713-8) BASO % (test code = 0.3 % 706-2) GRAN MAT x10^3(ANC) 6.75 10*3/uL 1.99-6.95 (test code = 6830140728) IMM GRAN x10^3 (test 0.04 10*3/uL 0.00-0.06 code = 3840544880) LYMPH x10^3 (test code 1.79 10*3/uL 1.09-3.23 = 731-0) MONO x10^3 (test code 0.50 10*3/uL 0.36-1.02 = 742-7) EOS x10^3 (test code = <0.03 0.06-0.53 L 711-2) BASO x10^3 (test code 0.03 10*3/uL 0.01-0.09 = 704-7) Lab Interpretation Abnormal (test code = 48715-3) [facility] GLUCOSE (AUTOMATED)2020-05-23 21:14:00 Test Item Value Reference Range Interpretation Comments POCT GLU (test code = 8068682236) 203 mg/dL 70-110 H Lab Interpretation (test code = Abnormal 95682-7) [facility] GLUCOSE (AUTOMATED)2020-05-23 16:52:00 Test Item Value Reference Range Interpretation Comments POCT GLU (test code = 2869034611) 320 mg/dL 70-110 H Lab Interpretation (test code = Abnormal 11773-1) [facility] GLUCOSE (AUTOMATED)2020-05-23 13:55:00 Test Item Value Reference Range Interpretation Comments POCT GLU (test code = 5056876336) 146 mg/dL 70-110 H Lab Interpretation (test code = Abnormal 22414-5) [facility] Metabolic Panel (NA, K, CL, CO2, GLUCOSE, BUN, CREATININE, CA)2020-05-23 11:19:00 Test Item Value Reference Range Interpretation Comments NA (test code = 136 mmol/L 135-145 7246012294) K (test code = 4.4 mmol/L 3.5-5 9542483066) CL (test code = 96 mmol/L 98-108 L 0818613448) CO2 TOTAL (test code = 36 mmol/L 23-31 H 3772422427) AGAP (test code = 2-16 5123380350) BUN (test code = 8 mg/dL 7-23 7222128425) GLUCOSE (test code = 119 mg/dL 70-110 H 6442001781) CREATININE (test code = 0.69 mg/dL 0.6-1.25 8921686115) CALCIUM (test code = 9.2 mg/dL 8.6-10.6 6983844879) eGFR Calculation mL/min/1.73m2 (Non-) (test code = 8519117515) eGFR Calculation mL/min/1.73m2 () (test code = 3389208465) MANDO (test code = MANDO) Association of [...] tests). Lab Interpretation Abnormal (test code = 13948-9) [facility] [id number] 11:19:00 Test Item Value Reference Range Interpretation Comments MAGNESIUM (test code = 9374269377) 2.1 mg/dL 1.7-2.4 Lab Interpretation (test code = Normal 18421-6) [facility] with Rparilmfwcvh7790-25-29 11:11:00 Test Item Value Reference Range Interpretation [...] RDW-SD (test code = 48.2 fL 38.5-51.6 42913-0) RDW-CV (test code = 14.4 % 12.1-15.4 788-0) PLT (test code = See_Comment H [Automated 777-3) message] The sy stem which generated this result transmitted reference range : 150 - 328 10*3/ ?L. The reference r giselle was not used to interpret this result as normal/abnormal . MPV (test code = 9.5 fL 9.8-13 L 92151-2) NRBC/100 WBC (test See_Comment [Automat ed code = 1300644834) message] The system which generated this result transmitted reference range : 0.0 - 10.0 /100 WBCs. The refer ence range was not u sed to interpret th is result as normal/abnormal . NRBC x10^3 (test code <0.01 See_Comment [Auto mated = 7760676017) message] The s ystem which generated this result transmitted reference range : 10*3/?L. The reference range was not used to interpret this result as normal/abnormal . GRAN MAT (NEUT) % 64.0 % (test code = 770-8) IMM GRAN % (test code 1.40 % = 4709525154) LYMPH % (test code = 24.5 % 736-9) MONO % (test code = 6.5 % 5905-5) EOS % (test code = 3.1 % 713-8) BASO % (test code = 0.5 % 706-2) GRAN MAT x10^3(ANC) 7.11 10*3/uL 1.99-6.95 H (test code = 6469949688) IMM GRAN x10^3 (test 0.15 10*3/uL 0-0.06 H code = 7991422270) LYMPH x10^3 (test code 2.72 10*3/uL 1.09-3.23 = 731-0) MONO x10^3 (test code 0.72 10*3/uL 0.36-1.02 = 742-7) EOS x10^3 (test code = 0.34 10*3/uL 0.06-0.53 711-2) BASO x10^3 (test code 0.06 10*3/uL 0.01-0.09 = 704-7) Lab Interpretation Abnormal (test code = 41410-3) [facility] (AUTOMATED)2020-05-23 01:34:00 Test Item Value Reference Range Interpretation Comments POCT GLU (test code = 4602419771) 186 mg/dL 70-110 H Lab Interpretation (test code = Abnormal 76163-6) [facility] CenterBLOOD CULTURE [id number] 23:01:00 Test Item Value Reference Range Interpretation Comments Blood Culture-Aerobic No organisms No growth Previo us (test code = 47802-4) isolated prelim inary verified result was Culture [...] Culture-Anaerobic isolated preliminar y (test code = 77077-5) verifi ed result was Culture In Progress [...] CDT Lab Interpretation Normal (test code = 66243-9) [facility] GLUCOSE (AUTOMATED)2020-05-22 16:59:00 Test Item Value Reference Range Interpretation Comments POCT GLU (test code = 4112285092) 218 mg/dL 70-110 H Lab Interpretation (test code = Abnormal 62649-2) [facility] GLUCOSE (AUTOMATED)2020-05-22 14:29:00 Test Item Value Reference Range Interpretation Comments POCT GLU (test code = 1637207598) 156 mg/dL 70-110 H Lab Interpretation (test code = Abnormal 45375-6) [facility] Metabolic Panel (NA, K, CL, CO2, GLUCOSE, BUN, CREATININE, CA)2020-05-22 10:25:00 Test Item Value Reference Range Interpretation Comments NA (test code = 136 mmol/L 135-145 8160316139) K (test code = 4.1 mmol/L 3.5-5 7264836432) CL (test code = 97 mmol/L 98-108 L 9212570648) CO2 TOTAL (test code = 36 mmol/L 23-31 H 0825194822) AGAP (test code = 2-16 7236585140) BUN (test code = 9 mg/dL 7-23 8186884574) GLUCOSE (test code = 132 mg/dL 70-110 H 7315391292) CREATININE (test code = 0.71 mg/dL 0.6-1.25 2984602288) CALCIUM (test code = 9.0 mg/dL 8.6-10.6 7502270137) eGFR Calculation mL/min/1.73m2 (Non-) (test code = 6575154632) eGFR Calculation mL/min/1.73m2 () (test code = 7008684455) MANDO (test code = MANDO) Association of [...] tests). Lab Interpretation Abnormal (test code = 73995-7) [facility] CenterMagnesium Psrmy0671-28-58 10:25:00 Test Item Value Reference Range Interpretation Comments MAGNESIUM (test code = 6310274580) 2.1 mg/dL 1.7-2.4 Lab Interpretation (test code = Normal 38139-0) [facility] with Jtyemjznlquf9849-20-19 10:12:00 Test Item Value Reference Range Interpretation [...] RDW-SD (test code = 47.7 fL 38.5-51.6 79572-4) RDW-CV (test code = 14.6 % 12.1-15.4 788-0) PLT (test code = See_Comment H [Automated 777-3) message] The sy stem which generated this result transmitted reference range : 150 - 328 10*3/ ?L. The reference r giselle was not used to interpret this result as normal/abnormal . MPV (test code = 9.4 fL 9.8-13 L 38974-9) NRBC/100 WBC (test See_Comment [Automat ed code = 8860550073) message] The system which generated this result transmitted reference range : 0.0 - 10.0 /100 WBCs. The refer ence range was not u sed to interpret th is result as normal/abnormal . NRBC x10^3 (test code <0.01 See_Comment [Auto mated = 0158051800) message] The s ystem which generated this result transmitted reference range : 10*3/?L. The reference range was not used to interpret this result as normal/abnormal . GRAN MAT (NEUT) % 66.1 % (test code = 770-8) IMM GRAN % (test code 1.20 % = 8365050797) LYMPH % (test code = 22.9 % 736-9) MONO % (test code = 7.1 % 5905-5) EOS % (test code = 2.3 % 713-8) BASO % (test code = 0.4 % 706-2) GRAN MAT x10^3(ANC) 9.08 10*3/uL 1.99-6.95 H (test code = 1718128556) IMM GRAN x10^3 (test 0.17 10*3/uL 0-0.06 H code = 3846584302) LYMPH x10^3 (test code 3.15 10*3/uL 1.09-3.23 = 731-0) MONO x10^3 (test code 0.97 10*3/uL 0.36-1.02 = 742-7) EOS x10^3 (test code = 0.31 10*3/uL 0.06-0.53 711-2) BASO x10^3 (test code 0.06 10*3/uL 0.01-0.09 = 704-7) Lab Interpretation Abnormal (test code = 81409-5) [facility] GLUCOSE (AUTOMATED)2020-05-22 02:20:00 Test Item Value Reference Range Interpretation Comments POCT GLU (test code = 7990470054) 196 mg/dL 70-110 H Lab Interpretation (test code = Abnormal 61367-2) [facility] GLUCOSE (AUTOMATED)2020-05-21 22:52:00 Test Item Value Reference Range Interpretation Comments POCT GLU (test code = 6040683987) 195 mg/dL 70-110 H Lab Interpretation (test code = Abnormal 72204-7) [facility] GLUCOSE (AUTOMATED)2020-05-21 17:24:00 Test Item Value Reference Range Interpretation Comments POCT GLU (test code = 7671066117) 226 mg/dL 70-110 H Lab Interpretation (test code = Abnormal 82491-9) [facility] GLUCOSE (AUTOMATED)2020-05-21 13:22:00 Test Item Value Reference Range Interpretation Comments POCT GLU (test code = 8471965585) 169 mg/dL 70-110 H Lab Interpretation (test code = Abnormal 31044-2) [facility] Metabolic Panel (NA, K, CL, CO2, GLUCOSE, BUN, CREATININE, CA)2020-05-21 09:27:00 Test Item Value Reference Range Interpretation Comments NA (test code = 135 mmol/L 135-145 4369783738) K (test code = 3.7 mmol/L 3.5-5 7659121721) CL (test code = 95 mmol/L 98-108 L 5039423147) CO2 TOTAL (test code = 34 mmol/L 23-31 H 9793632749) AGAP (test code = 2-16 0056866990) BUN (test code = 12 mg/dL 7-23 6108951147) GLUCOSE (test code = 123 mg/dL 70-110 H 7921862590) CREATININE (test code = 0.81 mg/dL 0.6-1.25 8670003440) CALCIUM (test code = 8.8 mg/dL 8.6-10.6 4118596057) eGFR Calculation mL/min/1.73m2 (Non-) (test code = 2826174552) eGFR Calculation mL/min/1.73m2 () (test code = 8600734209) MANDO (test code = MANDO) Association of [...] tests). Lab Interpretation Abnormal (test code = 70334-1) [facility] CenterMagnesium Cialn5732-05-90 09:27:00 Test Item Value Reference Range Interpretation Comments MAGNESIUM (test code = 8991278351) 2.0 mg/dL 1.7-2.4 Lab Interpretation (test code = Normal 83884-5) [facility] CenterCB with Inzteotzylxx7269-05-96 09:01:00 Test Item Value Reference Range Interpretation [...] RDW-SD (test code = 47.5 fL 38.5-51.6 23575-0) RDW-CV (test code = 14.6 % 12.1-15.4 788-0) PLT (test code = See_Comment H [Automated 777-3) message] The sy stem which generated this result transmitted reference range : 150 - 328 10*3/ ?L. The reference r giselle was not used to interpret this result as normal/abnormal . MPV (test code = 9.4 fL 9.8-13 L 96512-8) NRBC/100 WBC (test See_Comment [Automat ed code = 1632100629) message] The system which generated this result transmitted reference range : 0.0 - 10.0 /100 WBCs. The refer ence range was not u sed to interpret th is result as normal/abnormal . NRBC x10^3 (test code <0.01 See_Comment [Auto mated = 2132883777) message] The s ystem which generated this result transmitted reference range : 10*3/?L. The reference range was not used to interpret this result as normal/abnormal . GRAN MAT (NEUT) % 69.5 % (test code = 770-8) IMM GRAN % (test code 1.20 % = 4165938808) LYMPH % (test code = 20.5 % 736-9) MONO % (test code = 6.7 % 5905-5) EOS % (test code = 1.5 % 713-8) BASO % (test code = 0.6 % 706-2) GRAN MAT x10^3(ANC) 9.60 10*3/uL 1.99-6.95 H (test code = 8830653679) IMM GRAN x10^3 (test 0.17 10*3/uL 0-0.06 H code = 4812223837) LYMPH x10^3 (test code 2.83 10*3/uL 1.09-3.23 = 731-0) MONO x10^3 (test code 0.93 10*3/uL 0.36-1.02 = 742-7) EOS x10^3 (test code = 0.21 10*3/uL 0.06-0.53 711-2) BASO x10^3 (test code 0.08 10*3/uL 0.01-0.09 = 704-7) Lab Interpretation Abnormal (test code = 05709-6) [facility] GLUCOSE (AUTOMATED)2020-05-21 02:42:00 Test Item Value Reference Range Interpretation Comments POCT GLU (test code = 5159730866) 149 mg/dL 70-110 H Lab Interpretation (test code = Abnormal 07827-1) [facility] GLUCOSE (AUTOMATED)2020-05-20 21:49:00 Test Item Value Reference Range Interpretation Comments POCT GLU (test code = 9036712597) 225 mg/dL 70-110 H Lab Interpretation (test code = Abnormal 09938-6) [facility] (AUTOMATED)2020-05-20 13:02:00 Test Item Value Reference Range Interpretation Comments POCT GLU (test code = 7905138778) 131 mg/dL 70-110 H Lab Interpretation (test code = Abnormal 51726-4) [facility] (NA, K, CL, CO2, GLUCOSE, BUN, CREATININE, CA)2020-05-20 09:10:00 Test Item Value Reference Range Interpretation Comments NA (test code = 131 mmol/L 135-145 L 7016782486) K (test code = 4.1 mmol/L 3.5-5 Slight 5923154251) hemolysis CL (test code = 94 mmol/L 98-108 L 7376772840) CO2 TOTAL (test code 33 mmol/L 23-31 H = 2554515278) AGAP (test code = 2-16 3222507969) BUN (test code = 12 mg/dL 7-23 Slight 8319857931) hemolysis GLUCOSE (test code = 119 mg/dL 70-110 H 2806991386) CREATININE (test code 0.63 mg/dL 0.6-1.25 = 4607027500) CALCIUM (test code = 8.6 mg/dL 8.6-10.6 0865364285) eGFR Calculation mL/min/1.73m2 (Non-) (test code = 3800429132) eGFR Calculation mL/min/1.73m2 () (test code = 6193649684) MANDO (test code = MANDO) Association of [...] tests). Lab Interpretation Abnormal (test code = 92296-7) [facility] Center[facility] [id number] 09:10:00 Test Item Value Reference Range Interpretation Comments MAGNESIUM (test code = 0377271649) 1.9 mg/dL 1.7-2.4 Lab Interpretation (test code = Normal 94460-9) [facility] with Booqwotvdffi3786-93-40 08:39:00 Test Item Value Reference Range Interpretation Comments WBC (test code = See_Comment H [Automated 6690-2) message] The system which generated this result transmit traci reference range : 4.20 - 10.70 10*3/?L. The reference range was not used to interpret this result as normal/abnormal . RBC (test code = See_Comment L [Automated 799-8) message] The system which generated this result [...] RDW-SD (test code = 47.6 fL 38.5-51.6 06845-4) RDW-CV (test code = 14.7 % 12.1-15.4 788-0) PLT (test code = See_Comment H [Automated 777-3) message] The system which generated this result transmit traci reference range : 150 - 328 10*3/ ?L. The reference range was not u sed to interpret th is result as normal/abnormal . MPV (test code = 9.6 fL 9.8-13 L 60727-1) NRBC/100 WBC (test See_Comment [Automat ed code = 4664042781) message] The system which generated this result transmit traci reference range : 0.0 - 10.0 /100 WBCs. The reference range was not used to interpret this result as normal/abnormal . NRBC x10^3 (test code <0.01 See_Comment [Auto mated = 3800859301) message] The system which generated this result transmit traci reference range : 10*3/?L. The reference range was not used to interpret this result as normal/abnormal . GRAN MAT (NEUT) % 70.1 % (test code = 770-8) IMM GRAN % (test code 1.20 % = 4705587928) LYMPH % (test code = 20.1 % 736-9) MONO % (test code = 7.2 % 5905-5) EOS % (test code = 0.9 % 713-8) BASO % (test code = 0.5 % 706-2) GRAN MAT x10^3(ANC) 10.73 10*3/uL 1.99-6.95 H (test code = 0544786876) IMM GRAN x10^3 (test 0.19 10*3/uL 0-0.06 H code = 7691273259) LYMPH x10^3 (test code 3.07 10*3/uL 1.09-3.23 = 731-0) MONO x10^3 (test code 1.10 10*3/uL 0.36-1.02 H = 742-7) EOS x10^3 (test code = 0.13 10*3/uL 0.06-0.53 711-2) BASO x10^3 (test code 0.07 10*3/uL 0.01-0.09 = 704-7) Lab Interpretation Abnormal (test code = 76346-7) [facility] Center[facility] ONLY COVID [id number] 02:03:00COVID DMT InterpretationInterpretation/Recommendations\\nTests (PCR) for Active Infection [...] test is performed there is approximately a kqp-ly-jyiuh chance the patient had been infected and [...] and IgG antibodies, this may be the explanation.[facility] SERVICESCOVID OohtuffAUQG-DpO-3 PCR (no units) ? ? ?Date ? Value ?05/15/2020 ? Not Detected ?11/24/2019 ? Not Detected ? [facility] SERVICESUn[facility] POCT GLUCOSE (AUTOMATED)2020-05-20 01:09:00 Test Item Value Reference Range Interpretation Comments POCT GLU (test code = 3314237450) 128 mg/dL 70-110 H Lab Interpretation (test code = Abnormal 78889-7) [facility] GLUCOSE (AUTOMATED)2020-05-19 21:39:00 Test Item Value Reference Range Interpretation Comments POCT GLU (test code = 6887617485) 124 mg/dL 70-110 H Lab Interpretation (test code = Abnormal 46447-1) [facility] GLUCOSE (AUTOMATED)2020-05-19 17:36:00 Test Item Value Reference Range Interpretation Comments POCT GLU (test code = 6031168360) 134 mg/dL 70-110 H Lab Interpretation (test code = Abnormal 49911-0) [facility] GLUCOSE (AUTOMATED)2020-05-19 13:47:00 Test Item Value Reference Range Interpretation Comments POCT GLU (test code = 1838494296) 210 mg/dL 70-110 H Lab Interpretation (test code = Abnormal 86637-8) [facility] CenterBLOOD CULTURE [id number] 13:22:00 Test Item Value Reference Range Interpretation Comments Blood Culture-Aerobic Culture positive. No growth AA P revious (test code = 95036-2) See Blood prelim inary Culture Workup verified resu lt for additional was Culture I n information. Progress on 05/16/2020 at 2101 CDT Lab Interpretation Abnormal (test code = 07770-5) [facility] CenterBLOOD CULTURE [id number] 13:22:00 Test Item Value Reference Range Interpretation Comments Blood Culture Coagulase negative Organism identified Workup (test Staphylococcus by DNA code = 600-7) probeAdditiona l work-up perform ed only per reques t. Culture plate(s ) will be saved until this date: - 020 Gram stain Isolated from (test code = aerobic bottle Gram 664-3) positive cocci [facility] Metabolic Panel (NA, K, CL, CO2, GLUCOSE, BUN, CREATININE, CA)2020-05-19 11:07:00 Test Item Value Reference Range Interpretation Comments NA (test code = 133 mmol/L 135-145 L 1427448724) K (test code = 3.5 mmol/L 3.5-5 2462293037) CL (test code = 95 mmol/L 98-108 L 9140512524) CO2 TOTAL (test code = 32 mmol/L 23-31 H 2055152776) AGAP (test code = 2-16 4860846758) BUN (test code = 12 mg/dL 7-23 2882061707) GLUCOSE (test code = 151 mg/dL 70-110 H 0694230933) CREATININE (test code = 0.75 mg/dL 0.6-1.25 6166401400) CALCIUM (test code = 8.8 mg/dL 8.6-10.6 8105967984) eGFR Calculation mL/min/1.73m2 (Non-) (test code = 1234012535) eGFR Calculation mL/min/1.73m2 () (test code = 5737777028) MANDO (test code = MANDO) Association of [...] tests). Lab Interpretation Abnormal (test code = 75637-6) [facility] CenterMagnesium [id number] 11:07:00 Test Item Value Reference Range Interpretation Comments MAGNESIUM (test code = 5320516094) 1.8 mg/dL 1.7-2.4 Lab Interpretation (test code = Normal 42394-9) [facility] CenterCB with Ongjsppbwjos4471-47-84 10:26:00 Test Item Value Reference Range Interpretation Comments WBC (test code = See_Comment H [Automated 6690-2) message] The system which generated this result transmit traci reference range : 4.20 - 10.70 10*3/?L. The reference range was not used to interpret this result as normal/abnormal . RBC (test code = See_Comment L [Automated 979-8) message] The system which generated this result [...] RDW-SD (test code = 47.8 fL 38.5-51.6 67749-0) RDW-CV (test code = 14.9 % 12.1-15.4 788-0) PLT (test code = See_Comment H [Automated 777-3) message] The system which generated this result transmit traci reference range : 150 - 328 10*3/ ?L. The reference range was not u sed to interpret th is result as normal/abnormal . MPV (test code = 9.5 fL 9.8-13 L 56666-2) NRBC/100 WBC (test See_Comment [Automat ed code = 6488465281) message] The system which generated this result transmit traci reference range : 0.0 - 10.0 /100 WBCs. The reference range was not used to interpret this result as normal/abnormal . NRBC x10^3 (test code <0.01 See_Comment [Auto mated = 5307250306) message] The system which generated this result transmit traci reference range : 10*3/?L. The reference range was not used to interpret this result as normal/abnormal . GRAN MAT (NEUT) % 72.2 % (test code = 770-8) IMM GRAN % (test code 1.50 % = 8016286861) LYMPH % (test code = 17.6 % 736-9) MONO % (test code = 7.2 % 5905-5) EOS % (test code = 0.9 % 713-8) BASO % (test code = 0.6 % 706-2) GRAN MAT x10^3(ANC) 11.69 10*3/uL 1.99-6.95 H (test code = 3337244293) IMM GRAN x10^3 (test 0.24 10*3/uL 0-0.06 H code = 6642310003) LYMPH x10^3 (test code 2.84 10*3/uL 1.09-3.23 = 731-0) MONO x10^3 (test code 1.16 10*3/uL 0.36-1.02 H = 742-7) EOS x10^3 (test code = 0.15 10*3/uL 0.06-0.53 711-2) BASO x10^3 (test code 0.09 10*3/uL 0.01-0.09 = 704-7) Lab Interpretation Abnormal (test code = 64595-4) [facility] GLUCOSE (AUTOMATED)2020-05-19 02:13:00 Test Item Value Reference Range Interpretation Comments POCT GLU (test code = 6176911141) 210 mg/dL 70-110 H Lab Interpretation (test code = Abnormal 00799-1) [facility] GLUCOSE (AUTOMATED)2020-05-18 22:24:00 Test Item Value Reference Range Interpretation Comments POCT GLU (test code = 7765755931) 124 mg/dL 70-110 H Lab Interpretation (test code = Abnormal 07499-5) [facility] CenterURINE [id number] 21:45:00 Test Item Value Reference Range Interpretation Comments URINE CULTURE (test <10,000 CFU/mL code = 630-4) Gram-Negative Bacilli [facility] GLUCOSE (AUTOMATED)2020-05-18 20:54:00 Test Item Value Reference Range Interpretation Comments POCT GLU (test code = 7433054350) 141 mg/dL 70-110 H Lab Interpretation (test code = Abnormal 15995-4) [facility] GLUCOSE (AUTOMATED)2020-05-18 17:09:00 Test Item Value Reference Range Interpretation Comments POCT GLU (test code = 7077202638) 398 mg/dL 70-110 H Lab Interpretation (test code = Abnormal 96717-3) [facility] GLUCOSE (AUTOMATED)2020-05-18 17:01:00 Test Item Value Reference Range Interpretation Comments POCT GLU (test code = 1279845563) 356 mg/dL 70-110 H Lab Interpretation (test code = Abnormal 52309-9) [facility] GLUCOSE (AUTOMATED)2020-05-18 13:28:00 Test Item Value Reference Range Interpretation Comments POCT GLU (test code = 5213433874) 166 mg/dL 70-110 H Lab Interpretation (test code = Abnormal 63092-8) [facility] CenterLipid Panel (Total Cholesterol, Triglycerides, HDL) - [id number] 11:12:00 Test Item Value Reference Range Interpretation Comments CHOL (test code = 109 mg/dL 120-200 L 1714063602) HDL (test code = 10 mg/dL >40 L 9012674009) HDLC RATIO (test code = See_Comment H [Au tomated message] 5174890577) The system [employer] generated this result transmit traci reference range : <=5.0. The refe rence range was not u sed to interpret th is result as normal/abnormal . TRIG (test code = 165 mg/dL 30-170 3827891691) LDL CHOL (test code = 66 mg/dL See_Comment [Auto mated message] 91335-1) The system [employer] generated this result transmit traci reference range : <=160. The refe rence range was not u sed to interpret th is result as normal/abnormal . VLDL (test code = 33 mg/dL 5-60 8081547506) Lab Interpretation (test Abnormal code = 92168-9) [facility] Metabolic Panel (NA, K, CL, CO2, GLUCOSE, BUN, CREATININE, CA)2020-05-18 11:12:00 Test Item Value Reference Range Interpretation Comments NA (test code = 135 mmol/L 135-145 0620804017) K (test code = 3.6 mmol/L 3.5-5 9601776075) CL (test code = 96 mmol/L 98-108 L 4986508828) CO2 TOTAL (test code = 32 mmol/L 23-31 H 8976962592) AGAP (test code = 2-16 7807620121) BUN (test code = 12 mg/dL 7-23 2698153816) GLUCOSE (test code = 129 mg/dL 70-110 H 2824602687) CREATININE (test code = 0.68 mg/dL 0.6-1.25 0172974136) CALCIUM (test code = 9.0 mg/dL 8.6-10.6 8323643252) eGFR Calculation mL/min/1.73m2 (Non-) (test code = 9904123894) eGFR Calculation mL/min/1.73m2 () (test code = 4064214325) MANDO (test code = MANDO) Association of [...] tests). Lab Interpretation Abnormal (test code = 12418-6) [facility] CenterMagnesium [id number] 11:12:00 Test Item Value Reference Range Interpretation Comments MAGNESIUM (test code = 0266279044) 1.9 mg/dL 1.7-2.4 Lab Interpretation (test code = Normal 92338-1) [facility] with Vziovvorzroc3264-00-28 10:26:00 Test Item Value Reference Range Interpretation Comments WBC (test code = See_Comment H [Automated 8790-2) message] The sy stem which generated this result transmitted reference range : 4.20 - 10.70 10*3/?L. The reference range was not used to interpret this result as normal/abnormal . RBC (test code = See_Comment L [Automated 889-8) message] The sy stem which generated this [...] RDW-SD (test code = 47.3 fL 38.5-51.6 95163-8) RDW-CV (test code = 14.9 % 12.1-15.4 788-0) PLT (test code = See_Comment H [Automated 777-3) message] The sy stem which generated this result transmitted reference range : 150 - 328 10*3/ ?L. The reference r giselle was not used to interpret this result as normal/abnormal . MPV (test code = 9.7 fL 9.8-13 L 54792-1) NRBC/100 WBC (test See_Comment [Automat ed code = 3635826803) message] The system which generated this result transmitted reference range : 0.0 - 10.0 /100 WBCs. The refer ence range was not u sed to interpret th is result as normal/abnormal . NRBC x10^3 (test code <0.01 See_Comment [Auto mated = 0073641387) message] The s ystem which generated this result transmitted reference range : 10*3/?L. The reference range was not used to interpret this result as normal/abnormal . GRAN MAT (NEUT) % 69.5 % (test code = 770-8) IMM GRAN % (test code 1.10 % = 1871059053) LYMPH % (test code = 18.4 % 736-9) MONO % (test code = 9.0 % 5905-5) EOS % (test code = 1.5 % 713-8) BASO % (test code = 0.5 % 706-2) GRAN MAT x10^3(ANC) 9.97 10*3/uL 1.99-6.95 H (test code = 3349101550) IMM GRAN x10^3 (test 0.16 10*3/uL 0-0.06 H code = 9862992425) LYMPH x10^3 (test code 2.65 10*3/uL 1.09-3.23 = 731-0) MONO x10^3 (test code 1.30 10*3/uL 0.36-1.02 H = 742-7) EOS x10^3 (test code = 0.22 10*3/uL 0.06-0.53 711-2) BASO x10^3 (test code 0.07 10*3/uL 0.01-0.09 = 704-7) Lab Interpretation Abnormal (test code = 12382-7) [facility] CenterGRAM POSITIVE BLOOD PATHOGENS DNA [id number] 04:03:00 Test Item Value Reference Range Interpretation Comments Coagulase Negative Positive Negative, See A Staphylococcus (test Comment/Narrative code = 48909-6) MANDO (test code = MANDO) Coagulase negative [...] contact the Antimicrobial Stewardship Program with questions.Pager: ?[phone] Testing included eleven identification and three resistance marker targets. Lab Interpretation Abnormal (test code = 63112-5) [facility] CenterPOCT GLUCOSE (AUTOMATED)2020-05-18 02:40:00 Test Item Value Reference Range Interpretation Comments POCT GLU (test code = 2083203167) 170 mg/dL 70-110 H Lab Interpretation (test code = Abnormal 37231-2) [facility] CenterURINALYSIS2020-10-14 23:40:00 Test Item Value Reference Range Interpretation Comments APPEARANCE (test code = Clear Clear 1332079260) COLOR (test code = Straw Yellow A 8277382960) PH (test code = 4.8-8.0 8038148261) SP GRAVITY (test code = 1.003-1.030 3550392396) GLU U QUAL (test code = Normal Normal 1819560304) BLOOD (test code = Negative Negative 6261193647) KETONES (test code = Negative Negative 0656124493) PROTEIN (test code = Negative Negative 2887-8) UROBILIN (test code = Normal Normal 7718953171) BILIRUBIN (test code = Negative Negative 0312227492) NITRITE (test code = Negative Negative 6721183329) LEUK MAYA (test code = 500/uL Negative A 0252371032) RBC/HPF (test code = See_Comment [Autom ated message] 3239078491) The system [employer] generated this result transmitted ref erence range: 0 - 3 HP F. The reference range was not used to int erpret this result as normal/abnormal . WBC/HPF (test code = See_Comment H [Autom ated message] 0557668604) The system [employer] generated this result transmitted ref erence range: 0 - 5 HP F. The reference range was not used to int erpret this result as normal/abnormal . BACTERIA (test code = Negative Negative 9189275114) SQ EPITH (test code = <1 See_Comment [Auto mated message] 5626971868) The system [employer] generated this result transmitted ref erence range: <=2 HPF. The reference range was not used to int erpret this result as normal/abnormal . Lab Interpretation (test Abnormal code = 60917-9) [facility] CenterProcalcitonin2020-10-14 23:15:00 Test Item Value Reference Range Interpretation Comments Procalcitonin (test 0.10 ng/mL <0.07 H code = 8336744019) MANDO (test code = MANDO) INTERPRETATION OF [...] lung abscess/empyema. For further information please refer to:[email or web address] Lab Interpretation Abnormal (test code = 60737-7) [facility] CenterTROPONIN [id number] 22:11:00 Test Item Value Reference Range Interpretation Comments TROPONIN I (test 0.039 ng/mL See_Comment H [Automated code = 6765414902) message] The system which generated this result [...] ? Lab Interpretation Abnormal (test code = 65856-3) [facility] CenterHepatic Function Panel (ALB, T.PRO, BILI T, BU/BC, ALT, AST, ALK PHOS)2020-05-17 22:04:00 Test Item Value Reference Range Interpretation Comments TOTAL BILI (test code = 3753393475) 0.7 mg/dL 0.1-1.1 BILI UNCON (test code = 5696472074) 0.4 mg/dL 0.1-1.1 BILI CONJ (test code = 7798341377) 0.0 mg/dL 0-0.3 T PROTEIN (test code = 5335490356) 6.6 g/dL 6.3-8.2 ALBUMIN (test code = 4953777575) 3.1 g/dL 3.5-5 L ALK PHOS (test code = 5432151289) 161 U/L 34-122 H ALTv (test code = 1742-6) 84 U/L 5-50 H AST(SGOT) (test code = 7509396230) 86 U/L 13-40 H Lab Interpretation (test code = Abnormal 29739-2) [facility] CenterTROPONIN [id number] 21:56:00 Test Item Value Reference Range Interpretation Comments TROPONIN I (test 0.034 ng/mL See_Comment [Automated code = 6912992099) message] The system which generated this result [...] ? Lab Interpretation Normal (test code = 80797-5) [facility] CenteraPTT2020-10-14 21:32:00 Test Item Value Reference Range Interpretation Comments APTT Patient (test code = See_Comment [ Automated message] 3173-2) The system [employer] generated this result transmitted ref erence range: 26 - 36 Seconds. The re ference range was not u sed to interpret this result as normal/abnor mal. Lab Interpretation (test Normal code = 75240-6) [facility] CenterProthrombin Time / [id number] 21:19:00 Test Item Value Reference Range Interpretation Comments PROTIME PATIENT (test See_Comment H [Auto mated message] code = 5964-2) The system [employer] generated this result transmitted ref erence range: 10.1 - 1 2.6 Seconds. The reference range was not used to int erpret this result as normal/abnormal . INR (test code = 6301-6) Nor mal INR <1.1; Warfarin Therap eutic range 2.0 to 3. 0 or 2.5 to 3.5, dep ending upon the indica tions. Lab Interpretation (test Abnormal code = 09592-8) [facility] CenterCOVID-19 (ID NOW RAPID TESTING)2020-05-16 23:15:00 Test Item Value Reference Range Interpretation Comments SARS-CoV-2 Rapid ID NOW Not Detected Not Detected (test code = 85485-8) MANDO (test code = MANDO) ID NOW COVID-19 Assay is an isothermal nucleic acid amplification test intended for the qualitative detection of nucleic acid from SARS-CoV-2 viral RNA in nasopharyngeal (CAMERA REPAIR TECHNICIAN) specimens. It is used under Emergency Use [...] indicated. Lab Interpretation Normal (test code = 98866-3) [facility] CenterXR CHEST 1 [id number] 23:01:30 1. ?Worsening aeration with increasing left [...] withpulmonary vascular congestion without interstitial edema.RL: 1105 UnH[facility] CypressLactic Acid Whole [id number] 22:29:00 Test Item Value Reference Range Interpretation Comments LACTIC ACID (test code = 1.27 mmol/L 9943887140) [facility] CenterTROPONIN [id number] 22:26:00 Test Item Value Reference Range Interpretation Comments TROPONIN I (test 0.051 ng/mL See_Comment H [Automated code = 7250663472) message] The system which generated this result [...] ? Lab Interpretation Abnormal (test code = 00023-5) [facility] CenterN-TERMINAL [id number] 22:23:00 Test Item Value Reference Range Interpretation Comments NT-proBNP (test code 7290 pg/mL See_Comment H [Autom ated = 2111798228) message] The system which generated this result transmitted reference range : <=125. The reference range was not used to interpret this result as normal/abnormal . MANDO (test code = MANDO) Biotin has been reported to cause a negative bias, interpret results relative to patient's use of biotin. Lab Interpretation Abnormal (test code = 58807-5) [facility] WITH [id number] 22:15:00 Test Item Value Reference Range Interpretation [...] RDW-SD (test code = 47.6 fL 38.5-51.6 46909-4) RDW-CV (test code = 14.8 % 12.1-15.4 788-0) PLT (test code = See_Comment H [Automated 777-3) message] The system which generated this result transmit traci reference range : 150 - 328 10*3/ ?L. The reference range was not u sed to interpret th is result as normal/abnormal . MPV (test code = 10.2 fL 9.8-13 54931-3) NRBC/100 WBC (test See_Comment [Automat ed code = 8977496635) message] The system which generated this result transmit traci reference range : 0.0 - 10.0 /100 WBCs. The reference range was not used to interpret this result as normal/abnormal . NRBC x10^3 (test code <0.01 See_Comment [Auto mated = 4186015402) message] The system which generated this result transmit traci reference range : 10*3/?L. The reference range was not used to interpret this result as normal/abnormal . GRAN MAT (NEUT) % 79.7 % (test code = 770-8) IMM GRAN % (test code 0.80 % = 4830335485) LYMPH % (test code = 11.2 % 736-9) MONO % (test code = 7.6 % 5905-5) EOS % (test code = 0.4 % 713-8) BASO % (test code = 0.3 % 706-2) GRAN MAT x10^3(ANC) 12.40 10*3/uL 1.99-6.95 H (test code = 5356828777) IMM GRAN x10^3 (test 0.13 10*3/uL 0-0.06 H code = 9958071685) LYMPH x10^3 (test code 1.74 10*3/uL 1.09-3.23 = 731-0) MONO x10^3 (test code 1.18 10*3/uL 0.36-1.02 H = 742-7) EOS x10^3 (test code = 0.07 10*3/uL 0.06-0.53 711-2) BASO x10^3 (test code 0.04 10*3/uL 0.01-0.09 = 704-7) Lab Interpretation Abnormal (test code = 08504-7) [facility]. METABOLIC PANEL (57183)2020-05-16 22:14:00 Test Item Value Reference Range Interpretation Comments NA (test code = 134 mmol/L 135-145 L 4147776871) K (test code = 4.2 mmol/L 3.5-5 9697201744) CL (test code = 97 mmol/L 98-108 L 3890175118) CO2 TOTAL (test code = 27 mmol/L 23-31 8983566302) AGAP (test code = 2-16 3348879667) BUN (test code = 12 mg/dL 7-23 0486175829) GLUCOSE (test code = 138 mg/dL 70-110 H 2907107364) CREATININE (test code = 0.74 mg/dL 0.6-1.25 6006449815) TOTAL BILI (test code = 0.7 mg/dL 0.1-1.0 5567841832) CALCIUM (test code = 9.6 mg/dL 8.6-10.6 3612994448) T PROTEIN (test code = 7.3 g/dL 6.3-8.2 6339134653) ALBUMIN (test code = 3.2 g/dL 3.5-5 L 6808050932) ALK PHOS (test code = 150 U/L 34-122 H 8429939402) ALTv (test code = 74 U/L 5-50 H 1742-6) AST(SGOT) (test code = 72 U/L 13-40 H 4103071431) eGFR Calculation mL/min/1.73m2 (Non-) (test code = 6621920053) eGFR Calculation mL/min/1.73m2 () (test code = 3849508754) MANDO (test code = MANDO) Association of [...] tests). Lab Interpretation Abnormal (test code = 61363-4) [facility] [facility]UM2020[facility] 22:14:00 Test Item Value Reference Range Interpretation Comments MAGNESIUM (test code = 7157867152) 2.0 mg/dL 1.7-2.4 Lab Interpretation (test code = Normal 01448-2) [facility] CenterPROTHROMBIN TIME / [id number] 22:14:00 Test Item Value Reference Range Interpretation Comments PROTIME PATIENT (test See_Comment H [Auto mated message] code = 5964-2) The system [employer] generated this result transmitted ref erence range: 12.0 - 1 4.7 Seconds. The reference range was not used to int erpret this result as normal/abnormal . INR (test code = 6301-6) Nor mal INR <1.1; Warfarin Therap eutic range 2.0 to 3. 0 or 2.5 to 3.5, dep ending upon the indica tions. Lab Interpretation (test Abnormal code = 20321-0) [facility] CenterCORTISOL [id number] 17:32:00 Test Item Value Reference Range Interpretation Comments JUAN AM (test code = 27.1 ug/dL 4.5-23 H 4991166301) MANDO (test code = MANDO) Biotin has been reported to cause a positive bias, interpret results relative to patient's use of biotin. Lab Interpretation (test Abnormal code = 97101-7) [facility] CenterPO[facility] GLUCOSE (AUTOMATED)2020-05-14 17:09:00 Test Item Value Reference Range Interpretation Comments POCT GLU (test code = 1739598407) 181 mg/dL 70-110 H Lab Interpretation (test code = Abnormal 27105-4) [facility] CenterCOMP. METABOLIC PANEL (93523)2020-05-14 15:54:00 Test Item Value Reference Range Interpretation Comments NA (test code = 133 mmol/L 135-145 L 3150018019) K (test code = 4.4 mmol/L 3.5-5 0838751764) CL (test code = 99 mmol/L 98-108 7020071658) CO2 TOTAL (test code = 25 mmol/L 23-31 0182210236) AGAP (test code = 2-16 6352335221) BUN (test code = 10 mg/dL 7-23 9505733675) GLUCOSE (test code = 156 mg/dL 70-110 H 2817103516) CREATININE (test code = 0.89 mg/dL 0.6-1.25 1670151405) TOTAL BILI (test code = 0.5 mg/dL 0.1-1.4 5471512696) CALCIUM (test code = 9.7 mg/dL 8.6-10.6 9532172429) T PROTEIN (test code = 5.8 g/dL 6.3-8.2 L 3310133412) ALBUMIN (test code = 2.7 g/dL 3.5-5 L 5840095202) ALK PHOS (test code = 86 U/L 34-122 8450790961) ALTv (test code = 24 U/L 5-50 1742-6) AST(SGOT) (test code = 32 U/L 13-40 7910636316) eGFR Calculation mL/min/1.73m2 (Non-) (test code = 4276297805) eGFR Calculation mL/min/1.73m2 () (test code = 4964073406) MANDO (test code = MANDO) Association of [...] tests). Lab Interpretation Abnormal (test code = 63871-9) [facility] CenterPO[facility]UCOSE (AUTOMATED)2020-05-14 13:30:00 Test Item Value Reference Range Interpretation Comments POCT GLU (test code = 1766956468) 165 mg/dL 70-110 H Lab Interpretation (test code = Abnormal 20377-2) [facility] CenterURINE [id number] 12:28:00 Test Item Value Reference Range Interpretation Comments URINE CULTURE >100,000 CFU/mL For suscept ibility (test code = Klebsiella results, refer to 630-4) pneumoniae culture # - [id number] [facility] CenterN-TERMINAL [id number] 12:21:00 Test Item Value Reference Range Interpretation Comments NT-proBNP (test code 4780 pg/mL See_Comment H [Autom ated = 3849125223) message] The system which generated this result transmitted reference range : <=125. The reference range was not used to interpret this result as normal/abnormal . MANDO (test code = MANDO) Biotin has been reported to cause a negative bias, interpret results relative to patient's use of biotin. Lab Interpretation Abnormal (test code = 64679-1) [facility] WITH [id number] 11:07:00 Test Item Value Reference Range Interpretation [...] RDW-SD (test code = 47.9 fL 38.5-51.6 32067-8) RDW-CV (test code = 14.6 % 12.1-15.4 788-0) PLT (test code = See_Comment [Automated 777-3) message] The system which generated this result transmit traci reference range : 150 - 328 10*3/ ?L. The reference range was not u sed to interpret th is result as normal/abnormal . MPV (test code = 11.8 fL 9.8-13 27060-5) NRBC/100 WBC (test See_Comment [Automat ed code = 2765429472) message] The system which generated this result transmit traci reference range : 0.0 - 10.0 /100 WBCs. The reference range was not used to interpret this result as normal/abnormal . NRBC x10^3 (test code <0.01 See_Comment [Auto mated = 0440701411) message] The system which generated this result transmit traci reference range : 10*3/?L. The reference range was not used to interpret this result as normal/abnormal . GRAN MAT (NEUT) % 82.6 % (test code = 770-8) IMM GRAN % (test code 0.80 % = 5803540655) LYMPH % (test code = 8.0 % 736-9) MONO % (test code = 8.2 % 5905-5) EOS % (test code = 0.2 % 713-8) BASO % (test code = 0.2 % 706-2) GRAN MAT x10^3(ANC) 14.89 10*3/uL 1.99-6.95 H (test code = 2279828240) IMM GRAN x10^3 (test 0.14 10*3/uL 0-0.06 H code = 4633070489) LYMPH x10^3 (test code 1.44 10*3/uL 1.09-3.23 = 731-0) MONO x10^3 (test code 1.47 10*3/uL 0.36-1.02 H = 742-7) EOS x10^3 (test code = 0.03 10*3/uL 0.06-0.53 L 711-2) BASO x10^3 (test code 0.03 10*3/uL 0.01-0.09 = 704-7) Lab Interpretation Abnormal (test code = 24765-9) [facility] GLUCOSE (AUTOMATED)2020-05-14 01:18:00 Test Item Value Reference Range Interpretation Comments POCT GLU (test code = 5586488537) 134 mg/dL 70-110 H Lab Interpretation (test code = Abnormal 24263-5) [facility] GLUCOSE (AUTOMATED)2020-05-13 21:54:00 Test Item Value Reference Range Interpretation Comments POCT GLU (test code = 9906671230) 123 mg/dL 70-110 H Lab Interpretation (test code = Abnormal 05944-8) [facility] GLUCOSE (AUTOMATED)2020-05-13 17:12:00 Test Item Value Reference Range Interpretation Comments POCT GLU (test code = 8781359218) 188 mg/dL 70-110 H Lab Interpretation (test code = Abnormal 48394-4) [facility] CenterCORTISOL [id number] 16:57:00 Test Item Value Reference Range Interpretation Comments JUAN AM (test code = 18.5 ug/dL 4.5-23 9169882378) MANDO (test code = MANDO) Biotin has been reported to cause a positive bias, interpret results relative to patient's use of biotin. Lab Interpretation (test Normal code = 46433-6) [facility] CenterPO[facility]UCOSE (AUTOMATED)2020-05-13 14:01:00 Test Item Value Reference Range Interpretation Comments POCT GLU (test code = 0767307555) 149 mg/dL 70-110 H Lab Interpretation (test code = Abnormal 21557-1) [facility] WITH [id number] 13:01:00 Test Item Value Reference Range Interpretation [...] RDW-SD (test code = 49.1 fL 38.5-51.6 12239-4) RDW-CV (test code = 14.7 % 12.1-15.4 788-0) PLT (test code = See_Comment [Automated 777-3) message] The system which generated this result transmit traci reference range : 150 - 328 10*3/ ?L. The reference range was not u sed to interpret th is result as normal/abnormal . MPV (test code = 11.0 fL 9.8-13 22186-6) NRBC/100 WBC (test See_Comment [Automat ed code = 8583519935) message] The system which generated this result transmit traci reference range : 0.0 - 10.0 /100 WBCs. The reference range was not used to interpret this result as normal/abnormal . NRBC x10^3 (test code <0.01 See_Comment [Auto mated = 7803415688) message] The system which generated this result transmit traci reference range : 10*3/?L. The reference range was not used to interpret this result as normal/abnormal . GRAN MAT (NEUT) % 81.2 % (test code = 770-8) IMM GRAN % (test code 0.80 % = 2837505103) LYMPH % (test code = 9.1 % 736-9) MONO % (test code = 8.5 % 5905-5) EOS % (test code = 0.1 % 713-8) BASO % (test code = 0.3 % 706-2) GRAN MAT x10^3(ANC) 15.41 10*3/uL 1.99-6.95 H (test code = 5960825577) IMM GRAN x10^3 (test 0.16 10*3/uL 0-0.06 H code = 9503121978) LYMPH x10^3 (test code 1.72 10*3/uL 1.09-3.23 = 731-0) MONO x10^3 (test code 1.62 10*3/uL 0.36-1.02 H = 742-7) EOS x10^3 (test code = <0.03 0.06-0.53 L 711-2) BASO x10^3 (test code 0.05 10*3/uL 0.01-0.09 = 704-7) Lab Interpretation Abnormal (test code = 73126-6) [id number] 12:50[facility]00 Test Item Value Reference Range Interpretation Comments TROPONIN I (test 0.019 ng/mL See_Comment [Automated code = 4726271604) message] The system which generated this result [...] ? Lab Interpretation Normal (test code = 84311-3) [facility] CenterN-TERMINAL [id number] 12:47:00 Test Item Value Reference Range Interpretation Comments NT-proBNP (test code 4740 pg/mL See_Comment H [Autom ated = 7718316815) message] The system which generated this result transmitted reference range : <=125. The reference range was not used to interpret this result as normal/abnormal . MANDO (test code = MANDO) Biotin has been reported to cause a negative bias, interpret results relative to patient's use of biotin. Lab Interpretation Abnormal (test code = 19726-3) [facility] CenterCOMP. METABOLIC PANEL (14788)2020-05-13 12:39:00 Test Item Value Reference Range Interpretation Comments NA (test code = 133 mmol/L 135-145 L 6497586628) K (test code = 4.6 mmol/L 3.5-5 9125098285) CL (test code = 98 mmol/L 98-108 0422212271) CO2 TOTAL (test code = 25 mmol/L 23-31 4417725814) AGAP (test code = 2-16 8082370351) BUN (test code = 14 mg/dL 7-23 6834399503) GLUCOSE (test code = 143 mg/dL 70-110 H 7429473113) CREATININE (test code = 0.92 mg/dL 0.6-1.25 2747000462) TOTAL BILI (test code = 0.7 mg/dL 0.1-1.0 6836049594) CALCIUM (test code = 9.8 mg/dL 8.6-10.6 4218795479) T PROTEIN (test code = 6.9 g/dL 6.3-8.2 5314344957) ALBUMIN (test code = 3.2 g/dL 3.5-5 L 9427998143) ALK PHOS (test code = 78 U/L 34-122 7305373660) ALTv (test code = 11 U/L 5-50 1742-6) AST(SGOT) (test code = 19 U/L 13-40 4934210775) eGFR Calculation mL/min/1.73m2 (Non-) (test code = 8652464691) eGFR Calculation mL/min/1.73m2 () (test code = 1226429633) MANDO (test code = MANDO) Association of [...] tests). Lab Interpretation Abnormal (test code = 79689-5) [facility] CenterTROPONIN [id number] 05:27:00 Test Item Value Reference Range Interpretation Comments TROPONIN I (test 0.017 ng/mL See_Comment [Automated code = 1434252986) message] The system which generated this result [...] ? Lab Interpretation Normal (test code = 04556-0) [facility] CenterOSMOLALITY [id number] 04:33:00 Test Item Value Reference Range Interpretation Comments OSMOLALITY (test code = See_Comment [Au tomated message] 6424004595) The system [employer] generated this result transmitted ref erence range: 278 - 30 5 mOsm/kg. The re ference range was not u sed to interpret this result as normal/abnor mal. Lab Interpretation (test Normal code = 52645-7) [facility] CenterBASI METABOLIC PANEL (NA, K, CL, CO2, GLUCOSE, BUN, CREATININE, CA)2020-05-13 02:51:00 Test Item Value Reference Range Interpretation Comments NA (test code = 133 mmol/L 135-145 L 2444814216) K (test code = 4.9 mmol/L 3.5-5 9831524483) CL (test code = 101 mmol/L 98-108 5476401847) CO2 TOTAL (test code = 25 mmol/L 23-31 0385068938) AGAP (test code = 2-16 2318267355) BUN (test code = 15 mg/dL 7-23 1393860725) GLUCOSE (test code = 143 mg/dL 70-110 H 9056236256) CREATININE (test code = 0.99 mg/dL 0.6-1.25 2132069349) CALCIUM (test code = 9.1 mg/dL 8.6-10.6 1097469013) eGFR Calculation mL/min/1.73m2 (Non-) (test code = 8907516996) eGFR Calculation mL/min/1.73m2 () (test code = 7487330051) MANDO (test code = MANDO) Association of [...] tests). Lab Interpretation Abnormal (test code = 36914-6) [facility] CenterTROPONIN [id number] 22:31:00 Test Item Value Reference Range Interpretation Comments TROPONIN I (test 0.014 ng/mL See_Comment [Automated code = 4733919691) message] The system which generated this result [...] ? Lab Interpretation Normal (test code = 32575-6) [facility] CenterLEGIONELLA URINARY ANTIGEN [id number] 21:35:00 Test Item Value Reference Range Interpretation Comments Legionella Urinary Negative Negative Antigen (test code = 9751882821) MANDO (test code = MANDO) Negative for [...] test. Lab Interpretation (test Normal code = 83332-3) [facility] CenterPNEUMOCOCCAL [id number] 21:35:00 Test Item Value Reference Range Interpretation Comments S. pneumoniae antigen (test code = Negative Negative 8231245082) Lab Interpretation (test code = Normal 03652-5) [facility] CenterOSMOLALITY [id number] 21:21:00 Test Item Value Reference Range Interpretation Comments OSMO U (test code = See_Comment [Automa traci message] 2389050145) The system [employer] generated this result transmitted ref erence range: 50-1,100 mOsm/kg. The re ference range was not u sed to interpret this result as normal/abnor mal. Lab Interpretation (test Normal code = 21244-6) [facility] CenterPROCALCITONIN2020-10-09 20:42:00 Test Item Value Reference Range Interpretation Comments Procalcitonin (test 0.19 ng/mL <0.07 H code = 8977692475) MANDO (test code = MANDO) INTERPRETATION OF [...] lung abscess/empyema. For further information please refer to:[email or web address] Lab Interpretation Abnormal (test code = 60470-9) [facility] CenterUREA NITROGEN, URINE [id number] 20:40:00 Test Item Value Reference Range Interpretation Comments UREA N UR (test code = 9651859881) 298 mg/dL [facility] CenterPOCT GLUCOSE (AUTOMATED)2020-05-12 16:54:00 Test Item Value Reference Range Interpretation Comments POCT GLU (test code = 4810591474) 163 mg/dL 70-110 H Lab Interpretation (test code = Abnormal 56297-2) [facility] ANGIOGRAM ABDOMEN/[id number] 15:19:48 1. ?No aortic dissection, penetrating ulcer, [...] the patient has had asubtotal cholecystectomy.RL: 1105 [facility] CenterPROTEIN CREAT RATIO URINE [id number] 15:05:00 Test Item Value Reference Range Interpretation Comments T. PROT U (test code 10 mg/dL = 2888-6) CREAT U (test code = 94.2 mg/dL 6036448223) Protein/Creatinine 0.0-2.0 Ratio Urine (test code = 9114610279) MANDO (test code = MANDO) Random Urine Total Protein Reference Ranges Random Specimen: ? Less than 10 mg/dLFirst Morning Specimen: ? ?Less than 20 mg/dL ? [facility] CenterSODIUM, URINE [id number] 15:01:00 Test Item Value Reference Range Interpretation Comments NA URINE (test code = 0387577216) 5 mmol/L [facility] WITH [id number] 14:17:00 Test Item Value Reference Range Interpretation [...] RDW-SD (test code = 48.0 fL 38.5-51.6 04398-6) RDW-CV (test code = 14.9 % 12.1-15.4 788-0) PLT (test code = See_Comment [Automated 777-3) message] The system which generated this result transmit traci reference range : 150 - 328 10*3/ ?L. The reference range was not u sed to interpret th is result as normal/abnormal . MPV (test code = 11.5 fL 9.8-13 84723-2) NRBC/100 WBC (test See_Comment [Automat ed code = 1821853366) message] The system which generated this result transmit traci reference range : 0.0 - 10.0 /100 WBCs. The reference range was not used to interpret this result as normal/abnormal . NRBC x10^3 (test code <0.01 See_Comment [Auto mated = 9484390526) message] The system which generated this result transmit traci reference range : 10*3/?L. The reference range was not used to interpret this result as normal/abnormal . GRAN MAT (NEUT) % 81.8 % (test code = 770-8) IMM GRAN % (test code 0.40 % = 7986768099) LYMPH % (test code = 8.8 % 736-9) MONO % (test code = 8.8 % 5905-5) EOS % (test code = 0.0 % 713-8) BASO % (test code = 0.2 % 706-2) GRAN MAT x10^3(ANC) 15.78 10*3/uL 1.99-6.95 H (test code = 4297959485) IMM GRAN x10^3 (test 0.08 10*3/uL 0-0.06 H code = 3967405283) LYMPH x10^3 (test code 1.70 10*3/uL 1.09-3.23 = 731-0) MONO x10^3 (test code 1.69 10*3/uL 0.36-1.02 H = 742-7) EOS x10^3 (test code = <0.03 0.06-0.53 L 711-2) BASO x10^3 (test code 0.03 10*3/uL 0.01-0.09 = 704-7) Lab Interpretation Abnormal (test code = 44924-4) [id number] 14:02:00 Test Item Value Reference Range Interpretation Comments TROPONIN I (test 0.014 ng/mL See_Comment [Automated code = 4403403550) message] The system which generated this result [...] ? Lab Interpretation Normal (test code = 92208-2) [facility] CenterURINALYSIS2020-10-09 14:02:00 Test Item Value Reference Range Interpretation Comments APPEARANCE (test code = Clear Clear 4725733317) COLOR (test code = Yellow Yellow 2800917731) PH (test code = 4.8-8.0 7038688464) SP GRAVITY (test code = <=1.005 1.003-1.030 9501349840) GLU U QUAL (test code = Negative Negative 5291398490) BLOOD (test code = Negative Negative 2295256569) KETONES (test code = Negative Negative 7932714210) PROTEIN (test code = Negative Negative 2887-8) UROBILIN (test code = 0.2 mg/dL See_Comment [Auto mated message] 3721193692) The system [employer] generated this result transmit traci reference range : 0-1.0 mg/dL. Th e reference range was not used to interpret this result as normal/abnormal . BILIRUBIN (test code = Negative Negative 8558655452) NITRITE (test code = Positive Negative A 3978297847) LEUK MAYA (test code = Negative Negative 8354096293) RBC/HPF (test code = See_Comment H [Autom ated message] 0137260565) The system [employer] generated this result transmit traci reference range : 0 - 3 HPF. The refe rence range was not u sed to interpret th is result as normal/abnormal . WBC/HPF (test code = See_Comment H [Autom ated message] 9296449148) The system [employer] generated this result transmit traci reference range : 0 - 5 HPF. The refe rence range was not u sed to interpret th is result as normal/abnormal . BACTERIA (test code = Moderate Negative A 5038150313) MUCOUS (test code = Slight Negative LPF A 6642513151) SQ EPITH (test code = HPF 6110055478) Lab Interpretation (test Abnormal code = 72511-3) [facility] CenterN-TERMINAL [id number] 13:58:00 Test Item Value Reference Range Interpretation Comments NT-proBNP (test code 2430 pg/mL See_Comment H [Autom ated = 6693070866) message] The system which generated this result transmitted reference range : <=125. The reference range was not used to interpret this result as normal/abnormal . MANDO (test code = MANDO) Biotin has been reported to cause a negative bias, interpret results relative to patient's use of biotin. Lab Interpretation Abnormal (test code = 37282-1) [facility] CenterDIGOXIN2020-10-09 13:52:00 Test Item Value Reference Range Interpretation Comments DIGOXIN (test code = 0.5 ng/mL 0.8-1.6 L 1781267817) MANDO (test code = MANDO) Arrythmias: ?1.5 - 2.0 ng/mLToxic Range: ? Greater than or equal to 2.4 ng/mL Lab Interpretation (test Abnormal code = 78039-8) [facility] CenterCOMP. METABOLIC PANEL (54730)2020-05-12 13:50:00 Test Item Value Reference Range Interpretation Comments NA (test code = 132 mmol/L 135-145 L 0908720737) K (test code = 5.8 mmol/L 3.5-5 H 6514562760) CL (test code = 98 mmol/L 98-108 7831646027) CO2 TOTAL (test code = 22 mmol/L 23-31 L 0159713922) AGAP (test code = 2-16 6000314680) BUN (test code = 14 mg/dL 7-23 7723315154) GLUCOSE (test code = 189 mg/dL 70-110 H 8023839510) CREATININE (test code = 0.86 mg/dL 0.6-1.25 9866757488) TOTAL BILI (test code = 0.8 mg/dL 0.1-1.7 2914377217) CALCIUM (test code = 9.5 mg/dL 8.6-10.6 9225132424) T PROTEIN (test code = 7.4 g/dL 6.3-8.2 9488968859) ALBUMIN (test code = 3.5 g/dL 3.5-5 0365254781) ALK PHOS (test code = 68 U/L 34-122 5728438139) ALTv (test code = 11 U/L 5-50 1742-6) AST(SGOT) (test code = 28 U/L 13-40 4283314887) eGFR Calculation mL/min/1.73m2 (Non-) (test code = 3100826967) eGFR Calculation mL/min/1.73m2 () (test code = 5887948978) MANDO (test code = MANDO) Association of [...] tests). Lab Interpretation Abnormal (test code = 14325-0) [facility] CenterCT CHEST PULMONARY [id number] 12:59:25 1. ?No evidence of pulmonary embolism. 2. ?A 2.2 cm right upper lobe pleural-based spiculated nodule. Furtherevaluation with PET/CT or biopsy is recommended. 3. ?Mild pulmonary edema. Bilateral lower lobe atelectasis. Loculated leftpleural effusion. Mildly enlarged mediastinal mediastinal lymph nodes. Preliminary Report Dictated by Resident: Cristiane Grossman ?MD Annette., have reviewed this study and agree with [...] reviewed this studyand agree with theabove report. [facility] CenterPOOK GLUCOSE (AUTOMATED)2020-05-12 12:55:00 Test Item Value Reference Range Interpretation Comments POCT GLU (test code = 5469351434) 216 mg/dL 70-110 H Lab Interpretation (test code = Abnormal 80101-3) [facility] CenterLAOKATE [id number] 12:04:00 Test Item Value Reference Range Interpretation Comments LDH (test code = 5018530194) 317 U/L 300-600 Lab Interpretation (test code = Normal 54292-4) [facility] CenterPROTHROMBIN TIME / [id number] 11:45:00 Test Item Value Reference Range Interpretation Comments PROTIME PATIENT (test See_Comment H [Auto mated message] code = 5964-2) The system [employer] generated this result transmitted ref erence range: 12.0 - 1 4.7 Seconds. The reference range was not used to int erpret this result as normal/abnormal . INR (test code = 6301-6) Nor mal INR <1.1; Warfarin Therap eutic range 2.0 to 3. 0 or 2.5 to 3.5, dep ending upon the indica tions. Lab Interpretation (test Abnormal code = 92193-8) [facility] CenterTHYROID STIMULATING [id number] 11:32:00 Test Item Value Reference Range Interpretation Comments TSH (test code = See_Comment [Automated message] 1746819494) The system [employer] generated this result transmitted ref erence range: 0.45 - 4 .70 mIU/L. The refe rence range was not u sed to interpret this result as normal/abnor mal. Lab Interpretation (test Normal code = 08652-4) [facility] CenterGLYCOSYLATED HEMOGLOBIN (A1C)2020-05-12 11:30:00 Test Item Value Reference Range Interpretation Comments HGB A1C (test code = 9.3 % 4-6 H 4548-4) MANDO (test code = MANDO) %A1C (NGSP) Interpretation (ADA)4.8-5.6 ? ? Normal or (Non-Diabetic Range)5.7-6.4 ? ? Increased Risk (Pre-Diabetic)>6.5 ?Diabetes Indicated Lab Interpretation Abnormal (test code = 19463-9) [facility] CenterLactic Acid Whole [id number] 11:22:00 Test Item Value Reference Range Interpretation Comments LACTIC ACID (test code = 2.07 mmol/L 3098015589) [facility] CenterCREATINE [id number] 11:18:00 Test Item Value Reference Range Interpretation Comments CK (test code = 3545145255) <20 33-194 L Lab Interpretation (test code = Abnormal 11817-2) [facility] CenterLIPID PANEL (65404)(TOTAL CHOLESTEROL, TRIGLYCERIDES, HDL)2020-05-12 11:02:00 Test Item Value Reference Range Interpretation Comments CHOL (test code = 120 mg/dL 120-200 5685246304) HDL (test code = 22 mg/dL >40 L 8090775923) HDLC RATIO (test code = See_Comment H [Au tomated message] 1843476822) The system [employer] [employer] generated this result transmit traci reference range : <=5.0. The refe rence range was not u sed to interpret th is result as normal/abnormal . TRIG (test code = 172 mg/dL 30-170 H 7841184890) LDL CHOL (test code = 64 mg/dL See_Comment [Auto mated message] 12086-6) The system [employer] generated this result transmit traci reference range : <=160. The refe rence range was not u sed to interpret th is result as normal/abnormal . VLDL (test code = 34 mg/dL 5-60 4548540177) Lab Interpretation (test Abnormal code = 56928-1) [facility] 11:01:00 Test Item Value Reference Range Interpretation Comments LIPASE (test code = 5681814271) 35 U/L 0-220 Lab Interpretation (test code = Normal 40957-3) [facility]2020-10-09 11:01:00 Test Item Value Reference Range Interpretation Comments MAGNESIUM (test code = 6735089921) 1.8 mg/dL 1.7-2.4 Lab Interpretation (test code = Normal 52461-2) [facility]PHOS[facility]ORUS2020-10-09 11:01:00 Test Item Value Reference Range Interpretation Comments PHOSPHORUS (test code = 3934083832) 2.6 mg/dL 2.5-5 Lab Interpretation (test code = Normal 52496-0) [facility] CenterURIC [id number] 11:01:00 Test Item Value Reference Range Interpretation Comments URIC ACID (test code = 8378979136) 5.9 mg/dL 3.6-8 Lab Interpretation (test code = Normal 34563-5) [facility] CenterHEPATIC FUNCTION PANEL (56429) (ALB,T.PRO,BILI T,BU/BC,ALT,AST,ALK PHOS)2020-05-12 11:01:00 Test Item Value Reference Range Interpretation Comments TOTAL BILI (test code = 8857824771) 0.7 mg/dL 0.1-1.1 BILI UNCON (test code = 6889093291) 0.6 mg/dL 0.1-1.1 BILI CONJ (test code = 0984475713) 0.0 mg/dL 0-0.3 T PROTEIN (test code = 4366010957) 8.1 g/dL 6.3-8.2 ALBUMIN (test code = 0526371704) 3.7 g/dL 3.5-5 ALK PHOS (test code = 7840653730) 71 U/L 34-122 ALTv (test code = 1742-6) 12 U/L 5-50 AST(SGOT) (test code = 8854391820) 26 U/L 13-40 Lab Interpretation (test code = Normal 74234-4) [facility] CenterXR CHEST 1 [id number] 07:15:48 Cardiomegaly with suspected mild pulmonary edema. Preliminary Report Dictated by Resident: Mohamed Lechuga Aldesoky RiadElshikh I, Jn ?Klimkowski, MD., have reviewed this study and agree [...] this study and agree with theabove report. [facility] CenterCOVID-19 (ID NOW RAPID TESTING)2020-05-12 04:46:00 Test Item Value Reference Range Interpretation Comments SARS-CoV-2 Rapid ID NOW Not Detected Not Detected (test code = 65175-1) MANDO (test code = MANDO) ID NOW COVID-19 Assay is an isothermal nucleic acid amplification test intended for the qualitative detection of nucleic acid from SARS-CoV-2 viral RNA in nasopharyngeal (CAMERA REPAIR TECHNICIAN) specimens. It is used under Emergency Use [...] indicated. Lab Interpretation Normal (test code = 42099-2) [facility] CenterN-TERMINAL [id number] 04:41:00 Test Item Value Reference Range Interpretation Comments NT-proBNP (test code 1650 pg/mL See_Comment H [Autom ated = 6521232745) message] The system which generated this result transmitted reference range : <=125. The reference range was not used to interpret this result as normal/abnormal . MANDO (test code = MANDO) Biotin has been reported to cause a negative bias, interpret results relative to patient's use of biotin. Lab Interpretation Abnormal (test code = 37250-8) [facility] CenterTROPONIN [id number] 04:10:00 Test Item Value Reference Range Interpretation Comments TROPONIN I (test 0.015 ng/mL See_Comment [Automated code = 8213818650) message] The system which generated this result [...] ? Lab Interpretation Normal (test code = 40052-8) [facility] CenterD-[id number] 04:08:00 Test Item Value Reference Interpretation Comments Range D-DIMER (test code = See_Comment H [Autom ated 3928987121) message] The system which generated this result [...] diagnosis. Lab Interpretation Abnormal (test code = 46625-8) [facility] CenterBASI METABOLIC PANEL (NA, K, CL, CO2, GLUCOSE, BUN, CREATININE, CA)2020-05-12 03:58:00 Test Item Value Reference Range Interpretation Comments NA (test code = 131 mmol/L 135-145 L 0163100345) K (test code = 5.4 mmol/L 3.5-5 H 4241809244) CL (test code = 95 mmol/L 98-108 L 7868094590) CO2 TOTAL (test code = 28 mmol/L 23-31 4927853734) AGAP (test code = 2-16 9155560643) BUN (test code = 14 mg/dL 7-23 3260953769) GLUCOSE (test code = 200 mg/dL 70-110 H 9158829999) CREATININE (test code = 0.77 mg/dL 0.6-1.25 4177192569) CALCIUM (test code = 9.9 mg/dL 8.6-10.6 1595342753) eGFR Calculation mL/min/1.73m2 (Non-) (test code = 1697836759) eGFR Calculation mL/min/1.73m2 () (test code = 9427089659) MANDO (test code = MANDO) Association of [...] tests). Lab Interpretation Abnormal (test code = 10543-4) [facility] WITH [id number] 03:45:00 Test Item Value Reference Range Interpretation [...] RDW-SD (test code = 46.8 fL 38.5-51.6 76114-4) RDW-CV (test code = 14.6 % 12.1-15.4 788-0) PLT (test code = See_Comment [Automated 777-3) message] The system which generated this result transmit traci reference range : 150 - 328 10*3/ ?L. The reference range was not u sed to interpret th is result as normal/abnormal . MPV (test code = 11.4 fL 9.8-13 88398-5) NRBC/100 WBC (test See_Comment [Automat ed code = 0334676164) message] The system which generated this result transmit traci reference range : 0.0 - 10.0 /100 WBCs. The reference range was not used to interpret this result as normal/abnormal . NRBC x10^3 (test code <0.01 See_Comment [Auto mated = 1798531653) message] The system which generated this result transmit traci reference range : 10*3/?L. The reference range was not used to interpret this result as normal/abnormal . GRAN MAT (NEUT) % 78.4 % (test code = 770-8) IMM GRAN % (test code 0.70 % = 6228797400) LYMPH % (test code = 12.6 % 736-9) MONO % (test code = 7.9 % 5905-5) EOS % (test code = 0.1 % 713-8) BASO % (test code = 0.3 % 706-2) GRAN MAT x10^3(ANC) 12.93 10*3/uL 1.99-6.95 H (test code = 8753525481) IMM GRAN x10^3 (test 0.12 10*3/uL 0-0.06 H code = 1661263218) LYMPH x10^3 (test code 2.08 10*3/uL 1.09-3.23 = 731-0) MONO x10^3 (test code 1.31 10*3/uL 0.36-1.02 H = 742-7) EOS x10^3 (test code = <0.03 0.06-0.53 L 711-2) BASO x10^3 (test code 0.05 10*3/uL 0.01-0.09 = 704-7) Lab Interpretation Abnormal (test code = 59981-2) [facility]
[2022-01-05 14:19] LABS: Absolute Lymphocytes (CBC) 1.9 K/uL (0.7-4.9); Hematocrit 16.1 % (39.6-49.0); Lymphocytes % 17.2 % (15.3-44.8); MPV 8.9 fL (7.6-11.3); RBC Red Blood Cell Count 1.95 M/uL (4.33-5.43)
[2022-01-05 14:25] LABS: Protime INR 3.2
[2022-01-05 14:54] LABS: Albumin 2.7 g/dL (3.4-5.0); Bilirubin Total 0.5 mg/dL (0.2-1.0); Potassium 4.5 mmol/L (3.5-5.1); Protein, Total 6.5 g/dL (6.4-8.2)
[2022-01-05] MEDS ORDERED: PANTOPRAZOLE 40 MG INJ ONE ×2 (15:58→16:03)
[2022-01-05] MEDS ORDERED: NA CHLORIDE 0.9% 250 ML ONE ×2 (15:59→16:03)
--- NOTE | 2022-01-05 16:18 | RAD REPORT ---
EXAM DESCRIPTION: CT - Abdomen Pelvis Wo Contrast - 01/05/2022 3:57 pm CLINICAL HISTORY: Abdominal pain COMPARISON: December 18, 2021 TECHNIQUE: Computed axial tomography of the abdomen and pelvis was obtained. IV and oral contrast we re not requested. All CT scans are performed using dose optimization technique as appropriate and may include automated exposure control or mA/KV adjustment according to patient size. FINDINGS: The evaluation of solid organs, vessels and bowel is limited secondary to the lack of con trast administration. Mild abdominal lymphadenopathy unchanged. The liver, spleen, pancreas, adrenals and left kidney appear grossly normal. Small right renal cyst. Atherosclerotic disease. Diffuse edema within the subcutaneous tissues. No evidence of diverticulitis. Mild ascites IMPRESSION: Stable mild abdominal lymphadenopathy. Mild ascites
--- NOTE | 2022-01-05 16:27 | RAD REPORT ---
EXAM DESCRIPTION: CT - Thorax Wo Con - 01/05/2022 4:18 pm CLINICAL HISTORY: sob COMPARISON: none TECHNIQUE: Computed axial tomography of the chest was obtained. Contrast was not requested. All CT scans are performed using dose optimization technique as appropriate and may include automated exposure control or mA/KV adjustment according to patient size. FINDINGS: The evaluation of mediastinum, melissa and vessels is limited secondary to lack of IV contras t administration. Small to moderate right pleural effusion with right basilar atelectasis Minimal left pleural effusion. Cardiomegaly with coronary arterial calcifications. Mild additional bilateral pulmonary opacities Mild mediastinal lymphadenopathy probably reactive in nature. IMPRESSION: Small to moderate right pleural effusion with basilar atelectasis Mild additional bilateral pulmonary opacities probably mild interstitial pulmonary edema
[2022-01-05] MEDS ORDERED: NA CHLORIDE 0.9% 1,000 ML ONE (16:51)
[2022-01-05] MEDS ORDERED: LIDOCAINE VISCOUS 2% SOLN 15 ML UDC ONE (16:51)
[2022-01-05] MEDS ORDERED: ACETAMINOPHEN 325 MG TABLET ONE (17:12)
[2022-01-05] MEDS ORDERED: DIPHENHYDRAMINE 50 MG/ML VIAL ONE (17:12)
[2022-01-05 17:30] LABS: Troponin High Sensitivity 13.7 pg/mL (<58.9)
[2022-01-05] MEDS ORDERED: FUROSEMIDE 20 MG/ 2ML VIAL ONE (17:37)
[2022-01-05] MEDS ORDERED: VITAMIN K (ADULT) 10 MG/ML ONE (17:37)
[2022-01-05] MEDS ORDERED: NA CHLORIDE 0.9% 500 ML ONE (17:39)
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
[2022-01-05 21:11] VITALS: TEMP 97.5
[2022-01-05 21:31] VITALS: O2SAT 97
[2022-01-05 21:33] VITALS: BP 107/60
[2022-01-05 22:42] LABS: Anisocytosis 2+; Blood Morphology Comment NOTED (NOT SEEN); Hypochromasia 2+; Ovalocytes SLIGHT; Platelet Estimate INCR; Poikilocytosis 1+; Polychromasia 1+; Teardrop Cell FEW
--- NOTE | 2022-01-07 13:23 | EKG ---
Test Date: 2022-01-05 Test Time: 14:19:10 Reel Worker: PH MEASUREMENT RESULTS: Intervals: Rate: 116 FL: QRSD: 134 QT: 130 QTc: 180 [place]: P: FL: QRS: 111 T: 0 INTERPRETIVE STATEMENTS: AV dual-paced complexes and premature supraventricular complexes Nonspecific intraventricular block Possible Right ventricular hypertrophy Lateral infarct, age undetermined Abnormal ECG Electronically Signed On 01-07-22 13:21:13 CDT by Ha Wray
== END 2022-01-05 21:00 ==
LOC: ER 13:27
PROC: 30233K1 Transfusion of Nonautologous Frozen Plasma into Peripheral Vein, Percutaneous Approach (ICD-10-PCS; principal; 2022-01-05)
PROC: 30233N1 Transfusion of Nonautologous Red Blood Cells into Peripheral Vein, Percutaneous Approach (ICD-10-PCS; 2022-01-05)
PROC: 05HQ33Z Insertion of Infusion Device into Left External Jugular Vein, Percutaneous Approach (ICD-10-PCS; 2022-01-05)
PROC: 05HP33Z Insertion of Infusion Device into Right External Jugular Vein, Percutaneous Approach (ICD-10-PCS; 2022-01-05)
DX: D64.9 Anemia, unspecified (principal); R53.1 Weakness; I10 Essential (primary) hypertension; Z20.822 Contact with and (suspected) exposure to COVID-19; Z95.810 Presence of automatic (implantable) cardiac defibrillator; Z88.8 Allergy status to other drugs, medicaments and biological substances
CPT/HCPCS: 93005; 87040 ×2; 85025; 36415; 86900; 86850 ×2; 85610; 86870; 86901; 83605; 85730; 84484; 80053; 84145; 86922 ×2; 83880; 71250; 74176; 36430; 51702; 96372; 99285; 86905; 36569; 36556; U0003; J1940; J3430; J1200; C9113 ×2; P9035; P9016 ×2; P9059 ×2; J7050 ×3; J7030; P9100

== ENCOUNTER 2022-01-14 15:23 | Inpatient (IN) | payer OTHER ==
--- OUTSIDE RECORDS SUMMARY | 2022-01-14 15:31 | XMS REPORT | Continuity of Care Document ---
:1945 Author Organization [facility] t Address [address] [place] [address] Care Team Providers Name Role Phone CHEN WOODY Primary Care Physician Unavailable DANYEL MCLAUGHLIN Attending Clinician Unavailable PAMELA Attending Clinician Unavailable Alvin ALEMAN Attending Clinician Carolann ALEMAN Attending Clinician Pamela ALEMAN Attending Clinician Pillo ALEMAN Attending Clinician Carolina Attending Clinician Unavailable Ash KELLEY Attending Clinician Singer CAMPOS Attending Clinician Faby Santiago MD Attending Clinician Attending Clinician Unavailable Joel CAMPOS Attending Clinician Adrian Edwards MD Attending Clinician Michael ALEMAN Attending Clinician Adrian EDWARDS Attending Clinician Unavailable Adrian MCLAUGHLIN Admitting Clinician Unavailable PAMELA Admitting Clinician Unavailable Pamela ALEMAN Admitting Clinician Carolina Admitting Clinician Unavailable Faby Santiago MD Admitting Clinician Michael ALEMAN Admitting Clinician Payers Payer Name Policy Type Policy Number Effective Date Expiration Date Isabel LAU [id number] 2017 2021 00:00:00 00:00:00 MEDICARE A B [id number] 1977 00:00:00 MEDICARE PART A [id number] 1979 \\T\\ B 00:00:00 LISS MATTHEWS [id number] 2021 00:00:00 Problems Condition Condition Condition Status [...] upper 0-09 ity of abdomen abdomen 00:00: [place] [facility] PAD PAD Disease Active 2019-08 Univers (periphera (periphera 0-09 it y of l artery l artery 00:00: [place] disease) disease) 00 Medica l Branch Coronary Coronary Disease Active 2017-08 Unive rs artery artery 2-29 ity of disease disease 00:00: [place] involving involving 00 Medi [place] [facility] coronary coronary artery of artery of [place] heart heart without without angina angina pectoris [...] Branch Dyslipidem Dyslipidem Disease Active 2017-08 U nivers ia ia 2- ity of 00:00: [place] 00 Medical Branch Encounter Encounter Disease Active 2017-08 Uni vers for for 2- ity of pre-operat pre-operat [place] cinthya cinthya Medical cardiovasc cardiovasc Br anch bull ular clearance clearance Acute Acute Disease Active 2017-08 Univers cholecysti cholecysti 2-28 it y of tis tis 00:00: [place] [facility] Atypical Atypical Disease Active 2017-08 Unive rs chest pain chest pain 0-10 it y of 00:00: [place] 00 Medical Branch Allergies, Adverse Reactions, Alerts Allergy Allergy Status Severity Reaction(s) Onset Inactive Treating Comm ents Source Name Type Date Date Clinician PREDNISO Allergy Active SLSL NE 01-05 00:00: 00 Levoflox Drug Active Itching 2019-08 Univers acin Allergy 0-09 ity of 00:00: [place] [facility] LEVOFLOX DRUG Active Med ITCHING 2019-08 Univers ACIN INGREDI 0-09 ity of 00:00: [place] [facility] PREDNISO DRUG Active Other-Cmnt Univ ers NE INGREDI 8 ity of 00:00: [place] [id number] Medical Branch Predniso Propensi Active Other - See Defibril l Univers ne ty to comments 03-21 ator went ity o f adverse 00:00: off [place] reaction 00 shortly Medical s after he Branch took the initial dose. Social History Social Habit Start Date Stop Date Quantity Comments Source Exposure to Not sure [place] of SARS-CoV-2 [facility] (event) Branch Alcohol intake 2021-11-11 2021-11-11 0 /d University of 00:00:00 00:00:00 [facility] Tobacco Comment 2020-05-16 2020-05-16 quit a week ago Univ ersity of 00:00:00 00:00:00 [facility] Tobacco use and 2020-05-16 2020-05-16 Never used Universit y of exposure 00:00:00 00:00:00 [facility] Education 2020-05-12 2020-05-12 20 University of 00:00:00 00:00:00 [facility] History SDOH 2020-05-12 2020-05-12 5 University o f Financial 00:00:00 00:00:00 [place] [facility] [place] History SDOH Food 2020-05-12 2020-05-12 1 Univers ity of Worry 00:00:00 00:00:00 [place] [facility] History SDOH Food 2020-05-12 2020-05-12 1 Univers ity of Scarcity 00:00:00 00:00:00 [place] [facility] History SDOH 2020-05-12 2020-05-12 2 University o f Transport Med 00:00:00 00:00:00 [place] Medic al [facility] History [facility] 2020-05-12 2020-05-12 2 [place] o f Transport Non-Med 00:00:00 00:00:00 [facility] Sex Ass[birth year] At [birth year] Universit y of 00:00:00 00:00:00 [facility] Smoking Status Start Date Stop Date Source Current every day smoker 2020-05-16 00:00:00 Uni versity [facility] Medications Ordered Filled Start Stop Current Ordering Indication Dosage Frequency Signature Comments Components Source Medication Medication Date Date Medication? Clinician (SIG) Name Name cefTRIAXone Yes 1000mg 1,000 mg, Univers (ROCEPHIN) 11 IV ity of 1,000 mg in 03:15: Piggyback, [place] NaCl 0.9% 00 Q24H ABX, Medic al (NS) 50 mL First dose Bra nch MINI-BAG on [place] 11/11/21 at 2215, Until Discontinu ed, Administer over 30 Minutes, 50 mL
Reas on for Anti-Infec tive: Documented Infection< br>Documen thea Infection Site: Urine
D uration of Therapy: 7 days atorvastati Yes 10mg 10 mg, Univ ers n (LIPITOR) 4-11 Oral, QHS, it y of tablet 10 02:00: First dose [place] mg 00 on [facility] 11/11/21 at Branch 2100, Until Discontinu ed, Routine gabapentin Yes 100mg 100 mg, Uni vers (NEURONTIN) 4-10 Oral, TID, it y of capsule 100 19:00: First dose [place] mg 00 on [facility] 11/11/21 at Branch 1400, Until Discontinu ed, Routine iron 2021- Yes 300mg 300 mg, IV Unive rs sucrose 4-10 04-14 Infusion, ity of (VENOFER) 18:30: 13:59 DAILY, [place] 300 mg in 00 :00 Administer Medi sofie NaCl 0.9% over 2.5 Branch (NS) 250 mL Hours, infusion First dose on [place] 11/11/21 at 1330, For 4 doses amiodarone 2021-0 Yes 200mg 200 mg, Uni vers (PACERONE) 4-10 Oral, ity of tablet 200 14:30: DAILY, [place] mg 00 First dose Medical on [facility] 11/11/21 at 0930, Until Discontinu ed, Routine glipiZIDE 0 Yes 10mg 10 mg, Univer s (GLUCOTROL) 4-10 Oral, ity of tablet 10 14:00: DAILY, [place] mg 00 First dose Medical on [facility] 11/11/21 at 0900, Until Discontinu ed, Routine clopidogreL 0 Yes 75mg 75 mg, Univ ers (PLAVIX) 75 4-10 Oral, ity of mg tablet 14:00: DAILY, [place] 75 mg 00 First dose Medical on [facility] 11/11/21 at 0900, Until Discontinu ed, Routine enoxaparin 0 Yes 40mg 40 mg, Unive rs (LOVENOX) 4-10 Subcutaneo ity of injection 14:00: [place], DAILY, [place] 40 mg 00 First dose Medical on [facility] 11/11/21 at 0900, Until Discontinu ed, Routine atorvastati 2021-0 Yes 10mg Take 10 mg Univers n 10 mg 4-10 by mouth ity of tablet 13:49: at [place] 02 bedtime. Medical Branch Cholecalcif 0 Yes Take by Un adair georgette, 4-10 mouth. ity of Vitamin D3, 13:49: [place] 50 mcg 02 Medical (2,000 Branch unit) capsule gabapentin 2021-0 Yes 100mg Take 100 Un adair 100 mg 4-10 mg by ity of capsule 13:49: mouth 3 [place] 02 (three) Medical times Branch daily. venlafaxine 0 Yes 150mg Take 150 U nivers XR 150 mg 4-10 mg by ity of 24 hr 13:49: mouth [place] capsule 02 daily with Medica l breakfast. Branch glipiZIDE 2021-0 Yes 10mg Take 10 mg Un adair 10 mg 4-10 by mouth ity of tablet 13:49: daily. Medical Branch digoxin 125 Yes 125ug Take 125 U nivers mcg (0.125 4-10 mcg by ity of mg) tablet 13:49: mouth [place] 02 daily. Medical Branch metFORMIN Yes 500mg Take 500 Uni vers 500 mg 24 4-10 mg by ity of hr tablet 13:49: mouth daily with Medical breakfast. Branch diazePAM 5 Yes 5mg Take 5 mg Un adair mg tablet 4-10 by mouth 3 ity of 13:49: (three) 02 times Medical daily. Branch terazosin 5 Yes 5mg Take 5 mg U nivers mg capsule 4-10 by mouth ity o f 13:49: at [place] bedtime. Medical Branch busPIRone Yes 15mg Take 15 mg Un adair 15 mg 4-10 by mouth 3 ity of tablet 13:49: (three) [place] times Medical daily. Branch sildenafiL Yes Take [...] Me dical mg First dose Branch on [place] 11/11/21 at 0845, Until Discontinu ed, Routine diazePAM Yes 5mg 5 mg, Univers (VALIUM) 4-10 Oral, TID, ity o f tablet 5 mg 13:45: First dose [place] 00 on [facility] 4/10/22 at Branch 0845, Until Discontinu ed, Routine HYDROcodone 2021-0 Yes 1{tbl} 1 tablet, Univers -acetaminop 4-10 Oral, ity of hen (NORCO) 13:44: Q6HPRN, Dar as 10-325 mg 20 Starting Medica l tablet 1 on [place] Branch tablet 11/11/21 at 0844, Until Discontinu ed, Routine, Pain (scale 7-10) furosemide 2021-0 Yes 20mg 20 mg, Unive rs (LASIX) 4-10 Slow IV ity of injection 13:00: Push, [place] 20 mg 00 Q12H, Medical First dose Branch on [place] 11/11/21 at 0800, Until Discontinu ed, Routine ondansetron 2021-0 Yes 4mg 4 mg, Slow Univers (ZOFRAN 4-10 IV Push, ity of (PF)) 03:43: Q6HPRN, [place] injection 4 03 Starting Medi sofie mg on Sat Branch 11/10/21 at 2243, Until Discontinu ed, Routine, Nausea and Vomiting (N/V) acetaminoph 2021-0 Yes 650mg 650 mg, Un adair en 4-10 Oral, ity of (TYLENOL) 03:42: Q6HPRN, [place] tablet 650 50 Starting Medic al mg on Sat Branch 11/10/21 at 2242, Until Discontinu ed, Routine, Pain (scale 1-3), Temp > 38.5 C cefTRIAXone 2021-0 2021- No 1000mg 1,000 mg, Univers (ROCEPHIN) 4-10 04-10 IV ity of 1,000 mg in 03:30: 03:48 Piggyback, [place] NaCl 0.9% 00 :00 ONCE, 1 Medical (NS) 50 mL dose, On [facility] h MINI-BAG 11/10/21 at 2230, Administer over 30 Minutes, 50 mL
R jalen for Anti-Infec tive: Documented Infection< br>Documen thea Infection Site: Urine<br&g t;Duration of Therapy: Other (see Comments) ondansetron 2021-0 202- No 4mg 4 mg, Slow Univers (ZOFRAN 4-10 04-10 IV Push, ity of (PF)) 02:15: 01:41 ONCE, 1 [place] injection 4 00 :00 dose, On Medi sofie mg 11/10/21 Branch at 2115, GORDON naloxone 2021-2021- No .4mg 0.4 mg, Unive rs (NARCAN) 11-11 Intravenou ity of injection 02:15: 02:15 s, ONCE, 1 [place] 0.4 mg 00 :00 dose, On Medical 11/10/21 Branch at 2115, GORDON amoxicillin 2021-2021- Yes [id number] 1{tbl} Take 1 Univers -clavulanat 11-11 tablet by it y of e 00:00: 04:59 mouth 2 [place] (AUGMENTIN) 00 :00 (two) Medical 875-125 mg times Branch per tablet daily for 7 days. atorvastati 2019-08 Yes 10mg Take 10 mg Univers n 10 mg 0-20 by mouth ity of tablet 23:57: at [place] [address] bedtime. Medical Branch Cholecalcif 2019-08 Yes Take by Un adair georgette, 0-20 mouth. ity of Vitamin D3, 23:57: [place] 50 mcg 42 Medical (2,000 Branch unit) capsule gabapentin 2019-08 Yes 100mg Take 100 Un adair 100 mg 0-20 mg by ity of capsule 23:57: mouth 3 [place] [address] (three) Medical times Branch daily. venlafaxine 2019-08 Yes 150mg Take 150 U nivers XR 150 mg 0-20 mg by ity of 24 hr 23:57: mouth [place] capsule 42 daily with Medica l breakfast. Branch glipiZIDE 2019-08 Yes 10mg Take 10 mg Un adair 10 mg 0-20 by mouth ity of tablet 23:57: daily. [place] [address] Medical Branch digoxin 125 2019-08 Yes 125ug Take 125 U nivers mcg (0.125 0-20 mcg by ity of mg) tablet 23:57: mouth [place] [address] daily. Medical Branch metFORMIN 2019-08 Yes 500mg Take 500 Uni vers 500 mg 24 0-20 mg by ity of hr tablet 23:57: mouth [place] 42 daily with Medical breakfast. Branch diazePAM 5 2019-08 Yes 5mg Take 5 mg Un adair mg tablet 0-20 by mouth 3 ity of 23:57: (three) [place] 42 times Medical daily. Branch terazosin 5 2019-08 Yes 5mg Take 5 mg U nivers mg capsule 0-20 by mouth ity o f 23:57: at [place] [address] bedtime. Medical Branch busPIRone 2019-08 Yes 15mg Take 15 mg Un adair 15 mg 0-20 by mouth 3 ity of tablet 23:57: (three) [place] [address] times Medical daily. Branch sildenafiL 2019-08 Yes Take by Uni vers 100 mg 0-20 mouth. ity of tablet 23:57: [place] [address] Medical Branch clopidogreL 2019-08 Yes 75mg Take 75 mg Univers 75 mg 0-20 by mouth ity of tablet 23:57: daily. [place] [address] Medical Branch HYDROcodone 2019-08 Yes 1{tbl} Take 1 Un adair -acetaminop 0-20 tablet by ity of hen 10-325 23:57: mouth [place] mg tablet 42 every 6 Medical (six) Branch hours as needed. atorvastati 2019-08 Yes 10mg Take 10 mg Univers n 10 mg 0-20 by mouth ity of tablet 23:57: at [place] [address] bedtime. Medical Branch Cholecalcif 2019-08 Yes Take by Un adair georgette, 0-20 mouth. ity of Vitamin D3, 23:57: [place] 50 mcg 42 Medical (2,000 Branch unit) capsule gabapentin 2019-08 Yes 100mg Take 100 Un adair 100 mg 0-20 mg by ity of capsule 23:57: mouth 3 [place] [address] (three) Medical times Branch daily. venlafaxine 2019-08 Yes 150mg Take 150 U nivers XR 150 mg 0-20 mg by ity of 24 hr 23:57: mouth [place] capsule 42 daily with Medica l breakfast. Branch glipiZIDE 2019-08 Yes 10mg Take 10 mg Un adair 10 mg 0-20 by mouth ity of tablet 23:57: daily. [place] [address] Medical Branch digoxin 125 2019-08 Yes 125ug Take 125 U nivers mcg (0.125 0-20 mcg by ity of mg) tablet 23:57: mouth [place] [address] daily. Medical Branch metFORMIN 2019-08 Yes 500mg Take 500 Uni vers 500 mg 24 0-20 mg by ity of hr tablet 23:57: mouth [place] 42 daily with Medical breakfast. Branch diazePAM 5 2019-08 Yes 5mg Take 5 mg Un adair mg tablet 0-20 by mouth 3 ity of 23:57: (three) [place] [address] times Medical daily. Branch terazosin 5 2019-08 Yes 5mg Take 5 mg U nivers mg capsule 0-20 by mouth ity o f 23:57: at [place] [address] bedtime. Medical Branch busPIRone 2019-08 Yes 15mg Take 15 mg Un adair 15 mg 0-20 by mouth 3 ity of tablet 23:57: (three) [place] [address] times Medical daily. Branch sildenafiL 2019-08 Yes Take by Uni vers 100 mg 0-20 mouth. ity of tablet 23:57: [place] [address] Medical Branch clopidogreL 2019-08 Yes 75mg Take 75 mg Univers 75 mg 0-20 by mouth ity of tablet 23:57: daily. [place] [address] Medical Branch HYDROcodone 2019-08 Yes 1{tbl} Take 1 Un adair -acetaminop 0-20 tablet by ity of hen 10-325 23:57: mouth [place] mg tablet 42 every 6 Medical (six) Branch hours as needed. atorvastati 2019-08 Yes 10mg Take 10 mg Univers n 10 mg 0-20 by mouth ity of tablet 23:57: at [place] [address] bedtime. Medical Branch Cholecalcif 2019-08 Yes Take by Un adair georgette, 0-20 mouth. ity of Vitamin D3, 23:57: [place] 50 mcg 42 Medical (2,000 Branch unit) capsule gabapentin 2019-08 Yes 100mg Take 100 Un adair 100 mg 0-20 mg by ity of capsule 23:57: mouth 3 [place] [address] (three) Medical times Branch daily. venlafaxine 2019-08 Yes 150mg Take 150 U nivers XR 150 mg 0-20 mg by ity of 24 hr 23:57: mouth [place] capsule 42 daily with Medica l breakfast. Branch glipiZIDE 2019-08 Yes 10mg Take 10 mg Un adair 10 mg 0-20 by mouth ity of tablet 23:57: daily. [place] [address] Medical Branch digoxin 125 2019-08 Yes 125ug Take 125 U nivers mcg (0.125 0-20 mcg by ity of mg) tablet 23:57: mouth [place] 42 daily. Medical Branch metFORMIN 2019-08 Yes 500mg Take 500 Uni vers 500 mg 24 0-20 mg by ity of hr tablet 23:57: mouth [place] 42 daily with Medical breakfast. Branch diazePAM 5 2019-08 Yes 5mg Take 5 mg Un adair mg tablet 0-20 by mouth 3 ity of 23:57: (three) [place] 42 times Medical daily. Branch terazosin 5 2019-08 Yes 5mg Take 5 mg U nivers mg capsule 0-20 by mouth ity o f 23:57: at [place] [address] bedtime. Medical Branch busPIRone 2019-08 Yes 15mg Take 15 mg Un adair 15 mg 0-20 by mouth 3 ity of tablet 23:57: (three) [place] [address] times Medical daily. Branch sildenafiL 2019-08 Yes Take by Uni vers 100 mg 0-20 mouth. ity of tablet 23:57: [place] [address] Medical Branch clopidogreL 2019-08 Yes 75mg Take 75 mg Univers 75 mg 0-20 by mouth ity of tablet 23:57: daily. [place] [address] Medical Branch HYDROcodone 2019-08 Yes 1{tbl} Take 1 Un adair -acetaminop 0-20 tablet by ity of hen 10-325 23:57: mouth [place] mg tablet 42 every 6 Medical (six) Branch hours as needed. flu vaccine 2019-08 2020- No .7mL 0.7 mL, Un adair 67 yrs and 0-20 10-20 Intramuscu it y of up(PF) 22:45: 23:24 [place], ONCE, [place] (FLUZONE 00 :00 1 dose, Medical HIGHDOSE Tue Branch QUAD 20-21 10/20/20 PF) syringe at 1745, 0.7 mL Routine atorvastati 2019-08 Yes 10mg Take 10 mg Univers n 10 mg 0-20 by mouth ity of tablet 18:57: at [place] [address] bedtime. Medical Branch Cholecalcif 2019-08 Yes Take by Un adair georgette, 0-20 mouth. ity of Vitamin D3, 18:57: [place] 50 [facility] 42 Medical (2,000 Branch unit) capsule gabapentin 2019-08 Yes 100mg Take 100 Un adair 100 mg 0-20 mg by ity of capsule 18:57: mouth 3 [place] [address] (three) Medical times Branch daily. venlafaxine 2019-08 Yes 150mg Take 150 U nivers XR 150 mg 0-20 mg by ity of 24 hr 18:57: mouth [place] capsule 42 daily with Medica l breakfast. Branch glipiZIDE 2019-08 Yes 10mg Take 10 mg Un adair 10 mg 0-20 by mouth ity of tablet 18:57: daily. [place] [address] Medical Branch digoxin 125 2019-1 Yes 125ug Take 125 U nivers mcg (0.125 0-20 mcg by ity of mg) tablet 18:57: mouth [place] 42 daily. Medical Branch metFORMIN 2019-08 Yes 500mg Take 500 Uni vers 500 mg 24 0-20 mg by ity of hr tablet 18:57: mouth [place] 42 daily with Medical breakfast. Branch diazePAM 5 2019-08 Yes 5mg Take 5 mg Un adair mg tablet 0-20 by mouth 3 ity of 18:57: (three) [place] 42 times Medical daily. Branch terazosin 5 2019-08 Yes 5mg Take 5 mg U nivers mg capsule 0-20 by mouth ity o f 18:57: at [place] [address] bedtime. Medical Branch busPIRone 2019-08 Yes 15mg Take 15 mg Un adair 15 mg 0-20 by mouth 3 ity of tablet 18:57: (three) [place] 42 times Medical daily. Branch sildenafiL 2019-08 Yes Take by Uni vers 100 mg 0-20 mouth. ity of tablet 18:57: [place] [address] Medical Branch clopidogreL 2019-08 Yes 75mg Take 75 mg Univers 75 mg 0-20 by mouth ity of tablet 18:57: daily. [place] [address] Medical Branch HYDROcodone 2019-08 Yes 1{tbl} Take 1 Un adair -acetaminop 0-20 tablet by ity of hen 10-325 18:57: mouth [place] mg tablet 42 every 6 Medical (six) Branch hours as needed. hydrALAZINE 2019-08 2020- No 25mg Take 25 mg Univers 25 mg 0-19 10-19 by mouth ity of tablet 21:19: 00:00 every 6 [place] 31 :00 (six) Medical hours. Branch carvediloL 2019-08 2020- No 25mg Take 25 mg Univers 25 mg 0-19 10-19 by mouth 2 ity of tablet 21:19: 00:00 (two) [place] 31 :00 times Medical daily with Branch meals. TURMERIC 2019-08 2020- No Take by Univ ers ORAL 0-19 10-19 mouth. ity of 21:19: 00:00 [place] 31 :00 Medical Branch ZINC 2019-08 2020- No Take by Univers ACETATE 0-19 10-19 mouth. ity of ORAL 21:19: 00:00 [place] 31 :00 Medical Branch carvediloL 2019-08 Yes [id number] 12.5mg Take 1 Univers 12.5 mg 0-19 tablet by ity of tablet 00:00: mouth 2 [place] (two) Medical times Branch daily with meals. carvediloL 2019-08 Yes [id number] 12.5mg Take 1 Univers 12.5 mg 0-19 tablet by ity of tablet 00:00: mouth 2 [place] (two) Medical times Branch daily with meals. carvediloL 2019-08 Yes [id number] 12.5mg Take 1 Univers 12.5 mg 0-19 tablet by ity of tablet 00:00: mouth 2 [place] (two) Medical times Branch daily with meals. carvediloL 2019-08 Yes [id number] 12.5mg Take 1 Univers 12.5 mg 0-19 tablet by ity of tablet 00:00: mouth 2 [place] (two) Medical times Branch daily with meals. carvediloL 2019-08 Yes [id number] 12.5mg Take 1 Univers 12.5 mg 0-19 tablet by ity of tablet 00:00: mouth 2 [place] (two) Medical times Branch daily with meals. ertapenem 2019-08- No 1000mg 1,000 mg, Univers (INVANZ) 05-21 IV ity of 1,000 mg in 18:00: 18:02 Piggyback, [place] NaCl 0.9% 00 :00 Q24H ABX, Medic al (NS) 50 mL 2 doses, Branc h MINI-BAG First dose (after last modificati on) on 05/20/20 at 1300, Last dose on 05/21/20 at 1300, 50 mL
Reas on for Anti-Infec tive: Documented Infection< br>Documen thea Infection Site: Other
O ther site: lung [...] No 500mg 500 mg, U nivers n 0-16 10-17 Oral, Q24H ity of (ZITHROMAX) 23:00: 22:10 ABX, 2 [place] tablet 500 00 :00 doses, Medical mg First dose Branch on Fri05/19/20 at 1800, Last dose on Fri05/20/20 at 1800, GORDON
Re ason for Anti-Infec tive: Documented Infection< br>Documen thea Infection Site: Respirator y
Durat ion of Therapy: Other (see Comments) atorvastati 2020- Yes 10mg 10 mg, Univ ers n (LIPITOR) 0-15 Oral, QHS, it y of tablet 10 02:00: First dose [place] mg 00 on Fri [facility] 05/17/20 Branch at 2100, Until Discontinu ed, Routine terazosin 2020- Yes 5mg 5 mg, Univers (HYTRIN) 0-15 Oral, QHS, ity o f capsule 5 02:00: First dose [place] mg 00 on Fri [facility] 05/17/20 Branch at 2100, Until Discontinu ed, Routine sodium 2020- Yes 4mL 4 mL, Univers chloride 7% 0-15 Inhalation it y of (HYPER-TAD) 01:00: , BID, [place] nebulizer 00 First dose Medi sofie solution 4 on Fri Branch 05/17/20 at 2000, Until Discontinu ed, Routine carvediloL 2019- Yes 12.5mg 12.5 mg, U nivers (COREG) 0-14 Oral, BID ity of tablet 12.5 22:00: MEALS, [place] mg 00 First dose Medical (after Branch last modificati on) on Fri05/17/20 at 1700, Until Discontinu ed, Routine nicotine 2020- Yes 1{patch 1 Patch, Un adair (NICODERM) 0-14 } Topical, ity o f 14 mg/24 hr 20:30: Administer [place] patch 1 00 over 24 Medical Patch Hours, Branch Q24H, First dose on Fri05/17/20 at 1530, Until Discontinu ed, Routine ipratropium 2020- Yes 3mL 3 mL, Unive rs -albuteroL 0-14 Inhalation ity of (DUONEB) 19:00: , TID, [place] 0.5 mg-3 00 First dose Medic al mg(2.5 mg on Fri)/3 mL 05/17/20 nebulizer at 1400, solution 3 Until mL Discontinu ed, Routine ertapenem 2019-08- No 1000mg 1,000 mg, Univers (INVANZ) 0-14 17 IV ity of 1,000 mg in 18:00: 00:16 Piggyback, [place] NaCl 0.9% 00 :24 Q24H ABX, Medic al (NS) 50 mL First dose Bra meh MINI-BAG on Fri05/17/20 at 1300, Until Discontinu ed, 50 mL
Reas on for Anti-Infec tive: Documented Infection< br>Documen thea Infection Site: Other<br&g t;Other site: lung and [...] Medical injection INSTRUCTIO Bran ch 300 Units NS, Starting Fri05/17/20 at 1202, Until Discontinu [...] ity of XR) 24 hr 13:00: WITH [place] capsule 150 00 BREAKFAST, Me dical mg [...] AC+HS, ity of Insulin-Reg 12:30: First dose [place] ular + Fsbg 00 on Fri Medica l Testing 05/17/20 Branch at 0730, Until Discontinu ed, Routine acetaminoph 2019-08 Yes 650mg 650 mg, Un adair en 0-14 Oral, ity of (TYLENOL) 06:30: Q6HPRN, [place] tablet 650 22 Starting Medic al mg [facility] Branch 05/17/20 at 0130, Until Discontinu ed, Routine, Pain (scale 1-3) glucagon 2019- Yes 1mg 1 mg, Univers (GLUCAGEN 0-14 [...] IV ity of (D50W) 06:18: Push, PRN, [place] injection 17 Starting Medica l 25 mL Wed Branch 05/17/20 at 0118, Until Discontinu ed, GORDON, Blood Glucose < or = 70 mg/dL and patient is unable to swallow or has mental status changes. HYDROcodone 2019-08 Yes 1{tbl} 1 tablet, Univers -acetaminop 0-14 Oral, ity of hen (NORCO) 06:17: Q6HPRN, [place] 10-325 mg 16 Starting Medica l tablet 1 Wed Branch tablet 05/17/20 at 0117, Until Discontinu ed, Routine, Pain (scale 7-10) diazePAM 2019-08 Yes 5mg 5 mg, Univers (VALIUM) 0-14 Oral, ity of tablet 5 mg 06:17: BIDPRN, [place] as 15 Starting Medical Wed Branch 05/17/20 at 0117, Until Discontinu ed, Routine, Agitation, Anxiety morpHINE 2019-08- No 4mg 4 mg, Slow Un adair injection 4 0-14 10-13 IV Push, ity of mg 00:15: 23:12 ONCE, 1 [place] 00 :00 dose, [facility] 05/16/20 Branch at 1915, STAT azithromyci 2019-08 2020- No 500mg 500 mg, IV Univers n 0-13 10-14 Piggyback, ity of (ZITHROMAX) 23:45: 00:12 ONCE, 1 [place] 500 mg in 00 :00 dose, [facility] al NaCl 0.9% 05/16/20 Branch (NS) 250 mL at 1845, VIAL-MATE 250 IV mL
Reas piggyback on for Anti-Infec tive: Empiric Therapy for Suspected Infection< br>Empiric Therapy Site: Respirator y
Durat ion of therapy: 72 hours cefTRIAXone 2019-08 2020- No 1000mg 1,000 mg, Univers (ROCEPHIN) 0-13 10-13 IV ity of 1,000 mg in 23:45: 23:13 Piggyback, [place] NaCl 0.9% 00 :00 ONCE, 1 Medical (NS) 50 mL dose, Esperanza Dominguez ch MINI-BAG 05/16/20 at 1845, 50 mL
Reas on for Anti-Infec tive: Empiric Therapy for Suspected Infection< br>Empiric Therapy Site: Respirator y
Durat ion of therapy: 72 hours [place]-3-DHA 2019-08 2020- No 1500mg Take 1,500 Univers -EPA-Fish 0-11 10-11 mg by ity of Oil 18:56: 00:00 mouth [place] 500-1,000 30 :00 daily. Medical mg Cap Branch carvediloL 2019-08 2020- No 25mg Take 25 mg Univers (COREG) 25 0-11 10-11 by mouth 2 it y of mg tablet 18:56: 00:00 (two) [place] 30 :00 times Medical daily with Branch meals. HYDROcodone 2019-08 2020- No 1{tbl} Take 1 U nivers -acetaminop 0-11 10-11 tablet by it y of hen (NORCO) 18:56: 00:00 mouth [place] 10-325 mg 30 :00 every 4 Medical tablet (four) Branch hours as needed for Pain (scale 4-6) or Pain (scale 7-10). clopidogreL 2019-08 2020- No 75mg Take 75 mg Univers (PLAVIX) [...] mouth ity of tablet 18:56: 00:00 daily. [place] 30 :00 Medical Branch diazePAM 10 2019-08 2020- No 10mg Take 10 mg Univers mg tablet 0-11 by mouth 3 ity of 18:56: 00:00 (three) [place] 30 :00 times Medical daily. Branch terazosin 5 2019-08- No 5mg Take 5 mg Univers mg capsule 011 10-11 by mouth ity of 18:56: 00:00 at [place] 30 :00 bedtime. Medical Branch HYDROcodone 2019-08 Yes 1{tbl} 1 tablet, Univers -acetaminop 0-11 Oral, ity of hen (NORCO) 12:15: Q4HPRN, [place] 10-325 mg 00 Starting Medica l tablet 1 [facility] tablet 05/14/20 at 0715, Until Discontinu ed, Routine, Pain (scale 4-6) terazosin 2019-08 Yes 1mg 1 mg, Univers (HYTRIN) 0-10 Oral, QHS, ity o f capsule 1 02:00: [place] dose [place] mg 00 on Fri [facility] 05/12/20 at Branch 2100, Until Discontinu ed, Routine atorvastati 2019-08 Yes 20mg 20 mg, Univ ers n (LIPITOR) 0-10 Oral, QHS, it y of tablet 20 02:00: [place] dose [place] mg 00 on Fri [facility] 05/12/20 at Branch 2100, Until Discontinu ed, Routine enoxaparin 2019-08 Yes 40mg 40 mg, Unive rs (LOVENOX) 0-09 Subcutaneo ity of injection 22:00: us, DAILY, [place] 40 mg 00 First dose Medical on Fri [place] 05/12/20 at 1700, Until Discontinu ed, Routine glipiZIDE 2019-08 Yes 5mg 5 mg, Univers (GLUCOTROL) 0-09 Oral, ity of tablet 5 mg 21:30: BIDAC, [place] 00 First dose Medical on Fri [place] 05/12/20 at 1630, Until Discontinu ed, Routine NaCl 0.9% 2019-08- No IV Univers (NS) IV 0-09 10-10 Infusion, ity of infusion 18:00: 15:02 at 75 [place] 00 :44 mL/hr, Medical CONTINUOUS [place] , Starting Fri05/12/20 at 1300, Until 10/10/20 at 1002, Routine sulfur 2019-08- No 5mL 5 mL, Univers hexafluorid 005-12 Intravenou i ty of e microsphr 17:00: 16:50 s, ONCE, 1 [place] (LUMASON) 00 :00 dose, Fri Medic al injection 5 05/12/20 at Br anch mL 1200, Routine
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 Restricted medication : EVA BENAVIDES iohexol 2019-08- No 150mL 150 mL, Unive rs (OMNIPAQUE 005-12 Intravenou it y of 350 14:30: 14:30 s, ONCE, 1 [place] BULK-150 00 :00 dose, Fri Medica l mL) 05/12/20 at Branch injection 0930, 150 mL Routine NaCl 0.45% 2019-08- No 1000mL at 50 Uni vers (1/2NS) IV 005-12 mL/hr, ity of infusion 14:15: 16:58 1,000 mL, [place] 1,000 mL 00 :46 IV Medical Infusion, Branch CONTINUOUS , Starting Fri05/12/20 at 0915, Until Fri05/12/20 at 1158, Routine clopidogreL 2019-08 Yes 75mg 75 mg, Univ ers (PLAVIX) 0-09 Oral, ity of tablet 75 14:00: DAILY, [place] mg 00 First dose Medical on Fri [place] 05/12/20 at 0900, Until Discontinu ed, Routine [...] First dose [place] mg 00 on Fri [facility] 05/12/20 at Branch 0815, Until Discontinu ed, Routine diazePAM 2019-08 Yes 10mg 10 mg, Univers (VALIUM) 0-09 Oral, TID, ity o f tablet 10 13:15: First dose [place] mg 00 on [facility] 05/12/20 at Branch 0815, Until Discontinu ed, Routine venlafaxine 2019-08 Yes 75mg 75 mg, Univ ers XR (EFFEXOR 0-09 Oral, BID, it y of XR) 24 hr 13:15: First dose [place] capsule 75 00 on Fri Medical mg 05/12/20 at Branch 0815, Until Discontinu ed, Routine aspirin 2019-08 Yes 81mg 81 mg, Univers chewable 0-09 [...] on Fri Medical (NOVOLOG) + 05/12/20 at [facility] 0730, Testing Until Discontinu ed, Routine [...] 00 over 12 Medical patch 1 Hours, [place] Patch DAILY, First dose on Fri05/12/20 at 0600, Until Discontinu ed, Routine ondansetron 2019-08 Yes 4mg 4 mg, Slow Univers (ZOFRAN 009 IV Push, ity of (PF)) 10:45: Q6HPRN, [place] injection 4 21 Starting Medi sofie mg Fri [place] 05/12/20 at 0545, Until Discontinu ed, Routine, Nausea and Vomiting (N/V) FENTanyl PF 2019-08- No 25ug 25 mcg, Un adair (SUBLIMAZE 005-12 Slow IV ity o f (PF)) 09:15: 08:20 Push, [place] injection 00 :00 ONCE, 1 Medical 25 mcg dose, Fri [place] 05/12/20 at 0415, STAT cefTRIAXone 2019-08- No 1000mg 1,000 mg, Univers (ROCEPHIN) 005-12 IV ity of 1,000 mg in 06:55: 07:31 [place], [place] NaCl 0.9% 00 :00 ONCE, 1 Medical (NS) 50 mL dose, Fri Bran ch MINI-BAG 05/12/20 at 0200, 50 mL
Reas on for Anti-Infec tive: Documented Infection< br>Documen thea Infection Site: Respirator y
Durat ion of Therapy: Other (see Comments) levoFLOXaci 2019-08 No 500mg 500 mg, IV Univers n in D5W 05-12 Piggyback, ity of (LEVAQUIN) 06:45: 07:25 ONCE, 1 [place] 500 mg/100 00 :00 dose, Fri Medi sofie mL 05/12/20 at Branch Piggyback 0145, 100 500 mg mL
Reas on for Anti-Infec tive: Empiric Therapy for Suspected Infection< br>Empiric Therapy Site: Respirator y
Durat ion of therapy: 7 days HYDROcodone 2019-08 2020- No 1{tbl} 1 tablet, Univers -acetaminop 0- Oral, ity of hen (NORCO 06:45: 05:48 ONCE, 1 [place] 5) 5-325 mg 00 :00 dose, Fri Med ical tablet 1 05/12/20 at [facility] h tablet 0145, [place] NaCl 0.9% 2019-08- No 1000mL at 999 Uni vers (NS) bolus 0-09 10-09 mL/hr, ity of infusion 05:45: 08:30 1,000 mL, [place] as 1,000 mL 00 :00 IV Medical Infusion, [place] ONCE, 1 dose, 05/12/20 at 0045, [place] iohexol 2019-08- No 120mL 120 mL, Unive rs (OMNIPAQUE 0-09 1009 Intravenou it y of 350 05:00: 04:48 s, ONCE, 1 [place] BULK-150 00 :00 dose, Fri Medica l mL) 05/12/20 at [place] injection 0000, 120 mL Routine No known No Univers medications ity of [facility] Immunizations Ordered Filled Immunization Date Status Comments [facility] e Immunization Name Name Influenza High Dose 2020-05-23 Completed Unive rsity of [place] 00:00:00 [facility] Influenza High Dose 2020-05-23 Completed Unive rsity of [place] 00:00:00 [facility] Influenza High Dose 2020-05-23 Completed Unive rsity of [place] 00:00:00 [facility] Influenza High Dose 2020-05-23 Completed Unive rsity of [place] 00:00:00 [facility] Influenza High Dose 2020-05-23 Completed Unive rsity of [place] 00:00:00 [facility] Pneumococcal 13 2019-09-27 Completed Universit y of Conjugate, PCV13 00:00:00 [facility] dical (Prevnar 13) Branch Pneumococcal 13 2019-09-27 Completed Universit y of Conjugate, PCV13 00:00:00 [place] Me dical (Prevnar 13) Branch Pneumococcal 13 2019-09-27 Completed Universit y of Conjugate, PCV13 00:00:00 [facility] dical (Prevnar 13) Branch Pneumococcal 13 2019-09-27 Completed Universit y of Conjugate, PCV13 00:00:00 [facility] dical (Prevnar 13) Branch Pneumococcal 13 2019-09-27 Completed Universit y of Conjugate, PCV13 00:00:00 [facility] dical (Prevnar 13) [place] Influenza High Dose 2017-05-26 Completed Unive rsity of 00:00:00 [facility] Pneumococcal 13 2017-05-26 Completed Universit y of Conjugate, PCV13 00:00:00 [facility] dical (Prevnar 13) Branch TDAP 2017-05-26 Completed University of 00:00:00 [facility] Influenza High Dose 2017-05-26 Completed Unive rsity of 00:00:00 [facility] Pneumococcal 13 2017-05-26 Completed Universit y of Conjugate, PCV13 00:00:00 [facility] dical (Prevnar 13) Branch TDAP 2017-05-26 Completed University of 00:00:00 [facility] Influenza High Dose 2017-05-26 Completed Unive rsity of 00:00:00 [facility] Pneumococcal 13 2017-05-26 Completed Universit y of Conjugate, PCV13 00:00:00 [facility] dical (Prevnar 13) Branch TDAP 2017-05-26 Completed University of 00:00:00 [facility] Influenza High Dose 2017-05-26 Completed Unive rsity of 00:00:00 [facility] Pneumococcal 13 2017-05-26 Completed Universit y of Conjugate, PCV13 00:00:00 [facility] dical (Prevnar 13) Branch TDAP 2017-05-26 Completed University of 00:00:00 [facility] Influenza High Dose 2017-05-26 Completed Unive rsity of 00:00:00 [facility] Pneumococcal 13 2017-05-26 Completed Universit y of Conjugate, PCV13 00:00:00 [facility] dical (Prevnar 13) Branch TDAP 2017-05-26 Completed University of 00:00:00 [facility] Influenza High Dose 2017-05-26 Completed Unive rsity of 00:00:00 [facility] Pneumococcal 13 2017-05-26 Completed Universit y of Conjugate, PCV13 00:00:00 [facility] dical (Prevnar 13) Branch TDAP 2017-05-26 Completed University of 00:00:00 [facility] Influenza High Dose 2017-05-26 Completed Unive rsity of 00:00:00 [facility] Pneumococcal 13 2017-05-26 Completed Universit y of Conjugate, PCV13 00:00:00 [facility] dical (Prevnar 13) Branch TDAP 2017-05-26 Completed University of 00:00:00 [facility] Zoster(Zostavax)( 2012-10-26 Completed Unive rsity of ingles) 00:00:00 [facility] Zoster(Zostavax)( 2012-10-26 Completed Unive rsity of ingles) 00:00:00 [facility] Zoster(Zostavax)( 2012-10-26 Completed Unive rsity of ingles) 00:00:00 [facility] Zoster(Zostavax)( 2012-10-26 Completed Unive rsity of ingles) 00:00:00 [facility] Zoster(Zostavax)( 2012-10-26 Completed Unive rsity of ingles) 00:00:00 [facility] Zoster(Zostavax)( 2012-10-26 Completed Unive rsity of ingles) 00:00:00 [facility] Zoster(Zostavax)( 2012-10-26 Completed Unive rsity of ingles) 00:00:00 [facility] Influenza Virus 2012-07-14 Completed Universit y of Vaccine 00:00:00 [facility] Influenza Virus 2012-07-14 Completed Universit y of Vaccine 00:00:00 [facility] Influenza Virus 2012-07-14 Completed Universit y of Vaccine 00:00:00 [facility] Influenza Virus 2012-07-14 Completed Universit y of Vaccine 00:00:00 [facility] Influenza Virus 2012-07-14 Completed Universit y of Vaccine 00:00:00 [facility] Influenza Virus 2012-07-14 Completed Universit y of Vaccine 00:00:00 [facility] Influenza Virus 2012-07-14 Completed Universit y of Vaccine 00:00:00 [facility] Vital Signs Vital Name Observation Time Observation Value Comments Source HEIGHT 2022-01-05 22:20:00 185.4 cm WEIGHT 2022-01-05 22:20:00 97.1 kg HEIGHT 2022-01-05 22:20:00 185.4 cm WEIGHT 2022-01-05 22:20:00 97.1 kg Systolic blood 2021-11-11 16:15:00 121 mm[Hg] Univer sity of pressure [facility] Diastolic blood 2021-11-11 16:15:00 49 mm[Hg] Unive rsity of pressure [facility] Heart rate 2021-11-11 16:15:00 65 /[facility] Body temperature 2021-11-11 16:15:00 36.33 [place] Univ ersity of [place] [facility] Respiratory rate 2021-11-11 16:15:00 18 /min Univ ersity of [place] [facility] Oxygen saturation in 2021-11-11 16:15:00 91 /min University of Arterial blood by [facility] Pulse oximetry Branch Body weight 2021-11-11 08:38:00 89.994 kg Universi ty of [place] [facility] BMI 2021-11-11 08:38:00 26.18 kg/m2 Universi ty of [place] [facility] Systolic blood 2020-05-23 21:13:00 105 mm[Hg] Univer sity of pressure [place] [facility] Diastolic blood 2020-05-23 21:13:00 51 mm[Hg] Unive rsity of pressure [place] [facility] Heart rate 2020-05-23 21:13:00 60 /min Universi ty of [place] [facility] Body temperature 2020-05-23 21:13:00 36.83 [place] Univ ersity of [place] [facility] Respiratory rate 2020-05-23 21:13:00 18 /min Univ ersity of [place] [facility] Oxygen saturation in 2020-05-23 21:13:00 95 /min University of Arterial blood by [facility] Pulse oximetry Branch Body weight 2020-05-23 10:49:00 90.493 kg Universi ty of [place] [facility] BMI 2020-05-23 10:49:00 26.32 kg/m2 Universi ty [facility] [place] [facility] Body height 2020-05-17 01:56:00 185.4 cm Universi ty of [place] [facility] Oxygen saturation in 2020-05-14 16:53:00 89 /min University of Arterial blood by [facility] Pulse oximetry Branch Systolic blood 2020-05-14 16:00:00 107 mm[Hg] Univer sity of pressure [place] [facility] Diastolic blood 2020-05-14 16:00:00 61 mm[Hg] Unive rsity of pressure [place] [facility] Heart rate 2020-05-14 16:00:00 79 /min Universi ty of [place] [facility] Body temperature 2020-05-14 16:00:00 36.44 [place] Univ ersity of [place] [facility] Respiratory rate 2020-05-14 16:00:00 18 /min Univ ersity of [place] [facility] Body weight 2020-05-14 09:15:00 87.998 kg [facility] BMI 2020-05-14 09:15:00 25.60 kg/m2 [facility] Body height 2020-05-12 03:15:00 185.4 cm [facility] Procedures Procedure Date / Time Performing Clinician Source Performed FERRITIN SERUM 2021-11-11 13:36:00 Carolann [facility] IRON 2021-11-11 13:36:00 Carolann [facility] TOTAL IRON BINDING 2021-11-11 13:36:00 Carolann Morris [facility] ACUTE CARE ARTERIAL BLOOD 2021-11-11 12:44:00 Morris Vuong [facility] BASIC METABOLIC PANEL 2021-11-11 10:05:00 Carolann [facility] (NA, K, CL, CO2, GLUCOSE, Medica l Branch BUN, CREATININE, CA) CBC WITH DIFF 2021-11-11 10:05:00 Carolann [facility] N-TERMINAL PRO-BNP 2021-11-11 10:05:00 Carolann [facility] BLOOD CULTURE SCREEN 2021-11-11 03:10:00 Albert Esquivel [facility] XR CHEST 1 VW 2021-11-11 02:10:38 Albert Esquivel [facility] CT HEAD WO CONTRAST 2021-11-11 02:07:00 Albert Esquivel [facility] URINALYSIS 2021-11-11 01:29:00 Albert Esquivel [facility] URINE DRUG (IMMUNOASSAY) 2021-11-11 01:29:00 Albert Esquivel [facility] nch SCREEN W/O REFLEX AC PANEL 21 + LACTIC ACID 2021-11-11 01:28:00 Albert Esquivel [facility] TROPONIN I 2021-11-11 01:22:00 Albert Esquivel [facility] COMP. METABOLIC PANEL 2021-11-11 01:22:00 Albert Esquivel [facility] ([id number]) Medical Branch ETHANOL 2021-11-11 01:22:00 Esquivel, [facility] CBC WITH DIFF 2021-11-11 01:22:00 Alvin [facility] PROTHROMBIN TIME / INR 2021-11-11 01:22:00 Albert Esquivel [facility] ACTIVATED PARTIAL 2021-11-11 01:22:00 Alvin [facility] N-TERMINAL PRO-BNP 2021-11-11 01:22:00 Alvin [facility] POCT GLUCOSE (AUTOMATED) 2020-05-23 21:12:00 Jack [facility] POCT GLUCOSE (AUTOMATED) 2020-05-23 16:50:00 Jack [facility] POCT GLUCOSE (AUTOMATED) 2020-05-23 13:53:00 Jack [facility] MAGNESIUM 2020-05-23 10:48:00 Red [facility] BASIC METABOLIC PANEL 2020-05-23 10:48:00 Red, [facility] (NA, K, CL, CO2, GLUCOSE, Medica l Branch BUN, CREATININE, CA) CBC WITH DIFF 2020-05-23 10:48:00 Red [facility] POCT GLUCOSE (AUTOMATED) 2020-05-23 01:32:00 Jack [facility] POCT GLUCOSE (AUTOMATED) 2020-05-22 16:54:00 Jack [facility] POCT GLUCOSE (AUTOMATED) 2020-05-22 14:21:00 Jack [facility] MAGNESIUM 2020-05-22 09:58:00 Red [facility] BASIC METABOLIC PANEL 2020-05-22 09:58:00 Red, [facility] (NA, K, CL, CO2, GLUCOSE, Medica l Branch BUN, CREATININE, CA) CBC WITH DIFF 2020-05-22 09:58:00 [place] [facility] POCT GLUCOSE (AUTOMATED) 2020-05-22 02:18:00 Jack [facility] POCT GLUCOSE (AUTOMATED) 2020-05-21 22:51:00 Jack [facility] POCT GLUCOSE (AUTOMATED) 2020-05-21 17:21:00 Jack [facility] POCT GLUCOSE (AUTOMATED) 2020-05-21 13:20:00 Jack [facility] MAGNESIUM 2020-05-21 08:50:00 Red [facility] BASIC METABOLIC PANEL 2020-05-21 08:50:00 Red, [facility] (NA, K, CL, CO2, GLUCOSE, Medica l Branch BUN, CREATININE, CA) CBC WITH DIFF 2020-05-21 08:50:00 Red [facility] POCT GLUCOSE (AUTOMATED) 2020-05-21 02:40:00 Jack [facility] BLOOD CULTURE SCREEN 2020-05-20 23:01:00 [place] [facility] POCT GLUCOSE (AUTOMATED) 2020-05-20 21:47:00 Jack [facility] POCT GLUCOSE (AUTOMATED) 2020-05-20 12:59:00 Jack [facility] MAGNESIUM 2020-05-20 08:25:00 Red, [facility] BASIC METABOLIC PANEL 2020-05-20 08:25:00 [place], [facility] (NA, K, CL, CO2, GLUCOSE, Medica l Branch BUN, CREATININE, CA) CBC WITH DIFF 2020-05-20 08:25:00 [place] [facility] POCT GLUCOSE (AUTOMATED) 2020-05-20 01:08:00 Jack [facility] POCT GLUCOSE (AUTOMATED) 2020-05-19 21:38:00 Jack [facility] POCT GLUCOSE (AUTOMATED) 2020-05-19 17:35:00 Jack [facility] POCT GLUCOSE (AUTOMATED) 2020-05-19 13:45:00 Jack [facility] MAGNESIUM 2020-05-19 10:19:00 [place], [facility] BASIC METABOLIC PANEL 2020-05-19 10:19:00 [place], [facility] (NA, K, CL, CO2, GLUCOSE, Medica l Branch BUN, CREATININE, CA) CBC WITH DIFF 2020-05-19 10:19:00 [place] [facility] POCT GLUCOSE (AUTOMATED) 2020-05-19 02:10:00 [facility] POCT GLUCOSE (AUTOMATED) 2020-05-18 22:23:00 [facility], [facility] POCT GLUCOSE (AUTOMATED) 2020-05-18 20:53:00 [facility], [facility] POCT GLUCOSE (AUTOMATED) 2020-05-18 17:03:00 [facility], [facility] POCT GLUCOSE (AUTOMATED) 2020-05-18 17:01:00 [facility] POCT GLUCOSE (AUTOMATED) 2020-05-18 13:24:00 Jack [facility] MAGNESIUM 2020-05-18 10:12:00 [place], [facility] BASIC METABOLIC PANEL 2020-05-18 10:12:00 [place], [facility] (NA, K, CL, CO2, GLUCOSE, Medica l Branch BUN, CREATININE, CA) LIPID PANEL ([id number])(TOTAL 2020-05-18 10:12:00 [place], [facility] CHOLESTEROL, Medical Branch TRIGLYCERIDES, HDL) CBC WITH DIFF 2020-05-18 10:12:00 [place], [facility] POCT GLUCOSE (AUTOMATED) 2020-05-18 02:39:00 [facility] HEPATIC FUNCTION PANEL 2020-05-17 21:12:00 [place], [facility] ([id number]) (ALB,T.PRO,BILI Medical Branch T,BU/BC,ALT,AST,ALK PHOS) PROCALCITONIN 2020-05-17 21:12:00 [place], [facility] ACTIVATED PARTIAL 2020-05-17 21:09:00 Red, [facility] EXTRA TUBE LAV 2020-05-17 21:09:00 Kaylen Santiago [facility] BLOOD CULTURE SCREEN 2020-05-17 20:57:00 [facility] TROPONIN I 2020-05-17 20:52:00 [facility] PROTHROMBIN TIME / INR 2020-05-17 20:52:[address] [facility] TROPONIN I 2020-05-17 20:51:00 [facility] URINALYSIS 2020-05-17 20:50:00 [facility] URINE CULTURE 2020-05-17 20:50:00 [facility] EKG-12 LEAD 2020-05-17 05:31:24 Kaylen Santiago [facility] BLOOD CULTURE SCREEN 2020-05-16 22:27:00 David Bush [facility] BLOOD CULTURE WORKUP 2020-05-16 22:27:00 David Bush [facility] GRAM POSITIVE BLOOD 2020-05-16 22:27:00 David Bush [facility] PATHOGENS DNA [facility] PROBE-AEROBIC LACTIC ACID WHOLE BLOOD 2020-05-16 22:24:00 David Bush [facility] XR CHEST 1 VW 2020-05-16 22:14:14 Singer [facility] COVID-19 (ID NOW RAPID 2020-05-16 22:14:00 [facility]) [facility] LAB ONLY COVID 2020-05-16 22:14:00 Singer [facility] INTERPRETATION [facility] EKG-12 LEAD 2020-05-16 21:51:03 Singer [facility] MAGNESIUM 2020-05-16 21:46:00 Singer [facility] TROPONIN I 2020-05-16 21:46:00 Singer [facility] COMP. METABOLIC PANEL 2020-05-16 21:46:00 David Bush [facility] ([id number]) Medical Branch CBC WITH DIFF 2020-05-16 21:46:00 Singer [facility] PROTHROMBIN TIME / INR 2020-05-16 21:46:00 Singer David [facility] N-TERMINAL PRO-BNP 2020-05-16 21:46:00 Singer [facility] EKG-12 LEAD 2020-05-16 21:38:50 Singer [facility] EMERGENCY DEPARTMENT 2020-05-16 05:01:00 Doctor Unassigned, [facility] DOCUMENTS [place] [facility] POCT GLUCOSE (AUTOMATED) 2020-05-14 16:53:00 Brandy Rodriguez [facility] COMP. METABOLIC PANEL 2020-05-14 13:23:00 Brandy Rodriguez [facility] ([id number]) [facility] POCT GLUCOSE (AUTOMATED) 2020-05-14 12:41:00 Brandy Rodriguez [facility] CORTISOL AM 2020-05-14 09:48:00 Brandy Rodriguez [facility] CBC WITH DIFF 2020-05-14 09:48:00 Brandy Rodriguez [facility] N-TERMINAL PRO-BNP 2020-05-14 09:48:00 Brandy Rodriguez [facility] POCT GLUCOSE (AUTOMATED) 2020-05-14 00:59:00 Brandy Rodriguez [facility] POCT GLUCOSE (AUTOMATED) 2020-05-13 21:35:00 Brandy Rodriguez [facility] POCT GLUCOSE (AUTOMATED) 2020-05-13 16:43:00 Brandy Rodriguez [facility] POCT GLUCOSE (AUTOMATED) 2020-05-13 13:06:00 Brandy Rodriguez [facility] CORTISOL AM 2020-05-13 11:49:00 Brandy Rodriguez [facility] TROPONIN I 2020-05-13 11:49:00 Brandy Rodriguez [facility] COMP. METABOLIC PANEL 2020-05-13 11:49:00 Brandy Rodriguez [facility] ([id number]) Medical Branch CBC WITH DIFF 2020-05-13 11:49:00 Michael roberth [facility] N-TERMINAL PRO-BNP 2020-05-13 11:49:00 Brandy Rodriguez [facility] TROPONIN I 2020-05-13 04:51:00 Michael roberth [facility] BASIC METABOLIC PANEL 2020-05-13 02:30:00 Brandy Rodriguez [facility] (NA, K, CL, CO2, GLUCOSE, Medica l Branch BUN, CREATININE, CA) OSMOLALITY SERUM 2020-05-12 21:53:00 Michael roberth [facility] TROPONIN I 2020-05-12 21:53:00 Michael roberth [facility] ECHO ROUTINE W/DOPPLER 2020-05-12 19:59:31 Brandy Rodriguez [facility] POCT GLUCOSE (AUTOMATED) 2020-05-12 16:52:00 Brandy Rodriguez [facility] CT ANGIOGRAM 2020-05-12 14:26:39 Michael roberth [facility] ABDOMEN/PELVIS [facility] URINE CULTURE 2020-05-12 12:59:00 Rene Edwards [facility] URINE CULTURE 2020-05-12 12:58:00 Michael roberth [facility] URINALYSIS 2020-05-12 12:57:00 Rene Edwards [facility] [facility] URINE CULTURE 2020-05-12 12:56:00 Michael roberth [facility] OSMOLALITY URINE 2020-05-12 12:55:00 Michael roberth [facility] UREA NITROGEN, URINE 2020-05-12 12:55:00 Brandy Rodriguez [facility] SODIUM, URINE RANDOM 2020-05-12 12:55:00 Michael roberth [facility] PROTEIN CREAT RATIO URINE 2020-05-12 12:55:00 rBandy Rodriguez [facility] PNEUMOCOCCAL ANTIGEN 2020-05-12 12:53:00 Brandy Rodriguez [facility] CBC WITH DIFF 2020-05-12 12:51:00 [facility] PROCALCITONIN 2020-05-12 12:51:00 [facility] POCT GLUCOSE (AUTOMATED) 2020-05-12 12:32:00 Brandy Rodriguez [facility] LACTIC ACID WHOLE BLOOD 2020-05-12 11:20:00 Michael [facility] LACTATE DEHYDROGENASE 2020-05-12 11:14:00 Michael [facility] TROPONIN I 2020-05-12 11:14:00 Michael roberth [facility] COMP. METABOLIC PANEL 2020-05-12 11:14:00 Michael roberth [facility] ([id number]) Medical Branch DIGOXIN 2020-05-12 11:14:00 Michael roberth [facility] PROTHROMBIN TIME / INR 2020-05-12 11:14:00 Michael roberth [facility] N-TERMINAL PRO-BNP 2020-05-12 11:14:00 Michael [facility] BLOOD CULTURE SCREEN 2020-05-12 06:09:00 Rene Edwards [facility] BLOOD CULTURE SCREEN 2020-05-12 06:08:00 Rene Edwards [facility] CT CHEST PULMONARY 2020-05-12 04:54:17 Rene Edwards [facility] ANGIOGRAM [facility] COVID-19 (ID NOW RAPID 2020-05-12 04:18:00 Rene Edwards [facility] TESTING) [facility] XR CHEST 1 VW 2020-05-12 03:33:42 Rene Edwards [facility] PHOSPHORUS 2020-05-12 03:25:00 [facility] CREATINE KINASE 2020-05-12 03:25:00 [facility] URIC ACID 2020-05-12 03:25:00 [facility] LIPASE 2020-05-12 03:25:00 Brandy Rodriguez [facility] MAGNESIUM 2020-05-12 03:25:00 Michael roberth [facility] TROPONIN I 2020-05-12 03:25:00 Rene Edwards [facility] THYROID STIMULATING 2020-05-12 03:25:00 Brandy Rodriguez [facility] HORMONE [facility] HEPATIC FUNCTION PANEL 2020-05-12 03:25:00 Brandy Rodriguez [facility] ([id number]) (ALB,T.PRO,BILI Medical Branch T,BU/BC,ALT,AST,ALK PHOS) BASIC METABOLIC PANEL 2020-05-12 03:25:00 Rene Edwards [facility] (NA, K, CL, CO2, GLUCOSE, Medica l Branch BUN, CREATININE, CA) LIPID PANEL ([id number])(TOTAL 2020-05-12 03:25:00 Brandy Rodriguez [facility] CHOLESTEROL, Medical Branch TRIGLYCERIDES, HDL) CBC WITH DIFF 2020-05-12 03:25:00 Rene Edwards [facility] GLYCOSYLATED HEMOGLOBIN 2020-05-12 03:25:00 Michael [facility] (A1C) [facility] D-DIMER 2020-05-12 03:25:00 Rene Edwards [facility] N-TERMINAL PRO-BNP 2020-05-12 03:25:00 Rene Edwards [facility] EKG-12 LEAD 2020-05-12 03:07:04 Rene Edwards [facility] Encounters Start End Encounter Admission Attending Care Care Encounter Source Date/Time Date/Time Type Type Clinicians Facility Department ID 2021-12-17 Outpatient [facility] [id number] [place] 08:19:52 [id number] [facility] 2021-12-07 Outpatient [facility] [id number] [place] 12:36:59 [id number] [facility] 2022-01-05 2022-01-07 Inpatient ER [place], [facility] [id number] [facility] 22:05:00 20:14:00 DELTA 2021-11-10 2021-11-11 Inpatient X BLANCA SANTIAGO [facility] [id number] Univers 20:09:00 13:26:00 SHAWN ity of [facility] 2021-11-10 2021-11-11 Hospital Albert Esquivel [facility] [id number] Univers 20:09:00 13:26:00 Encounter Carolann Morrismehnaz CHINO [id number] ity of Shawn Santiago 4.2.7.2.686 [facility] [id number] [facility] 081 Branch 2021-06-08 2021-06-08 [facility] [id number] Univers 00:00:00 00:00:00 Karissa PRIMARY [id number] it [place] [id number] Mo dical 388 Branch 2020-10-11 2020-10-11 Outpatient Young_J [facility] [id number] [place] 02:19:00 02:19:00 0310 Medical Group 2020-05-25 2020-05-25 Transition Fozia Aleman [id number] Univers 00:00:00 00:00:00 of Care Radha Patel [id number] [place] [id number] [facility] 403 Branch 2020-05-24 2020-05-24 Transition Fozia Aleman [id number] Univers 00:00:00 00:00:00 of Care Radha Aptel [id number] [place] [id number] [facility] 403 Branch 2020-05-16 2020-05-23 [facility] David Bush 1.2.840.1 [id number] Univers 16:24:00 18:57:00 Encounter Kaylen Santiago 350.1.13. 10 ity of Hospital 4.2.7.2.686 Dar as [id number] [facility] 100 Branch 2020-05-16 2020-05-16 Emergency X SINGER [facility] ERT [id number] Univers 16:24:00 16:24:00 DAVID [facility] 2020-05-16 2020-05-16 Telephone Joel [facility] [id number] Univers 00:00:00 00:00:00 Michael Chino 350.1.13.10 i ty [facility] 4.2.7.2.686 [facility] [id number] Mo dical nal 085 [facility] 2020-05-11 2020-05-14 [facility] Rene Edwards [facility] 1.2.840.11 [id number] Univers 22:10:00 13:32:00 Encounter Kam Rodriguezroberth [place] 350.1.13.10 ity [facility] 4.2.7.2.686 [facility] [id number] [facility] sofie 081 [place] 2020-05-11 2020-05-11 Emergency X [facility] ERT [id number] Univers 22:10:00 22:10:00 [facility] Results Test Description Test Time Test Comments Results Result Comments Source TISSUE EXAM 2022-01-08 Surgical Pathology 13:20:30 Report Case: [id number] Authorizing Provider: Angley Ayala MD Collected: 01/06/2022 08:59 AM Ordering Location: [facility] ICU Received: 01/07/2022 10:06 AM Pathologist: Concepcion Hugo MD Specimen: Biopsy, Gastric, Antral Body Bx's STOMACH, ANTRUM AND BODY, ENDOSCOPIC BIOPSY: - ANTRAL 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 Biopsy, Gastric.Received in formalin labeled with the patient's information and labeled "biopsy, gastric" are two buck-white pieces of mucosal tissue measuring 0.4 cm in maximum dimension each submitted entirely in cassette labeled A1. BH/ew PERFORMED POCT-GLUCOSE METER 2022-01-07 17:00:27 Test Item Value Reference Range Interpretation Comme nts POC-GLUCOSE METER (BEAKER) 122 mg/dL 70-110 H : TESTED AT [facility] [address]test code = [address], [place] [address]: Application Designer/Techni lynne ID = [id number] for Fuad Melo POCT-GLUCOSE [id number] 08:34:06 Test Item Value Reference Range Interpretation Comments POC-GLUCOSE METER 103 mg/dL 70-110 : TESTED A T [facility] [address] (BEAKER) (test code [address], = [address]) [facility] [place] [address]: Application Designer/Techni lynne ID = [id number] for Fuad Thomas BASIC METABOLIC [id number] 06:48:57 Test Item Value Reference Range Interpretation Comments SODIUM (BEAKER) 140 meq/L 135-148 (test code = 381) POTASSIUM (BEAKER) 3.4 meq/L 3.6-5.5 L (test code = 379) CHLORIDE (BEAKER) 95 meq/L 98-106 L (test code = 382) CO2 (BEAKER) (test 35 meq/L 20-29 H code = 355) BLOOD UREA NITROGEN 19 mg/dL 10-26 (BEAKER) (test code = 354) CREATININE (BEAKER) 0.82 mg/dL 0.50-1.20 (test code = 358) GLUCOSE RANDOM 101 mg/dL 70-110 (BEAKER) (test code = 652) CALCIUM (BEAKER) 8.6 mg/dL 8.5-10.5 (test code = 697) EGFR (BEAKER) (test 92 mL/min/1.73 ESTIMA THEA GFR IS code = 1092) sq m NOT ACCURATE CREATININE CLEARANCE IN PREDICTING GLOMERULAR FILTRATION RATE . ESTIMATED GFR I S NOT APPLICABLE FOR DIALYSIS PATIEN TS. Application Designer ID - [id number] ID - [id number] ID - [id number] ID - [id number] ID - [id number] ID - [id number] ID - [id number] ID - [id number] ID - [id number] ID - [id number] FUNCTION [id number] 06:48:40 Test Item Value Reference Range Interpretation Comments TOTAL PROTEIN (BEAKER) (test code = 5.8 gm/dL 6.0-8.5 L 770) ALBUMIN (BEAKER) (test code = 1145) 3.0 g/dL 3.5-5.0 L BILIRUBIN TOTAL (BEAKER) (test code 0.8 mg/dL 0.1-1.2 = 377) BILIRUBIN DIRECT (BEAKER) (test 0.4 mg/dL 0.0-0.4 code = 706) ALKALINE PHOSPHATASE (BEAKER) (test 49 U/L 30-115 code = 346) AST (SGOT) (BEAKER) (test code = 13 U/L 5-40 353) ALT (SGPT) (BEAKER) (test code = 8 U/L 5-50 347) Application Designer ID - [id number] ID - [id number] ID - [id number] ID - [id number] ID - [id number] ID - [id number] ID - VIKZ11Mcwbtfpm ID - [id number] ID - [id number] ID - [id number] AND HEMATOCRIT 2022-01-07 06:39:58 Test Item Value Reference Range Interpretation Comments HEMOGLOBIN (BEAKER) (test code = 7.1 GM/DL 13.0-16.8 L 410) HEMATOCRIT (BEAKER) (test code = 22.9 % 36.0-50.0 L 411) PROTHROMBIN [id number] 06:38:35 Test Item Value Reference Range Interpretation Comments PROTIME (BEAKER) 13.2 seconds 9.3-12.0 H Final Infor mation (test code = 759) (Auto Outp ut) INR (BEAKER) (test 1.22 See_Comment Final Inf ormation code = 370) (Auto Output) [Automated mess age] The system [employer] generated this result transmitted ref erence range: <=5.90. The reference range was not used to int erpret this result as normal/abnormal . RECOMMENDED COUMADIN/WARFARIN INR THERAPY RANGESSTANDARD DOSE: 2.0 - 3.0 Includes: PROPHYLAXIS forvenous thrombosis, systemic embolization; TREATMENT for venous thrombosis and/or pulmonary embolus.HIGH RISK: Target INR is 2.5-3.5 for patients with mechanical heart valves.CBC W/PLT COUNT & AUTO DIFFERENTIAL 2022-01-07 00:58:53 Test Item Value Reference Range Interpretation Comments WHITE BLOOD CELL COUNT (BEAKER) 8.7 K/ L 4.0-10.0 (test code = 775) RED BLOOD CELL COUNT (BEAKER) 2.79 M/ L 4.20-5.80 L (test code = 761) HEMOGLOBIN (BEAKER) (test code = 7.5 GM/DL 13.0-16.8 L 410) HEMATOCRIT (BEAKER) (test code = 24.6 % 36.0-50.0 L 411) MEAN CORPUSCULAR VOLUME (BEAKER) 88.2 fL 82.0-99.0 (test code = 753) MEAN CORPUSCULAR HEMOGLOBIN 26.9 pg 27.0-33.0 L (BEAKER) (test code = 751) MEAN CORPUSCULAR HEMOGLOBIN CONC 30.5 GM/DL 32.0-36.0 L (BEAKER) (test code = 752) RED CELL DISTRIBUTION WIDTH 17.7 % 12.0-15.0 H (BEAKER) (test code = 412) PLATELET COUNT (BEAKER) (test 472 K/CU MM 150-430 H code = 756) MEAN PLATELET VOLUME (BEAKER) 10.8 fL 6.0-11.5 (test code = 754) NUCLEATED RED BLOOD CELLS 1 /100 WBC 0-0 H (BEAKER) (test code = 413) NEUTROPHILS RELATIVE PERCENT 78 % (BEAKER) (test code = 429) LYMPHOCYTES RELATIVE PERCENT 13 % (BEAKER) (test code = 430) MONOCYTES RELATIVE PERCENT 8 % (BEAKER) (test code = 431) EOSINOPHILS RELATIVE PERCENT 0 % (BEAKER) (test code = 432) BASOPHILS RELATIVE PERCENT 1 % (BEAKER) (test code = 437) NEUTROPHILS ABSOLUTE COUNT 6.75 K/ L 1.80-8.00 (BEAKER) (test code = 670) LYMPHOCYTES ABSOLUTE COUNT 1.10 K/ L 1.48-4.50 L (BEAKER) (test code = 414) MONOCYTES ABSOLUTE COUNT (BEAKER) 0.72 K/ L 0.00-1.30 (test code = 415) EOSINOPHILS ABSOLUTE COUNT 0.02 K/ L 0.00-0.50 (BEAKER) (test code = 416) BASOPHILS ABSOLUTE COUNT (BEAKER) 0.04 K/ L 0.00-0.20 (test code = 417) IMMATURE GRANULOCYTES-RELATIVE 1 % 0-0 H PERCENT (BEAKER) (test code = 2801) HEMOGLOBIN AND [id number] 00:20:00 Test Item Value Reference Range Interpretation Comments HEMOGLOBIN (BEAKER) (test code = 7.5 GM/DL 13.0-16.8 L 410) HEMATOCRIT (BEAKER) (test code = 23.6 % 36.0-50.0 L 411) POCT-GLUCOSE [id number] 21:53:44 Test Item Value Reference Range Interpretation Comments POC-GLUCOSE METER 115 mg/dL 70-110 H : TESTED A T [facility] (BEAKER) (test code [address], = 1538) [facility] [address]: Application Designer/Techni lynne ID = [id number] for Maryellen Stein HEMOGLOBIN AND [id number] 11:45:57 Test Item Value Reference Range Interpretation Comments HEMOGLOBIN (BEAKER) (test code = 7.7 GM/DL 13.0-16.8 L 410) HEMATOCRIT (BEAKER) (test code = 24.8 % 36.0-50.0 L 411) HEPATIC FUNCTION [id number] 07:59:10 Test Item Value Reference Range Interpretation Comments TOTAL PROTEIN (BEAKER) (test code = 6.0 gm/dL 6.0-8.5 770) ALBUMIN (BEAKER) (test code = 1145) 3.1 g/dL 3.5-5.0 L BILIRUBIN TOTAL (BEAKER) (test code 1.1 mg/dL 0.1-1.2 = 377) BILIRUBIN DIRECT (BEAKER) (test 0.5 mg/dL 0.0-0.4 H code = 706) ALKALINE PHOSPHATASE (BEAKER) (test 51 U/L 30-115 code = 346) AST (SGOT) (BEAKER) (test code = 32 U/L 5-40 353) ALT (SGPT) (BEAKER) (test code = 9 U/L 5-50 347) Application Designer ID - [id number] ID - [id number] ID - [id number] ID - [id number] ID - [id number] ID - [id number] ID - [id number] ID - [id number] ID - [id number] ID - [id number] METABOLIC [id number] 07:57:07 Test Item Value Reference Range Interpretation Comments SODIUM (BEAKER) 134 meq/L 135-148 L (test code = 381) POTASSIUM (BEAKER) 4.1 meq/L 3.6-5.5 (test code = 379) CHLORIDE (BEAKER) 92 meq/L 98-106 L (test code = 382) CO2 (BEAKER) (test 32 meq/L 20-29 H code = 355) BLOOD UREA NITROGEN 26 mg/dL 10-26 (BEAKER) (test code = 354) CREATININE (BEAKER) 1.08 mg/dL 0.50-1.20 (test code = 358) GLUCOSE RANDOM 120 mg/dL 70-110 H (BEAKER) (test code = 652) CALCIUM (BEAKER) 8.7 mg/dL 8.5-10.5 (test code = 697) EGFR (BEAKER) (test 67 mL/min/1.73 ESTIMA THEA GFR IS code = 1092) sq m NOT ACCURATE CREATININE CLEARANCE IN PREDICTING GLOMERULAR FILTRATION RATE . ESTIMATED GFR I S NOT APPLICABLE FOR DIALYSIS PATIEN TS. Application Designer ID - [id number] ID - [id number] ID - [id number] ID - [id number] ID - PZKVDPKQJ282Nqnkczzp ID - OCZEOWAKJ879Nffprzqr ID - DCFOTRRYG192Ynurftye ID - [id number] ID - [id number] TIME/[id number] 07:51:27 Test Item Value Reference Range Interpretation Comments PROTIME (BEAKER) 14.6 seconds 9.3-12.0 H Final Infor mation (test code = 759) (Auto Outp ut) INR (BEAKER) (test 1.36 See_Comment Final Inf ormation code = 370) (Auto Output) [Automated mess age] The system [employer] generated this result transmitted ref erence range: <=5.90. The reference range was not used to int erpret this result as normal/abnormal . RECOMMENDED COUMADIN/WARFARIN INR THERAPY RANGESSTANDARD DOSE: 2.0 - 3.0 Includes: PROPHYLAXIS forvenous thrombosis, systemic embolization; TREATMENT for venous thrombosis and/or pulmonary embolus.HIGH RISK: Target INR is 2.5-3.5 for patients with mechanical heart valves.CBC W/PLT COUNT & AUTO DIFFERENTIAL 2022-01-06 07:22:53 Test Item Value Reference Range Interpretation Comments WHITE BLOOD CELL COUNT (BEAKER) 10.0 K/ L 4.0-10.0 (test code = 775) RED BLOOD CELL COUNT (BEAKER) 2.55 M/ L 4.20-5.80 L (test code = 761) HEMOGLOBIN (BEAKER) (test code = 6.8 GM/DL 13.0-16.8 L 410) HEMATOCRIT (BEAKER) (test code = 21.7 % 36.0-50.0 L 411) MEAN CORPUSCULAR VOLUME (BEAKER) 85.1 fL 82.0-99.0 (test code = 753) MEAN CORPUSCULAR HEMOGLOBIN 26.7 pg 27.0-33.0 L (BEAKER) (test code = 751) MEAN CORPUSCULAR HEMOGLOBIN CONC 31.3 GM/DL 32.0-36.0 L (BEAKER) (test code = 752) RED CELL DISTRIBUTION WIDTH 17.2 % 12.0-15.0 H (BEAKER) (test code = 412) PLATELET COUNT (BEAKER) (test 491 K/CU MM 150-430 H code = 756) MEAN PLATELET VOLUME (BEAKER) 10.4 fL 6.0-11.5 (test code = 754) NUCLEATED RED BLOOD CELLS 2 /100 WBC 0-0 H (BEAKER) (test code = 413) NEUTROPHILS RELATIVE PERCENT 71 % (BEAKER) (test code = 429) LYMPHOCYTES RELATIVE PERCENT 20 % (BEAKER) (test code = 430) MONOCYTES RELATIVE PERCENT 8 % (BEAKER) (test code = 431) EOSINOPHILS RELATIVE PERCENT 0 % (BEAKER) (test code = 432) BASOPHILS RELATIVE PERCENT 0 % (BEAKER) (test code = 437) NEUTROPHILS ABSOLUTE COUNT 7.14 K/ L 1.80-8.00 (BEAKER) (test code = 670) LYMPHOCYTES ABSOLUTE COUNT 2.00 K/ L 1.48-4.50 (BEAKER) (test code = 414) MONOCYTES ABSOLUTE COUNT (BEAKER) 0.77 K/ L 0.00-1.30 (test code = 415) EOSINOPHILS ABSOLUTE COUNT 0.03 K/ L 0.00-0.50 (BEAKER) (test code = 416) BASOPHILS ABSOLUTE COUNT (BEAKER) 0.04 K/ L 0.00-0.20 (test code = 417) IMMATURE GRANULOCYTES-RELATIVE 1 % 0-0 H PERCENT (BEAKER) (test code = 2801) BASIC METABOLIC [id number] 00:26:58 Test Item Value Reference Range Interpretation Comments SODIUM (BEAKER) 135 meq/L 135-148 (test code = 381) POTASSIUM (BEAKER) 4.1 meq/L 3.6-5.5 (test code = 379) CHLORIDE (BEAKER) 91 meq/L 98-106 L (test code = 382) CO2 (BEAKER) (test 33 meq/L 20-29 H code = 355) BLOOD UREA NITROGEN 27 mg/dL 10-26 H (BEAKER) (test code = 354) CREATININE (BEAKER) 1.09 mg/dL 0.50-1.20 (test code = 358) GLUCOSE RANDOM 109 mg/dL 70-110 (BEAKER) (test code = 652) CALCIUM (BEAKER) 8.7 mg/dL 8.5-10.5 (test code = 697) EGFR (BEAKER) (test 66 mL/min/1.73 ESTIMA THEA GFR IS code = 1092) sq m NOT ACCURATE CREATININE CLEARANCE IN PREDICTING GLOMERULAR FILTRATION RATE . ESTIMATED GFR I S NOT APPLICABLE FOR DIALYSIS PATIEN TS. Application Designer ID - [id number] ID - [id number] ID - [id number] ID - UHZIFAQTQ696Oxkrdtfy ID - EZQYYZDEA329Seeexagg ID - OYROCDILP232Kqlrfgbs ID - HPIREKBIY990Ivrqtuqn ID - QIOYSZGZT654Sovohamn ID - GUGUOFKJK680Aiqtwsfs ID - AUFVTQRFZ035Tdcbzofm ID - VTAFROJIO198Shvyvxyx ID - [id number] ID - [id number] W/PLT COUNT & AUTO DIFFERENTIAL 2022-01-05 23:36:44 Test Item Value Reference Range Interpretation Comments WHITE BLOOD CELL COUNT (BEAKER) 10.4 K/ L 4.0-10.0 H (test code = 775) RED BLOOD CELL COUNT (BEAKER) 2.20 M/ L 4.20-5.80 L (test code = 761) HEMOGLOBIN (BEAKER) (test code = 5.9 GM/DL 13.0-16.8 LL 410) HEMATOCRIT (BEAKER) (test code = 19.1 % 36.0-50.0 LL 411) MEAN CORPUSCULAR VOLUME (BEAKER) 86.8 fL 82.0-99.0 (test code = 753) MEAN CORPUSCULAR HEMOGLOBIN 26.8 pg 27.0-33.0 L (BEAKER) (test code = 751) MEAN CORPUSCULAR HEMOGLOBIN CONC 30.9 GM/DL 32.0-36.0 L (BEAKER) (test code = 752) RED CELL DISTRIBUTION WIDTH 16.6 % 12.0-15.0 H (BEAKER) (test code = 412) PLATELET COUNT (BEAKER) (test 506 K/CU MM 150-430 H code = 756) MEAN PLATELET VOLUME (BEAKER) 10.8 fL 6.0-11.5 (test code = 754) NUCLEATED RED BLOOD CELLS 3 /100 WBC 0-0 H (BEAKER) (test code = 413) NEUTROPHILS RELATIVE PERCENT 70 % (BEAKER) (test code = 429) LYMPHOCYTES RELATIVE PERCENT 19 % (BEAKER) (test code = 430) MONOCYTES RELATIVE PERCENT 10 % (BEAKER) (test code = 431) EOSINOPHILS RELATIVE PERCENT 0 % (BEAKER) (test code = 432) BASOPHILS RELATIVE PERCENT 0 % (BEAKER) (test code = 437) NEUTROPHILS ABSOLUTE COUNT 7.22 K/ L 1.80-8.00 (BEAKER) (test code = 670) LYMPHOCYTES ABSOLUTE COUNT 1.99 K/ L 1.48-4.50 (BEAKER) (test code = 414) MONOCYTES ABSOLUTE COUNT (BEAKER) 1.00 K/ L 0.00-1.30 (test code = 415) EOSINOPHILS ABSOLUTE COUNT 0.02 K/ L 0.00-0.50 (BEAKER) (test code = 416) BASOPHILS ABSOLUTE COUNT (BEAKER) 0.04 K/ L 0.00-0.20 (test code = 417) IMMATURE GRANULOCYTES-RELATIVE 1 % 0-0 H PERCENT (BEAKER) (test code = 2801) (MANUAL DIFFERENTIAL)2022-01-05 23:36:44 Test Item Value Reference Range Interpretation Comments TOTAL COUNTED (BEAKER) (test code = 1351) WBC MORPHOLOGY (BEAKER) (test code = Normal 487) PLT MORPHOLOGY (BEAKER) (test code = Normal 486) ANISOCYTOSIS (BEAKER) (test code = 1+ few 961) POLYCHROMATOPHILLIC RBCS(BEAKER) (test 1+ few code = 478) HEPATIC FUNCTION [id number] 23:28:42 Test Item Value Reference Range Interpretation Comments TOTAL PROTEIN (BEAKER) (test code = 6.2 gm/dL 6.0-8.5 770) ALBUMIN (BEAKER) (test code = 1145) 3.1 g/dL 3.5-5.0 L BILIRUBIN TOTAL (BEAKER) (test code 1.8 mg/dL 0.1-1.2 H = 377) BILIRUBIN DIRECT (BEAKER) (test 0.7 mg/dL 0.0-0.4 H code = 706) ALKALINE PHOSPHATASE (BEAKER) (test 52 U/L 30-115 code = 346) AST (SGOT) (BEAKER) (test code = 11 U/L 5-40 353) ALT (SGPT) (BEAKER) (test code = 7 U/L 5-50 347) Application Designer ID - RAHMAOperator ID - RAHMAOperator ID - RAHMAOperator ID - RAHMAOperator ID - RAHMAOperator ID - RAHMAOperator ID - RAHMAMAGNESIUM 2022-01-05 23:28:42 Test Item Value Reference Range Interpretation Comments MAGNESIUM (BEAKER) (test code = 2.1 mg/dL 1.5-3.0 627) Application Designer ID - RAHMAOperator ID - RAHMAOperator ID - RAHMAOperator ID - RAHMA BASIC METABOLIC [id number] 23:28:06 Test Item Value Reference Range Interpretation Comments SODIUM (BEAKER) 121 meq/L 135-148 L (test code = 381) POTASSIUM (BEAKER) 3.7 meq/L 3.6-5.5 (test code = 379) CHLORIDE (BEAKER) 85 meq/L 98-106 L (test code = 382) CO2 (BEAKER) (test 34 meq/L 20-29 H code = 355) BLOOD UREA NITROGEN 28 mg/dL 10-26 H (BEAKER) (test code = 354) CREATININE (BEAKER) 1.05 mg/dL 0.50-1.20 (test code = 358) GLUCOSE RANDOM 115 mg/dL 70-110 H (BEAKER) (test code = 652) CALCIUM (BEAKER) 8.9 mg/dL 8.5-10.5 (test code = 697) EGFR (BEAKER) (test 69 mL/min/1.73 ESTIMA THEA GFR IS code = 1092) sq m NOT ACCURATE CREATININE CLEARANCE IN PREDICTING GLOMERULAR FILTRATION RATE . ESTIMATED GFR I S NOT APPLICABLE FOR DIALYSIS PATIEN TS. Application Designer ID - RAHMAOperator ID - RAHMAOperator ID - RAHMAOperator ID - RAHMAOperator ID - RAHMAOperator ID - RAHMAOperator ID - RAHMAOperator ID - RAHMAOperator ID - RAHMAOperator ID - [id number] 23:25:18 Test Item Value Reference Range Interpretation Comments PHOSPHORUS (BEAKER) (test code = 3.1 mg/dL 2.5-4.5 604) Application Designer ID - RAHMAPROTHROMBIN TIME/[id number] 23:21:18 Test Item Value Reference Range Interpretation Comments PROTIME (BEAKER) 15.1 seconds 9.3-12.0 H Final Infor mation (test code = 759) (Auto Outp ut) INR (BEAKER) (test 1.41 See_Comment Final Inf ormation code = 370) (Auto Output) [Automated mess age] The system [employer] generated this result transmitted ref erence range: <=5.90. The reference range was not used to int erpret this result as normal/abnormal . RECOMMENDED COUMADIN/WARFARIN INR THERAPY RANGESSTANDARD DOSE: 2.0 - 3.0 Includes: PROPHYLAXIS forvenous thrombosis, systemic embolization; TREATMENT for venous thrombosis and/or pulmonary embolus.HIGH RISK: Target INR is 2.5-3.5 for patients with mechanical heart valves.TOTAL IRON BINDING [id number] 15:25:26 Test Item Value Reference Range Interpretation Comments TIBC (test code = 0528940851) 352 ug/dL 250-410 % FE SAT (test code = 7706333407) 5 % 20-50 L Lab Interpretation (test code = Abnormal 03094-1) [id number] [facility]:06:10 Test Item Value Reference Range Interpretation Comments FERRITIN (test code = 8.6 ng/mL 18.0-464.0 L [id number]) MANDO (test code = MANDO) Biotin has been reported to cause a negative bias, interpret results relative to patient's use of biotin. Lab Interpretation (test Abnormal code = 53373-4) [facility] 14:30:28 Test Item Value Reference Range Interpretation Comments IRON (test code = 5433485131) 17 ug/dL 50-160 L Lab Interpretation (test code = Abnormal 78836-1) [facility].2021-11-11 12:48:17 Test Item Value Reference Range Interpretation Comments PH (test code = 2) 7.35-7.45 PCO2 (test code = See_Comment H [Automat ed message] [id number]) The system [employer] generated this result transmitted ref erence range: 35 - 45 mmHg. The reference r giselle was not used to interpret this result as normal/abnor mal. PO2 (test code = See_Comment L [Automated message] 1217733654) The system [employer] generated this result transmitted ref erence range: 80 - 100 mmHg. The reference r giselle was not used to interpret this result as normal/abnor mal. HCO3 (test code = See_Comment H [Automate d message] 2420802013) The system [employer] generated this result transmitted ref erence range: 22 - 26 mEq/L. The reference r giselle was not used to interpret this result as normal/abnor mal. BE (test code = See_Comment H [Automated message] 8749808864) The system [employer] generated this result transmitted ref erence range: -3.0 - 3 .0 mEq/L. The refe rence range was not u sed to interpret this result as normal/abnor mal. Lab Interpretation (test Abnormal code = 30051-3) [id number] 11:05:55 Test Item Value Reference Range Interpretation Comments NT-proBNP (test code 5850 pg/mL See_Comment H [Autom ated = 6323364424) message] The system which generated this result transmitted reference range : <=125. The reference range was not used to interpret this result as normal/abnormal . MANDO (test code = MANDO) Biotin has been reported to cause a negative bias, interpret results relative to patient's use of biotin. Lab Interpretation Abnormal (test code = 98471-0) [facility] Metabolic Panel (NA, K, CL, CO2, GLUCOSE, BUN, CREATININE, [place])2021-11-11 10:59:12 Test Item Value Reference Range Interpretation Comments NA (test code = 138 mmol/L 135-145 3371951913) K (test code = 4.6 mmol/L 3.5-5.0 2362536793) CL (test code = 100 mmol/L 98-108 8909851641) CO2 TOTAL (test code = 33 mmol/L 23-31 H 3237262796) AGAP (test code = 2-16 9853467796) BUN (test code = 21 mg/dL 7-23 6132912001) GLUCOSE (test code = 94 mg/dL 70-110 3564710686) CREATININE (test code = 1.02 mg/dL 0.60-1.25 9464536184) CALCIUM (test code = 8.8 mg/dL 8.6-10.6 5811061472) eGFR (test code = mL/min/1.73m2 0752224066) MANDO (test code = MANDO) Association of [...] tests). Lab Interpretation Abnormal (test code = 20617-4) [facility] with Cvaxerldecez7669-01-82 10:38:28 Test Item Value Reference Range Interpretation [...] RDW-SD (test code = 49.3 fL 38.5-51.6 05684-1) RDW-CV (test code = 13.3 % 12.1-15.4 788-0) PLT (test code = See_Comment H [Automated 777-3) message] The sy stem which generated this result transmitted reference range : 150 - 328 10*3/ ?L. The reference r giselle was not used to interpret this result as normal/abnormal . MPV (test code = 10.8 fL 9.8-13.0 00775-7) NRBC/100 WBC (test See_Comment [Automat ed code = 2359630240) message] The system which generated this result transmitted reference range : 0.0 - 10.0 /100 WBCs. The refer ence range was not u sed to interpret th is result as normal/abnormal . NRBC x10^3 (test code <0.01 See_Comment [Auto mated = 5103547615) message] The s ystem which generated this result transmitted reference range : 10*3/?L. The reference range was not used to interpret this result as normal/abnormal . GRAN MAT (NEUT) % 66.6 % (test code = 770-8) IMM GRAN % (test code 0.30 % = 3126694229) LYMPH % (test code = 25.4 % 736-9) MONO % (test code = 7.4 % 5905-5) EOS % (test code = 0.0 % 713-8) BASO % (test code = 0.3 % 706-2) GRAN MAT x10^3(ANC) 5.83 10*3/uL 1.99-6.95 (test code = 6129441014) IMM GRAN x10^3 (test 0.03 10*3/uL 0.00-0.06 code = 4399130447) LYMPH x10^3 (test code 2.23 10*3/uL 1.09-3.23 = 731-0) MONO x10^3 (test code 0.65 10*3/uL 0.36-1.02 = 742-7) EOS x10^3 (test code = <0.03 0.06-0.53 L 711-2) BASO x10^3 (test code 0.03 10*3/uL 0.01-0.09 = 704-7) Lab Interpretation Abnormal (test code = 85675-7) [facility] [id number] 01:59:41 Test Item Value Reference Interpretation Comments Range TROPONIN I (test 0.023 ng/mL See_Comment [Automated code = 1643099714) message] The system which generated this result [...] biotin. Lab Interpretation Normal (test code = 71040-3) [facility]-[id number] 01:56:41 Test Item Value Reference Range Interpretation Comments NT-proBNP (test code 5760 pg/mL See_Comment H [Autom ated = 6882460959) message] The system which generated this result transmitted reference range : <=125. The reference range was not used to interpret this result as normal/abnormal . MANDO (test code = MANDO) Biotin has been reported to cause a negative bias, interpret results relative to patient's use of biotin. Lab Interpretation Abnormal (test code = 12240-1) [facility]ACT[facility] THRMPLAS [id number] 01:51:39 Test Item Value Reference Range Interpretation Comments APTT Patient (test See_Comment [Automat ed code = 3173-2) message] The system which generated this result transmitted reference range : 23 - 38 Seconds . The reference range was not used to interpr et this result as normal/abnormal . MANDO (test code = MANDO) The [facility] patient population mean normal value for aPTT is 30 seconds. Lab Interpretation Normal (test code = 81272-9) [facility] HospitalPROTHROMBIN TIME / [id number] 01:49:44 Test Item Value Reference Range Interpretation Comments PROTIME PATIENT (test See_Comment H [Auto mated message] code = 5964-2) The system wh ich generated this result transmitted ref erence range: 12.0 - 1 4.7 Seconds. The reference range was not used to int erpret this result as normal/abnormal . INR (test code = 6301-6) Nor mal INR <1.1; Warfarin Therap eutic range 2.0 to 3. 0 or 2.5 to 3.5, dep ending upon the indica tions. Lab Interpretation (test Abnormal code = 09989-0) [facility] HospitalETHANOL2022-[facility] 01:49:44 Test Item Value Reference Range Interpretation Comments ALCOHOL (test code = <10 mg/dL 1256180291) MANDO (test code = MANDO) <10 Wdnolcsu27-839 Toxic>100 Depression of SWITCHING OPERATOR>400 Fatalities Reported [facility] HospitalCOMP[facility]OL[facility] PAN[facility] ([id number])2021-11-11 01:47:38 Test Item Value Reference Range Interpretation Comments NA (test code = 137 mmol/L 135-145 7926822249) K (test code = 5.8 mmol/L 3.5-5.0 H 5979737266) CL (test code = 98 mmol/L 98-108 9171861721) CO2 TOTAL (test code = 31 mmol/L 23-31 2757021017) AGAP (test code = 2-16 6641598008) BUN (test code = 21 mg/dL 7-23 3649714445) GLUCOSE (test code = 112 mg/dL 70-110 H 1486384626) CREATININE (test code = 1.13 mg/dL 0.60-1.25 4778013864) TOTAL BILI (test code = 0.4 mg/dL 0.1-1.1 3841381817) CALCIUM (test code = 8.9 mg/dL 8.6-10.6 2083430709) T PROTEIN (test code = 7.4 g/dL 6.3-8.2 2335040685) ALBUMIN (test code = 3.9 g/dL 3.5-5.0 8529665516) ALK PHOS (test code = 61 U/L 34-122 1819748629) ALTv (test code = 9 U/L 5-50 1742-6) AST(SGOT) (test code = 14 U/L 13-40 5305843116) eGFR (test code = mL/min/1.73m2 0362868159) MANDO (test code = MANDO) Association of [...] tests). Lab Interpretation Abnormal (test code = 35739-0) [facility] WITH [id number] 01:45:03 Test Item Value Reference Range Interpretation Comments WBC (test code = See_Comment [Automated 0233-2) message] The sy stem which generated this result transmitted reference range : 4.20 - 10.70 10*3/?L. The reference range was not used to interpret this result as normal/abnormal . RBC (test code = See_Comment L [Automated 876-8) message] The sy stem which generated this [...] RDW-SD (test code = 48.4 fL 38.5-51.6 98455-1) RDW-CV (test code = 13.2 % 12.1-15.4 788-0) PLT (test code = See_Comment H [Automated 777-3) message] The sy stem which generated this result transmitted reference range : 150 - 328 10*3/ ?L. The reference r giselle was not used to interpret this result as normal/abnormal . MPV (test code = 10.8 fL 9.8-13.0 96748-4) NRBC/100 WBC (test See_Comment [Automat ed code = 2783590815) message] The system which generated this result transmitted reference range : 0.0 - 10.0 /100 WBCs. The refer ence range was not u sed to interpret th is result as normal/abnormal . NRBC x10^3 (test code <0.01 See_Comment [Auto mated = 0156819942) message] The s ystem which generated this result transmitted reference range : 10*3/?L. The reference range was not used to interpret this result as normal/abnormal . GRAN MAT (NEUT) % 74.2 % (test code = 770-8) IMM GRAN % (test code 0.40 % = 3336140752) LYMPH % (test code = 19.6 % 736-9) MONO % (test code = 5.5 % 5905-5) EOS % (test code = 0.0 % 713-8) BASO % (test code = 0.3 % 706-2) GRAN MAT x10^3(ANC) 6.75 10*3/uL 1.99-6.95 (test code = 4016515305) IMM GRAN x10^3 (test 0.04 10*3/uL 0.00-0.06 code = 7528117895) LYMPH x10^3 (test code 1.79 10*3/uL 1.09-3.23 = 731-0) MONO x10^3 (test code 0.50 10*3/uL 0.36-1.02 = 742-7) EOS x10^3 (test code = <0.03 0.06-0.53 L 711-2) BASO x10^3 (test code 0.03 10*3/uL 0.01-0.09 = 704-7) Lab Interpretation Abnormal (test code = 15348-2) [facility] GLUCOSE (AUTOMATED)2020-05-23 21:14:00 Test Item Value Reference Range Interpretation Comments POCT GLU (test code = 8693948770) 203 mg/dL 70-110 H Lab Interpretation (test code = Abnormal 85951-6) [facility] GLUCOSE (AUTOMATED)2020-05-23 16:52:00 Test Item Value Reference Range Interpretation Comments POCT GLU (test code = 6708727576) 320 mg/dL 70-110 H Lab Interpretation (test code = Abnormal 07129-3) [facility] GLUCOSE (AUTOMATED)2020-05-23 13:55:00 Test Item Value Reference Range Interpretation Comments POCT GLU (test code = 4594582195) 146 mg/dL 70-110 H Lab Interpretation (test code = Abnormal 41619-3) [facility] Metabolic Panel (NA, K, CL, CO2, GLUCOSE, BUN, CREATININE, [place])2020-05-23 11:19:00 Test Item Value Reference Range Interpretation Comments NA (test code = 136 mmol/L 135-145 7294928925) K (test code = 4.4 mmol/L 3.5-5 9069924121) CL (test code = 96 mmol/L 98-108 L 0978752932) CO2 TOTAL (test code = 36 mmol/L 23-31 H 7872127616) AGAP (test code = 2-16 4497775474) BUN (test code = 8 mg/dL 7-23 3202166794) GLUCOSE (test code = 119 mg/dL 70-110 H 0641246780) CREATININE (test code = 0.69 mg/dL 0.6-1.25 4389569360) CALCIUM (test code = 9.2 mg/dL 8.6-10.6 9358186270) eGFR Calculation mL/min/1.73m2 (Non-) (test code = 1875936050) eGFR Calculation mL/min/1.73m2 () (test code = 8423314566) MANDO (test code = MANDO) Association of [...] tests). Lab Interpretation Abnormal (test code = 10768-9) [facility] HospitalMagnesium [id number] 11:19:00 Test Item Value Reference Range Interpretation Comments MAGNESIUM (test code = 3298989247) 2.1 mg/dL 1.7-2.4 Lab Interpretation (test code = Normal 52249-9) [facility] with Jvtxzzoqerea8086-50-01 11:11:00 Test Item Value Reference Range Interpretation [...] RDW-SD (test code = 48.2 fL 38.5-51.6 53199-1) RDW-CV (test code = 14.4 % 12.1-15.4 788-0) PLT (test code = See_Comment H [Automated 777-3) message] The sy stem which generated this result transmitted reference range : 150 - 328 10*3/ ?L. The reference r giselle was not used to interpret this result as normal/abnormal . MPV (test code = 9.5 fL 9.8-13 L 52869-6) NRBC/100 WBC (test See_Comment [Automat ed code = 8736981711) message] The system which generated this result transmitted reference range : 0.0 - 10.0 /100 WBCs. The refer ence range was not u sed to interpret th is result as normal/abnormal . NRBC x10^3 (test code <0.01 See_Comment [Auto mated = 4253612259) message] The s ystem which generated this result transmitted reference range : 10*3/?L. The reference range was not used to interpret this result as normal/abnormal . GRAN MAT (NEUT) % 64.0 % (test code = 770-8) IMM GRAN % (test code 1.40 % = 2489431178) LYMPH % (test code = 24.5 % 736-9) MONO % (test code = 6.5 % 5905-5) EOS % (test code = 3.1 % 713-8) BASO % (test code = 0.5 % 706-2) GRAN MAT x10^3(ANC) 7.11 10*3/uL 1.99-6.95 H (test code = 4465332347) IMM GRAN x10^3 (test 0.15 10*3/uL 0-0.06 H code = 6365207855) LYMPH x10^3 (test code 2.72 10*3/uL 1.09-3.23 = 731-0) MONO x10^3 (test code 0.72 10*3/uL 0.36-1.02 = 742-7) EOS x10^3 (test code = 0.34 10*3/uL 0.06-0.53 711-2) BASO x10^3 (test code 0.06 10*3/uL 0.01-0.09 = 704-7) Lab Interpretation Abnormal (test code = 69730-6) [facility]2020-05-23 01:34:00 Test Item Value Reference Range Interpretation Comments POCT GLU (test code = 5548211993) 186 mg/dL 70-110 H Lab Interpretation (test code = Abnormal 46315-1) [facility] HospitalBLOOD CULTURE [id number] 23:01:00 Test Item Value Reference Range Interpretation Comments Blood Culture-Aerobic No organisms No growth Previo us (test code = 46691-6) isolated prelim inary verified result was Culture [...] Culture-Anaerobic isolated preliminar y (test code = 23107-2) verifi ed result was Culture In Progress [...] CDT Lab Interpretation Normal (test code = 90167-0) [facility] GLUCOSE (AUTOMATED)2020-05-22 16:59:00 Test Item Value Reference Range Interpretation Comments POCT GLU (test code = 8402182018) 218 mg/dL 70-110 H Lab Interpretation (test code = Abnormal 13633-1) [facility] GLUCOSE (AUTOMATED)2020-05-22 14:29:00 Test Item Value Reference Range Interpretation Comments POCT GLU (test code = 3593100552) 156 mg/dL 70-110 H Lab Interpretation (test code = Abnormal 94780-5) [facility] Metabolic Panel (NA, K, CL, CO2, GLUCOSE, BUN, CREATININE, [place])2020-05-22 10:25:00 Test Item Value Reference Range Interpretation Comments NA (test code = 136 mmol/L 135-145 6878385781) K (test code = 4.1 mmol/L 3.5-5 4420517866) CL (test code = 97 mmol/L 98-108 L 6784874342) CO2 TOTAL (test code = 36 mmol/L 23-31 H 5033930872) AGAP (test code = 2-16 1341054048) BUN (test code = 9 mg/dL 7-23 2575468981) GLUCOSE (test code = 132 mg/dL 70-110 H 5037530007) CREATININE (test code = 0.71 mg/dL 0.6-1.25 8040300164) CALCIUM (test code = 9.0 mg/dL 8.6-10.6 0363356387) eGFR Calculation mL/min/1.73m2 (Non-) (test code = 9794865466) eGFR Calculation mL/min/1.73m2 () (test code = 9217679054) MANDO (test code = MANDO) Association of [...] tests). Lab Interpretation Abnormal (test code = 72961-0) [facility] HospitalMagnesium Extlf5390-69-52 10:25:00 Test Item Value Reference Range Interpretation Comments MAGNESIUM (test code = 4012809794) 2.1 mg/dL 1.7-2.4 Lab Interpretation (test code = Normal 52644-2) [facility] with Mnsfazypzmoz0797-85-44 10:12:00 Test Item Value Reference Range Interpretation Comments WBC (test code = See_Comment H [Automated 4490-2) message] The sy stem which generated this result transmitted reference range : 4.20 - 10.70 10*3/?L. The reference range was not used to interpret this result as normal/abnormal . RBC (test code = See_Comment L [Automated 869-8) message] The sy stem which generated this [...] RDW-SD (test code = 47.7 fL 38.5-51.6 93899-9) RDW-CV (test code = 14.6 % 12.1-15.4 788-0) PLT (test code = See_Comment H [Automated 777-3) message] The sy stem which generated this result transmitted reference range : 150 - 328 10*3/ ?L. The reference r giselle was not used to interpret this result as normal/abnormal . MPV (test code = 9.4 fL 9.8-13 L 96728-0) NRBC/100 WBC (test See_Comment [Automat ed code = 8618033686) message] The system which generated this result transmitted reference range : 0.0 - 10.0 /100 WBCs. The refer ence range was not u sed to interpret th is result as normal/abnormal . NRBC x10^3 (test code <0.01 See_Comment [Auto mated = 7158048164) message] The s ystem which generated this result transmitted reference range : 10*3/?L. The reference range was not used to interpret this result as normal/abnormal . GRAN MAT (NEUT) % 66.1 % (test code = 770-8) IMM GRAN % (test code 1.20 % = 0533524019) LYMPH % (test code = 22.9 % 736-9) MONO % (test code = 7.1 % 5905-5) EOS % (test code = 2.3 % 713-8) BASO % (test code = 0.4 % 706-2) GRAN MAT x10^3(ANC) 9.08 10*3/uL 1.99-6.95 H (test code = 6332717119) IMM GRAN x10^3 (test 0.17 10*3/uL 0-0.06 H code = 2005124357) LYMPH x10^3 (test code 3.15 10*3/uL 1.09-3.23 = 731-0) MONO x10^3 (test code 0.97 10*3/uL 0.36-1.02 = 742-7) EOS x10^3 (test code = 0.31 10*3/uL 0.06-0.53 711-2) BASO x10^3 (test code 0.06 10*3/uL 0.01-0.09 = 704-7) Lab Interpretation Abnormal (test code = 85119-8) [facility] GLUCOSE (AUTOMATED)2020-05-22 02:20:00 Test Item Value Reference Range Interpretation Comments POCT GLU (test code = 7109866672) 196 mg/dL 70-110 H Lab Interpretation (test code = Abnormal 73177-8) [facility] GLUCOSE (AUTOMATED)2020-05-21 22:52:00 Test Item Value Reference Range Interpretation Comments POCT GLU (test code = 9452233797) 195 mg/dL 70-110 H Lab Interpretation (test code = Abnormal 50490-5) [facility] GLUCOSE (AUTOMATED)2020-05-21 17:24:00 Test Item Value Reference Range Interpretation Comments POCT GLU (test code = 5314382107) 226 mg/dL 70-110 H Lab Interpretation (test code = Abnormal 68116-8) [facility] GLUCOSE (AUTOMATED)2020-05-21 13:22:00 Test Item Value Reference Range Interpretation Comments POCT GLU (test code = 4699603295) 169 mg/dL 70-110 H Lab Interpretation (test code = Abnormal 06720-0) [facility] Metabolic Panel (NA, K, CL, CO2, GLUCOSE, BUN, CREATININE, CA)2020-05-21 09:27:00 Test Item Value Reference Range Interpretation Comments NA (test code = 135 mmol/L 135-145 0214436321) K (test code = 3.7 mmol/L 3.5-5 6494728419) CL (test code = 95 mmol/L 98-108 L 7324696283) CO2 TOTAL (test code = 34 mmol/L 23-31 H 1492733401) AGAP (test code = 2-16 5237555767) BUN (test code = 12 mg/dL 7-23 2104967034) GLUCOSE (test code = 123 mg/dL 70-110 H 2828357800) CREATININE (test code = 0.81 mg/dL 0.6-1.25 0874810719) CALCIUM (test code = 8.8 mg/dL 8.6-10.6 7324691136) eGFR Calculation mL/min/1.73m2 (Non-) (test code = 2466621631) eGFR Calculation mL/min/1.73m2 () (test code = 9245430918) MANDO (test code = MANOD) Association of Glomerular Filtration Rate (GFR) and [...] tests). Lab Interpretation Abnormal (test code = 83756-0) [facility] Eoxmp1718-43-31 09:27:00 Test Item Value Reference Range Interpretation Comments MAGNESIUM (test code = 9452803269) 2.0 mg/dL 1.7-2.4 Lab Interpretation (test code = Normal 37670-8) [facility] with Kzuwaabrnsoh9887-80-23 09:01:00 Test Item Value Reference Range Interpretation [...] RDW-SD (test code = 47.5 fL 38.5-51.6 10669-1) RDW-CV (test code = 14.6 % 12.1-15.4 788-0) PLT (test code = See_Comment H [Automated 777-3) message] The sy stem which generated this result transmitted reference range : 150 - 328 10*3/ ?L. The reference r giselle was not used to interpret this result as normal/abnormal . MPV (test code = 9.4 fL 9.8-13 L 02783-8) NRBC/100 WBC (test See_Comment [Automat ed code = 7398450665) message] The system which generated this result transmitted reference range : 0.0 - 10.0 /100 WBCs. The refer ence range was not u sed to interpret th is result as normal/abnormal . NRBC x10^3 (test code <0.01 See_Comment [Auto mated = 1576434353) message] The s ystem which generated this result transmitted reference range : 10*3/?L. The reference range was not used to interpret this result as normal/abnormal . GRAN MAT (NEUT) % 69.5 % (test code = 770-8) IMM GRAN % (test code 1.20 % = 7129084474) LYMPH % (test code = 20.5 % 736-9) MONO % (test code = 6.7 % 5905-5) EOS % (test code = 1.5 % 713-8) BASO % (test code = 0.6 % 706-2) GRAN MAT x10^3(ANC) 9.60 10*3/uL 1.99-6.95 H (test code = 6150484120) IMM GRAN x10^3 (test 0.17 10*3/uL 0-0.06 H code = 0713669815) LYMPH x10^3 (test code 2.83 10*3/uL 1.09-3.23 = 731-0) MONO x10^3 (test code 0.93 10*3/uL 0.36-1.02 = 742-7) EOS x10^3 (test code = 0.21 10*3/uL 0.06-0.53 711-2) BASO x10^3 (test code 0.08 10*3/uL 0.01-0.09 = 704-7) Lab Interpretation Abnormal (test code = 50200-5) [facility] GLUCOSE (AUTOMATED)2020-05-21 02:42:00 Test Item Value Reference Range Interpretation Comments POCT GLU (test code = 4799044311) 149 mg/dL 70-110 H Lab Interpretation (test code = Abnormal 48352-2) [facility] GLUCOSE (AUTOMATED)2020-05-20 21:49:00 Test Item Value Reference Range Interpretation Comments POCT GLU (test code = 5923966229) 225 mg/dL 70-110 H Lab Interpretation (test code = Abnormal 35660-7) [facility] GLUCOSE (AUTOMATED)2020-05-20 13:02:00 Test Item Value Reference Range Interpretation Comments POCT GLU (test code = 1585261870) 131 mg/dL 70-110 H Lab Interpretation (test code = Abnormal 72411-0) [facility] Metabolic Panel (NA, K, CL, CO2, GLUCOSE, BUN, CREATININE, [place])2020-05-20 09:10:00 Test Item Value Reference Range Interpretation Comments NA (test code = 131 mmol/L 135-145 L 6404061082) K (test code = 4.1 mmol/L 3.5-5 Slight 5071906482) hemolysis CL (test code = 94 mmol/L 98-108 L 8301037209) CO2 TOTAL (test code 33 mmol/L 23-31 H = 5049869902) AGAP (test code = 2-16 7173854212) BUN (test code = 12 mg/dL 7-23 Slight 5422038827) hemolysis GLUCOSE (test code = 119 mg/dL 70-110 H 5546217590) CREATININE (test code 0.63 mg/dL 0.6-1.25 = 1598740517) CALCIUM (test code = 8.6 mg/dL 8.6-10.6 1446235673) eGFR Calculation mL/min/1.73m2 (Non-) (test code = 1615741866) eGFR Calculation mL/min/1.73m2 () (test code = 2972422027) MANDO (test code = MANDO) Association of [...] tests). Lab Interpretation Abnormal (test code = 67377-4) [facility] Hpgei3333-35-93 09:10:00 Test Item Value Reference Range Interpretation Comments MAGNESIUM (test code = 8331690098) 1.9 mg/dL 1.7-2.4 Lab Interpretation (test code = Normal 81787-0) [facility] with Ijefjgfaggbv9491-00-26 08:39:00 Test Item Value Reference Range Interpretation Comments WBC (test code = See_Comment H [Automated 6690-2) message] The system which generated this result transmit thea reference range : 4.20 - 10.70 10*3/?L. The reference range was not used to interpret this result as normal/abnormal . RBC (test code = See_Comment L [Automated 789-8) message] The system which generated this result transmit thea reference range : 4.26 - 5.52 10*6/?L. [...] RDW-SD (test code = 47.6 fL 38.5-51.6 08201-4) RDW-CV (test code = 14.7 % 12.1-15.4 788-0) PLT (test code = See_Comment H [Automated 777-3) message] The system which generated this result transmit thea reference range : 150 - 328 10*3/ ?L. The reference range was not u sed to interpret th is result as normal/abnormal . MPV (test code = 9.6 fL 9.8-13 L 32037-9) NRBC/100 WBC (test See_Comment [Automat ed code = 5246542168) message] The system which generated this result transmit thea reference range : 0.0 - 10.0 /100 WBCs. The reference range was not used to interpret this result as normal/abnormal . NRBC x10^3 (test code <0.01 See_Comment [Auto mated = 7463431276) message] The system which generated this result transmit thea reference range : 10*3/?L. The reference range was not used to interpret this result as normal/abnormal . GRAN MAT (NEUT) % 70.1 % (test code = 770-8) IMM GRAN % (test code 1.20 % = 0069669397) LYMPH % (test code = 20.1 % 736-9) MONO % (test code = 7.2 % 5905-5) EOS % (test code = 0.9 % 713-8) BASO % (test code = 0.5 % 706-2) GRAN MAT x10^3(ANC) 10.73 10*3/uL 1.99-6.95 H (test code = 1099396290) IMM GRAN x10^3 (test 0.19 10*3/uL 0-0.06 H code = 2801241310) LYMPH x10^3 (test code 3.07 10*3/uL 1.09-3.23 = 731-0) MONO x10^3 (test code 1.10 10*3/uL 0.36-1.02 H = 742-7) EOS x10^3 (test code = 0.13 10*3/uL 0.06-0.53 711-2) BASO x10^3 (test code 0.07 10*3/uL 0.01-0.09 = 704-7) Lab Interpretation Abnormal (test code = 53818-4) [facility] [id number] 02:03:00COVID DMT InterpretationInterpretation/Recommendations\\nTests (PCR) for Active Infection [...] test is performed there is approximately a dpg-pn-jgkjg chance the patient had been infected and [...] and IgG antibodies, this may be the explanation.[facility] SERVICESCOVID EjtfstgQXER-JeP-4 PCR (no units) ? ? ?Date ? Value ?05/15/2020 ? Not Detected ?11/24/2019 ? Not Detected ? [facility] PO[facility] GLUCOSE (AUTOMATED)2020-05-20 01:09:00 Test Item Value Reference Range Interpretation Comments POCT GLU (test code = 4897256728) 128 mg/dL 70-110 H Lab Interpretation (test code = Abnormal 57985-1) [facility]2020-05-19 21:39:00 Test Item Value Reference Range Interpretation Comments POCT GLU (test code = 7648508389) 124 mg/dL 70-110 H Lab Interpretation (test code = Abnormal 10336-1) [facility] GLUCOSE (AUTOMATED)2020-05-19 17:36:00 Test Item Value Reference Range Interpretation Comments POCT GLU (test code = 0610065934) 134 mg/dL 70-110 H Lab Interpretation (test code = Abnormal 41189-7) [facility] GLUCOSE (AUTOMATED)2020-05-19 13:47:00 Test Item Value Reference Range Interpretation Comments POCT GLU (test code = 4355995364) 210 mg/dL 70-110 H Lab Interpretation (test code = Abnormal 72122-0) [facility] HospitalBLOOD CULTURE [id number] 13:22:00 Test Item Value Reference Range Interpretation Comments Blood Culture-Aerobic Culture positive. No growth AA P revious (test code = 30168-8) See Blood prelim inary Culture Workup verified resu lt for additional was Culture I n information. Progress on 05/16/2020 at 2101 CDT Lab Interpretation Abnormal (test code = 54489-2) [facility] HospitalBL[facility] [id number] 13:22:00 Test Item Value Reference Range Interpretation Comments Blood Culture Coagulase negative Organism identified Workup (test Staphylococcus by DNA code = 600-7) probeAdditiona l work-up perform ed only per reques t. Culture plate(s ) will be saved until this date: - 020 Gram stain Isolated from (test code = aerobic bottle Gram 664-3) positive cocci [facility] HospitalBasic Metabolic Panel (NA, K, CL, CO2, GLUCOSE, BUN, CREATININE, CA)2020-05-19 11:07:00 Test Item Value Reference Range Interpretation Comments NA (test code = 133 mmol/L 135-145 L 7664503173) K (test code = 3.5 mmol/L 3.5-5 5781846584) CL (test code = 95 mmol/L 98-108 L 5240307692) CO2 TOTAL (test code = 32 mmol/L 23-31 H 5538728891) AGAP (test code = 2-16 2057037473) BUN (test code = 12 mg/dL 7-23 7362004968) GLUCOSE (test code = 151 mg/dL 70-110 H 7509188106) CREATININE (test code = 0.75 mg/dL 0.6-1.25 7705044974) CALCIUM (test code = 8.8 mg/dL 8.6-10.6 3996149995) eGFR Calculation mL/min/1.73m2 (Non-) (test code = 0489836817) eGFR Calculation mL/min/1.73m2 () (test code = 3456310834) MANDO (test code = MANDO) Association of [...] tests). Lab Interpretation Abnormal (test code = 70898-3) [facility] HospitalMagnesium [id number] 11:07:00 Test Item Value Reference Range Interpretation Comments MAGNESIUM (test code = 4191587236) 1.8 mg/dL 1.7-2.4 Lab Interpretation (test code = Normal 75748-7) [facility] HospitalCB with [id number] 10:26:00 Test Item Value Reference Range Interpretation Comments WBC (test code = See_Comment H [Automated 6690-2) message] The system which generated this result transmit thea reference range : 4.20 - 10.70 10*3/?L. The reference range was not used to interpret this result as normal/abnormal . RBC (test code = See_Comment L [Automated 789-8) message] The system which generated this result transmit thea reference range : 4.26 - 5.52 10*6/?L. [...] RDW-SD (test code = 47.8 fL 38.5-51.6 00558-9) RDW-CV (test code = 14.9 % 12.1-15.4 788-0) PLT (test code = See_Comment H [Automated 777-3) message] The system which generated this result transmit thea reference range : 150 - 328 10*3/ ?L. The reference range was not u sed to interpret th is result as normal/abnormal . MPV (test code = 9.5 fL 9.8-13 L 66957-9) NRBC/100 WBC (test See_Comment [Automat ed code = 4981480139) message] The system which generated this result transmit thea reference range : 0.0 - 10.0 /100 WBCs. The reference range was not used to interpret this result as normal/abnormal . NRBC x10^3 (test code <0.01 See_Comment [Auto mated = 5950734225) message] The system which generated this result transmit thea reference range : 10*3/?L. The reference range was not used to interpret this result as normal/abnormal . GRAN MAT (NEUT) % 72.2 % (test code = 770-8) IMM GRAN % (test code 1.50 % = 2279819504) LYMPH % (test code = 17.6 % 736-9) MONO % (test code = 7.2 % 5905-5) EOS % (test code = 0.9 % 713-8) BASO % (test code = 0.6 % 706-2) GRAN MAT x10^3(ANC) 11.69 10*3/uL 1.99-6.95 H (test code = 9250082664) IMM GRAN x10^3 (test 0.24 10*3/uL 0-0.06 H code = 6322046237) LYMPH x10^3 (test code 2.84 10*3/uL 1.09-3.23 = 731-0) MONO x10^3 (test code 1.16 10*3/uL 0.36-1.02 H = 742-7) EOS x10^3 (test code = 0.15 10*3/uL 0.06-0.53 711-2) BASO x10^3 (test code 0.09 10*3/uL 0.01-0.09 = 704-7) Lab Interpretation Abnormal (test code = 92232-8) [facility] GLUCOSE (AUTOMATED)2020-05-19 02:13:00 Test Item Value Reference Range Interpretation Comments POCT GLU (test code = 8968245271) 210 mg/dL 70-110 H Lab Interpretation (test code = Abnormal 21342-1) [facility] GLUCOSE (AUTOMATED)2020-05-18 22:24:00 Test Item Value Reference Range Interpretation Comments POCT GLU (test code = 4819073138) 124 mg/dL 70-110 H Lab Interpretation (test code = Abnormal 05585-1) [facility] [id number] 21:45:00 Test Item Value Reference Range Interpretation Comments URINE CULTURE (test <10,000 CFU/mL code = 630-4) Gram-Negative Bacilli [facility] GLUCOSE (AUTOMATED)2020-05-18 20:54:00 Test Item Value Reference Range Interpretation Comments POCT GLU (test code = 2982753393) 141 mg/dL 70-110 H Lab Interpretation (test code = Abnormal 22505-8) [facility] GLUCOSE (AUTOMATED)2020-05-18 17:09:00 Test Item Value Reference Range Interpretation Comments POCT GLU (test code = 3369863771) 398 mg/dL 70-110 H Lab Interpretation (test code = Abnormal 61613-7) [facility] GLUCOSE (AUTOMATED)2020-05-18 17:01:00 Test Item Value Reference Range Interpretation Comments POCT GLU (test code = 0500999441) 356 mg/dL 70-110 H Lab Interpretation (test code = Abnormal 20776-5) [facility] GLUCOSE (AUTOMATED)2020-05-18 13:28:00 Test Item Value Reference Range Interpretation Comments POCT GLU (test code = 1340244971) 166 mg/dL 70-110 H Lab Interpretation (test code = Abnormal 71422-0) [facility] HospitalLipid Panel (Total Cholesterol, Triglycerides, HDL) - [id number] 11:12:00 Test Item Value Reference Range Interpretation Comments CHOL (test code = 109 mg/dL 120-200 L 0527611471) HDL (test code = 10 mg/dL >40 L 7270098034) HDLC RATIO (test code = See_Comment H [Au tomated message] 8167176607) The system [employer] generated this result transmit thea reference range : <=5.0. The refe rence range was not u sed to interpret th is result as normal/abnormal . TRIG (test code = 165 mg/dL 30-170 2047049802) LDL CHOL (test code = 66 mg/dL See_Comment [Auto mated message] 27679-6) The system [employer] generated this result transmit thea reference range : <=160. The refe rence range was not u sed to interpret th is result as normal/abnormal . VLDL (test code = 33 mg/dL 5-60 1953330111) Lab Interpretation (test Abnormal code = 63884-6) [facility] (NA, K, CL, CO2, GLUCOSE, BUN, CREATININE, CA)2020-05-18 11:12:00 Test Item Value Reference Range Interpretation Comments NA (test code = 135 mmol/L 135-145 9330266724) K (test code = 3.6 mmol/L 3.5-5 1954996372) CL (test code = 96 mmol/L 98-108 L 6583689272) CO2 TOTAL (test code = 32 mmol/L 23-31 H 3230657928) AGAP (test code = 2-16 4544144745) BUN (test code = 12 mg/dL 7-23 2405095259) GLUCOSE (test code = 129 mg/dL 70-110 H 1938577234) CREATININE (test code = 0.68 mg/dL 0.6-1.25 9936422199) CALCIUM (test code = 9.0 mg/dL 8.6-10.6 1160467292) eGFR Calculation mL/min/1.73m2 (Non-) (test code = 9142581167) eGFR Calculation mL/min/1.73m2 () (test code = 9495496906) MANDO (test code = MANDO) Association of [...] tests). Lab Interpretation Abnormal (test code = 92406-8) [facility] HospitalMagnesium [id number] 11:12:00 Test Item Value Reference Range Interpretation Comments MAGNESIUM (test code = 0760138970) 1.9 mg/dL 1.7-2.4 Lab Interpretation (test code = Normal 87639-8) [facility] with [id number] 10:26:00 Test Item Value Reference Range Interpretation [...] RDW-SD (test code = 47.3 fL 38.5-51.6 95966-5) RDW-CV (test code = 14.9 % 12.1-15.4 788-0) PLT (test code = See_Comment H [Automated 777-3) message] The sy stem which generated this result transmitted reference range : 150 - 328 10*3/ ?L. The reference r giselle was not used to interpret this result as normal/abnormal . MPV (test code = 9.7 fL 9.8-13 L 47331-1) NRBC/100 WBC (test See_Comment [Automat ed code = 6396051438) message] The system which generated this result transmitted reference range : 0.0 - 10.0 /100 WBCs. The refer ence range was not u sed to interpret th is result as normal/abnormal . NRBC x10^3 (test code <0.01 See_Comment [Auto mated = 7078059765) message] The s ystem which generated this result transmitted reference range : 10*3/?L. The reference range was not used to interpret this result as normal/abnormal . GRAN MAT (NEUT) % 69.5 % (test code = 770-8) IMM GRAN % (test code 1.10 % = 4004703575) LYMPH % (test code = 18.4 % 736-9) MONO % (test code = 9.0 % 5905-5) EOS % (test code = 1.5 % 713-8) BASO % (test code = 0.5 % 706-2) GRAN MAT x10^3(ANC) 9.97 10*3/uL 1.99-6.95 H (test code = 9274947413) IMM GRAN x10^3 (test 0.16 10*3/uL 0-0.06 H code = 2758112239) LYMPH x10^3 (test code 2.65 10*3/uL 1.09-3.23 = 731-0) MONO x10^3 (test code 1.30 10*3/uL 0.36-1.02 H = 742-7) EOS x10^3 (test code = 0.22 10*3/uL 0.06-0.53 711-2) BASO x10^3 (test code 0.07 10*3/uL 0.01-0.09 = 704-7) Lab Interpretation Abnormal (test code = 18737-5) [facility] HospitalGRAM POSITIVE BLOOD PATHOGENS DNA [id number] 04:03:00 Test Item Value Reference Range Interpretation Comments Coagulase Negative Positive Negative, See A Staphylococcus (test Comment/Narrative code = 57048-6) MANDO (test code = MANDO) Coagulase negative [...] contact the Antimicrobial Stewardship Program with questions.Pager: ?[phone] Testing included eleven identification and three resistance marker targets. Lab Interpretation Abnormal (test code = 62027-2) [facility] HospitalPOCT [facility]UCOSE (AUTOMATED)2020-05-18 02:40:00 Test Item Value Reference Range Interpretation Comments POCT GLU (test code = 1096907492) 170 mg/dL 70-110 H Lab Interpretation (test code = Abnormal 43212-6) [facility] HospitalURINALYSIS2020-10-14 23:40:00 Test Item Value Reference Range Interpretation Comments APPEARANCE (test code = Clear Clear 1474476571) COLOR (test code = Straw Yellow A 4490807326) PH (test code = 4.8-8.0 9005084245) SP GRAVITY (test code = 1.003-1.030 2583562067) GLU U QUAL (test code = Normal Normal 5973341327) BLOOD (test code = Negative Negative 1776595097) KETONES (test code = Negative Negative 8572407915) PROTEIN (test code = Negative Negative 2887-8) UROBILIN (test code = Normal Normal 1615089803) BILIRUBIN (test code = Negative Negative 5794132766) NITRITE (test code = Negative Negative 1662652192) LEUK MAYA (test code = 500/uL Negative A 9919172760) RBC/HPF (test code = See_Comment [Autom ated message] 9364205540) The system [employer] generated this result transmitted ref erence range: 0 - 3 HP F. The reference range was not used to int erpret this result as normal/abnormal . WBC/HPF (test code = See_Comment H [Autom ated message] 6131751853) The system [employer] generated this result transmitted ref erence range: 0 - 5 HP F. The reference range was not used to int erpret this result as normal/abnormal . BACTERIA (test code = Negative Negative 4137364359) SQ EPITH (test code = <1 See_Comment [Auto mated message] 8814497259) The system [employer] generated this result transmitted ref erence range: <=2 HPF. The reference range was not used to int erpret this result as normal/abnormal . Lab Interpretation (test Abnormal code = 97345-5) [facility] HospitalProcalcitonin2020-10-14 23:15:00 Test Item Value Reference Range Interpretation Comments Procalcitonin (test 0.10 ng/mL <0.07 H code = 3842565729) MANDO (test code = MANDO) INTERPRETATION OF [...] lung abscess/empyema. For further information please refer to:[email or web address] Lab Interpretation Abnormal (test code = 25813-9) [facility] HospitalSUMAN [id number] 22:11:00 Test Item Value Reference Range Interpretation Comments TROPONIN I (test 0.039 ng/mL See_Comment H [Automated code = 0386568895) message] The system which generated this result [...] ? Lab Interpretation Abnormal (test code = 36762-2) [facility] HospitalHepatic Function Panel (ALB, T.PRO, BILI T, BU/BC, ALT, AST, ALK PHOS)2020-05-17 22:04:00 Test Item Value Reference Range Interpretation Comments TOTAL BILI (test code = 2440311858) 0.7 mg/dL 0.1-1.1 BILI UNCON (test code = 4165993866) 0.4 mg/dL 0.1-1.1 BILI CONJ (test code = 6578423454) 0.0 mg/dL 0-0.3 T PROTEIN (test code = 2699090155) 6.6 g/dL 6.3-8.2 ALBUMIN (test code = 3222244601) 3.1 g/dL 3.5-5 L ALK PHOS (test code = 1475268338) 161 U/L 34-122 H ALTv (test code = 1742-6) 84 U/L 5-50 H AST(SGOT) (test code = 8229027190) 86 U/L 13-40 H Lab Interpretation (test code = Abnormal 21679-6) [facility] HospitalTROPONIN [id number] 21:56:00 Test Item Value Reference Range Interpretation Comments TROPONIN I (test 0.034 ng/mL See_Comment [Automated code = 2134145150) message] The system which generated this result [...] ? Lab Interpretation Normal (test code = 20389-7) [facility] HospitalaPTT2020-10-14 21:32:00 Test Item Value Reference Range Interpretation Comments APTT Patient (test code = See_Comment [ Automated message] 3173-2) The system [employer] generated this result transmitted ref erence range: 26 - 36 Seconds. The re ference range was not u sed to interpret this result as normal/abnor mal. Lab Interpretation (test Normal code = 51786-9) [facility] HospitalProthrombin Time / [id number] 21:19:00 Test Item Value Reference Range Interpretation Comments PROTIME PATIENT (test See_Comment H [Auto mated message] code = 5964-2) The system [employer] generated this result transmitted ref erence range: 10.1 - 1 2.6 Seconds. The reference range was not used to int erpret this result as normal/abnormal . INR (test code = 6301-6) Nor mal INR <1.1; Warfarin Therap eutic range 2.0 to 3. 0 or 2.5 to 3.5, dep ending upon the indica tions. Lab Interpretation (test Abnormal code = 73450-4) [facility] HospitalCOVID-19 (ID NOW RAPID TESTING)2020-05-16 23:15:00 Test Item Value Reference Range Interpretation Comments SARS-CoV-2 Rapid ID NOW Not Detected Not Detected (test code = 04645-1) MANDO (test code = MANDO) ID NOW COVID-19 Assay is an isothermal nucleic acid amplification test intended for the qualitative detection of nucleic acid from SARS-CoV-2 viral RNA in nasopharyngeal ([employer]) specimens. It is used under Emergency Use [...] indicated. Lab Interpretation Normal (test code = 73462-8) [facility] HospitalXR CHEST 1 [id number] 23:01:30 1. ?Worsening aeration with increasing left [...] withpulmonary vascular congestion without interstitial edema.RL: 1105 [facility] ArlingtonLactic Acid Whole [id number] 22:29:00 Test Item Value Reference Range Interpretation Comments LACTIC ACID (test code = 1.27 mmol/L 4014243553) [facility] HospitalTROPONIN [id number] 22:26:00 Test Item Value Reference Range Interpretation Comments TROPONIN I (test 0.051 ng/mL See_Comment H [Automated code = 0932768455) message] The system which generated this result [...] ? Lab Interpretation Abnormal (test code = 88652-1) [facility] HospitalN-TERMINAL [id number] 22:23:00 Test Item Value Reference Range Interpretation Comments NT-proBNP (test code 7290 pg/mL See_Comment H [Autom ated = 0235586234) message] The system which generated this result transmitted reference range : <=125. The reference range was not used to interpret this result as normal/abnormal . MANDO (test code = MANDO) Biotin has been reported to cause a negative bias, interpret results relative to patient's use of biotin. Lab Interpretation Abnormal (test code = 04853-0) [facility] WITH [id number] 22:15:00 Test Item Value Reference Range Interpretation Comments WBC (test code = See_Comment H [Automated 6690-2) message] The system which generated this result transmit thea reference range : 4.20 - 10.70 10*3/?L. The reference range was not used to interpret this result as normal/abnormal . RBC (test code = See_Comment L [Automated 789-8) message] The system which generated this result transmit thea reference range : 4.26 - 5.52 10*6/?L. [...] RDW-SD (test code = 47.6 fL 38.5-51.6 66594-0) RDW-CV (test code = 14.8 % 12.1-15.4 788-0) PLT (test code = See_Comment H [Automated 777-3) message] The system which generated this result transmit thea reference range : 150 - 328 10*3/ ?L. The reference range was not u sed to interpret th is result as normal/abnormal . MPV (test code = 10.2 fL 9.8-13 14341-0) NRBC/100 WBC (test See_Comment [Automat ed code = 0911568519) message] The system which generated this result transmit thea reference range : 0.0 - 10.0 /100 WBCs. The reference range was not used to interpret this result as normal/abnormal . NRBC x10^3 (test code <0.01 See_Comment [Auto mated = 8599942607) message] The system which generated this result transmit thea reference range : 10*3/?L. The reference range was not used to interpret this result as normal/abnormal . GRAN MAT (NEUT) % 79.7 % (test code = 770-8) IMM GRAN % (test code 0.80 % = 2534402913) LYMPH % (test code = 11.2 % 736-9) MONO % (test code = 7.6 % 5905-5) EOS % (test code = 0.4 % 713-8) BASO % (test code = 0.3 % 706-2) GRAN MAT x10^3(ANC) 12.40 10*3/uL 1.99-6.95 H (test code = 9000207318) IMM GRAN x10^3 (test 0.13 10*3/uL 0-0.06 H code = 5494606108) LYMPH x10^3 (test code 1.74 10*3/uL 1.09-3.23 = 731-0) MONO x10^3 (test code 1.18 10*3/uL 0.36-1.02 H = 742-7) EOS x10^3 (test code = 0.07 10*3/uL 0.06-0.53 711-2) BASO x10^3 (test code 0.04 10*3/uL 0.01-0.09 = 704-7) Lab Interpretation Abnormal (test code = 33165-6) [facility] HospitalCOMP. METABOLIC PANEL (60124)2020-05-16 22:14:00 Test Item Value Reference Range Interpretation Comments NA (test code = 134 mmol/L 135-145 L 5248034176) K (test code = 4.2 mmol/L 3.5-5 8724959979) CL (test code = 97 mmol/L 98-108 L 3329568871) CO2 TOTAL (test code = 27 mmol/L 23-31 4674365618) AGAP (test code = 2-16 7671567526) BUN (test code = 12 mg/dL 7-23 6388276156) GLUCOSE (test code = 138 mg/dL 70-110 H 5412535945) CREATININE (test code = 0.74 mg/dL 0.6-1.25 2747244920) TOTAL BILI (test code = 0.7 mg/dL 0.1-1.6 2280166934) CALCIUM (test code = 9.6 mg/dL 8.6-10.6 8647702582) T PROTEIN (test code = 7.3 g/dL 6.3-8.2 3822098125) ALBUMIN (test code = 3.2 g/dL 3.5-5 L 9708653377) ALK PHOS (test code = 150 U/L 34-122 H 0225374121) ALTv (test code = 74 U/L 5-50 H 1742-6) AST(SGOT) (test code = 72 U/L 13-40 H 2925662420) eGFR Calculation mL/min/1.73m2 (Non-) (test code = 9331231457) eGFR Calculation mL/min/1.73m2 () (test code = 0240637382) MANDO (test code = MANDO) Association of [...] tests). Lab Interpretation Abnormal (test code = 84194-8) [facility] HospitalMAGNESIUM2020-10-13 22:14:00 Test Item Value Reference Range Interpretation Comments MAGNESIUM (test code = 1842434179) 2.0 mg/dL 1.7-2.4 Lab Interpretation (test code = Normal 79473-5) [facility] HospitalPROTHROMBIN TIME / [id number] 22:14:00 Test Item Value Reference Range Interpretation Comments PROTIME PATIENT (test See_Comment H [Auto mated message] code = 5964-2) The system [employer] generated this result transmitted ref erence range: 12.0 - 1 4.7 Seconds. The reference range was not used to int erpret this result as normal/abnormal . INR (test code = 6301-6) Nor mal INR <1.1; Warfarin Therap eutic range 2.0 to 3. 0 or 2.5 to 3.5, dep ending upon the indica tions. Lab Interpretation (test Abnormal code = 14224-5) [facility] HospitalCORTISOL [id number] 17:32:00 Test Item Value Reference Range Interpretation Comments JUAN AM (test code = 27.1 ug/dL 4.5-23 H 7841023488) MANDO (test code = MANDO) Biotin has been reported to cause a positive bias, interpret results relative to patient's use of biotin. Lab Interpretation (test Abnormal code = 53365-4) [facility] HospitalPOCT GLUCOSE (AUTOMATED)2020-05-14 17:09:00 Test Item Value Reference Range Interpretation Comments POCT GLU (test code = 8110143441) 181 mg/dL 70-110 H Lab Interpretation (test code = Abnormal 30896-1) [facility] HospitalCOMP. METABOLIC PANEL (22372)2020-05-14 15:54:00 Test Item Value Reference Range Interpretation Comments NA (test code = 133 mmol/L 135-145 L 6288387478) K (test code = 4.4 mmol/L 3.5-5 6368763966) CL (test code = 99 mmol/L 98-108 7845949727) CO2 TOTAL (test code = 25 mmol/L 23-31 9184736436) AGAP (test code = 2-16 4666235448) BUN (test code = 10 mg/dL 7-23 6619125770) GLUCOSE (test code = 156 mg/dL 70-110 H 7109462686) CREATININE (test code = 0.89 mg/dL 0.6-1.25 8583422748) TOTAL BILI (test code = 0.5 mg/dL 0.1-1.7 3097128995) CALCIUM (test code = 9.7 mg/dL 8.6-10.6 1715822031) T PROTEIN (test code = 5.8 g/dL 6.3-8.2 L 1336613544) ALBUMIN (test code = 2.7 g/dL 3.5-5 L 6575630288) ALK PHOS (test code = 86 U/L 34-122 8587522933) ALTv (test code = 24 U/L 5-50 1742-6) AST(SGOT) (test code = 32 U/L 13-40 3650444961) eGFR Calculation mL/min/1.73m2 (Non-) (test code = 9500997867) eGFR Calculation mL/min/1.73m2 () (test code = 6905625989) MANDO (test code = MANDO) Association of [...] tests). Lab Interpretation Abnormal (test code = 44146-3) [facility] HospitalPOCT [facility]UCOSE (AUTOMATED)2020-05-14 13:30:00 Test Item Value Reference Range Interpretation Comments POCT GLU (test code = 1798956729) 165 mg/dL 70-110 H Lab Interpretation (test code = Abnormal 80494-2) [facility] HospitalURINE [id number] 12:28:00 Test Item Value Reference Range Interpretation Comments URINE CULTURE >100,000 CFU/mL For suscept ibility (test code = Klebsiella results, refer to 630-4) pneumoniae culture # - [id number] [facility] HospitalN-TERMINAL [id number] 12:21:00 Test Item Value Reference Range Interpretation Comments NT-proBNP (test code 4780 pg/mL See_Comment H [Autom ated = 5398855734) message] The system which generated this result transmitted reference range : <=125. The reference range was not used to interpret this result as normal/abnormal . MANDO (test code = MANDO) Biotin has been reported to cause a negative bias, interpret results relative to patient's use of biotin. Lab Interpretation Abnormal (test code = 76873-4) [facility] HospitalCB WITH [id number] 11:07:00 Test Item Value Reference Range Interpretation Comments WBC (test code = See_Comment H [Automated 6690-2) message] The system which generated this result transmit thea reference range : 4.20 - 10.70 10*3/?L. The reference range was not used to interpret this result as normal/abnormal . RBC (test code = See_Comment L [Automated 699-8) message] The system which generated this result transmit thea reference range : 4.26 - 5.52 10*6/?L. [...] RDW-SD (test code = 47.9 fL 38.5-51.6 67338-6) RDW-CV (test code = 14.6 % 12.1-15.4 788-0) PLT (test code = See_Comment [Automated 777-3) message] The system which generated this result transmit thea reference range : 150 - 328 10*3/ ?L. The reference range was not u sed to interpret th is result as normal/abnormal . MPV (test code = 11.8 fL 9.8-13 18786-1) NRBC/100 WBC (test See_Comment [Automat ed code = 7805975784) message] The system which generated this result transmit thea reference range : 0.0 - 10.0 /100 WBCs. The reference range was not used to interpret this result as normal/abnormal . NRBC x10^3 (test code <0.01 See_Comment [Auto mated = 1524515422) message] The system which generated this result transmit thea reference range : 10*3/?L. The reference range was not used to interpret this result as normal/abnormal . GRAN MAT (NEUT) % 82.6 % (test code = 770-8) IMM GRAN % (test code 0.80 % = 9855684692) LYMPH % (test code = 8.0 % 736-9) MONO % (test code = 8.2 % 5905-5) EOS % (test code = 0.2 % 713-8) BASO % (test code = 0.2 % 706-2) GRAN MAT x10^3(ANC) 14.89 10*3/uL 1.99-6.95 H (test code = 9828308815) IMM GRAN x10^3 (test 0.14 10*3/uL 0-0.06 H code = 2846960092) LYMPH x10^3 (test code 1.44 10*3/uL 1.09-3.23 = 731-0) MONO x10^3 (test code 1.47 10*3/uL 0.36-1.02 H = 742-7) EOS x10^3 (test code = 0.03 10*3/uL 0.06-0.53 L 711-2) BASO x10^3 (test code 0.03 10*3/uL 0.01-0.09 = 704-7) Lab Interpretation Abnormal (test code = 51386-4) [facility] GLUCOSE (AUTOMATED)2020-05-14 01:18:00 Test Item Value Reference Range Interpretation Comments POCT GLU (test code = 0013292936) 134 mg/dL 70-110 H Lab Interpretation (test code = Abnormal 08901-9) [facility] GLUCOSE (AUTOMATED)2020-05-13 21:54:00 Test Item Value Reference Range Interpretation Comments POCT GLU (test code = 9850520274) 123 mg/dL 70-110 H Lab Interpretation (test code = Abnormal 12169-4) [facility] GLUCOSE (AUTOMATED)2020-05-13 17:12:00 Test Item Value Reference Range Interpretation Comments POCT GLU (test code = 1266287846) 188 mg/dL 70-110 H Lab Interpretation (test code = Abnormal 09981-3) [facility]ORT[facility] [id number] 16:57:00 Test Item Value Reference Range Interpretation Comments JUAN AM (test code = 18.5 ug/dL 4.5-23 2290327595) MANDO (test code = MANDO) Biotin has been reported to cause a positive bias, interpret results relative to patient's use of biotin. Lab Interpretation (test Normal code = 08231-8) [facility] GLUCOSE (AUTOMATED)2020-05-13 14:01:00 Test Item Value Reference Range Interpretation Comments POCT GLU (test code = 2391858661) 149 mg/dL 70-110 H Lab Interpretation (test code = Abnormal 85776-1) [facility] WITH [id number] 13:01:00 Test Item Value Reference Range Interpretation Comments WBC (test code = See_Comment H [Automated 6690-2) message] The system which generated this result transmit thae reference range : 4.20 - 10.70 10*3/?L. The reference range was not used to interpret this result as normal/abnormal . RBC (test code = See_Comment L [Automated 789-8) message] The system which generated this result transmit thea reference range : 4.26 - 5.52 10*6/?L. [...] RDW-SD (test code = 49.1 fL 38.5-51.6 32697-6) RDW-CV (test code = 14.7 % 12.1-15.4 788-0) PLT (test code = See_Comment [Automated 777-3) message] The system which generated this result transmit thea reference range : 150 - 328 10*3/ ?L. The reference range was not u sed to interpret th is result as normal/abnormal . MPV (test code = 11.0 fL 9.8-13 64629-2) NRBC/100 WBC (test See_Comment [Automat ed code = 1015332977) message] The system which generated this result transmit thea reference range : 0.0 - 10.0 /100 WBCs. The reference range was not used to interpret this result as normal/abnormal . NRBC x10^3 (test code <0.01 See_Comment [Auto mated = 2532071004) message] The system which generated this result transmit thea reference range : 10*3/?L. The reference range was not used to interpret this result as normal/abnormal . GRAN MAT (NEUT) % 81.2 % (test code = 770-8) IMM GRAN % (test code 0.80 % = 4517709684) LYMPH % (test code = 9.1 % 736-9) MONO % (test code = 8.5 % 5905-5) EOS % (test code = 0.1 % 713-8) BASO % (test code = 0.3 % 706-2) GRAN MAT x10^3(ANC) 15.41 10*3/uL 1.99-6.95 H (test code = 1607586331) IMM GRAN x10^3 (test 0.16 10*3/uL 0-0.06 H code = 7259402717) LYMPH x10^3 (test code 1.72 10*3/uL 1.09-3.23 = 731-0) MONO x10^3 (test code 1.62 10*3/uL 0.36-1.02 H = 742-7) EOS x10^3 (test code = <0.03 0.06-0.53 L 711-2) BASO x10^3 (test code 0.05 10*3/uL 0.01-0.09 = 704-7) Lab Interpretation Abnormal (test code = 96104-6) [facility] [id number] 12:50:00 Test Item Value Reference Range Interpretation Comments TROPONIN I (test 0.019 ng/mL See_Comment [Automated code = 2507511868) message] The system which generated this result [...] ? Lab Interpretation Normal (test code = 48667-5) [facility]AL [id number] 12:47:00 Test Item Value Reference Range Interpretation Comments NT-proBNP (test code 4740 pg/mL See_Comment H [Autom ated = 5907947252) message] The system which generated this result transmitted reference range : <=125. The reference range was not used to interpret this result as normal/abnormal . MANDO (test code = MANDO) Biotin has been reported to cause a negative bias, interpret results relative to patient's use of biotin. Lab Interpretation Abnormal (test code = 72817-0) [facility] HospitalCOMP. METABOLIC PANEL (33392)2020-05-13 12:39:00 Test Item Value Reference Range Interpretation Comments NA (test code = 133 mmol/L 135-145 L 4646352887) K (test code = 4.6 mmol/L 3.5-5 4134489456) CL (test code = 98 mmol/L 98-108 2837144408) CO2 TOTAL (test code = 25 mmol/L 23-31 7261103518) AGAP (test code = 2-16 7018391840) BUN (test code = 14 mg/dL 7-23 6114882281) GLUCOSE (test code = 143 mg/dL 70-110 H 8346546276) CREATININE (test code = 0.92 mg/dL 0.6-1.25 7878934853) TOTAL BILI (test code = 0.7 mg/dL 0.1-1.2 5982623876) CALCIUM (test code = 9.8 mg/dL 8.6-10.6 7330147300) T PROTEIN (test code = 6.9 g/dL 6.3-8.2 7347218235) ALBUMIN (test code = 3.2 g/dL 3.5-5 L 7608470750) ALK PHOS (test code = 78 U/L 34-122 6217608362) ALTv (test code = 11 U/L 5-50 1742-6) AST(SGOT) (test code = 19 U/L 13-40 8140435271) eGFR Calculation mL/min/1.73m2 (Non-) (test code = 1679250684) eGFR Calculation mL/min/1.73m2 () (test code = 5267408415) MANDO (test code = MANDO) Association of [...] tests). Lab Interpretation Abnormal (test code = 64429-9) [facility] HospitalSUMAN [id number] 05:27:00 Test Item Value Reference Range Interpretation Comments TROPONIN I (test 0.017 ng/mL See_Comment [Automated code = 8415125205) message] The system which generated this result [...] ? Lab Interpretation Normal (test code = 70244-4) [facility] HospitalOSMOLALITY [id number] 04:33:00 Test Item Value Reference Range Interpretation Comments OSMOLALITY (test code = See_Comment [Au tomated message] 9045501726) The system [employer] generated this result transmitted ref erence range: 278 - 30 5 mOsm/kg. The re ference range was not u sed to interpret this result as normal/abnor mal. Lab Interpretation (test Normal code = 43714-6) [facility] HospitalBASI METABOLIC PANEL (NA, K, CL, CO2, GLUCOSE, BUN, CREATININE, CA)2020-05-13 02:51:00 Test Item Value Reference Range Interpretation Comments NA (test code = 133 mmol/L 135-145 L 7848796477) K (test code = 4.9 mmol/L 3.5-5 1284659869) CL (test code = 101 mmol/L 98-108 6947105336) CO2 TOTAL (test code = 25 mmol/L 23-31 1858048077) AGAP (test code = 2-16 0189656929) BUN (test code = 15 mg/dL 7-23 1741320788) GLUCOSE (test code = 143 mg/dL 70-110 H 6010904218) CREATININE (test code = 0.99 mg/dL 0.6-1.25 8017504109) CALCIUM (test code = 9.1 mg/dL 8.6-10.6 6967181030) eGFR Calculation mL/min/1.73m2 (Non-) (test code = 0540268313) eGFR Calculation mL/min/1.73m2 () (test code = 7873391091) MANDO (test code = MANDO) Association of [...] tests). Lab Interpretation Abnormal (test code = 50267-1) [facility] HospitalSUMAN [id number] 22:31:00 Test Item Value Reference Range Interpretation Comments TROPONIN I (test 0.014 ng/mL See_Comment [Automated code = 7482080426) message] The system which generated this result [...] ? Lab Interpretation Normal (test code = 72961-1) [facility] HospitalLEGIONELLA URINARY ANTIGEN [id number] 21:35:00 Test Item Value Reference Range Interpretation Comments Legionella Urinary Negative Negative Antigen (test code = 7829485823) MANDO (test code = MANDO) Negative for [...] test. Lab Interpretation (test Normal code = 86406-0) [facility] HospitalPNEUMOCOCCAL [id number] 21:35:00 Test Item Value Reference Range Interpretation Comments S. pneumoniae antigen (test code = Negative Negative 6881850384) Lab Interpretation (test code = Normal 22352-0) [facility] HospitalOSMOLALITY [id number] 21:21:00 Test Item Value Reference Range Interpretation Comments OSMO U (test code = See_Comment [Automa thea message] 9651725270) The system [employer] generated this result transmitted ref erence range: 50-1,100 mOsm/kg. The re ference range was not u sed to interpret this result as normal/abnor mal. Lab Interpretation (test Normal code = 53171-9) [facility] HospitalPROCALCITONIN2020-10-09 20:42:00 Test Item Value Reference Range Interpretation Comments Procalcitonin (test 0.19 ng/mL <0.07 H code = 3205456054) MANDO (test code = MANDO) INTERPRETATION OF [...] lung abscess/empyema. For further information please refer to:[email or web address] Lab Interpretation Abnormal (test code = 23130-3) [facility] HospitalUREA NITROGEN, URINE [id number] 20:40:00 Test Item Value Reference Range Interpretation Comments UREA N UR (test code = 3869964013) 298 mg/dL [facility] HospitalPO[facility] GLU[facility]SE (AUT[facility]ATED)2020-05-12 16:54:00 Test Item Value Reference Range Interpretation Comments POCT GLU (test code = 6860940279) 163 mg/dL 70-110 H Lab Interpretation (test code = Abnormal 64579-5) [facility] HospitalCT ANGIOGRAM ABDOMEN/[id number] 15:19:48 1. ?No aortic dissection, penetrating ulcer, [...] the patient has had asubtotal cholecystectomy.RL: [facility] CREAT RATIO URINE [id number] 15:05:00 Test Item Value Reference Range Interpretation Comments T. PROT U (test code 10 mg/dL = 2888-6) CREAT U (test code = 94.2 mg/dL 9601682296) Protein/Creatinine 0.0-2.0 Ratio Urine (test code = 7377235661) MANDO (test code = MANDO) Random Urine Total Protein Reference Ranges Random Specimen: ? Less than 10 mg/dLFirst Morning Specimen: ? ?Less than 20 mg/dL ? [facility] HospitalSODIUM, URINE [id number] 15:01:00 Test Item Value Reference Range Interpretation Comments NA URINE (test code = 1981511591) 5 mmol/L [facility] HospitalCBC WITH [id number] 14:17:00 Test Item Value Reference Range Interpretation Comments WBC (test code = See_Comment H [Automated 6690-2) message] The system which generated this result transmit thea reference range : 4.20 - 10.70 10*3/?L. The reference range was not used to interpret this result as normal/abnormal . RBC (test code = See_Comment L [Automated 789-8) message] The system which generated this result transmit thea reference range : 4.26 - 5.52 10*6/?L. [...] RDW-SD (test code = 48.0 fL 38.5-51.6 69244-4) RDW-CV (test code = 14.9 % 12.1-15.4 788-0) PLT (test code = See_Comment [Automated 777-3) message] The system which generated this result transmit thea reference range : 150 - 328 10*3/ ?L. The reference range was not u sed to interpret th is result as normal/abnormal . MPV (test code = 11.5 fL 9.8-13 36339-7) NRBC/100 WBC (test See_Comment [Automat ed code = 6320096450) message] The system which generated this result transmit thea reference range : 0.0 - 10.0 /100 WBCs. The reference range was not used to interpret this result as normal/abnormal . NRBC x10^3 (test code <0.01 See_Comment [Auto mated = 5479236187) message] The system which generated this result transmit thea reference range : 10*3/?L. The reference range was not used to interpret this result as normal/abnormal . GRAN MAT (NEUT) % 81.8 % (test code = 770-8) IMM GRAN % (test code 0.40 % = 0376907195) LYMPH % (test code = 8.8 % 736-9) MONO % (test code = 8.8 % 5905-5) EOS % (test code = 0.0 % 713-8) BASO % (test code = 0.2 % 706-2) GRAN MAT x10^3(ANC) 15.78 10*3/uL 1.99-6.95 H (test code = 3635316183) IMM GRAN x10^3 (test 0.08 10*3/uL 0-0.06 H code = 4872542697) LYMPH x10^3 (test code 1.70 10*3/uL 1.09-3.23 = 731-0) MONO x10^3 (test code 1.69 10*3/uL 0.36-1.02 H = 742-7) EOS x10^3 (test code = <0.03 0.06-0.53 L 711-2) BASO x10^3 (test code 0.03 10*3/uL 0.01-0.09 = 704-7) Lab Interpretation Abnormal (test code = 42196-2) [facility] [id number] 14:02:00 Test Item Value Reference Range Interpretation Comments TROPONIN I (test 0.014 ng/mL See_Comment [Automated code = 6085138737) message] The system which generated this result [...] ? Lab Interpretation Normal (test code = 48219-1) [facility] HospitalURINALYSIS2020-10-09 14:02:00 Test Item Value Reference Range Interpretation Comments APPEARANCE (test code = Clear Clear 8132133768) COLOR (test code = Yellow Yellow 4119459585) PH (test code = 4.8-8.0 3891330191) SP GRAVITY (test code = <=1.005 1.003-1.030 8406886137) GLU U QUAL (test code = Negative Negative 2506431233) BLOOD (test code = Negative Negative 4831931386) KETONES (test code = Negative Negative 8624479513) PROTEIN (test code = Negative Negative 2887-8) UROBILIN (test code = 0.2 mg/dL See_Comment [Auto mated message] 1445072511) The system [employer] generated this result transmit thea reference range : 0-1.0 mg/dL. Th e reference range was not used to interpret this result as normal/abnormal . BILIRUBIN (test code = Negative Negative 1971844260) NITRITE (test code = Positive Negative A 4686409275) LEUK MAYA (test code = Negative Negative 1859031065) RBC/HPF (test code = See_Comment H [Autom ated message] 6476486502) The system [employer] generated this result transmit thea reference range : 0 - 3 HPF. The refe rence range was not u sed to interpret th is result as normal/abnormal . WBC/HPF (test code = See_Comment H [Autom ated message] 0797935131) The system [employer] generated this result transmit thea reference range : 0 - 5 HPF. The refe rence range was not u sed to interpret th is result as normal/abnormal . BACTERIA (test code = Moderate Negative A 1334260802) MUCOUS (test code = Slight Negative LPF A 0334372379) SQ EPITH (test code = HPF 7423149399) Lab Interpretation (test Abnormal code = 36707-9) [facility] HospitalN-TERMINAL [id number] 13:58:00 Test Item Value Reference Range Interpretation Comments NT-proBNP (test code 2430 pg/mL See_Comment H [Autom ated = 4551422331) message] The system which generated this result transmitted reference range : <=125. The reference range was not used to interpret this result as normal/abnormal . MANDO (test code = MANDO) Biotin has been reported to cause a negative bias, interpret results relative to patient's use of biotin. Lab Interpretation Abnormal (test code = 52527-9) [facility] HospitalDIGOXIN2020-10-09 13:52:00 Test Item Value Reference Range Interpretation Comments DIGOXIN (test code = 0.5 ng/mL 0.8-1.6 L 7974496496) MANDO (test code = MANDO) Arrythmias: ?1.5 - 2.0 ng/mLToxic Range: ? Greater than or equal to 2.4 ng/mL Lab Interpretation (test Abnormal code = 36088-8) [facility] HospitalCOMP. METABOLIC PANEL (27957)2020-05-12 13:50:00 Test Item Value Reference Range Interpretation Comments NA (test code = 132 mmol/L 135-145 L 7525324450) K (test code = 5.8 mmol/L 3.5-5 H 9888373349) CL (test code = 98 mmol/L 98-108 6281127721) CO2 TOTAL (test code = 22 mmol/L 23-31 L 2402077158) AGAP (test code = 2-16 7711010523) BUN (test code = 14 mg/dL 7-23 8520112363) GLUCOSE (test code = 189 mg/dL 70-110 H 1162835569) CREATININE (test code = 0.86 mg/dL 0.6-1.25 3745149874) TOTAL BILI (test code = 0.8 mg/dL 0.1-1.8 0130441964) CALCIUM (test code = 9.5 mg/dL 8.6-10.6 0038402605) T PROTEIN (test code = 7.4 g/dL 6.3-8.2 2247297712) ALBUMIN (test code = 3.5 g/dL 3.5-5 5170069348) ALK PHOS (test code = 68 U/L 34-122 4208534593) ALTv (test code = 11 U/L 5-50 1742-6) AST(SGOT) (test code = 28 U/L 13-40 8575860711) eGFR Calculation mL/min/1.73m2 (Non-) (test code = 6600571121) eGFR Calculation mL/min/1.73m2 () (test code = 6138305490) MANDO (test code = MANDO) Association of [...] tests). Lab Interpretation Abnormal (test code = 67564-3) [facility] HospitalCT CHEST PULMONARY [id number] 12:59:25 1. ?No evidence of pulmonary embolism. [...] reviewed this studyand agree with theabove report. [facility] HospitalPOCT GLUCOSE (AUTOMATED)2020-05-12 12:55:00 Test Item Value Reference Range Interpretation Comments POCT GLU (test code = 7676103691) 216 mg/dL 70-110 H Lab Interpretation (test code = Abnormal 92051-8) [facility] [id number] 12:04:00 Test Item Value Reference Range Interpretation Comments LDH (test code = 7191158468) 317 U/L 300-600 Lab Interpretation (test code = Normal 16365-9) [facility] HospitalPROTHROMBIN TIME / [id number] 11:45:00 Test Item Value Reference Range Interpretation Comments PROTIME PATIENT (test See_Comment H [Auto mated message] code = 5964-2) The system [employer] generated this result transmitted ref erence range: 12.0 - 1 4.7 Seconds. The reference range was not used to int erpret this result as normal/abnormal . INR (test code = 6301-6) Nor mal INR <1.1; Warfarin Therap eutic range 2.0 to 3. 0 or 2.5 to 3.5, dep ending upon the indica tions. Lab Interpretation (test Abnormal code = 58646-8) [facility] HospitalTHYROID STIMULATING [id number] 11:32:00 Test Item Value Reference Range Interpretation Comments TSH (test code = See_Comment [Automated message] 7923607557) The system [employer] generated this result transmitted ref erence range: 0.45 - 4 .70 mIU/L. The refe rence range was not u sed to interpret this result as normal/abnor mal. Lab Interpretation (test Normal code = 12810-4) [facility] HospitalGLYCOSYLATED HEMOGLOBIN (A1C)2020-05-12 11:30:00 Test Item Value Reference Range Interpretation Comments HGB A1C (test code = 9.3 % 4-6 H 4548-4) MANDO (test code = MANDO) %A1C (NGSP) Interpretation (ADA)4.8-5.6 ? ? Normal or (Non-Diabetic Range)5.7-6.4 ? ? Increased Risk (Pre-Diabetic)>6.5 ?Diabetes Indicated Lab Interpretation Abnormal (test code = 87159-7) [facility] [id number] 11:22:00 Test Item Value Reference Range Interpretation Comments LACTIC ACID (test code = 2.07 mmol/L 0501765547) [facility] HospitalCREATINE [id number] 11:18:00 Test Item Value Reference Range Interpretation Comments CK (test code = 0007715005) <20 33-194 L Lab Interpretation (test code = Abnormal 40589-0) [facility] HospitalLIPID PANEL (98063)(TOTAL CHOLESTEROL, TRIGLYCERIDES, HDL)2020-05-12 11:02:00 Test Item Value Reference Range Interpretation Comments CHOL (test code = 120 mg/dL 120-200 3179857366) HDL (test code = 22 mg/dL >40 L 1618719659) HDLC RATIO (test code = See_Comment H [Au tomated message] 2862929624) The system [employer] generated this result transmit thea reference range : <=5.0. The refe rence range was not u sed to interpret th is result as normal/abnormal . TRIG (test code = 172 mg/dL 30-170 H 3721963938) LDL CHOL (test code = 64 mg/dL See_Comment [Auto mated message] 89870-9) The system [employer] generated this result transmit thea reference range : <=160. The refe rence range was not u sed to interpret th is result as normal/abnormal . VLDL (test code = 34 mg/dL 5-60 9746190785) Lab Interpretation (test Abnormal code = 54955-1) [facility] HospitalLIPASE2020-10-09 11:01:00 Test Item Value Reference Range Interpretation Comments LIPASE (test code = 1395217336) 35 U/L 0-220 Lab Interpretation (test code = Normal 73326-1) [facility] HospitalMAGNESIUM2020-10-09 11:01:00 Test Item Value Reference Range Interpretation Comments MAGNESIUM (test code = 1647491526) 1.8 mg/dL 1.7-2.4 Lab Interpretation (test code = Normal 91933-9) [facility] HospitalPHOSPHORUS2020-10-09 11:01:00 Test Item Value Reference Range Interpretation Comments PHOSPHORUS (test code = 5703161071) 2.6 mg/dL 2.5-5 Lab Interpretation (test code = Normal 37886-4) [facility] HospitalURIC [id number] 11:01:00 Test Item Value Reference Range Interpretation Comments URIC ACID (test code = 6493637350) 5.9 mg/dL 3.6-8 Lab Interpretation (test code = Normal 13957-1) [facility] HospitalHEPATIC FUNCTION PANEL (29580) (ALB,T.PRO,BILI T,BU/BC,ALT,AST,ALK PHOS)2020-05-12 11:01:00 Test Item Value Reference Range Interpretation Comments TOTAL BILI (test code = 4330185028) 0.7 mg/dL 0.1-1.1 BILI UNCON (test code = 7582232239) 0.6 mg/dL 0.1-1.1 BILI CONJ (test code = 8611875313) 0.0 mg/dL 0-0.3 T PROTEIN (test code = 1504773247) 8.1 g/dL 6.3-8.2 ALBUMIN (test code = 0252986053) 3.7 g/dL 3.5-5 ALK PHOS (test code = 6667586652) 71 U/L 34-122 ALTv (test code = 1742-6) 12 U/L 5-50 AST(SGOT) (test code = 3982572636) 26 U/L 13-40 Lab Interpretation (test code = Normal 86746-6) [facility] HospitalXR CHEST 1 [id number] 07:15:48 Cardiomegaly with suspected mild pulmonary edema. [...] this study and agree with theabove report. [facility] HospitalCOVID-19 (ID NOW RAPID TESTING)2020-05-12 04:46:00 Test Item Value Reference Range Interpretation Comments SARS-CoV-2 Rapid ID NOW Not Detected Not Detected (test code = 74767-2) MANDO (test code = MANDO) ID NOW COVID-19 Assay is an isothermal nucleic acid amplification test intended for the qualitative detection of nucleic acid from SARS-CoV-2 viral RNA in nasopharyngeal ([employer]) specimens. It is used under Emergency Use [...] indicated. Lab Interpretation Normal (test code = 62300-9) [facility] HospitalN-TERMINAL [id number] 04:41:00 Test Item Value Reference Range Interpretation Comments NT-proBNP (test code 1650 pg/mL See_Comment H [Autom ated = 3864996183) message] The system which generated this result transmitted reference range : <=125. The reference range was not used to interpret this result as normal/abnormal . MANDO (test code = MANDO) Biotin has been reported to cause a negative bias, interpret results relative to patient's use of biotin. Lab Interpretation Abnormal (test code = 87746-2) [facility] HospitalTROPONIN [id number] 04:10:00 Test Item Value Reference Range Interpretation Comments TROPONIN I (test 0.015 ng/mL See_Comment [Automated code = 4433235166) message] The system which generated this result [...] ? Lab Interpretation Normal (test code = 46346-5) [facility] HospitalD-[id number] 04:08:00 Test Item Value Reference Interpretation Comments Range D-DIMER (test code = See_Comment H [Autom ated 3086509272) message] The system which generated this result [...] diagnosis. Lab Interpretation Abnormal (test code = 44281-8) [facility] METABOLIC PANEL (NA, K, CL, CO2, GLUCOSE, BUN, CREATININE, CA)2020-05-12 03:58:00 Test Item Value Reference Range Interpretation Comments NA (test code = 131 mmol/L 135-145 L 7180380739) K (test code = 5.4 mmol/L 3.5-5 H 7057307307) CL (test code = 95 mmol/L 98-108 L 3465957430) CO2 TOTAL (test code = 28 mmol/L 23-31 5095017973) AGAP (test code = 2-16 0562072862) BUN (test code = 14 mg/dL 7-23 1347290768) GLUCOSE (test code = 200 mg/dL 70-110 H 8981622372) CREATININE (test code = 0.77 mg/dL 0.6-1.25 2628139561) CALCIUM (test code = 9.9 mg/dL 8.6-10.6 5417828147) eGFR Calculation mL/min/1.73m2 (Non-) (test code = 0268996636) eGFR Calculation mL/min/1.73m2 () (test code = 1882474367) MANDO (test code = MANDO) Association of [...] tests). Lab Interpretation Abnormal (test code = 34380-9) [facility] WITH [id number] 03:45:00 Test Item Value Reference Range Interpretation Comments WBC (test code = See_Comment H [Automated 6788-2) message] The system which generated this result transmit thea reference range : 4.20 - 10.70 10*3/?L. The reference range was not used to interpret this result as normal/abnormal . RBC (test code = See_Comment [Automated 110-8) message] The system which generated this result transmit thea reference range : 4.26 - 5.52 10*6/?L. [...] RDW-SD (test code = 46.8 fL 38.5-51.6 36290-7) RDW-CV (test code = 14.6 % 12.1-15.4 788-0) PLT (test code = See_Comment [Automated 777-3) message] The system which generated this result transmit thea reference range : 150 - 328 10*3/ ?L. The reference range was not u sed to interpret th is result as normal/abnormal . MPV (test code = 11.4 fL 9.8-13 66707-6) NRBC/100 WBC (test See_Comment [Automat ed code = 0635126846) message] The system which generated this result transmit thea reference range : 0.0 - 10.0 /100 WBCs. The reference range was not used to interpret this result as normal/abnormal . NRBC x10^3 (test code <0.01 See_Comment [Auto mated = [id number]) message] The system which generated this result transmit thea reference range : 10*3/?L. The reference range was not used to interpret this result as normal/abnormal . GRAN MAT (NEUT) % 78.4 % (test code = 770-8) IMM GRAN % (test code 0.70 % = [id number]) LYMPH % (test code = 12.6 % 736-9) MONO % (test code = 7.9 % 5905-5) EOS % (test code = 0.1 % 713-8) BASO % (test code = 0.3 % 706-2) GRAN MAT x10^3(ANC) 12.93 10*3/uL 1.99-6.95 H (test code = 9362459671) IMM GRAN x10^3 (test 0.12 10*3/uL 0-0.06 H code = 6970239910) LYMPH x10^3 (test code 2.08 10*3/uL 1.09-3.23 = 731-0) MONO x10^3 (test code 1.31 10*3/uL 0.36-1.02 H = 742-7) EOS x10^3 (test code = <0.03 0.06-0.53 L 711-2) BASO x10^3 (test code 0.05 10*3/uL 0.01-0.09 = 704-7) Lab Interpretation Abnormal (test code = 61463-9) [facility]
[2022-01-14 16:40] LABS: Absolute Lymphocytes (CBC) 1.2 K/uL (0.7-4.9); Hematocrit 26.7 % (39.6-49.0); Lymphocytes % 19.1 % (15.3-44.8); MPV 8.3 fL (7.6-11.3); RBC Red Blood Cell Count 3.04 M/uL (4.33-5.43)
[2022-01-14 16:46] LABS: Protime INR 1.36
--- NOTE | 2022-01-14 17:04 | RAD REPORT ---
EXAM DESCRIPTION: RAD - Chest Single View - 01/14/2022 4:56 pm CLINICAL HISTORY: DYSPNEA Chest pain. COMPARISON: Chest Single View dated 08/16/2018; Thorax Wo Con dated 01/05/2022 FINDINGS: Portable technique limits examination quality. Mild bilateral pulmonary opacities are present likely pulmonary edema. Haziness in the right lung bas e likely related to atelectasis. Trace bilateral pleural fluid. The heart is moderately enlarged. Mckinley rnotomy wires are present. Dual lead pacer/defibrillator device. IMPRESSION: Mild to moderate CHF pattern.
[2022-01-14 17:53] LABS: Albumin 2.7 g/dL (3.4-5.0); Bilirubin Total 0.4 mg/dL (0.2-1.0); Potassium 4.5 mmol/L (3.5-5.1); Protein, Total 6.6 g/dL (6.4-8.2); Troponin High Sensitivity 19.1 pg/mL (<58.9)
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
[2022-01-14] MEDS ORDERED: PANTOPRAZOLE 40 MG INJ ONE (19:20)
[2022-01-14] MEDS ORDERED: NA CHLORIDE 0.9% 250 ML ONE (19:20)
--- NOTE | 2022-01-14 19:57 | P.HP ---
Certification for Inpatient Patient admitted to: Inpatient With expected LOS: >2 Midnights Patient will require the following post-hospital care: None Practitioner: I am a practitioner with admitting privileges, knowledge of patient current condition, hospital course, and medical plan of care. 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 Crowell who performed EGD- noted to have multiple esophageal ulcers (pill esophagitis suspected with the culprit likely iron tablets). He was discharged with prescription for protonix and sucralfate. He returned to the ED about 2 weeks ago with similar complaints and was transferred as we did not have GI. He returns today for the same complaints. Labs significant for hemoglobin 7.9 (5.9 previous admission), hematocrit 26.7, platelets 220. Occult blood positive. CXR showed mild CHF. He was started on protonix drip. Will admit patient for further evaluation and treatment with GI consulting. Allergies prednisone Allergy (Verified 08/17/18 02:13) "It makes my defibullator go off." Home Medications: Atorvastatin Calcium [Lipitor*] 10 mg PO DAILY 08/17/18 Cholecalciferol (Vitamin D3) [Vitamin D 400 IU TAB*] 2 tab PO DAILY 08/17/18 Hydrocodone 10/APAP 325 [Hume 10/325*] 1 tab PO Q4HP PRN 08/17/18 Venlafaxine HCl [Effexor*] 75 mg PO DAILY 08/17/18 diazePAM [Valium*] 10 mg PO TIDP PRN 08/17/18 Amiodarone HCl [Cordarone*] 200 mg PO DAILY 12/19/21 Gabapentin 300 mg PO TID 12/19/21 Pantoprazole [Protonix Tab*] 40 mg PO BID #60 tab 12/20/21 Sucralfate [Carafate*] 10 ml PO ACHS #414 ml 12/20/21 - Past Medical/Surgical History Diabetic: No -: HTN -: Pacemaker/Defibrilator -: paraplegia -: Anemia -: [place] -: hyperlipidemia -: atrial fibrillation -: CABG -: Demar cataract sx Psychosocial/ Personal History: Patient lives at home with his . - Social History Smoking Status: Current every day smoker Alcohol use: No CD- Drugs: No Caffeine use: Yes Place of Residence: Home Review of Systems General: Weakness, Other (Fatigue) Physical Examination - Physical Exam General: Alert, In no apparent distress, Other (calm, pale) HEENT: Atraumatic, PERRLA, EOMI Neck: Supple, 2+ carotid pulse no bruit, No LAD, Without JVD or thyroid abnormality Respiratory: Clear to auscultation bilaterally, Normal air movement Cardiovascular: Regular rate/rhythm, Normal S1 S2 Gastrointestinal: Normal bowel sounds, No tenderness Musculoskeletal: No tenderness Integumentary: No rashes Neurological: Normal speech, Normal affect - Studies Laboratory Data (last 24 hrs) 01/14/22 17:18: PT 15.1 H, INR 1.36, APTT 31.0 01/14/22 17:18: Sodium 134 L, Potassium 4.5, BUN 13, Creatinine 0.81, Glucose 155 H, Total Bilirubin 0.4, AST 11 L, ALT 12, Alkaline Phosphatase 48 01/14/22 16:26: WBC 6.1 D, Hgb 7.9 L D, Hct 26.7 L D, Plt Count 220 D Microbiology Data (last 24 hrs): 01/14/22 17:43 Stool Occult Blood - Final Assessment and Plan - Problems (Diagnosis) (1) Esophageal ulcer Current Visit: Yes Status: Chronic Qualifiers: Esophageal ulcer bleeding: with bleeding Qualified Code(s): K22.11 - Ulcer of esophagus with bleeding (2) Acute blood loss anemia Current Visit: Yes Status: Acute (3) CAD (coronary artery disease) Current Visit: Yes Status: Chronic Qualifiers: Coronary Disease-Associated Artery/Lesion type: unspecified vessel or lesion type [place] vs. transplanted heart: [place] heart Associated angina: without angina Qualified Code(s): I25.10 - Atherosclerotic heart disease of [place] coronary artery without angina pectoris (4) HTN (hypertension) Current Visit: Yes Status: Chronic Qualifiers: Hypertension type: primary hypertension Qualified Code(s): I10 - Essential (primary) hypertension (5) Paraplegia, unspecified Current Visit: Yes Status: Chronic - Plan -GI consulted. Patient reports GI was planning to do colonoscopy. NPO at midnight for possible colonoscopy tomorrow. -Monitor H&H closely. Transfuse if hemoglobin drops < 7. Type and screen completed. -Continue Protonix drip -Monitor on telemetry -Reconcile and continue home medication as appropriate -SCDs for DVT ppx Discharge Plan: Home Plan to discharge in: Greater than 2 days - Advance Directives Does patient have a Living Will: No Does patient have a Durable POA for Healthcare: Yes - Code Status/Comfort Care Code Status Assessed: Yes (Full) Critical Care: No Time Spent Managing Pts Care (In Minutes): 50
[2022-01-14] MEDS ORDERED: PANTOPRAZOLE INJ 80 MG in NA CHLORIDE 0.9% 250 ML IV SCH (22:44)
[2022-01-14] MEDS ORDERED: ONDANSETRON 4 MG/2 ML VIAL IV PRN (22:44)
[2022-01-14] MEDS ORDERED: ACETAMINOPHEN 500 MG TAB PO PRN (22:44)
[2022-01-14 23:22] VITALS: BMI 28.8
[2022-01-15 00:42] LABS: Hematocrit 29.4 % (39.6-49.0)
[2022-01-15 05:45] LABS: Absolute Lymphocytes (CBC) 1.8 K/uL (0.7-4.9); Hematocrit 29.8 % (39.6-49.0); Lymphocytes % 29.1 % (15.3-44.8); MPV 9.1 fL (7.6-11.3); RBC Red Blood Cell Count 3.44 M/uL (4.33-5.43)
[2022-01-15 06:24] LABS: Magnesium 2.1 mg/dL (1.8-2.4); Phosphorus 2.5 mg/dL (2.5-4.9); Potassium 4.5 mmol/L (3.5-5.1)
[2022-01-15] MEDS: PANTOPRAZOLE INJ 80 MG in NA CHLORIDE 0.9% 250 ML IV SCH ×2 (09:01→22:48)
--- NOTE | 2022-01-15 11:07 | EKG ---
Test Date: 2022-01-14 Test Time: 16:33:37 Pest Control Service Technician: NICO MEASUREMENT RESULTS: Intervals: Rate: 55 TN: 242 QRSD: 160 QT: 512 QTc: 489 Farrell: P: 91 TN: 242 QRS: 96 T: 29 INTERPRETIVE STATEMENTS: AV dual-paced rhythm with prolonged AV conduction Abnormal ECG Compared to ECG 01/05/2022 14:19:10 Atrial premature complex(es) no longer present Myocardial infarct finding no longer present Electronically Signed On 01-15-22 11:04:58 CDT by Pablo Mann
[2022-01-15] MEDS: HYDROCODONE/APAP 10/325 TAB PO PRN ×2 (14:27→19:53)
[2022-01-15] MEDS ORDERED: MAGNESIUM CITRATE 300 ML BOT PO SCH (16:00)
[2022-01-15] MEDS ORDERED: GOLYTELY 4000 ML PO SCH (16:00)
[2022-01-15] MEDS ORDERED: METOCLOPRAMIDE 10 MG/2mL INJ IV SCH (16:00)
[2022-01-15] MEDS ORDERED: NA CHLORIDE 0.9% 250 ML ONE (22:46)
[2022-01-15] MEDS ORDERED: PANTOPRAZOLE 40 MG INJ ONE (22:47)
[2022-01-16] MEDS ORDERED: NA CHLORIDE 0.9% 250 ML ONE (05:31)
[2022-01-16] MEDS ORDERED: PANTOPRAZOLE 40 MG INJ ONE (05:33)
[2022-01-16] MEDS: PANTOPRAZOLE INJ 80 MG in NA CHLORIDE 0.9% 250 ML IV SCH (06:05)
[2022-01-16 06:17] LABS: Absolute Lymphocytes (CBC) 1.3 K/uL (0.7-4.9); Hematocrit 30.7 % (39.6-49.0); Lymphocytes % 24.2 % (15.3-44.8); MPV 8.2 fL (7.6-11.3); RBC Red Blood Cell Count 3.54 M/uL (4.33-5.43)
[2022-01-16] MEDS ORDERED: Ringers Lactate 1,000 ML IV ONE (07:19)
[2022-01-16] MEDS ORDERED: LIDOCAINE 1% MPF 5 ML VIAL ONE (07:55)
[2022-01-16] MEDS ORDERED: Phenylephrine HCl 10 MG/ML 1 ML VIAL ONE (07:55)
[2022-01-16] MEDS ORDERED: propofoL 200 MG/20 ML VIAL IV ONE (07:55)
[2022-01-16] MEDS ORDERED: NS 0.9% VIAL 10 ML ONE (07:55)
[2022-01-16] MEDS ORDERED: GLYCOPYRROLATE 0.2 MG/ML SYR ONE (07:56)
[2022-01-16] MEDS ORDERED: EPINEPHRINE/PF 1 MG/ML AMP ONE (08:02)
--- NOTE | 2022-01-16 08:14 | ENDO RPT ---
[address], [address] EGD PROCEDURE REPORT EXAM DATE: 01/16/2022 PATIENT NAME: Jose Mckeon MR#: [id number] BIRTHDATE: 1945 ATTENDING: [address]ver [address] STATUS: inpatient - [facility] REFRIGERATION TECHNICIAN: Wallace Lopez and Shwetha Black RN INDICATIONS: The patient is a 76 yr old Male here for an EGD due to melenic bleeding and anemia PROCEDURE PERFORMED: EGD with biopsy MEDICATIONS: Per Anesthesia. TOPICAL ANESTHETIC: none CONSENT: The patient understands the risks and benefits of the procedure and understands that these risks include, but are not limited to: sedation, allergic reaction, infection, perforation and/or bleeding. Alternative means of evaluation and treatment include, among others: physical exam, x-rays, and/or surgical intervention. The patient elects to proceed with this endoscopic procedure. DESCRIPTION OF PROCEDURE: During intra-op preparation period all mechanical medical equipment was checked for proper function. Hand hygiene and appropriate measures for infection prevention was taken. Procedure, possible complications, and alternatives including but not limited to the possibility of bleeding, perforation, tear, infection, sepsis, need for surgery, need for blood transfusion, and anesthesia related complications were explained to the patient. After the risks, benefits and alternatives of the procedure were thoroughly explained, Informed consent was verified, confirmed and timeout was successfully executed by the treatment team. The patient was placed in the left lateral position. The patient was anesthetized with topical anesthesia. Through the anesthetized oropharyngeal area, the scope was passed without any difficulty. The Pentax [id number] ([id number]) endoscope was introduced through the mouth and advanced to the third portion of the duodenum. Retroflexed views revealed no abnormalities. The gastroscope was then slowly withdrawn and removed. Mild gastritis was found in the antrum. Multiple biopsies were obtained and sent to pathology. ADVERSE EVENTS: There were no complications. IMPRESSIONS: Mild gastritis in the antrum, s/p biopsies RECOMMENDATIONS: 1. await biopsy results 2. acid suppression therapy REPEAT EXAM: Grover Henderson Dr eSigned: Grover Henderson Dr 01/16/2022 8:13 AM cc: Jer Stewart CPT CODES: ICD9 CODES: PATIENT NAME: Jose Mckeon MR#: [id number]
--- NOTE | 2022-01-16 08:44 | ENDO RPT ---
[address], [address] COLONOSCOPY PROCEDURE REPORT EXAM DATE: 01/16/2022 PATIENT NAME: Jose Mckeon MR #: [id number] BIRTHDATE: 1945 ATTENDING: Grover Henderson Dr STATUS: inpatient - 7 [employer]: Wallace Lopez and Shwetha Black RN INDICATIONS: The patient is a 76 yr old Male here for a colonoscopy due to melenic bleeding and anemia PROCEDURE PERFORMED: Colonoscopy with snare polypectomy MEDICATIONS: Per Anesthesia. ESTIMATED BLOOD LOSS: None CONSENT: The patient understands the risks and benefits of the procedure and understands that these risks include, but are not limited to: sedation, allergic reaction, infection, perforation and/or bleeding. Alternative means of evaluation and treatment include, among others: physical exam, x-rays, and/or surgical intervention. The patient elects to proceed with this endoscopic procedure. DESCRIPTION OF PROCEDURE: During intra-op preparation period all mechanical medical equipment was checked for proper function. Hand hygiene and appropriate measures for infection prevention was taken. Procedure, possible complications, alternatives including, but not limited to possibility of bleeding, perforation, tear, infection, sepsis, need for surgery, need for blood transfusion, were explained to the patient. After the risks, benefits and alternatives of the procedure were thoroughly explained, Informed consent was verified, confirmed and timeout was successfully executed by the treatment team. The patient was placed in the left lateral position. A digital rectal exam was performed and revealed an enlarged prostate. After appropriate level of anesthesia, the scope was passed. The [id number] ([id number]) endoscope was introduced through the anus and advanced to the cecum, which was identified by both the appendix and ileocecal valve. The quality of the prep was fair. The instrument was then slowly withdrawn as the colon was fully examined. Scope withdrawal time was 8 minutes. COLON FINDINGS: A smooth sessile polyp measuring 7 mm in size was found in the ascending colon. A polypectomy was performed using snare cautery. The resection was complete, the polyp tissue was completely retrieved and sent to histology. A smooth pedunculated polyp measuring 6 mm in size was found in the ascending colon. A polypectomy was performed using snare cautery. The resection was complete, the polyp tissue was completely retrieved and sent to histology. Mild diverticulosis was noted in the sigmoid colon. No bleeding was noted from the diverticulosis. Internal hemorrhoids were found. Retroflexed views revealed no abnormalities. The scope was then completely withdrawn from the patient and the procedure terminated. ADVERSE EVENTS: There were no complications. IMPRESSIONS: 1. 7 mm sessile polyp in the ascending colon; polypectomy was performed using cold snare cautery 2. 6 mm pedunculated polyp in the ascending colon; polypectomy was performed using hot snare cautery 3. Mild diverticulosis in the sigmoid colon 4. Internal hemorrhoids 5. Intubation to cecum RECOMMENDATIONS: 1. await biopsy results 2. avoid NSAIDS for 2 weeks 3. Small Bowel Follow Through 4. pillcam / capsule endoscopy RECALL: Return in 3 month(s) for Colonoscopy. [address]ver [address] Dr eSigned: Grover Henderson Dr 01/16/2022 8:44 AM cc: Jer Stewart CPT CODES: ICD9 CODES: 1. 600.0 Hypertrophy (benign) of prostate 2. 211.3 Benign neoplasm of colon PATIENT NAME: Jose Mckeon MR#: [id number]
[2022-01-16 09:31] VITALS: O2SAT 97
[2022-01-16] MEDS ORDERED: MORPHINE 2 MG/ML SYR IV ONE (11:07)
[2022-01-16] MEDS ORDERED: MORPHINE 2 MG/ML SYR ONE (11:19)
--- NOTE | 2022-01-16 12:13 | RAD REPORT ---
EXAM DESCRIPTION: RAD - Small Bowel Series - 01/16/2022 12:06 pm CLINICAL HISTORY: GI BLEED COMPARISON: Abdomen Pelvis Wo Contrast dated 01/05/2022 FINDINGS: Pulp Refiner Operator film shows a nonspecific bowel gas pattern. No obstruction or free air. No suspiciou s calcifications. Gastric size and mucosal fold pattern are normal. No delay in transit of contrast into the small henry l. Small bowel is normal in diameter with no mucosal fold thickening. No intrinsic or extrinsic mass identifiable. Terminal ileum has normal appearance. Transit time to the colon is 20 minutes. IMPRESSION: No small bowel abnormality identifiable. Transit time to the colon was 20 minutes.
--- NOTE | 2022-01-16 13:26 | CON ---
Date of Consultation: 01/15/2022 Reason For Consultation: GI bleed with melena, hemoglobin of approximately 8. History Of Present Illness: The patient is a 76-year-old white male with history of hypertension, my ocardial infarction, and prior GI bleeding approximately a month ago. The patient came to the hospit al due to melena, black tarry stools, generalized weakness and fatigue over the past month. He was h ere approximately a month ago, seen by Dr. Crowell for lower GI bleed at that time "transfused with 4 units of packed RBCs." EGD was performed, which showed multiple esophageal ulcers, thought to be s econdary to iron tablets. He was discharged on Protonix and sucralfate. He returned to the ER 2 wee ks ago with complaints of similar complaints and was transferred out to [place]. He had EGD. He says he had a bleeding peptic ulcer at that time. He returns today with melena again. He has labs s ignificant for hemoglobin of 7.9, previously 5.9 on previous admission, hematocrit 26.7, platelet cou nt 220. Heme-positive for below. Chest x-ray shows mild congestive heart failure, on Protonix drip. Past Medical History: Significant for hypertension, myocardial infarction, GI bleed secondary to pep tic ulcer disease and esophageal ulcers in the past, paraplegia, pacemaker, defibrillator, anemia, hy perlipidemia, atrial fibrillation, coronary artery disease status post CABG, and bilateral cataract s urgery. Medications: Include Lipitor, vitamin D3, [place], Effexor, Valium, Cordarone, gabapentin, Protonix, C arafate. Allergies: TO PREDNISONE. HE SAYS IT MAKES HIS DEFIBRILLATOR GO OFF. Social History: Lives at home with his and 3 children. No tobacco, but his chart says he is ev maria g day smoker. No alcohol. Family History: Father of myocardial infarction. Mother of COPD at the age of 53, he repo rts. Review of Systems: The patient has melena, but denies any nausea, vomiting, hematochezia, hematemesis, coffee-ground cm sis, hematuria, dysuria, polydipsia, epistaxis, fevers, chills, night sweats, heat or cold intoleranc e, muscle aches, joint aches, backaches, depression, anxiety, though he is on Valium and Effexor prob ably for his depression and anxiety. This was treated well on current medications. Physical Examination: Vital Signs: Temperature 97.1 degrees Fahrenheit, pulse 55, respirations 19, blood pressure 128/59, O2 saturation 100%. General: He is a well-nourished, well-developed male, lying in bed, in no acute distress. HEENT: Normocephalic, atraumatic. Anicteric. Pupils equal, round, and reactive to light. Extraocu lar movements are intact. Oropharynx is clear. Neck: Supple. No masses. Respirations: Slightly decreased breath sound at bases, but otherwise unremarkable. Cardiac: Regular rate and rhythm, but he has history of atrial fibrillation and heart rate controlle d. Abdomen: Positive bowel sounds. Soft, nontender, nondistended. No hepatosplenomegaly. Extremities: No clubbing or cyanosis. 2+ pulses. Mild edema in the lower extremities, 1 to 2+. Neuro: Alert and oriented x3. Grossly nonfocal. 5/5 motor. Sensation intact to light touch. Decr eased motor in the lower extremities, unable to move legs extremities well. Today, he is paraplegic. Laboratory Data: The patient has a white count of 6.2, hemoglobin of 8.9, hematocrit 29.8, MCV of 87 , platelet count of 230, polys of 60%. Admission hemoglobin was 7.9. PT of 15.1, INR of 1.36, PTT 3 1.0. Sodium 136 with potassium of 4.5, chloride 100, bicarb 25, BUN of 12, creatinine of 0.7, glucos e 125, calcium 8.7, phosphorus of 2.5, magnesium 2.1, total bilirubin 0.4, AST of 11, ALT 12, alkalin e phosphatase 48. Troponin I 19.1 . B-type natriuretic peptide elevated at 13,159. Total protein 6.6, albumin 2.7. Impression: 1.Gastrointestinal bleed and melena. Hemoglobin was 7.9 on admission, now 8.9. The patient will ne ed evaluation with EGD. The patient states he also would like colonoscopy since he has not had one. 2.History of hypertension, coronary artery disease, status post coronary artery bypass graft, depres ana and anxiety, on Effexor and Valium, peptic ulcer disease, esophageal ulcers in the past with gas trointestinal bleed. Recommendations: 1.Proceed with EGD and colonoscopy. 2.Continue resuscitation with IV fluids. 3.Check serial H and H and transfuse p.r.n. 4.PPI therapy. LACEY/TAMMIE Voice ID: [id number] Report ID: [id number]
[2022-01-16] MEDS ORDERED: PANTOPRAZOLE INJ 80 MG in NA CHLORIDE 0.9% 250 ML IV SCH (16:00)
[2022-01-16 16:37] VITALS: BP 133/73; TEMP 98
== END 2022-01-16 19:00 | disposition home or self-care (01) | DRG 378 ==
LOC: ER 15:23 → ERHOLD 19:35 → 3RD-ICU 20:40 → 2ND 01-15 18:10
PROVIDERS: ADMIT Hospitalist; ATTEND Hospitalist
PROC: 0DB68ZX Excision of Stomach, Via Natural or Artificial Opening Endoscopic, Diagnostic (ICD-10-PCS; principal; 2022-01-16 08:30)
PROC: 0DBK8ZX Excision of Ascending Colon, Via Natural or Artificial Opening Endoscopic, Diagnostic (ICD-10-PCS; 2022-01-16 08:30)
DX: K29.71 Gastritis, unspecified, with bleeding (principal); G82.20 Paraplegia, unspecified; D62 Acute posthemorrhagic anemia; I10 Essential (primary) hypertension; I25.10 Atherosclerotic heart disease of native coronary artery without angina pectoris; D12.2 Benign neoplasm of ascending colon; K63.5 Polyp of colon; K57.30 Diverticulosis of large intestine without perforation or abscess without bleeding; K64.8 Other hemorrhoids; F17.210 Nicotine dependence, cigarettes, uncomplicated; I25.2 Old myocardial infarction; Z95.1 Presence of aortocoronary bypass graft; Z95.810 Presence of automatic (implantable) cardiac defibrillator; Z20.822 Contact with and (suspected) exposure to COVID-19
CPT/HCPCS: 36415; 71045; 74250; 80048; 80053; 82272; 83735; 83880; 84100; 84484; 85014; 85018; 85025; 85610; 85730; 86850; 86900; 86901; 88305; 88312; 93005; 96365; 99285; C9113; J0171; J2270; J2370; J2405; J2704; J2765; J7050; J7120; U0003